=== PATIENT | male | born 1950 | race Caucasian/White ===

== ENCOUNTER 2017-09-20 11:27 | Inpatient (IN) | payer MEDICARE ==
[2017-09-20] MEDS ORDERED: SODIUM CHLORIDE 0.9% 1,000 ML IV STA (12:16)
[2017-09-20 12:34] LABS: Basophils % (A) 0 %; Eosinophils # (A) 0.2 k/uL (0-0.7); Eosinophils % (A) 3 %; HCT 38.4 % (39.0-53.0); HGB 13.5 gm/dL (13.0-17.5); Lymphocytes # (A) 1.7 k/uL (1.0-4.8); Lymphocytes % (A) 23 %; MCH 29.5 pg (25.0-35.0); MCHC 35.2 g/dL (31.0-37.0); MCV 83.9 fL (80.0-100.0); Mean Platelet Volume 7.1; Monocytes # (A) 0.4 k/uL (0-1.0); Monocytes % (A) 5 %; Neutrophils % (A) 67 %; Platelet Count 238 k/uL (150-450); RBC 4.58 m/uL (4.30-5.90); RDW 13.1 % (11.5-15.5); WBC 7.5 k/uL (3.8-10.6)
[2017-09-20 12:42] LABS: INR 0.9 (<1.2); Partial Thromboplastin Time 22.8 sec (22.0-30.0); Prothrombin Time 9.4 sec (9.0-12.0)
--- NOTE | 2017-09-20 12:45 | ED ---
General Adult HPI - General Chief complaint: Recheck/Abnormal Lab/Rx Stated complaint: weakness and numbness all over, head pain rt side Time Seen by Provider: 09/20/17 12:14 Source: patient, RN notes reviewed, old records reviewed Mode of arrival: ambulatory Limitations: no limitations - History of Present Illness Initial comments: This is a 67-year-old male to the ER for evaluation. This male presents ER for evaluation of multiple issues. Patient has history of heart disease. High blood pressure. Diabetes. Patient has recent diagnosis of right artery stenosis right carotid artery stenosis. Patient signed out AMA at Hospital he was supposed to procedure secondary to 8 hours lack of care and inappropriate care. Patient's symptoms are right-sided facial numbness right-sided facial weakness and generalized body weakness. Patient denies any new neurological symptoms - Related Data Home Medications Medication Instructions Recorded Confirmed Aspirin EC [Ecotrin Low Dose] 81 mg PO DAILY 09/20/17 09/20/17 Atenolol [Tenormin] 25 mg PO DAILY 09/20/17 09/20/17 Insulin Glargine,Hum.rec.anlog 68 unit SQ HS 09/20/17 09/20/17 [Lantus Solostar] Losartan Potassium [Cozaar] 100 mg PO DAILY 09/20/17 09/20/17 Multivitamins, Thera [Multivitamin 1 tab PO DAILY 09/20/17 09/20/17 (formulary)] [place]-3 Fatty Acids/Fish Oil [Fish 1 cap PO AC-BID 09/20/17 09/20/17 Oil 1,000 mg Softgel] Venlafaxine HCl [Effexor XR] 300 mg PO DAILY 09/20/17 09/20/17 Allergies Allergy/AdvReac Type Severity Reaction Status Date / Time atorvastatin [From Lipitor] Allergy Rash/Hives Verified 09/20/17 12:59 lisinopril Allergy Cough Verified 09/20/17 12:59 metformin Allergy Nausea & Verified 09/20/17 12:59 Vomiting & Diarrhea pioglitazone Allergy Unknown Verified 09/20/17 12:59 Review of Systems ROS Statement: Those systems with pertinent positive or pertinent negative responses have been documented in the HPI. ROS Other: All systems not noted in ROS Statement are negative. Past Medical History Past Medical History: Diabetes Mellitus, Hyperlipidemia, Hypertension History of Any Multi-Drug Resistant Organisms: None Reported Past Surgical History: Orthopedic Surgery Additional Past Surgical History / Comment(s): lt leg Past Psychological History: PTSD Smoking Status: Never smoker Past Alcohol Use History: Occasional Past Drug Use History: Marijuana General Exam - General Exam Comments Initial Comments: NIH of 0 Limitations: no limitations General appearance: alert, in no apparent distress Head exam: Present: atraumatic, normocephalic, normal inspection Eye exam: Present: normal appearance, PERRL, EOMI. Absent: scleral icterus, conjunctival injection, periorbital swelling ENT exam: Present: normal exam, mucous membranes moist Neck exam: Present: normal inspection. Absent: tenderness, meningismus, lymphadenopathy Respiratory exam: Present: normal lung sounds bilaterally. Absent: respiratory distress, wheezes, rales, rhonchi, stridor Cardiovascular Exam: Present: regular rate, normal rhythm, normal heart sounds. Absent: systolic murmur, diastolic murmur, rubs, gallop, clicks GI/Abdominal exam: Present: soft, normal bowel sounds. Absent: distended, tenderness, guarding, rebound, rigid Extremities exam: Present: normal inspection, full ROM, normal capillary refill. Absent: tenderness, pedal edema, joint swelling, calf tenderness Back exam: Present: normal inspection Neurological exam: Present: alert, oriented X3, CN II-XII intact Psychiatric exam: Present: normal affect, normal mood Skin exam: Present: warm, dry, intact, normal color. Absent: rash Course Vital Signs 09/20/17 11:35 Temperature 98.8 F Pulse Rate 78 Respiratory 20 Rate Blood Pressure 163/70 O2 Sat by Pulse 99 Oximetry - Reevaluation(s) Reevaluation #1: 09/20/17 14:10 Medical record request is made for all patient's outpatient studies from the Hospital see has been past week EKG Findings - EKG Comments: EKG Findings:: EKG shows normal sinus rhythm rate of 67, VA 198, QRS 86, QTc 405 Medical Decision Making - Medical Decision Making 67 male the ER for evaluation of right-sided facial numbness and paresthesia, denies weakness. Known history of right-sided carotid artery stenosis, will admit for neurological evaluation and treatment - Lab Data Result diagrams: 09/20/17 12:11 09/20/17 12:11 Lab Results 03/03/18 03/03/18 03/03/18 Range/Units 12:11 12:11 12:11 WBC 7.5 (3.8-10.6) k/uL RBC 4.58 (4.30-5.90) m/uL Hgb 13.5 (13.0-17.5) gm/dL Hct 38.4 L (39.0-53.0) % MCV 83.9 (80.0-100.0) fL MCH 29.5 (25.0-35.0) pg MCHC 35.2 (31.0-37.0) g/dL RDW 13.1 (11.5-15.5) % Plt Count 238 (150-450) k/uL Neutrophils % 67 % Lymphocytes % 23 % Monocytes % 5 % Eosinophils % 3 % Basophils % 0 % Neutrophils # 5.0 (1.3-7.7) k/uL Lymphocytes # 1.7 (1.0-4.8) k/uL Monocytes # 0.4 (0-1.0) k/uL Eosinophils # 0.2 (0-0.7) k/uL Basophils # 0.0 (0-0.2) k/uL PT (9.0-12.0) sec INR (<1.2) APTT (22.0-30.0) sec Sodium 138 (137-145) mmol/L Potassium 4.8 (3.5-5.1) mmol/L Chloride 105 (98-107) mmol/L Carbon Dioxide 24 (22-30) mmol/L Anion Gap 9 mmol/L BUN 18 (9-20) mg/dL Creatinine 0.70 (0.66-1.25) mg/dL Est GFR (MDRD) Af Amer >60 (>60 ml/min/1.73 sqM) Est GFR (MDRD) Non-Af >60 (>60 ml/min/1.73 sqM) Glucose 290 H (74-99) mg/dL Calcium 9.5 (8.4-10.2) mg/dL Phosphorus 3.9 (2.5-4.5) mg/dL Magnesium 1.9 (1.6-2.3) mg/dL Total Bilirubin 0.5 (0.2-1.3) mg/dL AST 27 (17-59) U/L ALT 35 (21-72) U/L Alkaline Phosphatase 85 (38-126) U/L Total Creatine Kinase 275 H (55-170) U/L CK-MB (CK-2) 3.9 H* (0.0-2.4) ng/mL CK-MB (CK-2) Rel Index 1.4 Troponin I <0.012 (0.000-0.034) ng/mL Total Protein 6.3 (6.3-8.2) g/dL Albumin 3.9 (3.5-5.0) g/dL 09/20/17 Range/Units 12:11 WBC (3.8-10.6) k/uL RBC (4.30-5.90) m/uL Hgb (13.0-17.5) gm/dL Hct (39.0-53.0) % MCV (80.0-100.0) fL MCH (25.0-35.0) pg MCHC (31.0-37.0) g/dL RDW (11.5-15.5) % Plt Count (150-450) k/uL Neutrophils % % Lymphocytes % % Monocytes % % Eosinophils % % Basophils % % Neutrophils # (1.3-7.7) k/uL Lymphocytes # (1.0-4.8) k/uL Monocytes # (0-1.0) k/uL Eosinophils # (0-0.7) k/uL Basophils # (0-0.2) k/uL PT 9.4 (9.0-12.0) sec INR 0.9 (<1.2) APTT 22.8 (22.0-30.0) sec Sodium (137-145) mmol/L Potassium (3.5-5.1) mmol/L Chloride (98-107) mmol/L Carbon Dioxide (22-30) mmol/L Anion Gap mmol/L BUN (9-20) mg/dL Creatinine (0.66-1.25) mg/dL Est GFR (MDRD) Af Amer (>60 ml/min/1.73 sqM) Est GFR (MDRD) Non-Af (>60 ml/min/1.73 sqM) Glucose (74-99) mg/dL Calcium (8.4-10.2) mg/dL Phosphorus (2.5-4.5) mg/dL Magnesium (1.6-2.3) mg/dL Total Bilirubin (0.2-1.3) mg/dL AST (17-59) U/L ALT (21-72) U/L Alkaline Phosphatase (38-126) U/L Total Creatine Kinase (55-170) U/L CK-MB (CK-2) (0.0-2.4) ng/mL CK-MB (CK-2) Rel Index Troponin I (0.000-0.034) ng/mL Total Protein (6.3-8.2) g/dL Albumin (3.5-5.0) g/dL Disposition Clinical Impression: Stenosis of right carotid artery Disposition: ADMITTED IP TO THIS HOSP Referrals: Harrison Veloz MD [Primary Care Provider] - 1-2 days
[2017-09-20 12:48] LABS: ALT 35 U/L (21-72); AST 27 U/L (17-59); Albumin 3.9 g/dL (3.5-5.0); Alkaline Phosphatase 85 U/L (38-126); Anion Gap 9 mmol/L; Blood Urea Nitrogen 18 mg/dL (9-20); Calcium 9.5 mg/dL (8.4-10.2); Carbon Dioxide 24 mmol/L (22-30); Chloride 105 mmol/L (98-107); Glucose 290 mg/dL (74-99); Phosphorus 3.9 mg/dL (2.5-4.5); Potassium 4.8 mmol/L (3.5-5.1); Sodium 138 mmol/L (137-145); Total Bilirubin 0.5 mg/dL (0.2-1.3); Total Protein 6.3 g/dL (6.3-8.2)
[2017-09-20 13:08] LABS: Creatine Kinase 275 U/L (55-170)
[2017-09-20 13:19] LABS: Troponin I <0.012 ng/mL (0.000-0.034)
[2017-09-20 13:26] LABS: Creatine Kinase MB 3.9 ng/mL (0.0-2.4)
[2017-09-20] MEDS ORDERED: ASPIRIN 325 MG TAB PO STA (14:06)
[2017-09-20] MEDS: SODIUM CHLORIDE 0.9% 1,000 ML IV SCH (14:43)
[2017-09-20 15:36] VITALS: BMI 28.7
[2017-09-20] MEDS ORDERED: TEMAZEPAM 15 MG CAP PO PRN (16:56)
[2017-09-20] MEDS ORDERED: ALPRAZolam 0.25 MG TAB PO PRN (16:56)
[2017-09-20] MEDS ORDERED: NON-FORMULARY DRUG (Omega-3 Fatty Acids/Fish Oil [Fish Oil 1,000 Mg Softgel] 1 CAP) PO SCH (17:30)
--- NOTE | 2017-09-20 18:21 | P.CNNES ---
History of Present Illness Consult date: 09/20/17 Reason for Consult: Patient admitted with right sided numbness and weakness. History of Present Illness: This patient is a 67-year-old right-handed white male who states that about a week ago he developed some right-sided facial numbness and swelling under his right jaw. He initially went to the Hospital in [facility] and apparently underwent some initial evaluation last week. He had a carotid artery study done which revealed him to have some evidence of right internal carotid artery stenosis. He was to follow-up palpation. Patient then went to the [place] clinic in [place] further evaluation. He states that the [place] referred him to [facility] in [place]. He was admitted there for further evaluation. He states he underwent a MRI of the brain at [place] which was completed on 09/18/2017. This MRI revealed evidence of mild atrophy and white matter disease without acute abnormality. There was no hemorrhage. Unremarkable MR brain perfusion without evidence of ischemic stroke or infarction. Patient also underwent a CTA angiogram of the head and neck. Final results of this are not available today. Patient did have evidence of right internal carotid artery occlusion however details were not available. The patient states he was at [place] for a few days and did not see a physician to review all of these test results. Patient was upset and signed out AGAINST MEDICAL ADVICE from there. Patient comes to the [facility] today for further evaluation. He complains of ongoing right-sided facial numbness and generalized weakness. He was evaluated in the ER by Dr. Franklin. He underwent NIH stroke scale assessment and his score was 0. The patient was admitted to Hospital for vascular surgery and cardiology consultation. Review of his hand records indicates his CTA angiogram of the head and neck showed occlusion of the distal right common carotid artery with no flow into the right internal carotid artery with cross filling from the left side. We will need to await further evaluation from vascular surgery. At this point the patient continues to have some evidence of right facial numbness. He has a long-standing history of diabetes mellitus. He complains of numbness in his hands and feet which is felt to be secondary to diabetic peripheral neuropathy. During his admission to the [facility] and [facility] he was found to have evidence of sialoadenitis which may have explained the swelling and his right submandibular region. The patient states he has no previous history of stroke. He does complain of right eye pain and states that since last week he has had some visual changes in his right eye which she describes is incomplete vision loss. We have recommended a ophthalmology consultation for further assessment. The ER physician has requested all of his outpatient studies from the 3 hospitals that he was admitted to last week. We' ll await those reports as well. Patient is now admitted and neurology has been consulted for further evaluation and recommendations. Review of Systems Constitutional: Denies chills, Denies fever Eyes: right blurred vision, right decreased vision, right loss of vision, denies pain Ears, nose, mouth and throat: Denies headache, Denies sore throat Cardiovascular: Denies chest pain, Denies shortness of breath Respiratory: Denies cough Gastrointestinal: Denies abdominal pain, Denies diarrhea, Denies nausea, Denies vomiting Musculoskeletal: Denies myalgias Integumentary: Denies pruritus, Denies rash Neurological: Reports loss of vision, Reports paresthesias, Denies numbness, Denies weakness Psychiatric: Denies anxiety, Denies depression Endocrine: Denies fatigue, Denies weight change Past Medical History Past Medical History: Diabetes Mellitus, Hyperlipidemia, Hypertension History of Any Multi-Drug Resistant Organisms: None Reported Past Surgical History: Orthopedic Surgery Additional Past Surgical History / Comment(s): lt leg Past Psychological History: PTSD Smoking Status: Former smoker Past Alcohol Use History: Occasional Past Drug Use History: Marijuana Medications and Allergies Home Medications Medication Instructions Recorded Confirmed Type Aspirin EC [Ecotrin Low Dose] 81 mg PO DAILY 09/20/17 09/20/17 History Atenolol [Tenormin] 25 mg PO DAILY 09/20/17 09/20/17 History Insulin Glargine,Hum.rec.anlog 68 unit SQ HS 09/20/17 09/20/17 History [Lantus Solostar] Losartan Potassium [Cozaar] 100 mg PO DAILY 09/20/17 09/20/17 History Multivitamins, Thera [Multivitamin 1 tab PO DAILY 09/20/17 09/20/17 History (formulary)] [place]-3 Fatty Acids/Fish Oil [Fish 1 cap PO AC-BID 09/20/17 09/20/17 History Oil 1,000 mg Softgel] Venlafaxine HCl [Effexor XR] 300 mg PO DAILY 09/20/17 09/20/17 History Allergies Allergy/AdvReac Type Severity Reaction Status Date / Time atorvastatin [From Lipitor] Allergy Rash/Hives Verified 09/20/17 12:59 lisinopril Allergy Cough Verified 09/20/17 12:59 metformin Allergy Nausea & Verified 09/20/17 12:59 Vomiting & Diarrhea pioglitazone Allergy Unknown Verified 09/20/17 12:59 Physical Examination - Vital Signs Vital Signs: Vital Signs Temp Pulse Pulse Resp BP BP Pulse Ox 09/20/17 15:18 96.8 F L 70 18 135/65 97 09/20/17 14:27 62 16 114/63 96 09/20/17 13:07 62 16 139/67 97 09/20/17 11:35 98.8 F 78 20 163/70 99 Intake and Output 09/20/17 09/20/17 09/20/17 06:59 14:59 22:59 Other: Weight 90.7 kg Patient Weight 09/21/17 06:59 Weight 90.7 kg - Constitutional General appearance: average body habitus, cooperative - EENT EENT: PERRL, mucous membranes moist - Respiratory Respiratory: lungs clear, normal breath sounds - Cardiovascular Cardiovascular: regular rate, normal S1, normal S2 Extremities: no peripheral edema bilaterally - Gastrointestinal Gastrointestinal: normoactive bowel sounds - Integumentary Integumentary: normal - Neurologic Cranial nerve examination: PERRL, EOMI, VFF, V1/V2/V3 grossly intact, face symmetric, tongue midline, intact gag reflex, intact corneal reflex, normal palatal elevation Speech examination: intact Sensorimotor examination: intact Detailed motor examination: grossly full strength in all extremities Motor examination - right side: 4/5: biceps, triceps, wrist flexion, wrist extension, meat butcher, hip flexors, knee extensors, dorsiflexion, toe extension (EHL) , plantarflexion Motor examination - left side: 4/5: biceps, triceps, wrist flexion, wrist extension, meat butcher, hip flexors, knee extensors, dorsiflexion, toe extension (EHL) , plantarflexion Detailed sensory examination: intact Reflex and gait examination: intact Reflexes: 1+: ankle, bicep, knee, tricep - Musculoskeletal Musculoskeletal: no pain - Psychiatric Psychiatric: mood/affect appropriate, cooperative Results - Laboratory Findings CBC and BMP: 09/20/17 12:11 09/20/17 12:11 Abnormal Lab Findings: Abnormal Labs 09/20/17 09/20/17 09/20/17 12:11 12:11 12:11 Hct 38.4 L Glucose 290 H Total Creatine Kinase 275 H CK-MB (CK-2) 3.9 H* Assessment and Plan (1) TIA (transient ischemic attack) Current Visit: Yes Status: Acute Code(s): G45.9 - TRANSIENT CEREBRAL ISCHEMIC ATTACK, UNSPECIFIED SNOMED Code(s): 552393982 (2) Carotid artery occlusion Current Visit: Yes Status: Acute Code(s): I65.29 - OCCLUSION AND STENOSIS OF UNSPECIFIED CAROTID ARTERY SNOMED Code(s): 217917431 (3) Diabetic peripheral neuropathy Current Visit: Yes Status: Acute Code(s): E11.42 - TYPE 2 DIABETES MELLITUS WITH DIABETIC POLYNEUROPATHY SNOMED Code(s): 090363832 (4) Sialoadenitis of submandibular gland Current Visit: Yes Status: Acute Code(s): K11.20 - SIALOADENITIS, UNSPECIFIED SNOMED Code(s): 966464545 Plan: This patient is a 67-year-old male who is being evaluated for 1 week history of right-sided facial numbness and swelling of the right submandibular gland. He was initially evaluated at [facility] in [place] and was advised to follow-up outpatient for carotid artery disease. Patient went to the [facility] in [place] where he was referred to [facility] for further evaluation. He underwent a MRI of the brain on 09/18/2017 and surgical he had a CTA angiogram of the head and neck. The results indicated he had occlusion of the right internal carotid artery. Patient signed out AMA from [place] and came today to [facility] for further follow-up. The patient states his symptoms are right-sided facial numbness. Exact etiology still remains unclear. We have recommended that he should be evaluated by vascular surgery and cardiology. His recent MRI of the brain report was reviewed and fails to reveal any evidence of acute stroke. This MRI was done on 09/18/2017. Patient is to be maintained on aspirin at this time pending vascular surgery consultation and recommendations. He apparently had a CTA angiogram of the head and neck done at [facility]'s and we will await those results and report. The patient is advised to continue on current treatment with aspirin for secondary stroke prevention. His NIH stroke scale in the ER was 0. We will await further recommendations and management of this isolated right carotid artery stenosis from vascular surgery. His overall prognosis at this time remains guarded. Time with Patient: Greater than 30
--- NOTE | 2017-09-20 18:24 | HP ---
HISTORY AND PHYSICAL CHIEF COMPLAINTS: Dizziness and numbness otherwise of the face. HISTORY OF PRESENT ILLNESS: This is a 67-year-old gentleman with a past medical history of diabetes, hypertension, hyperlipidemia, being followed for Dr. Funk in the [place] [facility], also had PTSD. The patient apparently had numbness of the face and some dizziness and patient went to [facility] and subsequently patient went home and subsequently patient went to the [place] and subsequently transferred to [facility] in [place] where the patient has multiple evaluations, which showed including MRA and CTA. CTA showed evidence of a total occlusion of the right side and multiple other vascular pathology and currently the patient left the hospital against medical advice and the patient has presented to [facility] with similar complaints. There is no history of any fever, rigors, no history of headache, loss of consciousness, seizures. PAST MEDICAL HISTORY: History of diabetes, hypertension, hyperlipidemia, history of PTSD. MEDICATIONS PRIOR TO ADMISSION INCLUDE: 1. Effexor XR 300 mg p.o. daily. 2. [place]-3 fatty acids p.o. b.i.d. 3. Lantus 68 units subcu q.h.s. 4. Ecotrin 81 mg. 5. Multivitamin 1 p.o. daily. 6. Cozaar 100 mg b.i.d. 7. Tenormin 25 mg p.o. daily. ALLERGIES: LIPITOR, LISINOPRIL, METFORMIN, ACTOS. FAMILY HISTORY: No history of heart disease or strokes. SOCIAL HISTORY: Previous history of smoking, history of THC. REVIEW OF SYSTEMS: ENT: No diminished vision. CARDIOVASCULAR: No angina. RESPIRATORY SYSTEM: No cough or hemoptysis. GI: No nausea. : No dysuria. NERVOUS SYSTEM: As mentioned earlier. MUSCULOSKELETAL: As mentioned earlier. HEMATOLOGY: No history of anemia. ENDOCRINE: Diabetes. CONSTITUTIONAL: As mentioned earlier. DERMATOLOGY: Negative. PSYCHIATRY: As mentioned earlier. PHYSICAL EXAMINATION: Patient is alert and oriented x3. Pulse 70, blood pressure 130/61, respiration 18, temperature 96.8, pulse ox 97% on room air. HEENT: Conjunctivae normal. Oral mucosa moist. Neck is no jugular venous distention. No lymph node enlargement. CARDIOVASCULAR SYSTEM: S1, S2, muffled. RESPIRATORY: Breath sounds diminished at the bases. A few scattered rhonchi. No crackles. ABDOMEN: Soft, nontender. No mass. LEGS: No edema, no swelling. NERVOUS SYSTEM: Higher functions as mentioned earlier. Cranial nerves 2 through 12 grossly intact. Eyes moves fully, no nystagmus, no diplopia. No facial deviation. Otherwise, moves all 4 limbs. No sensory dysfunction. Power is normal. Gait is normal. SKIN: No ulcer, rash, or bleeding. LYMPHATICS: No lymph node enlargement in the neck or axillae. JOINTS: No active deformity or arthropathy. LAB: CBC within normal limits and INR is 0.9. Otherwise, the CMP shows sodium 130, potassium 4.2, glucose 219, CK-MB is 3.9. ASSESSMENT: 1. Dizziness for evaluation of possible acute transient ischemic attack with vertebrobasilar system. 2. Right carotid occlusion. 3. Diabetes mellitus type 2. 4. History of hypertension. 5. Hyperlipidemia. 6. History of degenerative joint disease. 7. History of PTSD. 8. Remote history of nicotine dependence. 9. History of THC. RECOMMENDATIONS: In this 67-year-old gentleman who presented with multiple complex medical issues, will monitor the patient closely, continue with the current management and will continue with the symptomatic treatment. Will initiate antiplatelet agents. Symptomatic treatment. Monitor blood sugars closely. Monitor blood pressure closely. Neurology evaluation. Otherwise, neurovascular workup and I would also recommend Cardiology and Vascular Surgery followup also. Prognosis guarded because of multiple complex medical conditions. Further recommendations will follow. Discussed with the patient. [facility] [place] MMODL / IJN: [id number] /
[2017-09-20] MEDS: MECLIZINE 12.5 MG TAB PO SCH ×2 (19:03→23:01)
[2017-09-20] MEDS: INSULIN ASPART 100 UNIT/ML 1 ML 10 ML VIAL SQ SCH ×2 (19:03→22:05)
[2017-09-20] MEDS ORDERED: INSULIN DETEMIR 100 UNIT/ML 10 ML VIAL SQ SCH (21:00)
[2017-09-20 21:39] LABS: Glucose,Whole Blood 192 mg/dL (75-99)
[2017-09-20 23:15] LABS: Appearance,Urine Clear (Clear); Bilirubin,Urine Negative (Negative); Blood,Urine Negative (Negative); Color,Urine Yellow; Glucose,Urine (UA) 1+ (Negative); Ketones,Urine Negative (Negative); Leukocyte Esterase,Urine Negative (Negative); PH, Urine 6.5 (5.0-8.0); Protein,Urine Negative (Negative); Specific Gravity,Urine 1.017 (1.001-1.035); Urobilinogen,Urine <2.0 mg/dL (<2.0)
[2017-09-20 23:25] LABS: Amphetamine Screen,Urine Not Detected (NotDetected); Barbiturate Screen,Urine Not Detected (NotDetected); Benzodiazepines Screen,Urine Not Detected (NotDetected); Cocaine Screen,Urine Not Detected (NotDetected); Methadone Screen, Urine Not Detected (NotDetected); Opiate Screen,Urine Not Detected (NotDetected); Oxycodone Screen, Urine Not Detected (NotDetected); Phencyclidine Screen,Urine Not Detected (NotDetected); Tricyclic Antidepressant,Urine Not Detected (NotDetected); Urn Cannabinoid Scrn Detected (NotDetected)
[2017-09-21 05:53] LABS: Anion Gap 5 mmol/L; Blood Urea Nitrogen 16 mg/dL (9-20); Carbon Dioxide 25 mmol/L (22-30); Chloride 109 mmol/L (98-107); Cholesterol 236 mg/dL (<200); Glucose 133 mg/dL (74-99); HDL Cholesterol 34 mg/dL (40-60); Potassium 4.3 mmol/L (3.5-5.1); Sodium 139 mmol/L (137-145)
[2017-09-21 05:56] LABS: Basophils % (A) 0 %; Eosinophils # (A) 0.2 k/uL (0-0.7); Eosinophils % (A) 3 %; HCT 38.8 % (39.0-53.0); HGB 13.3 gm/dL (13.0-17.5); Lymphocytes # (A) 2.5 k/uL (1.0-4.8); Lymphocytes % (A) 35 %; MCH 29.8 pg (25.0-35.0); MCHC 34.4 g/dL (31.0-37.0); MCV 86.7 fL (80.0-100.0); Mean Platelet Volume 6.3; Monocytes # (A) 0.4 k/uL (0-1.0); Monocytes % (A) 6 %; Neutrophils # (A) 3.9 k/uL (1.3-7.7); Neutrophils % (A) 55 %; Platelet Count 206 k/uL (150-450); RBC 4.47 m/uL (4.30-5.90); RDW 13.1 % (11.5-15.5); WBC 7.1 k/uL (3.8-10.6)
[2017-09-21 06:03] LABS: Triglycerides 664 mg/dL (<150)
[2017-09-21 06:12] LABS: Glucose,Whole Blood 126 mg/dL (75-99)
[2017-09-21] MEDS: INSULIN ASPART 100 UNIT/ML 1 ML 10 ML VIAL SQ SCH ×2 (06:15→11:47)
[2017-09-21] MEDS ORDERED: PANTOPRAZOLE 40 MG TABLET PO SCH (07:30)
[2017-09-21 07:49] VITALS: RESP 18
[2017-09-21] MEDS: MECLIZINE 12.5 MG TAB PO SCH (07:53)
[2017-09-21] MEDS: SODIUM CHLORIDE 0.9% 1,000 ML IV SCH (07:53)
[2017-09-21] MEDS ORDERED: VENLAFAXINE HCL ER 150 MG CAP PO SCH (09:00)
[2017-09-21] MEDS ORDERED: ENOXAPARIN 40 MG/0.4 ML SYRINGE SQ SCH (09:00)
[2017-09-21] MEDS ORDERED: ATENOLOL 25 MG TAB PO SCH (09:00)
[2017-09-21] MEDS ORDERED: ASPIRIN 81 MG PO SCH (09:00)
[2017-09-21] MEDS ORDERED: LOSARTAN 50 MG TAB PO SCH (09:00)
--- NOTE | 2017-09-21 10:16 | CONS ---
CONSULTATION Mr. Maciel is a 67-year-old gentleman who is seen for cardiac evaluation. The patient's medical records were reviewed. This patient has been having some numbness over the right side of the face and swelling in the right submandibular area. Patient was initially evaluated at [facility] and subsequently patient went to the [place] [facility] in [place]. The patient has been found to have total occlusion of the right internal carotid artery. The patient was not happy over there and so he came over here. The patient's MRI did not show any definite evidence of a stroke. The patient has a history of diabetes, hypertension, hyperlipidemia and history of posttraumatic disorder. The patient has been moderately active physically. There is no history of angina or myocardial infarction. HOME MEDICATIONS: Include Effexor, Goode, Lantus, insulin, Cozaar and Tenormin. ALLERGY: LIPITOR, LISINOPRIL, METFORMIN AND ACTOS. PHYSICAL EXAMINATION: At present reveals a 67-year-old gentleman who does not appear to be in any acute distress. The patient's blood pressure is 159/75 mmHg. Head and ENT examination is negative. NECK: Supple. There is no increase in jugular venous pressure. Heart first and second heart sounds are normal. There is no evidence of any murmur. Lungs are clinically clear to auscultation and percussion. ABDOMEN: Soft. Liver and spleen are not enlarged. Bowel sounds are heard. Extremities: Peripheral pulses are 2+. EKG shows normal sinus rhythm without any acute ischemic changes. Patient's triglycerides are elevated and HDL is low. FINAL IMPRESSION: 1. This patient is admitted with symptoms of numbness and facial swelling on the right side which probably is not likely due to right internal carotid artery occlusion because it is on the same side. 2. Hyperlipidemia. 3. Diabetes. 4. High blood pressure. RECOMMENDATIONS: We will add amlodipine 5 mg daily to control the blood pressure. The patient gives a history that he is ALLERGIC TO LIPITOR. In view of that, we will try the patient on Pravachol 40 mg daily. After the patient's neurological evaluation, we will recommend the patient to be evaluated with a stress test to rule out any underlying significant coronary artery disease. MMODL / IJN: [id number] /
--- NOTE | 2017-09-21 10:44 | US ---
EXAMINATION TYPE: US carotid duplex BILAT DATE OF EXAM: 09/21/2017 COMPARISON: NONE CLINICAL HISTORY: dizziness. Dizziness, numbness right side EXAM MEASUREMENTS: RIGHT: Peak Systolic Velocity (PSV) cm/sec ----- Right CCA: 31.2 ----- Right ICA: occluded ----- Right ECA: 78.8 ICA/CCA ratio: n/a RIGHT: End Diastole cm/sec ----- Right CCA: 0.0 ----- Right ICA: occluded ----- Right ECA: 19.3 LEFT: Peak Systolic Velocity (PSV) cm/sec ----- Left CCA: 101.6 ----- Left ICA: 116.1 ----- Left ECA: 111.3 ICA/CCA ratio: 1.1 LEFT: End Diastole cm/sec ----- Left CCA: 27.3 ----- Left ICA: 37.0 ----- Left ECA: 12.8 VERTEBRALS (direction of flow): Right Vertebral: Antegrade Left Vertebral: Antegrade Severe plaque right bulb/bifurcation. Unable to detect blood flow within right ICA at this time. Diff icult to evaluate right bulb velocities due to significant amount of plaque. Mild to moderate plaque left bifurcation There appears to be some internal signal within the right internal carotid artery suggesting complete obstruction. IMPRESSION: 1. Complete right internal carotid artery obstruction based on ultrasound findings. Very minimal flui d is not excluded additional confirmation with CTA or angiography could be performed. 2. Atheromatous plaquing without significant stenosis left carotid artery system. Criteria for Assigning % of Stenosis / Diameter reduction (Estimation based on the indirect measurements of the internal carotid artery velocities (ICA PSV). 1. Normal (no stenosis)=ICA PSV < 125 cm/s: ratio < 2.0: ICA EDV<40 cm/s. 2. Less than 50% stenosis=ICA PSV < 125 cm/s: ratio < 2.0: ICA EDV<40 cm/s. 3. 50 to 69% stenosis=ICA PSV of 125 to 230 cm/s: ration 2.0 ? 4.0: ICA EDV 40-100 cm/s. 4. Greater than 70% stenosis to near occlusion= ICA PSV > 230 cm/s: ratio > 4.0: ICA EDV > 100 cm/s. 5. Near occlusion= ICA PSV velocities may be low or undetectable: variable ratio and ICA EDV. 6. Total occlusion=unable to detect flow.
[2017-09-21 10:48] VITALS: BP 163/79; PULSE 69; TEMP 97.5
[2017-09-21] MEDS ORDERED: amLODIPine 5 MG TAB PO SCH (11:15)
[2017-09-21 11:45] LABS: Glucose,Whole Blood 203 mg/dL (75-99)
[2017-09-21] MEDS ORDERED: ASPIRIN 325 MG TAB PO SCH (12:00)
[2017-09-21] MEDS ORDERED: MULTIVITAMINS, THERA 1 EACH TAB PO SCH (12:00)
--- NOTE | 2017-09-21 14:28 | CONS ---
CONSULTATION This is a 67-year-old gentleman who has been admitted to [facility] with a history of numbness and tingling sensation on the right side of the face and right some mandibular pain and noticed a mass about a week ago. The patient had a workup at [place] then he went to [facility] in [place]. Patient had MRI of the brain and CTA of the carotid artery. There was no intracranial hemorrhage noted and the patient's CT of the carotid shows right common internal totally occluded which is chronic in nature and left side is patent. The patient has no history of TIA, muscular disorder or any motor deficit. The patient had ultrasound done at [facility] which showed right carotid totally occluded. MEDICAL HISTORY: History of diabetes, hypertension, hyperlipidemia. EXAMINATION: Patient was seen in his room. His vital signs stable. NECK: Supple. Trachea central. CHEST: Clear to auscultation. ABDOMEN: Soft, nontender. Brachial and radial femoral pulses are present. NEURO: Patient has normal motor function upper and lower extremity. 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 Plan is at this point, patient is not a candidate for any surgical intervention. Recommend antiplatelet therapy and he may need opinion from the ENT for his possible submandibular gland enlargement and we will follow this patient in the office in 2 weeks. MMODL / IJN: [id number] /
--- NOTE | 2017-09-21 15:33 | P.PN ---
Subjective Progress Note Date: 09/21/17 This patient is a 67-year-old right-handed white male who was admitted yesterday with symptoms of right-sided facial numbness. Patient was diagnosed just a week ago at [facility] with possible acute right internal carotid artery stenosis. He was discharge and recommended to follow- up as outpatient. He was then having symptoms and decided [place]. [place] was [place] the [place] to [facility]. He was seen there and had several testing including MRI of the brain done. He was hospitalized for at least 1-2 days. Patient was upset he did not have any clear answers for his clinical findings and he signed out AMA. He came to the hospital here [facility] yesterday and was admitted. He underwent a carotid Doppler ultrasound which reveals him to have total occlusion of the right internal carotid artery. He was having symptoms of right facial numbness etiology still unclear. He did undergo an MRI at [facility] which was reported negative for any evidence of acute stroke or hemorrhage. He is waiting to be seen by vascular surgery regarding his total occlusion of the carotid artery. The patient was seen today by Dr. Aguirre reviewed his recent studies in detail. He is not a candidate for any surgical intervention at this time. He is advised to continue with antiplatelet therapy and to follow-up with Dr. Aguirre in 2 weeks. Patient neurologically remained stable. He is being considered for possible discharge home later today. We will continue close neurological follow-up with the patient. At this time no clear cause for his right facial numbness. His neurological examination remains nonfocal. Objective - Vital Signs Vital signs: Vital Signs Temp 97.5 F L 09/21/17 10:48 Pulse 69 09/21/17 10:48 Resp 18 09/21/17 10:48 BP 163/79 09/21/17 10:48 Pulse Ox 98 09/21/17 10:48 Intake & Output 09/20/17 09/21/17 09/21/17 18:59 06:59 18:59 Intake Total 1900 Output Total 300 Balance 1600 Weight 90.7 kg 93.1 kg Intake: Intake, IV Titration 1600 Amount Sodium Chloride 0.9% 1, 1600 000 ml @ 100 mls/hr IV . Q10H STA Rx#:[id number] Oral 300 Output: Urine 300 Other: Voiding Method Toilet Urinal # Voids 1 - Exam Physical examination: PHYSICAL EXAMINATION: Patient is resting comfortably in bed. VITAL SIGNS: Blood pressure is [163/79]. Heart rate is [69]. Respiration is [18] . Temperature is [97.5]. HEENT: Head is atraumatic, neck is supple, there were no carotid bruits. CHEST: Lungs are clear to auscultation and percussion. CARDIAC: S1, S2 normal rate and rhythm. There is no murmur. ABDOMEN: Soft and nontender. Bowel sounds are present. EXTREMITIES: There is no pedal edema. Peripheral pulses are present. Neurological examination: Patient has a nonfocal neurological examination today. Patient has no evidence of right facial droop. His symptoms of slight paresthesia on the right face is less noticeable for him today. - Labs CBC & Chem 7: 09/21/17 05:19 09/21/17 05:19 Labs: Abnormal Lab Results - Last 24 Hours (Table) 09/20/17 09/20/17 09/21/17 Range/Units 21:37 23:05 05:19 Hct 38.8 L (39.0-53.0) % Chloride (98-107) mmol/L Glucose (74-99) mg/dL POC Glucose (mg/dL) 192 H (75-99) mg/dL Triglycerides (<150) mg/dL Cholesterol (<200) mg/dL HDL Cholesterol (40-60) mg/dL Urine Glucose (UA) 1+ H (Negative) U Marijuana (THC) Screen Detected H (NotDetected) 09/21/17 09/21/17 09/21/17 Range/Units 05:19 06:10 11:35 Hct (39.0-53.0) % Chloride 109 H (98-107) mmol/L Glucose 133 H (74-99) mg/dL POC Glucose (mg/dL) 126 H 203 H (75-99) mg/dL Triglycerides 664 H (<150) mg/dL Cholesterol 236 H (<200) mg/dL HDL Cholesterol 34 L (40-60) mg/dL Urine Glucose (UA) (Negative) U Marijuana (THC) Screen (NotDetected) Assessment and Plan (1) TIA (transient ischemic attack) Current Visit: Yes Status: Acute Code(s): G45.9 - TRANSIENT CEREBRAL ISCHEMIC ATTACK, UNSPECIFIED SNOMED Code(s): 521096073 (2) Carotid artery occlusion Current Visit: Yes Status: Acute Code(s): I65.29 - OCCLUSION AND STENOSIS OF UNSPECIFIED CAROTID ARTERY SNOMED Code(s): 714349994 (3) Diabetic peripheral neuropathy Current Visit: Yes Status: Acute Code(s): E11.42 - TYPE 2 DIABETES MELLITUS WITH DIABETIC POLYNEUROPATHY SNOMED Code(s): 480504775 (4) Sialoadenitis of submandibular gland Current Visit: Yes Status: Acute Code(s): K11.20 - SIALOADENITIS, UNSPECIFIED SNOMED Code(s): 522930157 Plan: This patient is a 67-year-old gentleman being evaluated for right internal carotid artery stenosis. Patient underwent recent hospitalization at [facility] in [place]. He completed an MRI of the brain as well as MR angiogram. Before further recommendations could be given to him there he signed out AMA. He was admitted to the [facility] yesterday further evaluation. Complained of right facial numbness. We reviewed his recent MRI of the brain that was done on 09/18/2017 which failed to reveal any evidence of acute stroke. He was seen by cardiology and vascular surgery today. Vascular surgery states he has total occlusion of the right ICA and there is no surgical intervention for this condition. He is to continue with antiplatelet therapy. Patient is being discharged home possibly today. He may follow-up in the outpatient clinic in 3-4 weeks. His overall prognosis at this time remains guarded.
[2017-09-21 20:06] LABS: Hemoglobin A1C 8.2 % (4.0-6.0)
--- NOTE | 2017-09-21 20:25 | DS ---
DISCHARGE SUMMARY FINAL DIAGNOSES: 1. Dizziness, possible acute transient ischemic attack with vertebrobasilar system. 2. Right carotid total occlusion. 3. Diabetes mellitus type 2. 4. Hyperlipidemia. 5. History of degenerative joint disease. 6. History of posttraumatic stress disorder. 7. Remote history of nicotine dependence. 8. History of THC. 9. Hypertriglyceridemia. DISCHARGE DISPOSITION: The patient is being discharged in stable condition with guarded prognosis. The patient is extremely keen on going home. HISTORY OF PRESENT ILLNESS: This 67-year-old with past medical history of multiple medical problems being followed [facility] and Dr. Funk in the outpatient setting also had a workup. Currently the patient complained of dizziness and was treated symptomatically. The neurovascular workup showed completely occluded right carotid artery. The patient was admitted for the same. Recommend outpatient followup with Cardiology. Neurology saw the patient. On exam, vital signs stable. Cardiovascular: S1, S2. Abdomen: Soft and nontender. Central nervous system: No focal deficits. DISCHARGE ADVICE AND MEDICATIONS: 1. Diet is cardiac. 2. Activity limited until followup. 3. Followup with Dr. Veloz in 1-[address] Aguirre, as well as Neurology. 4. Followup with Cardiology in the outpatient setting for possible stress test. 5. Xanax 0.5 t.i.d. p.r.n. 6. Norvasc 5 mg p.o. daily. 7. Ecotrin 81 mg. 8. Tenormin 25 mg. 9. Fenofibrate 145 mg p.o. daily. 10.Lantus 68 units subcu q.h.s. 11.Cozaar 100 mg p.o. daily. 12.Antivert 12.5 mg t.i.d. 13.Multivitamins 1 p.o. daily. 14.[place]-3 fatty acids 1 p.o. b.i.d. 15.Pravastatin 40 mg q.h.s. 16.Effexor XR 300 mg p.o. daily. Once again, the patient is being discharged in stable condition with guarded prognosis. MMODL / IJN: [id number] / MTDD
[2017-09-21] MEDS ORDERED: PRAVASTATIN SODIUM 40 MG TAB PO SCH (21:00)
[2017-09-22] MEDS ORDERED: ATORVASTATIN 40 MG TAB PO SCH (09:00)
== END 2017-09-21 15:36 | disposition home or self-care (01) | DRG 68 ==
LOC: EC 11:27 → 6SEL 14:06
PROVIDERS: ADMIT Hospitalist; ATTEND Hospitalist
DX: I65.21 Occlusion and stenosis of right carotid artery (principal); E11.42 Type 2 diabetes mellitus with diabetic polyneuropathy; E78.1 Pure hyperglyceridemia; E78.5 Hyperlipidemia, unspecified; F43.10 Post-traumatic stress disorder, unspecified; H54.7 Unspecified visual loss; I10 Essential (primary) hypertension; K11.20 Sialoadenitis, unspecified; M19.90 Unspecified osteoarthritis, unspecified site; R20.2 Paresthesia of skin; H57.11 Ocular pain, right eye; Z87.891 Personal history of nicotine dependence; Z79.899 Other long term (current) drug therapy; Z79.4 Long term (current) use of insulin; Z79.82 Long term (current) use of aspirin; Z88.8 Allergy status to other drugs, medicaments and biological substances
CPT/HCPCS: 36415; 80048; 80053; 80061; 80306; 81003; 82550; 82553; 83036; 83735; 84100; 84484; 85025; 85610; 85730; 93005; 93880; 99285

== ENCOUNTER 2023-12-21 21:19 | Inpatient (IN) | payer MEDICARE ==
--- NOTE | 2023-12-21 21:51 | ED ---
General Adult HPI - General Chief complaint: Chest Pain Stated complaint: CHest Pain Time Seen by Provider: 12/21/23 21:20 Source: patient, EMS, RN notes reviewed, old records reviewed Mode of arrival: EMS Limitations: no limitations - History of Present Illness Initial comments: 73-year-old male history of diabetes, hypertension, peripheral vascular disease presents as transfer from outside hospital for evaluation of chest pain. Pain began yesterday evening and then subsided without treatment. It again began this afternoon and it was associated with diaphoresis and vomiting. Patient was seen at outside hospital where EKG, chest x-ray, laboratory testing was performed. Troponin was indeterminate at 0.04. EKG did show ST segment depression and the patient was transferred for cardiology evaluation. He does not have ongoing chest pain at this time. He was given aspirin nitroglycerin and is on Xarelto. - Related Data Home Medications Medication Instructions Recorded Confirmed Aspirin EC [Ecotrin Low Dose] 81 mg PO DAILY 09/20/17 09/20/17 Insulin Glargine,Hum.rec.anlog 68 unit SQ HS 09/20/17 09/20/17 [Lantus Solostar Pen] Losartan Potassium [Cozaar] 100 mg PO DAILY 09/20/17 09/20/17 Multivitamins, Thera [Multivitamin 1 tab PO DAILY 09/20/17 09/20/17 (formulary)] Mchenry-3 Fatty Acids/Fish Oil [Fish 1 cap PO AC-BID 09/20/17 09/20/17 Oil 1,000 mg Softgel] Venlafaxine HCl [Effexor XR] 300 mg PO DAILY 09/20/17 09/20/17 atenoloL [Tenormin] 25 mg PO DAILY 09/20/17 09/20/17 Previous Rx's Medication Instructions Recorded ALPRAZolam [Xanax] 0.25 mg PO TID PRN #20 tab 09/21/17 Fenofibrate Nanocrystallized 145 mg PO DAILY #30 tablet 09/21/17 [Tricor] Meclizine [Antivert] 12.5 mg PO TID #20 tab 09/21/17 Pravastatin Sodium [Pravachol] 40 mg PO HS #30 tab 09/21/17 amLODIPine [Norvasc] 5 mg PO DAILY #30 tab 09/21/17 Allergies Allergy/AdvReac Type Severity Reaction Status Date / Time atorvastatin [From Lipitor] Allergy Rash/Hives Verified 12/21/23 21:25 lisinopril Allergy Cough Verified 12/21/23 21:25 metformin Allergy Nausea & Verified 12/21/23 21:25 Vomiting & Diarrhea pioglitazone Allergy Unknown Verified 12/21/23 21:25 Review of Systems ROS Statement: Those systems with pertinent positive or pertinent negative responses have been documented in the HPI. ROS Other: All systems not noted in ROS Statement are negative. Past Medical History Past Medical History: Diabetes Mellitus, Hyperlipidemia, Hypertension History of Any Multi-Drug Resistant Organisms: None Reported Past Surgical History: Orthopedic Surgery Additional Past Surgical History / Comment(s): lt leg Past Psychological History: PTSD Smoking Status: Former smoker Past Alcohol Use History: Occasional Past Drug Use History: Marijuana General Exam Limitations: no limitations General appearance: alert, in no apparent distress Head exam: Present: atraumatic, normocephalic Eye exam: Present: normal appearance, PERRL ENT exam: Present: normal exam Neck exam: Present: normal inspection. Absent: tenderness, meningismus Respiratory exam: Present: normal lung sounds bilaterally. Absent: respiratory distress, wheezes Cardiovascular Exam: Present: normal rhythm, tachycardia GI/Abdominal exam: Present: soft. Absent: distended, tenderness, guarding Neurological exam: Present: alert, oriented X3 Psychiatric exam: Present: normal affect, normal mood Skin exam: Present: warm, dry, intact Course Vital Signs 12/21/23 21:22 Temperature 98.1 F Pulse Rate 102 H Respiratory 18 Rate Blood Pressure 149/81 O2 Sat by Pulse 95 Oximetry Medical Decision Making - Medical Decision Making Was pt. sent in by a medical professional or institution (, PA, PRODUCTION ASSISTANT, urgent care, hospital, or senior living...) When possible be specific @Sent from [facility] for evaluation of chest pain Did you speak to anyone other than the patient for history (EMS, parent, family, police, friend...)? What history was obtained from this source @ -No Did you review nursing and triage notes (agree or disagree)? Why? @ -I reviewed and agree with nursing and triage notes Were old charts reviewed (outside hosp., previous admission, EMS record, old EKG, old radiological studies, urgent care reports/EKG's, senior living records)? Report findings @ -No old charts were reviewed Differential Chest Pain: Stable Angina, Unstable Angina, STEMI, NSTEMI Aortic Dissection, Pneumothorax, Musculoskeletal, Esophageal Spasm GERD, Cholecystitis, Pancreatitis, Zoster, this is not meant to be an all-inclusive list. EKG interpreted by me (3pts min.). @ -Sinus tachycardia rate of 102,'s ST segment depression in the lateral precordial leads, rate of 102, TN interval 172, QRS duration 93, QTc 401 X-rays interpreted by me (1pt min.). @ -None done CT interpreted by me (1pt min.). @ -None done U/S interpreted by me (1pt. min.). @ -None done What testing was considered but not performed or refused? (CT, X-rays, U/S, labs)? Why? @ -None What meds were considered but not given or refused? Why? @ -None Did you discuss the management of the patient with other professionals (professionals i.e. , PA, PRODUCTION ASSISTANT, lab, RT, psych nurse, oncology social worker, technical communicator, teacher, logistics supply officer, employment evaluator/case manager)? Give summary @Case discussed with Re proctor for [facility] will admit Was smoking cessation discussed for >3mins.? @ -No Was critical care preformed (if so, how long)? @ -Yes 35 minutes Were there social determinants of health that impacted care today? How? (Homelessness, low income, unemployed, alcoholism, drug addiction, transportation, low edu. Level, literacy, decrease access to med. care, retirement, rehab)? @ -No Was there de-escalation of care discussed even if they declined (Discuss DNR or withdrawal of care, Hospice)? DNR status @ -No What co-morbidities impacted this encounter? (DM, HTN, Smoking, COPD, CAD, Cancer, CVA, ARF, Chemo, Hep., AIDS, mental health diagnosis, sleep apnea, morbid obesity)? @ -Diabetes, hypertension, peripheral vascular disease. Was patient admitted / discharged? Hospital course, mention meds given and route, prescriptions, significant lab abnormalities, going to OR and other pertinent info. @73-year-old male with presented from outside hospital with evaluation of chest pain. Patient had an episode of chest pain with typical features earlier in the day. This was relieved by nitroglycerin. Symptoms have improved at the time my evaluation. Initial troponin was 0.044. Repeat troponin was elevated at 0.8. Patient was started on heparin, continued on nitroglycerin. Serial cardiac enzymes have been ordered. He is admitted to a monitored bed with cardiology on consultation.. Undiagnosed new problem with uncertain prognosis? @ -No Drug Therapy requiring intensive monitoring for toxicity (Heparin, Nitro, Insulin, Cardizem)? @ -No Were any procedures done? @ -No Diagnosis/symptom? @Non ST segment elevated CO Acute, or Chronic, or Acute on Chronic? @ -Acute Uncomplicated (without systemic symptoms) or Complicated (systemic symptoms)? @Complicated Side effects of treatment? @ -No Exacerbation, Progression, or Severe Exacerbation? @ -No Poses a threat to life or bodily function? How? (Chest pain, USA, CO, pneumonia, PE, COPD, DKA, ARF, appy, cholecystitis, CVA, Diverticulitis, Homicidal, Suicidal, threat to staff... and all critical care pts) @Yes ACS - Lab Data Result diagrams: 12/21/23 21:37 12/21/23 21:37 Lab Results 12/21/23 12/21/23 12/21/23 Range/Units 21:37 21:37 21:37 WBC 8.4 (3.8-10.6) k/uL RBC 4.31 (4.30-5.90) m/uL Hgb 12.8 L (13.0-17.5) gm/dL Hct 37.6 L (39.0-53.0) % MCV 87.3 (80.0-100.0) fL MCH 29.7 (25.0-35.0) pg MCHC 34.1 (31.0-37.0) g/dL RDW 13.7 (11.5-15.5) % Plt Count 240 (150-450) k/uL MPV 7.4 Neutrophils % 72 % Lymphocytes % 17 % Monocytes % 6 % Eosinophils % 3 % Basophils % 0 % Neutrophils # 6.0 (1.3-7.7) k/uL Lymphocytes # 1.4 (1.0-4.8) k/uL Monocytes # 0.5 (0-1.0) k/uL Eosinophils # 0.3 (0-0.7) k/uL Basophils # 0.0 (0-0.2) k/uL PT 10.2 (10.0-12.5) sec INR 0.9 (<1.2) APTT 21.1 L (22.0-30.0) sec Sodium 137 (137-145) mmol/L Potassium 4.7 (3.5-5.1) mmol/L Chloride 108 H (98-107) mmol/L Carbon Dioxide 24 (22-30) mmol/L Anion Gap 5 mmol/L BUN 30 H (9-20) mg/dL Creatinine 0.97 (0.66-1.25) mg/dL Est GFR (CKD-EPI)AfAm >90 (>60 ml/min/1.73 sqM) Est GFR (CKD-EPI)NonAf 78 (>60 ml/min/1.73 sqM) Glucose 241 H (74-99) mg/dL Calcium 9.1 (8.4-10.2) mg/dL Magnesium 2.0 (1.6-2.3) mg/dL Total Bilirubin 0.5 (0.2-1.3) mg/dL AST 37 (17-59) U/L ALT 26 (4-49) U/L Alkaline Phosphatase 107 (38-126) U/L Troponin I (0.000-0.034) ng/mL Total Protein 6.2 L (6.3-8.2) g/dL Albumin 4.0 (3.5-5.0) g/dL 12/21/23 Range/Units 21:37 WBC (3.8-10.6) k/uL RBC (4.30-5.90) m/uL Hgb (13.0-17.5) gm/dL Hct (39.0-53.0) % MCV (80.0-100.0) fL MCH (25.0-35.0) pg MCHC (31.0-37.0) g/dL RDW (11.5-15.5) % Plt Count (150-450) k/uL MPV Neutrophils % % Lymphocytes % % Monocytes % % Eosinophils % % Basophils % % Neutrophils # (1.3-7.7) k/uL Lymphocytes # (1.0-4.8) k/uL Monocytes # (0-1.0) k/uL Eosinophils # (0-0.7) k/uL Basophils # (0-0.2) k/uL PT (10.0-12.5) sec INR (<1.2) APTT (22.0-30.0) sec Sodium (137-145) mmol/L Potassium (3.5-5.1) mmol/L Chloride (98-107) mmol/L Carbon Dioxide (22-30) mmol/L Anion Gap mmol/L BUN (9-20) mg/dL Creatinine (0.66-1.25) mg/dL Est GFR (CKD-EPI)AfAm (>60 ml/min/1.73 sqM) Est GFR (CKD-EPI)NonAf (>60 ml/min/1.73 sqM) Glucose (74-99) mg/dL Calcium (8.4-10.2) mg/dL Magnesium (1.6-2.3) mg/dL Total Bilirubin (0.2-1.3) mg/dL AST (17-59) U/L ALT (4-49) U/L Alkaline Phosphatase (38-126) U/L Troponin I 0.893 H* (0.000-0.034) ng/mL Total Protein (6.3-8.2) g/dL Albumin (3.5-5.0) g/dL Critical Care Time Critical Care Time: Yes Total Critical Care Time: 35 Disposition Clinical Impression: Acute non-ST elevation myocardial infarction (NSTEMI) Disposition: ADMITTED IP TO THIS [facility] Condition: Stable Is patient prescribed a controlled substance at d/c from ED?: No Referrals: Harrison Veloz MD [Primary Care Provider] - 1-2 days Time of Disposition: 22:52
[2023-12-21 21:59] LABS: Basophils % (A) 0 %; Eosinophils # (A) 0.3 k/uL (0-0.7); Eosinophils % (A) 3 %; HCT 37.6 % (39.0-53.0); HGB 12.8 gm/dL (13.0-17.5); Lymphocytes # (A) 1.4 k/uL (1.0-4.8); Lymphocytes % (A) 17 %; MCH 29.7 pg (25.0-35.0); MCHC 34.1 g/dL (31.0-37.0); MCV 87.3 fL (80.0-100.0); Mean Platelet Volume 7.4; Monocytes # (A) 0.5 k/uL (0-1.0); Monocytes % (A) 6 %; Neutrophils % (A) 72 %; Platelet Count 240 k/uL (150-450); RBC 4.31 m/uL (4.30-5.90); RDW 13.7 % (11.5-15.5); WBC 8.4 k/uL (3.8-10.6)
[2023-12-21 22:21] LABS: INR 0.9 (<1.2); Prothrombin Time 10.2 sec (10.0-12.5)
[2023-12-21 22:22] LABS: ALT 26 U/L (4-49); AST 37 U/L (17-59); African American GFR (CKD) >90 (>60 ml/min/1.73 sqM); Alkaline Phosphatase 107 U/L (38-126); Anion Gap 5 mmol/L; Blood Urea Nitrogen 30 mg/dL (9-20); Calcium 9.1 mg/dL (8.4-10.2); Carbon Dioxide 24 mmol/L (22-30); Chloride 108 mmol/L (98-107); Glucose 241 mg/dL (74-99); Non-African American GFR(CKD) 78 (>60 ml/min/1.73 sqM); Potassium 4.7 mmol/L (3.5-5.1); Sodium 137 mmol/L (137-145); Total Bilirubin 0.5 mg/dL (0.2-1.3); Total Protein 6.2 g/dL (6.3-8.2)
[2023-12-21 22:38] LABS: Partial Thromboplastin Time 21.1 sec (22.0-30.0)
[2023-12-21] MEDS ORDERED: MORPHINE SULFATE 2 MG/ML SYRINGE IVP PRN (22:48)
[2023-12-21] MEDS: HEPARIN SOD,PORK IN 0.45% NACL 25,000 UNIT in 0.45% NACL 1 250ML.BAG IV SCH (23:33)
[2023-12-21] MEDS: HEPARIN SODIUM 1,000 UN/ML (10ML VL) IV ONE (23:34)
[2023-12-22] MEDS: NITROGLYCERIN OINT 1 INCH/GM PACKET TOPICAL SCH (00:54)
[2023-12-22] MEDS: LORazepam 1 MG TAB PO STA (00:54)
[2023-12-22 05:04] LABS: INR 0.9 (<1.2); Partial Thromboplastin Time 29.3 sec (22.0-30.0); Prothrombin Time 10.5 sec (10.0-12.5)
[2023-12-22 05:25] LABS: Basophils % (A) 0 %; Eosinophils # (A) 0.4 k/uL (0-0.7); Eosinophils % (A) 6 %; HCT 35.3 % (39.0-53.0); HGB 12.5 gm/dL (13.0-17.5); Lymphocytes # (A) 1.9 k/uL (1.0-4.8); Lymphocytes % (A) 29 %; MCH 30.3 pg (25.0-35.0); MCHC 35.3 g/dL (31.0-37.0); MCV 85.9 fL (80.0-100.0); Mean Platelet Volume 7.8; Monocytes # (A) 0.4 k/uL (0-1.0); Monocytes % (A) 6 %; Neutrophils # (A) 3.8 k/uL (1.3-7.7); Neutrophils % (A) 56 %; Platelet Count 203 k/uL (150-450); RBC 4.11 m/uL (4.30-5.90); RDW 13.9 % (11.5-15.5); WBC 6.8 k/uL (3.8-10.6)
[2023-12-22] MEDS: PRAVASTATIN SODIUM 40 MG TAB PO SCH (06:15)
[2023-12-22] MEDS: HEPARIN SODIUM 1,000 UN/ML (10ML VL) IV PRN (06:53)
--- NOTE | 2023-12-22 07:44 | P.CRDCN ---
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 The patient presented to the hospital complaining of chest discomfort. He describes discomfort as burning sensation in the middle of the chest with radiation to the neck and to the jaw associated with shortness of breath as well as nausea and vomiting. No presynco pe or syncope. He underwent further investigation including troponin came in to be abnormal and consistent with acute coronary syndrome and also EKG changes laterally concerning for severe underlying coronary artery disease as well. Currently his chest pain-free. He is stable hemodynamically. He is slightly tachycardic. He is on heparin IV and he is on Nitropatch as well. No history of CAD and never had any coronary revascularization in the past. The examination is remarkable for stable vital signs with mild sinus tachycardia and regular rate and rhythm and clear breathing sounds bilaterally and no edema was noted in the lower extremities but he does have good bilateral femoral pulses. Assessment Acute non-ST elevation myocardial infarction Carotid atherosclerosis as described above Lower extremities PAD as described above Multiple comorbid conditions including diabetes and hypertension and dyslipidemia Plan Continue heparin Increase the dose of beta-barrie Proceed with coronary angiogram Echocardiogram with Doppler Follow-up with the patient Past Medical History Past Medical History: Diabetes Mellitus, Hyperlipidemia, Hypertension History of Any Multi-Drug Resistant Organisms: None Reported Past Surgical History: Orthopedic Surgery Additional Past Surgical History / Comment(s): lt leg Past Psychological History: PTSD Smoking Status: Former smoker Past Alcohol Use History: Occasional Past Drug Use History: Marijuana Medications and Allergies Home Medications Medication Instructions Recorded Confirmed Type Aspirin EC [Ecotrin Low Dose] 81 mg PO DAILY 09/20/17 09/20/17 History Insulin Glargine,Hum.rec.anlog 68 unit SQ HS 09/20/17 09/20/17 History [Lantus Solostar Pen] Losartan Potassium [Cozaar] 100 mg PO DAILY 09/20/17 09/20/17 History Multivitamins, Thera [Multivitamin 1 tab PO DAILY 09/20/17 09/20/17 History (formulary)] [place]-3 Fatty Acids/Fish Oil [Fish 1 cap PO AC-BID 09/20/17 09/20/17 History Oil 1,000 mg Softgel] Venlafaxine HCl [Effexor XR] 300 mg PO DAILY 09/20/17 09/20/17 History atenoloL [Tenormin] 25 mg PO DAILY 09/20/17 09/20/17 History ALPRAZolam [Xanax] 0.25 mg PO TID PRN #20 tab 09/21/17 Rx Fenofibrate Nanocrystallized 145 mg PO DAILY #30 tablet 09/21/17 Rx [Tricor] Meclizine [Antivert] 12.5 mg PO TID #20 tab 09/21/17 Rx Pravastatin Sodium [Pravachol] 40 mg PO HS #30 tab 09/21/17 Rx amLODIPine [Norvasc] 5 mg PO DAILY #30 tab 09/21/17 Rx Allergies Allergy/AdvReac Type Severity Reaction Status Date / Time atorvastatin [From Lipitor] Allergy Rash/Hives Verified 12/21/23 21:25 lisinopril Allergy Cough Verified 12/21/23 21:25 metformin Allergy Nausea & Verified 12/21/23 21:25 Vomiting & Diarrhea pioglitazone Allergy Unknown Verified 12/21/23 21:25 Physical Exam Vitals: Vital Signs Temp Pulse Resp BP Pulse Ox 12/22/23 04:00 95 18 148/81 95 12/22/23 03:00 102 H 18 158/82 94 L 12/22/23 00:25 101 H 18 139/75 93 L 12/21/23 23:25 102 H 18 140/73 95 12/21/23 21:22 98.1 F 102 H 18 149/81 95 Intake and Output 12/21/23 12/22/23 12/22/23 22:59 06:59 14:59 Intake Total 72.5 Balance 72.5 Intake: Intake, IV Titration 72.5 Amount Heparin Sod,Pork in 0.45% 72.5 NaCl 25,000 unit In 0.45 % NaCl 1 250ml.bag @ 10. 4982 UNITS/KG/HR 10 mls/ hr IV .Q24H [facility] Rx#: [id number] Other: Weight 95.254 kg Results 12/22/23 03:58 06/02/24 21:37 Cardiac Enzymes 12/21/23 12/21/23 12/22/23 Range/Units 21:37 21:37 00:38 AST 37 (17-59) U/L Troponin I 0.893 H* 2.180 H* (0.000-0.034) ng/mL 12/22/23 Range/Units 03:58 AST (17-59) U/L Troponin I 2.650 H* (0.000-0.034) ng/mL Coagulation 12/21/23 12/22/23 Range/Units 21:37 03:58 PT 10.2 10.5 (10.0-12.5) sec APTT 21.1 L 29.3 (22.0-30.0) sec CBC 24 12/22/23 Range/Units 21:37 03:58 WBC 8.4 6.8 (3.8-10.6) k/uL RBC 4.31 4.11 L (4.30-5.90) m/uL Hgb 12.8 L 12.5 L (13.0-17.5) gm/dL Hct 37.6 L 35.3 L (39.0-53.0) % Plt Count 240 203 (150-450) k/uL Comprehensive Metabolic Panel 12/21/23 Range/Units 21:37 Sodium 137 (137-145) mmol/L Potassium 4.7 (3.5-5.1) mmol/L Chloride 108 H (98-107) mmol/L Carbon Dioxide 24 (22-30) mmol/L BUN 30 H (9-20) mg/dL Creatinine 0.97 (0.66-1.25) mg/dL Glucose 241 H (74-99) mg/dL Calcium 9.1 (8.4-10.2) mg/dL AST 37 (17-59) U/L ALT 26 (4-49) U/L Alkaline Phosphatase 107 (38-126) U/L Total Protein 6.2 L (6.3-8.2) g/dL Albumin 4.0 (3.5-5.0) g/dL Current Medications Generic Name Dose Route Start Last Admin Trade Name Freq PRN Reason Stop Dose Admin Amlodipine Besylate 5 mg 12/22/23 09:00 Amlodipine 5 Mg Tab PO DAILY BHAVNA Aspirin 325 mg 12/22/23 09:00 Aspirin 325 [address] Tab [address] [facility] Heparin Sodium (Porcine) 0 unit 12/21/23 22:47 12/22/23 06:53 Heparin Sodium 1,000 Un/Ml (10ml Vl) IV 4,000 unit PER PROTOCOL PRN Administration Low PTT Protocol Heparin Sodium/Sodium Chloride 250 mls @ 10 mls/hr 12/21/23 23:00 12/22/23 06:48 25,000 unit/ Sodium Chloride IV 13.498 units/kg/hr .Q24H BHAVNA 12.857 mls/hr Titration Protocol 10.4982 UNITS/KG/HR Metoprolol Tartrate 50 mg 12/22/23 09:00 Metoprolol Tartrate 25 [address] Tab PO [address] [facility] Morphine Sulfate 2 mg 12/21/23 22:48 Morphine Sulfate 2 Mg/Ml Syringe IVP Q5M PRN Chest Pain Nitroglycerin 1 inch 12/22/23 00:00 12/22/23 06:16 Nitroglycerin Oint 1 Inch/Gm Packet TOPICAL [address] [facility] Administration Pravastatin Sodium 40 mg 12/22/23 04:30 12/22/23 06:15 Pravastatin Sodium 40 Mg Tab PO 40 mg HS BHAVNA Administration Intake and Output 12/21/23 12/22/23 12/22/23 22:59 06:59 14:59 Intake Total 72.5 Balance 72.5 Intake: Intake, IV Titration 72.5 Amount Heparin Sod,Pork in 0.45% 72.5 NaCl 25,000 unit In 0.45 % NaCl 1 250ml.bag @ 10. 4982 UNITS/KG/HR 10 mls/ hr IV .Q24H [facility] Rx#: [id number] Other: Weight 95.254 kg 12/22/23 03:58 12/21/23 21:37
[2023-12-22] MEDS: ASPIRIN 325 MG TAB PO SCH (08:57)
[2023-12-22] MEDS: METOPROLOL TARTRATE 50 MG TAB PO SCH (08:57)
[2023-12-22] MEDS: amLODIPine 5 MG TAB PO SCH (08:57)
[2023-12-22] MEDS ORDERED: METOPROLOL TARTRATE 25 MG TAB PO SCH (09:00)
[2023-12-22 09:02] LABS: Chol/HDL Ratio 3.17 Ratio; LDL Cholesterol,Calculated 40.4 mg/dL (0.0-131.0)
--- NOTE | 2023-12-22 10:43 | P.HPIM ---
History of Present Illness 71-year-old pleasant male came with complaints of chest pressure-like sensation radiating to the neck along with some shortness of breath. Patient is found to have significant ST-T wave changes in the anterolateral leads. Patient troponin is elevated and needs an upward trend highest being around 2.7. Patient was started on IV heparin patient will undergo cardiac catheterization today patient also had a recent upper respiratory viral illness about a month ago. Patient does have history of cerebrovascular disease and underwent a prior risk of revascularization procedure and bilateral femoral endarterectomy. Patient continues to smoke but trying to quit and cut down significantly. Patient denies any orthopnea paroxysmal nocturnal dyspnea patient does not have any pedal edema not in congestive heart failure exacerbation. REVIEW OF SYSTEMS: CONSTITUTIONAL: No fever, no malaise, no fatigue. HEENT: No recent visual problems or hearing problems. Denied any sore throat. CARDIOVASCULAR: No chest pain, orthopnea, PND, no palpitations, no syncope. PULMONARY: No shortness of breath, no cough, no hemoptysis. GASTROINTESTINAL: No diarrhea, no nausea, no vomiting, no abdominal pain. NEUROLOGICAL: No headaches, no weakness, no numbness. HEMATOLOGICAL: Denies any bleeding or petechiae. GENITOURINARY: Denies any burning micturition, frequency, or urgency. MUSCULOSKELETAL/RHEUMATOLOGICAL: Denies any joint pain, swelling, or any muscle pain. ENDOCRINE: Denies any polyuria or polydipsia. The rest of the 14-point review of systems is negative. PHYSICAL EXAMINATION: GENERAL: The patient is alert and oriented x3, not in any acute distress. Well developed, well nourished. HEENT: Pupils are round and equally reacting to light. EOMI. No scleral icterus. No conjunctival pallor. Normocephalic, atraumatic. No pharyngeal erythema. No thyromegaly. CARDIOVASCULAR: S1 and S2 present. No murmurs, rubs, or gallops. PULMONARY: Chest is clear to auscultation, no wheezing or crackles. ABDOMEN: Soft, nontender, nondistended, normoactive bowel sounds. No palpable organomegaly. MUSCULOSKELETAL: No joint swelling or deformity. EXTREMITIES: No cyanosis, clubbing, or pedal edema. NEUROLOGICAL: Gross neurological examination did not reveal any focal deficits. SKIN: No rashes. Assessment and plan -Acute non-ST elevation myocardial infarction: Continue with IV heparin cardiac catheterization today beta-barrie as per cardiology patient was started on statin -Severe peripheral vascular disease -Type 2 diabetes mellitus patient will be resumed on home regimen along with sliding scale insulin -Hyperlipidemia -Hypertension -PTSD/depression DVT prophylaxis: On IV heparin Past Medical History Past Medical History: Diabetes Mellitus, Hyperlipidemia, Hypertension History of Any Multi-Drug Resistant Organisms: None Reported Past Surgical History: Orthopedic Surgery Additional Past Surgical History / Comment(s): lt leg Past Psychological History: PTSD Smoking Status: Former smoker Past Alcohol Use History: Occasional Past Drug Use History: Marijuana Medications and Allergies Home Medications Medication Instructions Recorded Confirmed Type Insulin Glargine,Hum.rec.anlog 60 unit SQ BID 09/20/17 12/22/23 History [Lantus Solostar Pen] Multivitamins, Thera [Multivitamin 1 tab PO DAILY 09/20/17 12/22/23 History (formulary)] Venlafaxine HCl [Effexor XR] 300 mg PO DAILY 09/20/17 12/22/23 History Fenofibrate Nanocrystallized 145 mg PO DAILY #30 tablet 09/21/17 12/22/23 Rx [Tricor] Atorvastatin Calcium [Lipitor] 40 mg PO DAILY 12/22/23 12/22/23 History Cholecalciferol [Vitamin D3 (25 50 mcg PO DAILY 12/22/23 12/22/23 History Mcg = 1000 Iu)] Insulin Aspart [Insulin Aspart 17 unit SQ AC-BID@1200,1800 12/22/23 12/22/23 History Flexpen] Insulin Aspart [Insulin Aspart 30 unit SQ AC-BRKFST 12/22/23 12/22/23 History Flexpen] Mirtazapine 30 mg PO HS 12/22/23 12/22/23 History Prazosin [Minipress] 10 mg PO HS 12/22/23 12/22/23 History Rivaroxaban [Xarelto] 2.5 mg PO BID 12/22/23 12/22/23 History amLODIPine [Norvasc] 10 mg PO DAILY 12/22/23 12/22/23 History atenoloL 25 mg PO DAILY 12/22/23 12/22/23 History icosapent ethyL [Icosapent Ethyl] 2 gm PO BID-W/MEALS 12/22/23 12/22/23 History traZODone HCL 100 mg PO HS 12/22/23 12/22/23 History Allergies Allergy/AdvReac Type Severity Reaction Status Date / Time pioglitazone Allergy Unknown Verified 12/22/23 08:19 atorvastatin [From Lipitor] AdvReac muscle pain Verified 12/22/23 08:19 lisinopril AdvReac Cough Verified 12/22/23 08:19 metformin AdvReac Nausea & Verified 12/22/23 08:19 Vomiting & Diarrhea Physical Exam Vitals: Vital Signs Temp Pulse Resp BP Pulse Ox 12/22/23 04:00 95 18 148/81 95 12/22/23 03:00 102 H 18 158/82 94 L 12/22/23 00:25 101 H 18 139/75 93 L 12/21/23 23:25 102 H 18 140/73 95 12/21/23 21:22 98.1 F 102 H 18 149/81 95 Intake and Output 12/21/23 12/22/23 12/22/23 22:59 06:59 14:59 Intake Total 72.5 27.643 Output Total 850 Balance 72.5 -822.357 Intake: Intake, IV Titration 72.5 27.643 Amount Heparin Sod,Pork in 0.45% 72.5 27.643 NaCl 25,000 unit In 0.45 % NaCl 1 250ml.bag @ 10. 4982 UNITS/KG/HR 10 mls/ hr IV .Q24H [facility] Rx#: [id number] Output: Urine 850 Other: Weight 95.254 kg Results CBC & Chem 7: 12/22/23 03:58 12/21/23 21:37 Labs: Abnormal Lab Results - Last 24 Hours (Table) 12/21/23 12/21/23 12/21/23 Range/Units 21:37 21:37 21:37 RBC (4.30-5.90) m/uL Hgb 12.8 L (13.0-17.5) gm/dL Hct 37.6 L (39.0-53.0) % APTT 21.1 L (22.0-30.0) sec Chloride 108 H (98-107) mmol/L BUN 30 H (9-20) mg/dL Glucose 241 H (74-99) mg/dL Troponin I (0.000-0.034) ng/mL Total Protein 6.2 L (6.3-8.2) g/dL Triglycerides (0.00-149.00) mg/dL VLDL Cholesterol, Calc (5.00-40.00) mg/dL HDL Cholesterol (40.00-60.00) mg/dL 12/21/23 12/22/23 12/22/23 Range/Units 21:37 00:38 03:58 RBC 4.11 L (4.30-5.90) m/uL Hgb 12.5 L (13.0-17.5) gm/dL Hct 35.3 L (39.0-53.0) % APTT (22.0-30.0) sec Chloride (98-107) mmol/L BUN (9-20) mg/dL Glucose (74-99) mg/dL Troponin I 0.893 H* 2.180 H* (0.000-0.034) ng/mL Total Protein (6.3-8.2) g/dL Triglycerides (0.00-149.00) mg/dL VLDL Cholesterol, Calc (5.00-40.00) mg/dL HDL Cholesterol (40.00-60.00) mg/dL 12/22/23 12/22/23 Range/Units 03:58 03:58 RBC (4.30-5.90) m/uL Hgb (13.0-17.5) gm/dL Hct (39.0-53.0) % APTT (22.0-30.0) sec Chloride (98-107) mmol/L BUN (9-20) mg/dL Glucose (74-99) mg/dL Troponin I 2.650 H* (0.000-0.034) ng/mL Total Protein (6.3-8.2) g/dL Triglycerides 209.00 H (0.00-149.00) mg/dL VLDL Cholesterol, Calc 41.80 H (5.00-40.00) mg/dL HDL Cholesterol 37.80 L (40.00-60.00) mg/dL
[2023-12-22] MEDS: SODIUM CHLORIDE 0.9% 1,000 ML IV ONE (11:00)
[2023-12-22] MEDS ORDERED: ALPRAZolam 0.25 MG TAB PO PRN (11:06)
[2023-12-22] MEDS: MIDAZOLAM 2 MG/2 ML VIAL IVP ONE (12:08)
[2023-12-22] MEDS: LIDOCAINE 1% INJ 10MG/ML (20 ML MDV) SQ ONE (12:13)
[2023-12-22] MEDS: VERAPAMIL SYRINGE (5 MG/10 ML) INTRAARTER ONE (12:15)
[2023-12-22] MEDS: HEPARIN SODIUM 1,000 UN/ML (10ML VL) IVP ONE (12:17)
[2023-12-22] MEDS: IOPAMIDOL-370 100ML BTL INJ ONE (12:35)
[2023-12-22] MEDS ORDERED: RX INFO: IV CONTRAST WAS GIVEN 1 EACH MISC MISCELLANE PRN (12:36)
--- NOTE | 2023-12-22 12:41 | P.PCN ---
Date of Procedure: 12/22/23 Operative Findings: CARDIAC CATHETERIZATION PERFORMING PHYSICIAN: Donta Najera MD, RPVI PROCEDURE PERFORMED: 1. Selective right and left coronary angiogram and IFR of the RCA 2. Left heart catheterization 3. Ultrasound-guided access of the right radial artery INDICATION: Acute coronary syndrome COMPLICATION: None APPROACH: Right radial artery LEVEL OF SEDATION: Moderate with a sedation length of 25 minutes PROCEDURE DESCRIPTION: After obtaining an informed consent, the patient was brought to cardiac cath lab manager. Local anesthesia was performed using lidocaine subcutaneously. The right radial artery was cannulated using Seldinger technique, the guidewire passed easily, following that we advanced a 5-[place] sheath dilator assembly, the wire and dilator were removed and sheath was flushed. Following that, 2 mg of verapamil along with 5000 unit heparin were given. Selective right and left coronary angiogram using a 6-[place] JR4 and JL 3.5 catheters. Following that we did left heart catheterization using 6-[place]awk pigtail catheter. After that we decided to do Doppler wire measurement of the RCA with after zeroing the Doppler wire and equalizing between the Doppler wire and guiding catheter which was JR4 guiding catheter the RCA was engaged and subsequently it was wired. After that I did an IFR and that came in to be at 0.72. The procedure was completed there was no complication. SELECTIVE CORONARY ANGIOGRAM: The right coronary artery: Large-caliber vessel and a dominant vessel with long tubular lesion in the proximal portion appears to be flow-limiting by Doppler wire. Left main: Has an ostial and mid shaft lesion appears to be in the range of 40 to 50% The left circumflex: Large-caliber vessel nondominant vessel. The LCx proximally has a lesion appears to be in the range of 60%. The mid LCx has another tubular lesion appears to be in the range of 80 to 90% The left anterior descending artery: Large-caliber vessel. The proximal LAD has a tight lesion appears to be in the range of 80% and also in the mid to distal portion has another tight lesion mary ears to be in the range of 80% HEMODYNAMICS: The LVEDP was 13 mmHg with no significant gradient across aortic valve CONCLUSION: 1. Calcified right and left coronary system 2. Severe triple-vessel CAD POSTPROCEDURE MANAGEMENT: Consult surgery for the evaluation of CABG
[2023-12-22 12:54] LABS: Glucose,Whole Blood 160 mg/dL (70-110)
--- NOTE | 2023-12-22 14:09 | P.GSCN ---
History of Present Illness Consult date: 12/22/23 Reason for Consult: Multivessel coronary artery disease, acute non-ST elevated myocardial infarction this admission Requesting physician: Donta Najera History of present illness: This is a 73-year-old gentleman who follows on an outpatient basis for his primary care with Dr. Harrison Veloz. He has a past medical history significant for hypertension, hyperlipidemia, complete right internal carotid artery obstruction per carotid Doppler in 2017, peripheral arterial disease with previous revascularization to his bilateral lower extremities with bilateral femoral endarterectomies and is on Xarelto as an outpatient for anticoagulation, history of colon cancer, underwent 5 weeks of radiation treatment which was completed in May 2023, insulin-dependent diabetes mellitus, history of pancreatitis, history of prostate cancer with previous radiation in 2019, osteoarthritis, rheumatic fever as a child, obstructive sleep apnea noncompliant with CPAP use, peripheral neuropathy, and remote history of nicotine dependence quit smoking in 1988. The patient presented to [facility] last evening with complaints of acute onset of chest pain, associated with shortness of breath, nausea, vomiting, episodes of dizziness, and pain radiating down his bilateral upper extremities and to his jaw. The patient states there is no alleviating factors and it came on while he was watching TV and the chest pain felt like a burning sensation. He denies any fever, chills, diarrhea, constipation, hemoptysis, hematemesis, cough, visual disturbances, presyncope or syncope. Initial blood work at [facility] showed an elevated troponin and the patient was subsequently transferred to [facility] for further evaluation and treatment recommendations. Initial laboratory results showed a WBC count 8.4, hemoglobin 12.8, hematocrit 37.6, platelets 240, PT 10.2, INR 0.9, PTT 21.1, sodium 137, potassium 4.7, chloride 108, BUN 30, creatinine 0.97, glucose 241, and serial troponins were positive as high as 2.650. A twelve-lead EKG was completed which showed sinus tachycardia 102 bpm with significant STT wave changes in the anterior lateral leads. Subsequently, due to the patient's presenting symptoms, elevated troponins and EKG changes a consult was placed to cardiology. Dr. Najera from cardiology evaluated the patient and recommended a cardiac catheterization which was completed today. The cardiac catheterization revealed a 40 to 50% stenosis to his left main coronary artery, an 80 to 90% s tenosis to his circumflex coronary artery, an 80% stenosis to his proximal left anterior descending coronary artery and to the mid and distal portion of the left anterior descending coronary artery and a 70% stenosis to his right coronary artery. Due to the findings on the cardiac catheterization a consult was placed to Dr. Harrison Bah from cardiothoracic surgery for further evaluation and treatment recommendations including myocardial vascularization surgery. Review of Systems A review of systems was completed was negative except as mentioned in the HPI. Past Medical History Past Medical History: Cancer (Prostate cancer and colon cancer status post radiation treatment), Diabetes Mellitus, Hearing Disorder / Deafness, Hy perlipidemia, Hypertension, Osteoarthritis (OA), Sleep Apnea/CPAP/BIPAP (Noncompliant with CPAP use), Vascular Disorder (Peripheral arterial disease with a history of an occluded right internal carotid artery and history of bilateral femoral endarterectomies) Additional Past Medical History / Comment(s): History of pancreatitis History of Any Multi-Drug Resistant Organisms: None Reported Past Surgical History: Cholecystectomy Additional Past Surgical History / Comment(s): History of bilateral femoral endarterectomies, history of cataract surgery to his bilateral eyes Past Anesthesia/Blood Transfusion Reactions: No Reported Reaction Past Psychological History: PTSD Smoking Status: Former smoker (Quit smoking in 1988) Past Alcohol Use History: None Reported Past Drug Use History: Marijuana - Past Family History Mother Family Medical History: Dementia, Diabetes Mellitus Father Family Medical History: COPD Sister(s) Family Medical History: Cancer Medications and Allergies Home Medications Medication Instructions Recorded Confirmed Type Insulin Glargine,Hum.rec.anlog 60 unit SQ BID 09/20/17 12/22/23 History [Lantus Solostar Pen] Multivitamins, Thera [Multivitamin 1 tab PO DAILY 09/20/17 12/22/23 History (formulary)] Venlafaxine HCl [Effexor XR] 300 mg PO DAILY 09/20/17 12/22/23 History Fenofibrate Nanocrystallized 145 mg PO DAILY #30 tablet 09/21/17 12/22/23 Rx [Tricor] Atorvastatin Calcium [Lipitor] 40 mg PO DAILY 12/22/23 12/22/23 History Cholecalciferol [Vitamin D3 (25 50 mcg PO DAILY 12/22/23 12/22/23 History Mcg = 1000 Iu)] Insulin Aspart [Insulin Aspart 17 unit SQ AC-BID@1200,1800 12/22/23 12/22/23 History Flexpen] Insulin Aspart [Insulin Aspart 30 unit SQ AC-BRKFST 12/22/23 12/22/23 History Flexpen] Mirtazapine 30 mg PO HS 12/22/23 12/22/23 History Prazosin [Minipress] 10 mg PO HS 12/22/23 12/22/23 History Rivaroxaban [Xarelto] 2.5 mg PO BID 12/22/23 12/22/23 History amLODIPine [Norvasc] 10 mg PO DAILY 12/22/23 12/22/23 History atenoloL 25 mg PO DAILY 12/22/23 12/22/23 History icosapent ethyL [Icosapent Ethyl] 2 gm PO BID-W/MEALS 12/22/23 12/22/23 History traZODone HCL 100 mg PO HS 12/22/23 12/22/23 History Allergies Allergy/AdvReac Type Severity Reaction Status Date / Time pioglitazone Allergy Unknown Verified 12/22/23 08:19 atorvastatin [From Lipitor] AdvReac muscle pain Verified 12/22/23 08:19 lisinopril AdvReac Cough Verified 12/22/23 08:19 metformin AdvReac Nausea & Verified 12/22/23 08:19 Vomiting & Diarrhea Surgical - Exam Vital Signs Temp Pulse Resp BP Pulse Ox 98.1 F 102 H 18 149/81 95 12/21/23 21:22 12/21/23 21:22 12/21/23 21:22 12/21/23 21:22 12/21/23 21:22 - General well developed, well nourished, no distress, no pain, chronically ill, obese - Eyes PERRL, normal ocular movement, no pale, no icteric - ENT normal pinna, normal nares, normal mucosa, no congestion, decreased hearing, po or chcf, dentures (Partials) - Neck Neck is supple, no lymphadenopathy no masses, no bruits, trachea midline, no venous distension carotid bruit: right - Respiratory Lungs essentially clear throughout. No wheezes, rhonchi or crackles. Resp irations are symmetrical and nonlabored. - Cardiovascular Regular rhythm and rate. S1 and S2 present, negative for S3, gallop or murmur. No peripheral edema. - Abdomen Abdomen is soft, nontender and nondistended. Active bowel sounds present all 4 abdominal quadrants. No guarding rigidity. No organomegaly appreciated. - Genitourinary Deferred - Rectum Deferred - Integumentary Skin is warm and dry. No clubbing or cyanosis is present. no rash, no growths, no abnormal pigmentation - Neurologic No focal deficits. - Musculoskeletal Moves all 4 extremities with equal strength bilateral. - Psychiatric oriented to time, oriented to person, oriented to place, speech is normal, mem ory intact Results - Labs 12/22/23 03:58 12/21/23 21:37 Abnormal Lab Results - Last 24 Hours (Table) 12/21/23 12/21/23 12/21/23 Range/Units 21:37 21:37 21:37 RBC (4.30-5.90) m/uL Hgb 12.8 L (13.0-17.5) gm/dL Hct 37.6 L (39.0-53.0) % APTT 21.1 L (22.0-30.0) sec Chloride 108 H (98-107) mmol/L BUN 30 H (9-20) mg/dL Glucose 241 H (74-99) mg/dL POC Glucose (mg/dL) (70-110) mg/dL Troponin I (0.000-0.034) ng/mL Total Protein 6.2 L (6.3-8.2) g/dL Triglycerides (0.00-149.00) mg/dL VLDL Cholesterol, Calc (5.00-40.00) mg/dL HDL Cholesterol (40.00-60.00) mg/dL 12/21/23 12/22/23 12/22/23 Range/Units 21:37 00:38 03:58 RBC 4.11 L (4.30-5.90) m/uL Hgb 12.5 L (13.0-17.5) gm/dL Hct 35.3 L (39.0-53.0) % APTT (22.0-30.0) sec Chloride (98-107) mmol/L BUN (9-20) mg/dL Glucose (74-99) mg/dL POC Glucose (mg/dL) (70-110) mg/dL Troponin I 0.893 H* 2.180 H* (0.000-0.034) ng/mL Total Protein (6.3-8.2) g/dL Triglycerides (0.00-149.00) mg/dL VLDL Cholesterol, Calc (5.00-40.00) mg/dL HDL Cholesterol (40.00-60.00) mg/dL 12/22/23 12/22/23 12/22/23 Range/Units 03:58 03:58 12:49 RBC (4.30-5.90) m/uL Hgb (13.0-17.5) gm/dL Hct (39.0-53.0) % APTT (22.0-30.0) sec Chloride (98-107) mmol/L BUN (9-20) mg/dL Glucose (74-99) mg/dL POC Glucose (mg/dL) 160 H (70-110) mg/dL Troponin I 2.650 H* (0.000-0.034) ng/mL Total Protein (6.3-8.2) g/dL Triglycerides 209.00 H (0.00-149.00) mg/dL VLDL Cholesterol, Calc 41.80 H (5.00-40.00) mg/dL HDL Cholesterol 37.80 L (40.00-60.00) mg/dL Diabetes panel 12/21/23 12/22/23 Range/Units 21:37 03:58 Sodium 137 (137-145) mmol/L Potassium 4.7 (3.5-5.1) mmol/L Chloride 108 H (98-107) mmol/L Carbon Dioxide 24 (22-30) mmol/L BUN 30 H (9-20) mg/dL Creatinine 0.97 (0.66-1.25) mg/dL Glucose 241 H (74-99) mg/dL Calcium 9.1 (8.4-10.2) mg/dL AST 37 (17-59) U/L ALT 26 (4-49) U/L Alkaline Phosphatase 107 (38-126) U/L Total Protein 6.2 L (6.3-8.2) g/dL Albumin 4.0 (3.5-5.0) g/dL Triglycerides 209.00 H (0.00-149.00) mg/dL HDL Cholesterol 37.80 L (40.00-60.00) mg/dL Calcium panel 12/21/23 Range/Units 21:37 Calcium 9.1 (8.4-10.2) mg/dL Albumin 4.0 (3.5-5.0) g/dL Pituitary panel 12/21/23 Range/Units 21:37 Sodium 137 (137-145) mmol/L Potassium 4.7 (3.5-5.1) mmol/L Chloride 108 H (98-107) mmol/L Carbon Dioxide 24 (22-30) mmol/L BUN 30 H (9-20) mg/dL Creatinine 0.97 (0.66-1.25) mg/dL Glucose 241 H (74-99) mg/dL Calcium 9.1 (8.4-10.2) mg/dL Adrenal panel 12/21/23 Range/Units 21:37 Sodium 137 (137-145) mmol/L Potassium 4.7 (3.5-5.1) mmol/L Chloride 108 H (98-107) mmol/L Carbon Dioxide 24 (22-30) mmol/L BUN 30 H (9-20) mg/dL Creatinine 0.97 (0.66-1.25) mg/dL Glucose 241 H (74-99) mg/dL Calcium 9.1 (8.4-10.2) mg/dL Total Bilirubin 0.5 (0.2-1.3) mg/dL AST 37 (17-59) U/L ALT 26 (4-49) U/L Alkaline Phosphatase 107 (38-126) U/L Total Protein 6.2 L (6.3-8.2) g/dL Albumin 4.0 (3.5-5.0) g/dL - Imaging Additional studies: Cardiac catheterization results reviewed. Assessment and Plan Assessment: Multivessel coronary artery disease per heart catheterization findings Acute non-ST elevated myocardial infarction this admission Severe peripheral arterial disease with history of bilateral femoral endarterectomies and a totally occluded right internal carotid artery by carotid duplex study in 2018, on Xarelto for anticoagulation as an outpatient History of hypertension Hyperlipidemia Insulin-dependent diabetes mellitus History of prostate cancer, status post radiation treatment History of colon cancer, status post 5 weeks of radiation treatments completed in May 2023 History of pancreatitis Obstructive sleep apnea, noncompliant with CPAP use Osteoarthritis History of rheumatic fever as a child Remote history of nicotine dependence, quit smoking in 1988 Plan: The patient was seen and examined at his bedside in the extended stay unit, his and daughter are present. His chart and diagnostics were reviewed. His case was discussed in detail with Dr. Harrison Bah from cardiothoracic surgery. Preoperative testing and preoperative teaching has been initiated. Once the patient is able to ambulate a 5 m walk test will be completed with the patient. The usual course of myocardial vascularization surgery was discussed with the patient and his family present at his bedside. A transthoracic 2D echocardiogram has been ordered with results pending. Once the patient's preoperative testing has been obtained and reviewed and STS risk or will be calculated and discussed with the patient. Medical management other comorbi dities per primary care service. Continue to maximize medical management with aspirin, statin and beta-barrie. Heparin drip management per cardiology recommendations. More recommendations to follow based on patient's clinical course and as his preoperative testing has been obtained. Thank you Dr. Najera for this consult and we look forward to working with you in the care of this patient. I have personally seen and examined the patient, performed the documentation and the assessment and plan as written. Number of minutes spent on the visit: 30. KWABENA Child
--- NOTE | 2023-12-22 16:03 | US ---
EXAMINATION TYPE: US arterial LE multi level DATE OF EXAM: 12/22/2023 3:52 PM CLINICAL INDICATION: Male, 73 years old with history of Ankle Brachial Index (AMBROSE) ; History of: Smoker: Previous Hypertension: Yes Diabetic: Yes Hyperlipidemia: Yes TIA/CVA: ??? Previous Vascular Surgery: Patient has had hx of bilateral femoral endarterectomies within the groin . MO: ?? Vascular Ulcers: No Claudication: Yes Gangrene: No Doppler Waveforms: Right: Monophasic Left: Monophasic Right Brachial Pressure: Deferred due to right radial heart catheterization. Left Brachial Pressure: 157 Ankle-Brachial Indices: Right: 0.92 Left: 0.68 (Vessel hardening > 1.4; Normal 0.9 - 1.4, Moderate 0.7 - 0.9, Severe 0.5-0.7) Toe Brachial Indices: Right: 0.70 Left: 0.62 *Exam is very limited due to interference in extended stay unit and patient movement during exam. Pat ient could not tolerate cuff inflation above the ankle for the left leg. Bilateral femoral arteries audible, unable to produce clear Doppler waveform. IMPRESSION: Moderate severe left and mild right peripheral vascular disease.
--- NOTE | 2023-12-22 16:51 | XR ---
EXAMINATION TYPE: XR chest 2V DATE OF EXAM: 12/22/2023 4:47 PM CLINICAL INDICATION:Male, 73 years old with history of PreOp Cardiac Surgery; [facility] COMPARISON: 12/21/2023 TECHNIQUE: XR chest 2V Frontal and lateral views of the chest. FINDINGS: Lungs/Pleura: There is no evidence of pleural effusion, focal consolidation, or pneumothorax. Pulmonary vascularity: Unremarkable. Heart/mediastinum: Cardiomediastinal silhouette is unremarkable. Musculoskeletal: No acute osseous pathology. IMPRESSION: No acute cardiopulmonary disease/process.
[2023-12-22 17:04] LABS: Glucose,Whole Blood 184 mg/dL (70-110)
[2023-12-22] MEDS: INSULIN ASPART (NovoLOG) 100 UNIT/ML VIAL SQ SCH ×2 (17:08→17:09)
[2023-12-22 17:10] LABS: Appearance,Urine Cloudy (Clear); Bilirubin,Urine Negative (Negative); Blood,Urine Negative (Negative); Color,Urine Colorless; Glucose,Urine (UA) 2+ (Negative); Ketones,Urine Negative (Negative); Leukocyte Esterase,Urine Negative (Negative); Mucus,Urine Rare /hpf; Nitrite,Urine Negative (Negative); PH, Urine 7.5 (5.0-8.0); Protein,Urine Negative (Negative); RBC,Urine 1 /hpf (0-5); Specific Gravity,Urine 1.037 (1.001-1.035); Urobilinogen,Urine <2.0 mg/dL (<2.0); WBC,Urine <1 /hpf (0-5)
[2023-12-22] MEDS: SODIUM CHLORIDE 0.9% 1,000 ML IV SCH (17:17)
[2023-12-22 18:26] LABS: ALT 28 U/L (4-49); AST 39 U/L (17-59); African American GFR (CKD) 82 (>60 ml/min/1.73 sqM); Albumin 3.9 g/dL (3.5-5.0); Alkaline Phosphatase 92 U/L (38-126); Anion Gap 5 mmol/L; Blood Urea Nitrogen 24 mg/dL (9-20); Carbon Dioxide 27 mmol/L (22-30); Chloride 107 mmol/L (98-107); Glucose 193 mg/dL (74-99); Non-African American GFR(CKD) 71 (>60 ml/min/1.73 sqM); Potassium 4.4 mmol/L (3.5-5.1); Sodium 139 mmol/L (137-145); Total Bilirubin 0.4 mg/dL (0.2-1.3); Total Protein 6.2 g/dL (6.3-8.2)
--- NOTE | 2023-12-22 19:14 | US ---
EXAMINATION TYPE: US carotid duplex BILAT DATE OF EXAM: 12/22/2023 COMPARISON: 09/21/2017 CLINICAL INDICATION: Male, 73 years old with history of Pre-Op Cardiac Surgery; known right ICA occlu mariah, pre open heart TECHNIQUE: Carotid duplex ultrasound examination. Indirect Doppler criteria was utilized. FINDINGS: EXAM MEASUREMENTS: RIGHT: Peak Systolic Velocity (PSV) cm/sec ----- Right CCA: 49.6 ----- Right ICA: no flow ----- Right ECA: 79.4 ICA/CCA ratio: N/A RIGHT: End Diastole cm/sec ----- Right CCA: 0.0 ----- Right ICA: no flow ----- Right ECA: 6.2 LEFT: Peak Systolic Velocity (PSV) cm/sec ----- Left CCA: 128.0 ----- Left ICA: 201.0 ----- Left ECA: 176.0 ICA/CCA ratio: 1.6 LEFT: End Diastole cm/sec ----- Left CCA: 23.3 ----- Left ICA: 28.4 ----- Left ECA: 0.0 VERTEBRALS (direction of flow): Right Vertebral: Antegrade Left Vertebral: Antegrade Rhythm: Normal STUMPER FELLER NOTES: Occluded right ICA, heterogeneous plaque with no significant stenosis seen on the left IMPRESSION: 1. Known occluded right ICA. 2. Moderate atherosclerotic change at the left carotid bifurcation. While the left ICA peak systolic velocity is elevated, the other parameters are normal. If further imaging evaluation is desired, CTA can be considered. Criteria for Assigning % of Stenosis / Diameter reduction (Estimation based on the indirect measurements of the internal carotid artery velocities (ICA PSV). 1. Normal (no stenosis)=ICA PSV < 125 cm/s: ratio < 2.0: ICA EDV<40 cm/s. 2. Less than 50% stenosis=ICA PSV < 125 cm/s: ratio < 2.0: ICA EDV<40 cm/s. 3. 50 to 69% stenosis=ICA PSV of 125 to 230 cm/s: ration 2.0 ? 4.0: ICA EDV 40-100 cm/s. 4. Greater than 70% stenosis to near occlusion= ICA PSV > 230 cm/s: ratio > 4.0: ICA EDV > 100 cm/s. 5. Near occlusion= ICA PSV velocities may be low or undetectable: variable ratio and ICA EDV. 6. Total occlusion=unable to detect flow.
--- NOTE | 2023-12-22 19:20 | US ---
EXAMINATION TYPE: Pre-Operative Non-Invasive Evaluation of the hand for Potential Radial Artery Caryn , Measurements only DATE OF EXAM: 12/22/2023 2:37 PM CLINICAL INDICATION: Male, 73 years old with history of Pre-Op Cardiac Surgery; open heart SIDE PERFORMED: Left TECHNIQUE: Radial artery is measured utilizing real time linear array sonography. Dominant hand: right Duplex Findings: Radial Artery: Color flow seen Measurements in mm, transverse view: Left Radial: mm Proximal: 2.4 x 3.0 mm Mid: 2.2 x 2.9 mm Distal: 2.5 x 2.8 mm IMPRESSION: 1. Left Radial artery measurements listed above. 2. Performing surgeon to determine viability as conduit.
--- NOTE | 2023-12-22 19:20 | US ---
EXAMINATION TYPE: US vein mapping BILAT DATE OF EXAM: 12/22/2023 2:37 PM COMPARISON: NONE CLINICAL INDICATION: Male, 73 years old with history of PreOp Cardiac Surgery; open heart SIDE PERFORMED: Bilateral TECHNIQUE: Lower extremity saphenous vein is examined and measured utilizing real time linear array sonography. DUPLEX FINDINGS: Greater Saphenous: Color flow seen Measurements in mm: Right Greater Saphenous: Groin: 6.1 x 5.7 mm High Thigh: 3.4 x 3.9 mm Mid Thigh: 3.8 x 3.9 mm Above Knee: 2.3 x 2.3 mm Knee: 2.4 x 2.2 mm Below Knee: 2.5 x 2.5 mm Mid Calf: 2.3 x 2.7 mm At Ankle: 2.9 x 4.4 mm Left Greater Saphenous: Groin: 4.0 x 4.5 mm High Thigh: 2.8 x 3.1 mm Mid Thigh: 2.1 x 2.5 mm Above Knee: 1.1 x 1.4 mm Knee: 1.9 x 2.8 mm Below Knee: 1.9 x 2.3 mm Mid Calf: 2.3 x 3.5 mm At Ankle: 3.2 x 3.9 mm IMPRESSION: 1. Bilateral GSV measurements listed above. 2. Performing surgeon to determine viability as conduit.
[2023-12-22 19:23] LABS: T4, Free (Free Thyroxine) 1.19 ng/dL (0.78-2.19)
[2023-12-22 20:20] LABS: Glucose,Whole Blood 166 mg/dL (70-110)
[2023-12-22] MEDS: INSULIN DETEMIR (LEVEMIR) 100 UNIT/ML SYR SQ SCH (21:02)
[2023-12-22] MEDS: MIRTAZAPINE 15 MG TAB PO SCH (21:02)
[2023-12-22] MEDS: traZODone HCL 100 MG TAB PO SCH (21:02)
[2023-12-22] MEDS: MUPIROCIN 2% OINT 22 GM TUBE NASAL SCH (21:02)
[2023-12-22] MEDS: PRAZOSIN 1 MG CAP PO SCH (21:14)
--- NOTE | 2023-12-22 21:28 | CT ---
EXAMINATION TYPE: CT chest wo con CT DLP: 498 mGycm, Automated exposure control for dose reduction was used. DATE OF EXAM: 12/22/2023 8:44 PM COMPARISON: Chest radiograph 12/21/2023. CLINICAL INDICATION:Male, 73 years old with history of PreOp Cardiac Surgery; [facility], TECHNIQUE: Multiple axial images were obtained through the chest. Sagittal and coronal reformats were created for review. Contrast used: mL of (None if empty) Oral contrast used: (None if empty) FINDINGS: LUNGS/ PLEURA: No evidence for focal consolidation, pneumothorax or pleural effusion. AIRWAY: Patent and unremarkable. HEART: Size within normal limits. Moderate to severe coronary artery atherosclerosis. MEDIASTINUM: No gross evidence of adenopathy. VASCULATURE: No aortic aneurysm. MUSCULOSKELETAL: No acute osseous abnormalities, severe multilevel degeneration changes throughout th e spine with multilevel osteophyte formation. Bridging syndesmophytes are seen throughout the thoraci c spine. SOFT TISSUES/LYMPH NODES: Unremarkable. LOWER NECK: No significant findings. UPPER ABDOMEN: The gallbladder surgically absent. IMPRESSION: 1. No evidence for acute process. 2. Moderate to severe coronary atherosclerosis. 3. Severe degeneration changes of the spine.
[2023-12-22 22:23] LABS: Hepatitis A Antibody IgM Nonreactive (Nonreactive); Hepatitis B Core IgM Nonreactive (Nonreactive); Hepatitis B Surface Antigen Nonreactive (Nonreactive)
[2023-12-23 06:20] LABS: Glucose,Whole Blood 108 mg/dL (70-110)
[2023-12-23] MEDS: INSULIN ASPART (NovoLOG) 100 UNIT/ML VIAL SQ SCH (06:50)
[2023-12-23] MEDS ORDERED: HEPARIN SODIUM,PORCINE 10,000 UNIT in SODIUM CHLORIDE 0.9% 1,000 ML IRRIGATION PRN (07:00)
[2023-12-23] MEDS ORDERED: HEPARIN SODIUM,PORCINE (1 ML) 2,500 UNIT in SODIUM CHLORIDE 0.9% 250 ML IRRIGATION PRN (07:00)
[2023-12-23] MEDS: FENOFIBRATE 160 MG TAB PO SCH (08:15)
[2023-12-23] MEDS: MULTIVITAMINS, THERA 1 EACH TAB PO SCH (08:15)
[2023-12-23] MEDS: ATORVASTATIN 40 MG TAB PO SCH (08:15)
[2023-12-23] MEDS: VENLAFAXINE HCL ER 150 MG CAP PO SCH (08:15)
[2023-12-23] MEDS: HEPARIN SOD,PORK IN 0.45% NACL 25,000 UNIT in 0.45% NACL 1 250ML.BAG IV SCH (08:57)
[2023-12-23] MEDS: HEPARIN SODIUM 1,000 UN/ML (10ML VL) IV ONE (09:05)
[2023-12-23] MEDS: NITROGLYCERIN-D5W PMX 50 MG in DEXTROSE/WATER 1 250ML.BAG IV SCH (09:06)
--- NOTE | 2023-12-23 10:21 | P.PN ---
Subjective Progress Note Date: 12/23/23 Principal diagnosis: Multivessel coronary artery disease, acute non-ST elevated myocardial infarction this admission. Past medical history significant for hypertension, hyperlipid emia, complete right internal carotid artery obstruction per carotid Doppler in 2017, peripheral arterial disease with previous revascularization to his bilateral lower extremities with bilateral femoral endarterectomies and is on Xarelto as an outpatient for anticoagulation, history of colon cancer, underwent 5 weeks of radiation treatment which was completed in May 2023, insulin- dependent diabetes mellitus, history of pancreatitis, history of prostate cancer with previous radiation in 2019, osteoarthritis, rheumatic fever as a child, obstructive sleep apnea noncompliant with CPAP use, peripheral neuropathy, and remote history of nicotine dependence quit smoking in 1988. The patient was seen and examined in follow-up today December 23, 2023 at his bedside on the third floor cardiac stepdown unit. The patient is currently laying in bed, is awake, alert, oriented x 3 and is in no acute apparent distress. The patient reports she is actively having some chest pressure and an episode of nausea and is being currently treated by his bedside nurse. Oxygen saturations are 92% on room air and he is achieving 2000 mL on his incentive spirometry with encouragement. Preoperative teaching and preoperative workup is in progress. Transthoracic 2D echocardiogram report remains pending. CT scan of the chest was completed yesterday which shows no evidence for acute process, moderate to severe coronary artery atherosclerosis, and severe degenerative changes of the spine. Bedside FEV1 result remains pending. Once the patient's preoperative testing has been obtained and STS risk or will be calculated and discussed with the patient and timing of surgery will be discussed. Dr. Harrison Bah met with the patient yesterday evening December 22, 2023, treatment options discussed with the patient including myocardial vascularization surgery. Risks and benefits of surgery were discussed with the patient and knowing and understanding the risks the patient wishes to proceed with the surgical option. A clinical frailty score was completed with the patient, his score equaled 3, which shows the patient is managing well, fit/mild frailty. Carotid duplex study was completed yesterday which shows a normal and occluded right ICA and moderate atherosclerotic change of the left carotid bifurcation with left ICA peak systolic velocity to be elevated at 201 and an ICA/CCA ratio of 1.6. Objective - Vital Signs Vital signs: Vital Signs Temp 98.2 F 12/23/23 08:00 Pulse 115 H 12/23/23 08:00 Resp 18 06/04/24 08:00 BP 156/74 12/23/23 08:00 Pulse Ox 92 L 12/23/23 08:00 FiO2 Intake & Output 12/22/23 12/23/23 12/23/23 18:59 06:59 18:59 Intake Total 897.643 110 Output Total 1150 Balance -252.357 110 Weight 95.254 kg Intake: IV 150 Intake, IV Titration 27.643 Amount Heparin Sod,Pork in 0.45% 27.643 NaCl 25,000 unit In 0.45 % NaCl 1 250ml.bag @ 10. 4982 UNITS/KG/HR 10 mls/ hr IV .Q24H [facility]AVNA Rx#: [id number] Oral 720 110 Output: Urine 1150 Other: Voiding Method Toilet # Voids 1 - Exam CONSTITUTIONAL: Sitting up in bed on the cardiac stepdown unit, cooperative, no apparent acute distress. HEENT: Neck is supple, no JVD, no lymphadenopathy. RESPIRATORY: Lungs sounds essentially clear throughout. Respirations are symmetrical and nonlabored. Currently on room air with oxygen saturations 92%. Able to achieve 2000 mL on his incentive spirometry. Strong cough. CARDIOVASCULAR: Regular rhythm and rate. S1 and S2 present, negative for S3, gallop or murmur. GASTROINTESTINAL: Abdomen soft, nontender, nondistended. Active bowel sounds present 4 quadrants. Tolerating diet. Passing flatus. No guarding or rigidity. GENITOURINARY: Continues to void. INTEGUMENTARY: Skin is warm and dry with no evidence of clubbing or cyanosis. NEUROLOGIC: Cranial nerves II through XII intact. No focal deficits. MUSKULOSKELETAL: Able to move all extremities, strength equal bilaterally. PSYCHIATRIC: Alert and oriented to person place and time, appropriate affect, intact judgment and insight. - Allied health notes Allied health notes reviewed: nursing - Labs CBC & Chem 7: 12/22/23 03:58 12/22/23 17:48 Labs: Abnormal Lab Results - Last 24 Hours (Table) 12/22/23 12/22/23 12/22/23 Range/Units 03:58 12:49 16:15 BUN (9-20) mg/dL Glucose (74-99) mg/dL POC Glucose (mg/dL) 160 H (70-110) mg/dL Hemoglobin A1c 7.5 H (<=6.0) % Total Protein (6.3-8.2) g/dL TSH (0.465-4.680) mIU/L Ur Specific [place] 1.037 H (1.001-1.035) Urine Glucose (UA) 2+ H (Negative) Urine Mucus Rare H (None) /hpf 12/22/23 12/22/23 12/22/23 Range/Units 17:02 17:48 20:00 BUN 24 H (9-20) mg/dL Glucose 193 H (74-99) mg/dL POC Glucose (mg/dL) 184 H 166 H (70-110) mg/dL Hemoglobin A1c (<=6.0) % Total Protein 6.2 L (6.3-8.2) g/dL TSH <0.015 L (0.465-4.680) mIU/L Ur Specific [place] (1.001-1.035) Urine Glucose (UA) (Negative) Urine Mucus (None) /hpf - Imaging and Cardiology Results of carotid Doppler study reviewed. Assessment and Plan Assessment: Multivessel coronary artery disease per heart catheterization findings Acute non-ST elevated myocardial infarction this admission Severe peripheral arterial disease with history of bilateral femoral endarterectomies and a totally occluded right internal carotid artery by carotid duplex study, on Xarelto for anticoagulation as an outpatient, last dose was taken on December 21, 2023 History of hypertension Hyperlipidemia Insulin-dependent diabetes mellitus History of prostate cancer, status post radiation treatment History of colon cancer, status post 5 weeks of radiation treatments completed in May 2023 History of pancreatitis Obstructive sleep apnea, noncompliant with CPAP use Osteoarthritis History of rheumatic fever as a child Remote history of nicotine dependence, quit smoking in 1988 PTSD/depression Plan: Continue to maximize medical management with aspirin, fenofibrate, statin and beta-barrie. Preoperative teaching and preoperative testing remains in progress. Results of transthoracic 2D echocardiogram remain pending. Bedside FEV1 results remain pending. Once the patient is able to ambulate we will complete a 5 m walk test. Once the preoperative testing has been completed an STS risk or will be calculated. Continue to hold Xarelto, last dose was taken on December 21, 2023 Medical management other comorbidities per primary care and cardiology service. A clinical frailty score was completed, the score was calculated at 3, which shows the patient is managing well, fit/mild frailty. Once the patient's preoperative testing has been completed and reviewed timing of myocardial revascularization surgery will be planned and discussed with the patient. More recommendations to follow based on patient's clinical course. Time with Patient: Greater than 30
[2023-12-23 10:54] LABS: Basophils % (A) 0 %; Eosinophils # (A) 0.3 k/uL (0-0.7); Eosinophils % (A) 4 %; HCT 36.2 % (39.0-53.0); HGB 12.3 gm/dL (13.0-17.5); Lymphocytes # (A) 1.3 k/uL (1.0-4.8); Lymphocytes % (A) 18 %; MCH 29.5 pg (25.0-35.0); MCHC 33.8 g/dL (31.0-37.0); MCV 87.1 fL (80.0-100.0); Mean Platelet Volume 7.5; Monocytes # (A) 0.4 k/uL (0-1.0); Monocytes % (A) 5 %; Neutrophils # (A) 4.9 k/uL (1.3-7.7); Neutrophils % (A) 71 %; Platelet Count 200 k/uL (150-450); RBC 4.16 m/uL (4.30-5.90); RDW 13.6 % (11.5-15.5)
[2023-12-23 11:07] LABS: Partial Thromboplastin Time 43.4 sec (22.0-30.0)
--- NOTE | 2023-12-23 11:18 | P.PN ---
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 The patient presented to the hospital complaining of chest discomfort. He describes discomfort as burning sensation in the middle of the chest with radiation to the neck and to the jaw associated with shortness of breath as well as nausea and vomiting. No presyncope or syncope. He underwent further investigation including troponin came in to be abnormal and consistent with acute coronary syndrome and also EKG changes laterally concerning for severe underlying coronary artery disease as well. Currently his chest pain-free. He is stable hemodynamically. He is slightly tachycardic. He is on heparin IV and he is on Nitropatch as well. No history of CAD and never had any coronary revascularization in the past. The examination is remarkable for stable vital signs with mild sinus tachycardia and regular rate and rhythm and clear breathing sounds bilaterally and no edema was noted in the lower extremities but he does have good bilateral femoral pulses. 12/22 Patient is seen today in follow-up. He has been evaluated by cardiothoracic surgery with plan for CABG, date has not been determined. Patient had episode of chest pain. He states he got up to the bathroom developed left breast pain along with dizziness. He returned to bed and ate his breakfast and then he felt heartbeats in his chest like his heart heart was pounding. He had midsternal chest pain at that time with radiation to his arms. He also had an increase in heart rate and blood pressure. He is currently on Nitropaste. Echocardiogram is pending. Examination reveals regular rate and rhythm, clear breath sounds bilaterally, no lower extremity edema. Assessment Acute non-ST elevation myocardial infarction with recurring chest pain Carotid atherosclerosis as described above Lower extremities PAD as described above Multiple comorbid conditions including diabetes and hypertension and dyslipidemia Plan Start patient on heparin drip Discontinue Nitropaste and start patient on nitroglycerin drip Assess patient's chest pain following initiation of nitroglycerin and heparin drips and further plan to be determined at that time Continue patient on aspirin changed to 81 mg, atorvastatin 40 mg daily, Lopressor 50 mg twice daily Echocardiogram with Doppler Follow-up with the patient Nurse practitioner note has been reviewed, I agree with documented findings and plan of care. Patient was seen and examined. Objective - Vital Signs Vital signs: Vital Signs Temp 98.2 F 12/23/23 08:00 Pulse 115 H 12/23/23 08:00 Resp 18 12/23/23 08:00 BP 156/74 12/23/23 08:00 Pulse Ox 92 L 12/23/23 08:00 FiO2 Intake & Output 12/22/23 12/23/23 12/23/23 18:59 06:59 18:59 Intake Total 897.643 Output Total 1150 Balance -252.357 Weight 95.254 kg Intake: IV 150 Intake, IV Titration 27.643 Amount Heparin Sod,Pork in 0.45% 27.643 NaCl 25,000 unit In 0.45 % NaCl 1 250ml.bag @ 10. 4982 UNITS/KG/HR 10 mls/ hr IV .Q24H [facility] Rx#: [id number] Oral 720 Output: Urine 1150 Other: Voiding Method Toilet # Voids 1 - Labs CBC & Chem 7: 12/23/23 10:01 12/22/23 17:48 Labs: Abnormal Lab Results - Last 24 Hours (Table) 12/22/23 12/22/23 12/22/23 Range/Units 03:58 03:58 12:49 BUN (9-20) mg/dL Glucose (74-99) mg/dL POC Glucose (mg/dL) 160 H (70-110) mg/dL Hemoglobin A1c 7.5 H (<=6.0) % Total Protein (6.3-8.2) g/dL Triglycerides 209.00 H (0.00-149.00) mg/dL VLDL Cholesterol, Calc 41.80 H (5.00-40.00) mg/dL HDL Cholesterol 37.80 L (40.00-60.00) mg/dL TSH (0.465-4.680) mIU/L Ur Specific [place] (1.001-1.035) Urine Glucose (UA) (Negative) Urine Mucus (None) /hpf 12/22/23 12/22/23 12/22/23 Range/Units 16:15 17:02 17:48 BUN 24 H (9-20) mg/dL Glucose 193 H (74-99) mg/dL POC Glucose (mg/dL) 184 H (70-110) mg/dL Hemoglobin A1c (<=6.0) % Total Protein 6.2 L (6.3-8.2) g/dL Triglycerides (0.00-149.00) mg/dL VLDL Cholesterol, Calc (5.00-40.00) mg/dL HDL Cholesterol (40.00-60.00) mg/dL TSH <0.015 L (0.465-4.680) mIU/L Ur Specific [place] 1.037 H (1.001-1.035) Urine Glucose (UA) 2+ H (Negative) Urine Mucus Rare H (None) /hpf 12/22/23 Range/Units 20:00 BUN (9-20) mg/dL Glucose (74-99) mg/dL POC Glucose (mg/dL) 166 H (70-110) mg/dL Hemoglobin A1c (<=6.0) % Total Protein (6.3-8.2) g/dL Triglycerides (0.00-149.00) mg/dL VLDL Cholesterol, Calc (5.00-40.00) mg/dL HDL Cholesterol (40.00-60.00) mg/dL TSH (0.465-4.680) mIU/L Ur Specific [place] (1.001-1.035) Urine Glucose (UA) (Negative) Urine Mucus (None) /hpf
[2023-12-23 11:22] LABS: Glucose,Whole Blood 97 mg/dL (70-110)
[2023-12-23 11:25] LABS: African American GFR (CKD) 83 (>60 ml/min/1.73 sqM); Anion Gap 4 mmol/L; Blood Urea Nitrogen 20 mg/dL (9-20); Calcium 9.2 mg/dL (8.4-10.2); Carbon Dioxide 24 mmol/L (22-30); Chloride 111 mmol/L (98-107); Glucose 106 mg/dL (74-99); Non-African American GFR(CKD) 72 (>60 ml/min/1.73 sqM); Sodium 139 mmol/L (137-145)
[2023-12-23 12:18] LABS: Glucose,Whole Blood 78 mg/dL (70-110)
[2023-12-23 13:33] LABS: Hepatitis C IgG Antibody Nonreactive (Nonreactive)
[2023-12-23] MEDS ORDERED: MD COMMUNICATION TO PHARMACY 1 EACH MISC PO ONE (15:49)
[2023-12-23 16:25] LABS: Glucose,Whole Blood 261 mg/dL (70-110)
--- NOTE | 2023-12-23 17:44 | CA ---
Transthoracic Echo Report Name: Major Maciel Age: 73 Gender: M : 1950 Exam Date: 12/23/2023 09:13 Exam Location: [facility] Ht (in): 70 Wt (lb): 210 Ordering Physician: Donta Najera MD ([id number]) Attending/Referring Phys: Workers Compensation Attorney Brooke Marino RDCS Procedure CPT: Indications: Chest Pain Cardiac Hx: Technical Quality: Technically difficult study Contrast 1: Definity Total Dose (mL): 2 Contrast 2: Total Dose (mL): MEASUREMENTS (Male / Female) Normal Values 2D ECHO LV Diastolic Diameter PLAX 3.9 cm 4.2 - 5.9 / 3.9 - 5.3 cm LV Systolic Diameter PLAX 2.1 cm IVS Diastolic Thickness 1.2 cm 0.6 - 1.0 / 0.6 - 0.9 cm LVPW Diastolic Thickness 1.2 cm 0.6 - 1.0 / 0.6 - 0.9 cm LV Relative Wall Thickness 0.6 LA Volume 57.6 cm??? 18 - 58 / 22 - 52 cm??? LA Volume Index 26.3 cm???/m??? 16 - 28 cm???/m??? M-MODE Aortic Root Diameter MM 3.0 cm LA Systolic Diameter MM 4.3 cm LA Ao Ratio MM 1.5 DOPPLER AV Peak Velocity 189.5 cm/s AV Peak Gradient 14.4 mmHg AV Mean Velocity 148.0 cm/s AV Mean Gradient 9.5 mmHg AV Velocity Time Integral 33.2 cm LVOT Peak Velocity 93.8 cm/s LVOT Peak Gradient 3.5 mmHg LVOT Velocity Time Integral 16.4 cm MV Area PHT 5.6 cm??? Mitral E Point Velocity 77.6 cm/s Mitral A Point Velocity 147.2 cm/s Mitral E to A Ratio 0.5 MV Deceleration Time 135.4 ms TR Peak Velocity 197.0 cm/s TR Peak Gradient 15.5 mmHg Right Ventricular Systolic Press 20.5 mmHg FINDINGS Left Ventricle Mildly increased left ventricular wall thickness. Left ventricular cavity size normal. Normal left ventricular systolic function with no obvious regional wall motion abnormalities. Left ventricular ejection fraction is estimated at 50- 55%. Grade 1 diastolic dysfunction. Right Ventricle Normal right ventricular size and function. Right ventricular systolic pressure within normal limits. Right Atrium Left Atrium Normal left atrial size. Mitral Valve Structurally normal mitral valve. Mitral valve thickened. Mild mitral annular calcification. Aortic Valve No aortic valve stenosis or regurgitation. Aortic valve sclerosis. Tricuspid Valve Structurally normal tricuspid valve. Mild tricuspid regurgitation. Pulmonic Valve Structurally normal pulmonic valve. Pericardium No pericardial effusion. Aorta Normal size aortic root and proximal ascending aorta. CONCLUSIONS Normal LV Previewed by: Dr. Aubrey Mai MD (Electronically Signed) Final Date: 23 December 2023 17:44
[2023-12-23] MEDS: hydrALAZINE HCL 20 MG/ML 1 ML VIAL IVP PRN (18:23)
[2023-12-23] MEDS: HEPARIN SODIUM 1,000 UN/ML (10ML VL) IVP ONE (19:10)
[2023-12-23 20:30] LABS: Glucose,Whole Blood 194 mg/dL (70-110)
[2023-12-23] MEDS: amLODIPine 5 MG TAB PO SCH (22:00)
[2023-12-24 03:03] LABS: Basophils % (A) 0 %; Eosinophils # (A) 0.3 k/uL (0-0.7); Eosinophils % (A) 4 %; HCT 34.4 % (39.0-53.0); HGB 11.9 gm/dL (13.0-17.5); Lymphocytes # (A) 1.5 k/uL (1.0-4.8); Lymphocytes % (A) 24 %; MCH 29.8 pg (25.0-35.0); MCHC 34.6 g/dL (31.0-37.0); MCV 86.2 fL (80.0-100.0); Mean Platelet Volume 7.5; Monocytes # (A) 0.4 k/uL (0-1.0); Monocytes % (A) 7 %; Neutrophils # (A) 3.8 k/uL (1.3-7.7); Neutrophils % (A) 62 %; Platelet Count 178 k/uL (150-450); RBC 3.99 m/uL (4.30-5.90); RDW 13.6 % (11.5-15.5); WBC 6.1 k/uL (3.8-10.6)
[2023-12-24 03:10] LABS: Prothrombin Time 10.8 sec (10.0-12.5)
--- NOTE | 2023-12-24 03:19 | P.CNPUL ---
History of Present Illness Consult date: 12/24/23 Requesting physician: Lowell Bakre Reason for consult: other (Perioperative pulmonary management for planned open heart procedure) Chief complaint: Chest pain History of present illness: Patient is a 73-year-old white male with past medical history significant for hypertension, hyperlipidemia, diabetes mellitus, obesity, right internal carotid artery occlusion, peripheral arterial disease, colon cancer with previous radiation treatments, prostate cancer with previous radiation, pancreatitis, obstructive sleep apnea not pliant with CPAP, and former tobacco smoker quitting in 1988. His PCP is Dr. Veloz out of [place], [place]. Back on 12/20/2023 he was having new onset substernal chest pain radiating to the left jaw, that developed while sitting and reading a newspaper. There is associated diaphoresis and nausea/vomiting. Patient was initially worked up at [facility], and transferred for suspected non-ST elevation PR 12/21/23. EKG showed ST segment depressions in anterior lateral leads. Troponins were elevated on arrival. Patient did undergo heart catheterization on 12/22/2023 which revealed severe multi-vessel coronary artery disease. There is 80% stenosis of the proximal and also mid to distal portions of the LAD, 80 to 90% stenosis of the mid left circumflex,40 to 50% left main disease. There is a preoperative workup underway for tentative open heart procedure, which is scheduled for . Chest CT did not show any evidence of acute pulmonary process. No evidence of focal consolidation, pneumothorax, or pleural effusions. Patient did have a bed side FEV1 which was 1.82 L or 58% of predicted. Does have remote history of smoking, quitting in 1988 after being hypnotized. 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 No previous diagnosis of lung disease or COPD or asthma. Patient is currently resting comfortably on room air, in no acute distress. Nonlabored breathing. His incentive spirometer is at the bedside. He continues to have nitroglycerin infusion at 15 mics per minute and IV heparin infusion per protocol. Denies any current chest pain. Echocardiogram done yesterday estimated a preserved left ventricular ejection fraction of 50 to 55%. Grade 1 diastolic dysfunction noted. Most recent CBC from yesterday is unremarkable. Most recent APTT subtherapeutic. BMP from yesterday also unremarkable. Hemodynamics are stable. Review of Systems REVIEW OF SYSTEMS: CONSTITUTIONAL: Denies any recent significant weight loss or weight gain. EYES: Denies change in vision. EARS, NOSE, MOUTH, THROAT: Denies headaches, denies sore throat. CARDIOVASCULAR: See HPI. No current chest pain. RESPIRATORY: Denies shortness of breath, cough, congestion or hemoptysis. GASTROINTESTINAL: Denies change in appetite, abdominal pain, nausea and vomiting, or diarrhea GENITOURINARY: Denies hematuria, denies infections. MUSKULOSKELETAL: Denies pain, denies swelling. INTEGUMENTARY: Denies rash, denies eczema. NEUROLOGICAL: Denies recent memory loss, no recent seizure activity. PSYCHIATRIC: Denies anxiety, denies depression. HEMATOLOGIC/LYMPHATIC: Denies anemia, denies enlarged lymph node Past Medical History Past Medical History: Cancer, Diabetes Mellitus, Hearing Disorder / Deafness, Hyperlipidemia, Hypertension, Osteoarthritis (OA), Sleep Apnea/CPAP/BIPAP, Vascular Disorder Additional Past Medical History / Comment(s): History of pancreatitis History of Any Multi-Drug Resistant Organisms: None Reported Past Surgical History: Cholecystectomy Additional Past Surgical History / Comment(s): History of bilateral femoral endarterectomies, history of cataract surgery to his bilateral eyes Past Anesthesia/Blood Transfusion Reactions: No Reported Reaction Past Psychological History: PTSD Smoking Status: Former smoker Past Alcohol Use History: None Reported Past Drug Use History: Marijuana - Past Family History Mother Family Medical History: Dementia, Diabetes Mellitus Father Family Medical History: COPD Sister(s) Family Medical History: Cancer Medications and Allergies Home Medications Medication Instructions Recorded Confirmed Type Insulin Glargine,Hum.rec.anlog 60 unit SQ BID 09/20/17 12/22/23 History [Lantus Solostar Pen] Multivitamins, Thera [Multivitamin 1 tab PO DAILY 09/20/17 12/22/23 History (formulary)] Venlafaxine HCl [Effexor XR] 300 mg PO DAILY 09/20/17 12/22/23 History Fenofibrate Nanocrystallized 145 mg PO DAILY #30 tablet 09/21/17 12/22/23 Rx [Tricor] Atorvastatin Calcium [Lipitor] 40 mg PO DAILY 12/22/23 12/22/23 History Cholecalciferol [Vitamin D3 (25 50 mcg PO DAILY 12/22/23 12/22/23 History Mcg = 1000 Iu)] Insulin Aspart [Insulin Aspart 17 unit SQ AC-BID@1200,1800 06/03/24 06/03/24 History Flexpen] Insulin Aspart [Insulin Aspart 30 unit SQ AC-BRKFST 12/22/23 12/22/23 History Flexpen] Mirtazapine 30 mg PO HS 12/22/23 12/22/23 History Prazosin [Minipress] 10 mg PO HS 12/22/23 12/22/23 History Rivaroxaban [Xarelto] 2.5 mg PO BID 12/22/23 12/22/23 History amLODIPine [Norvasc] 10 mg PO DAILY 12/22/23 12/22/23 History atenoloL 25 mg PO DAILY 12/22/23 12/22/23 History icosapent ethyL [Icosapent Ethyl] 2 gm PO BID-W/MEALS 12/22/23 12/22/23 History traZODone HCL 100 mg PO HS 12/22/23 12/22/23 History Allergies Allergy/AdvReac Type Severity Reaction Status Date / Time pioglitazone Allergy Unknown Verified 12/22/23 08:19 atorvastatin [From Lipitor] AdvReac muscle pain Verified 12/22/23 08:19 lisinopril AdvReac Cough Verified 12/22/23 08:19 metformin AdvReac Nausea & Verified 12/22/23 08:19 Vomiting & Diarrhea Physical Exam Vitals: Vital Signs Temp Pulse Pulse Resp BP Pulse Ox 12/23/23 23:10 87 16 111/64 94 L 12/23/23 21:00 120/56 12/23/23 20:00 98.0 F 104 H 16 179/76 98 12/23/23 18:22 175/75 12/23/23 16:00 97.6 F 106 H 16 193/82 96 12/23/23 12:00 98.1 F 92 18 147/84 96 12/23/23 10:01 88 145/80 12/23/23 08:00 98.2 F 120 H 18 156/74 92 L 12/23/23 04:00 107 H 16 169/75 92 L Intake and Output 12/23/23 12/23/23 12/24/23 14:59 22:59 06:59 Intake Total 311.4 234.603 Output Total 300 Balance 311.4 -65.397 Intake: Intake, IV Titration 1.4 124.603 Amount Heparin Sod,Pork in 0.45% 97.853 NaCl 25,000 unit In 0.45 % NaCl 1 250ml.bag @ 10.5 UNITS/KG/HR 10.002 mls/ hr IV .Q24H BHAVNA Rx#: [id number] Nitroglycerin-D5w Pmx 50 1.4 26.75 mg In Dextrose/Water 1 250ml.bag @ 5 MCG/MIN 1.5 mls/hr IV .Q24H BHAVNA Rx#: [id number] Oral 310 110 Output: Urine 300 Other: Voiding Method Toilet Toilet Urinal Urinal # Voids 1 1 GENERAL EXAM: Alert, 73-year-old white male, comfortable in no apparent distress. HEAD: Normocephalic and atraumatic EYES: Normal reaction of pupils, equal size. NOSE: Clear with pink turbinates. THROAT: No erythema or exudates. NECK: No masses, no JVD. CHEST: No chest wall deformity. LUNGS: Equal air entry with no crackles, wheeze, rhonchi or dullness. On room air. No conversational dyspnea or accessory muscle use. CVS: S1 and S2 normal with no audible murmur, regular rhythm. No extra heart so unds ABDOMEN: No hepatosplenomegaly, active bowel sounds, no guarding or rigidity. SPINE: No scoliosis or deformity SKIN: No rashes CENTRAL NERVOUS SYSTEM: No focal deficits, tone is normal in all 4 extremities. EXTREMITIES: There is no peripheral edema, clubbing, or cyanosis. Peripheral pulses are intact. Results - Laboratory Findings CBC and BMP: 12/23/23 10:01 12/23/23 10:01 PT/INR, D-dimer PT 11.0 sec (10.0-12.5) 12/23/23 10:01 INR 1.0 (<1.2) 12/23/23 10:01 Abnormal lab findings: Abnormal Labs 12/21/23 12/21/23 12/21/23 21:37 21:37 21:37 RBC Hgb 12.8 L Hct 37.6 L APTT 21.1 L Chloride 108 H BUN 30 H Glucose 241 H POC Glucose (mg/dL) Hemoglobin A1c Troponin I Total Protein 6.2 L Triglycerides VLDL Cholesterol, Calc HDL Cholesterol TSH Ur Specific [place] Urine Glucose (UA) Urine Mucus 12/21/23 12/22/23 12/22/23 21:37 00:38 03:58 RBC 4.11 L Hgb 12.5 L Hct 35.3 L APTT Chloride BUN Glucose POC Glucose (mg/dL) Hemoglobin A1c Troponin I 0.893 H* 2.180 H* Total Protein Triglycerides VLDL Cholesterol, Calc HDL Cholesterol TSH Ur Specific [place] Urine Glucose (UA) Urine Mucus 12/22/23 12/22/23 12/22/23 03:58 03:58 03:58 RBC Hgb Hct APTT Chloride BUN Glucose POC Glucose (mg/dL) Hemoglobin A1c 7.5 H Troponin I 2.650 H* Total Protein Triglycerides 209.00 H VLDL Cholesterol, Calc 41.80 H HDL Cholesterol 37.80 L TSH Ur Specific [place] Urine Glucose (UA) Urine Mucus 12/22/23 12/22/23 12/22/23 12:49 16:15 17:02 RBC Hgb Hct APTT Chloride BUN Glucose POC Glucose (mg/dL) 160 H 184 H Hemoglobin A1c Troponin I Total Protein Triglycerides VLDL Cholesterol, Calc HDL Cholesterol TSH Ur Specific [place] 1.037 H Urine Glucose (UA) 2+ H Urine Mucus Rare H 12/22/23 12/22/23 12/23/23 17:48 20:00 10:01 RBC Hgb Hct APTT Chloride 111 H BUN 24 H Glucose 193 H 106 H POC Glucose (mg/dL) 166 H Hemoglobin A1c Troponin I Total Protein 6.2 L Triglycerides VLDL Cholesterol, Calc HDL Cholesterol TSH <0.015 L Ur Specific [place] Urine Glucose (UA) Urine Mucus 12/23/23 12/23/23 12/23/23 10:01 10:01 16:12 RBC 4.16 L Hgb 12.3 L Hct 36.2 L APTT 43.4 H Chloride BUN Glucose POC Glucose (mg/dL) 261 H Hemoglobin A1c Troponin I Total Protein Triglycerides VLDL Cholesterol, Calc HDL Cholesterol TSH Ur Specific [place] Urine Glucose (UA) Urine Mucus 12/23/23 20:09 RBC Hgb Hct APTT Chloride BUN Glucose POC Glucose (mg/dL) 194 H Hemoglobin A1c Troponin I Total Protein Triglycerides VLDL Cholesterol, Calc HDL Cholesterol TSH Ur Specific [place] Urine Glucose (UA) Urine Mucus - Diagnostic Findings Chest x-ray: image reviewed CT scan - chest: image reviewed Assessment and Plan Assessment: Acute non-ST elevation myocardial infarction Multivessel coronary artery disease, as mentioned per heart cath report, tentatively scheduled for surgical myocardial revascularization tomorrow History of hypertension Hyperlipidemia Insulin-dependent diabetes mellitus Peripheral arterial disease, with history of bilateral femoral endarterectomies History of totally occluded right ICA stenosis, anticoagulated on Xarelto outpatient Obesity, with a BMI of 30.1 kg/m History of obstructive sleep apnea, noncompliant with CPAP Remote history of tobacco dependence, quitting in 1988 Plan: Patient's medications, labs, imaging reviewed Bedside FEV1 was obtained, 1.82 L or 58% of predicted. On room air. Encourage incentive spirometer. No active pulmonary issues. Patient is going to be cleared from a pulmonary standpoint. We will follow the patient perioperatively and assist the patient with liberation from the mechanical ventilator Continues on heparin IV per protocol and IV nitroglycerin at 15 mcg/min. Denies any current chest pain. Recent echocardiogram noted. Continues to undergo preoperative workup. STS score is being calculated. Tentatively scheduled for surgical myocardial revascularization tomorrow. I have personally seen and examined the patient, performed the documentation and the assessment and plan as written. Number of minutes spent on the visit:20 Time with Patient: Greater than 30
[2023-12-24] MEDS: HEPARIN SODIUM 1,000 UN/ML (10ML VL) IV PRN (03:33)
--- NOTE | 2023-12-24 05:51 | P.PN ---
Subjective Progress Note Date: 12/23/23 71-year-old pleasant male came with complaints of chest pressure-like sensation radiating to the neck along with some shortness of breath. Patient is found to have significant ST-T wave changes in the anterolateral leads. Patient troponin is elevated and needs an upward trend highest being around 2.7. Patient was started on IV heparin patient will undergo cardiac catheterization today patient also had a recent upper respiratory viral illness about a month ago. Patient does have history of cerebrovascular disease and underwent a prior risk of revascularization procedure and bilateral femoral endarterectomy. Patient continues to smoke but trying to quit and cut down significantly. Patient d enies any orthopnea paroxysmal nocturnal dyspnea patient does not have any pedal edema not in congestive heart failure exacerbation. 12/23/2023 Patient seen in follow-up today status post cardiac catheterization yesterday and noted to have triple-vessel coronary artery disease and cardiothoracic surg curt was consulted for possible CABG eval. Patient currently undergoing further workup and experience some increased chest pain and was started on nitro drip per cardiology this morning. Patient currently on supplemental oxygen of 2 L and reports some shortness of breath with exertion patient reports he does not wear oxygen outpatient. Patient is currently afebrile with incentive spirometer at bedside and encouraged the patient to continue using at least 10 times every hour while awake.. Tentatively scheduled for surgery 12/25/2023 Review of systems: Constitutional: No reports of fatigue, fever, or chills Cardiovascular: reports of chest pain no palpitations Respiratory: reports of shortness of breath with exertion GI: No reports of nausea, vomiting, or diarrhea : No reports of dysuria or retention Neurovascular: No reports of weakness or numbness All medications have been reviewed PHYSICAL EXAMINATION: GENERAL: The patient is alert and oriented x3, not in any acute distress. Well developed, well nourished. Obese HEENT: Pupils are round and equally reacting to light. EOMI. No scleral icterus. No conjunctival pallor. Normocephalic, atraumatic. No pharyngeal erythema. No t hyromegaly. CARDIOVASCULAR: S1 and S2 present. No murmurs, rubs, or gallops. PULMONARY: Chest is clear to auscultation, no wheezing or crackles. ABDOMEN: Soft, nontender, nondistended, normoactive bowel sounds. No palpable organomegaly. MUSCULOSKELETAL: No joint swelling or deformity. EXTREMITIES: No cyanosis, clubbing, or pedal edema. NEUROLOGICAL: Gross neurological examination did not reveal any focal deficits. SKIN: No rashes. Assessment : -Acute non-ST elevation myocardial infarction: Continue with IV heparin, status post cardiac catheterization revealing triple vessel disease -Severe peripheral vascular disease -Type 2 diabetes mellitus patient will be resumed on home regimen along with sliding scale insulin -Hyperlipidemia -Hypertension -PTSD/depression -obesity with a bmi of 30.1 GI prophylaxis DVT prophylaxis: On IV heparin Full code Plan: Patient is status post cardiac catheterization with cardiology following currently on heparin and nitro drip as patient was found to have triple-vessel disease and cardiothoracic surgery was consulted to discuss possible CABG Continue monitoring Accu-Cheks before meals and at bedtime and will adjust insulins in the a.m. Encourage incentive spirometer use at least 10 times per hour. Educated on proper use and technique of the IS CT following tentatively scheduled for 12/25/2023 Overall prognosis is guarded. The impression and plan of care has been dictated by Kaitlynn Chávez, Nurse Practitioner as directed. Dr. Massiel MD I have performed a history and examination and MDM of this patient, discussed the same with the dictator, and agree with the dictator's assessment and plan as written ,documented as a scribe. Based on total visit time, I have performed more than 50% of the visit. Objective - Vital Signs Vital signs: Vital Signs Temp 98.2 F 12/23/23 08:00 Pulse 115 H 12/23/23 08:00 Resp 18 12/23/23 08:00 BP 156/74 12/23/23 08:00 Pulse Ox 92 L 12/23/23 08:00 FiO2 Intake & Output 12/22/23 12/23/23 12/23/23 18:59 06:59 18:59 Intake Total 897.643 110 Output Total 1150 Balance -252.357 110 Weight 95.254 kg Intake: IV 150 Intake, IV Titration 27.643 Amount Heparin Sod,Pork in 0.45% 27.643 NaCl 25,000 unit In 0.45 % NaCl 1 250ml.bag @ 10. 4982 UNITS/KG/HR 10 mls/ hr IV .Q24H BHAVNA Rx#: [id number] Oral 720 110 Output: Urine 1150 Other: Voiding Method Toilet # Voids 1 - Labs CBC & Chem 7: 12/24/23 02:08 12/23/23 10:01 Labs: Abnormal Lab Results - Last 24 Hours (Table) 12/22/23 12/22/23 12/22/23 Range/Units 03:58 12:49 16:15 BUN (9-20) mg/dL Glucose (74-99) mg/dL POC Glucose (mg/dL) 160 H (70-110) mg/dL Hemoglobin A1c 7.5 H (<=6.0) % Total Protein (6.3-8.2) g/dL TSH (0.465-4.680) mIU/L Ur Specific [place] 1.037 H (1.001-1.035) Urine Glucose (UA) 2+ H (Negative) Urine Mucus Rare H (None) /hpf 12/22/23 12/22/23 12/22/23 Range/Units 17:02 17:48 20:00 BUN 24 H (9-20) mg/dL Glucose 193 H (74-99) mg/dL POC Glucose (mg/dL) 184 H 166 H (70-110) mg/dL Hemoglobin A1c (<=6.0) % Total Protein 6.2 L (6.3-8.2) g/dL TSH <0.015 L (0.465-4.680) mIU/L Ur Specific [place] (1.001-1.035) Urine Glucose (UA) (Negative) Urine Mucus (None) /hpf
[2023-12-24 06:03] LABS: Glucose,Whole Blood 100 mg/dL (70-110)
[2023-12-24] MEDS: ASPIRIN 81 MG PO SCH (07:54)
--- NOTE | 2023-12-24 09:33 | P.PN ---
Subjective Progress Note Date: 12/24/23 Principal diagnosis: Multivessel coronary artery disease, acute non-ST elevated myocardial infarction this admission. Previous medical history of hypertension, hyperlipidemia, com plete right internal carotid artery obstruction per carotid Doppler in 2017, peripheral arterial disease with previous revascularization to bilateral lower extremities with bilateral femoral endarterectomies, on Xarelto outpatient for anticoagulation, colon cancer status post 5 weeks of radiation treatment in 2022, insulin-dependent diabetes mellitus, pancreatitis, prostate cancer with previous radiation in 2019, osteoarthritis, rheumatic fever as a child, obstructive sleep apnea noncompliant with CPAP use, peripheral neuropathy, and previous tobacco dependence The patient was seen and examined sitting up in bed on the cardiac stepdown unit in no acute distress. Denies any chest pain or shortness of breath currently, however he did have several episodes of chest pain yesterday and was reinitiated on IV heparin, IV nitro. Remains in sinus rhythm, hemodynamically stable, remains on room air. He was seen and examined by Dr. Bah with plans to undergo coronary artery bypass surgery tomorrow. Preoperative teaching continues, patient has no new questions at this time. Continued medical management per internal medicine, cardiology. No other new concerns. Objective - Vital Signs Vital signs: Vital Signs Temp 97.5 F L 12/24/23 07:53 Pulse 105 H 12/24/23 07:53 Resp 16 12/24/23 07:53 BP 136/75 12/24/23 07:53 Pulse Ox 96 12/24/23 07:53 FiO2 Intake & Output 12/23/23 12/24/23 12/24/23 18:59 06:59 18:59 Intake Total 546.003 113.588 110 Output Total 300 Balance 546.003 -186.412 110 Intake: Intake, IV Titration 126.003 113.588 Amount Heparin Sod,Pork in 0.45% 97.853 113.588 NaCl 25,000 unit In 0.45 % NaCl 1 250ml.bag @ 10.5 UNITS/KG/HR 10.002 mls/ hr IV .Q24H [facility]VA[facility] Rx#: [id number] Nitroglycerin-D5w Pmx 50 28.15 mg In Dextrose/Water 1 250ml.bag @ 5 MCG/MIN 1.5 mls/hr IV .Q24H [facility]AVNA Rx#: [id number] Oral 420 110 Output: Urine 300 Other: Voiding Method Toilet Toilet Urinal Urinal # Voids 1 1 - Exam CONSTITUTIONAL: Appears comfortable, cooperative, no acute distress RESPIRATORY: Lungs sounds diminished bilaterally. Respirations even, nonlabored. Currently on room air with oxygen saturation 95%. Able to achieve 1000 mL on incentive spirometry. Strong cough. CARDIOVASCULAR: S1, S2 present. Regular rate and rhythm, sinus rhythm on telemetry. Palpable peripheral pulses bilaterally. No edema present. No calf pain or tenderness noted GASTROINTESTINAL: Abdomen soft, nontender, nondistended. Active bowel sounds present 4 quadrants. Tolerating diet GENITOURINARY: Continues to void INTEGUMENTARY: Skin is warm and dry NEUROLOGIC: Cranial nerves II through XII intact MUSKULOSKELETAL: Able to move all extremities, strength equal bilaterally, gait normal PSYCHIATRIC: Alert and oriented to person place and time, appropriate affect, intact judgment and insight - Allied health notes Allied health notes reviewed: nursing - Labs CBC & Chem 7: 12/24/23 02:08 12/23/23 10:01 Labs: Abnormal Lab Results - Last 24 Hours (Table) 12/23/23 12/23/23 12/23/23 Range/Units 10:01 10:01 10:01 RBC 4.16 L (4.30-5.90) m/uL Hgb 12.3 L (13.0-17.5) gm/dL Hct 36.2 L (39.0-53.0) % APTT 43.4 H (22.0-30.0) sec Chloride 111 H (98-107) mmol/L Glucose 106 H (74-99) mg/dL POC Glucose (mg/dL) (70-110) mg/dL Crossmatch 12/23/23 12/23/23 12/24/23 Range/Units 16:12 20:09 02:08 RBC (4.30-5.90) m/uL Hgb (13.0-17.5) gm/dL Hct (39.0-53.0) % APTT (22.0-30.0) sec Chloride (98-107) mmol/L Glucose (74-99) mg/dL POC Glucose (mg/dL) 261 H 194 H (70-110) mg/dL Crossmatch See Detail 12/24/23 12/24/23 Range/Units 02:08 02:08 RBC 3.99 L (4.30-5.90) m/uL Hgb 11.9 L (13.0-17.5) gm/dL Hct 34.4 L (39.0-53.0) % APTT 38.5 H (22.0-30.0) sec Chloride (98-107) mmol/L Glucose (74-99) mg/dL POC Glucose (mg/dL) (70-110) mg/dL Crossmatch Microbiology - Last 24 Hours (Table) 12/22/23 16:15 Nasal Screen MRSA/MSSA - Final Nasal Swab Assessment and Plan Assessment: Multivessel coronary artery disease, acute non-ST elevated myocardial infarction this admission Severe peripheral arterial disease with history of bilateral femoral endarterectomies and totally occluded right internal carotid artery, on Xarelto for anticoagulation as an outpatient, last dose was taken on December 21, 2023 History of hypertension Hyperlipidemia Insulin-dependent diabetes mellitus History of prostate cancer, status post radiation treatment History of colon cancer, status post 5 weeks of radiation treatments completed in May 2023 History of pancreatitis Obstructive sleep apnea, noncompliant with CPAP use Osteoarthritis History of rheumatic fever as a child Previous tobacco dependence, quit smoking in 1988 PTSD/depression Plan: Continue to maximize medical management with aspirin, fenofibrate, statin and beta-barrie Continue to hold Xarelto, last dose 12/21/2023 Preoperative teaching continues STS risk score calculated and discussed with the patient Medical management other comorbidities per primary care and cardiology service Plan is for off-pump coronary bypass surgery left with left internal mammary artery, left radial artery endoscopic harvest, endoscopic greater saphenous vein harvest, and exclusion of the left atrial appendage by Dr. Bah tomorrow N.p.o. after midnight More recommendations to follow
[2023-12-24 11:22] LABS: Glucose,Whole Blood 107 mg/dL (70-110)
[2023-12-24 12:01] LABS: Glucose,Whole Blood 77 mg/dL (70-110)
[2023-12-24 12:43] LABS: Glucose,Whole Blood 98 mg/dL (70-110)
[2023-12-24 13:04] LABS: Glucose,Whole Blood 183 mg/dL (70-110)
--- NOTE | 2023-12-24 14:36 | P.PN ---
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 The patient presented to the hospital complaining of chest discomfort. He describes discomfort as burning sensation in the middle of the chest with radiation to the neck and to the jaw associated with shortness of breath as well as nausea and vomiting. No presyncope or syncope. He underwent further investigation including troponin came in to be abnormal and consistent with acute coronary syndrome and also EKG changes laterally concerning for severe underlying coronary artery disease as well. Currently his chest pain-free. He is stable hemodynamically. He is slightly tachycardic. He is on heparin IV and he is on Nitropatch as well. No history of CAD and never had any coronary revascularization in the past. The examination is remarkable for stable vital signs with mild sinus tachycardia and regular rate and rhythm and clear breathing sounds bilaterally and no edema was noted in the lower extremities but he does have good bilateral femoral pulses. 12/22 Patient is seen today in follow-up. He has been evaluated by cardiothoracic surgery with plan for CABG, date has not been determined. Patient had episode of chest pain. He states he got up to the bathroom developed left breast pain along with dizziness. He returned to bed and ate his breakfast and then he felt heartbeats in his chest like his heart heart was pounding. He had midsternal chest pain at that time with radiation to his arms. He also had an increase in heart rate and blood pressure. He is currently on Nitropaste. Echocardiogram is pending. Examination reveals regular rate and rhythm, clear breath sounds bilaterally, no lower extremity edema. 12/23 Yesterday, patient was started back on heparin drip and will also was started on nitroglycerin drip. Patient had a little chest pain yesterday afternoon involving the right arm as well and it went away after nitroglycerin. CABG has been moved to . Blood pressure 155/79, heart rate 80, pulse ox 96% on room air. Echocardiogram reveals EF of 50 to 55%. Results of the echocardiogram were reviewed with the patient. Assessment Acute non-ST elevation myocardial infarction with recurring chest pain Carotid atherosclerosis as described above Lower extremities PAD as described above Multiple comorbid conditions including diabetes and hypertension and dyslipidemia Plan Continue patient on heparin drip Continue patient on nitroglycerin drip Continue patient on aspirin 81 mg, atorvastatin 40 mg daily, Lopressor 50 mg twice daily Follow-up with the patient Nurse practitioner note has been reviewed, I agree with documented findings and plan of care. Patient was seen and examined. Objective - Vital Signs Vital signs: Vital Signs Temp 97.5 F L 12/24/23 07:53 Pulse 105 H 12/24/23 07:53 Resp 16 12/24/23 07:53 BP 136/75 12/24/23 07:53 Pulse Ox 96 12/24/23 07:53 FiO2 Intake & Output 12/23/23 12/24/23 12/24/23 18:59 06:59 18:59 Intake Total 546.003 113.588 110 Output Total 300 Balance 546.003 -186.412 110 Intake: Intake, IV Titration 126.003 113.588 Amount Heparin Sod,Pork in 0.45% 97.853 113.588 NaCl 25,000 unit In 0.45 % NaCl 1 250ml.bag @ 10.5 UNITS/KG/HR 10.002 mls/ hr IV .Q24H [facility] Rx#: [id number] Nitroglycerin-D5w Pmx 50 28.15 mg In Dextrose/Water 1 250ml.bag @ 5 MCG/MIN 1.5 mls/hr IV .Q24H BHAVNA Rx#: [id number] Oral 420 110 Output: Urine 300 Other: Voiding Method Toilet Toilet Urinal Urinal # Voids 1 1 - Labs CBC & Chem 7: 12/24/23 02:08 12/23/23 10:01 Labs: Abnormal Lab Results - Last 24 Hours (Table) 12/23/23 12/23/23 12/23/23 Range/Units 10:01 10:01 10:01 RBC 4.16 L (4.30-5.90) m/uL Hgb 12.3 L (13.0-17.5) gm/dL Hct 36.2 L (39.0-53.0) % APTT 43.4 H (22.0-30.0) sec Chloride 111 H (98-107) mmol/L Glucose 106 H (74-99) mg/dL POC Glucose (mg/dL) (70-110) mg/dL Crossmatch 12/23/23 12/23/23 12/24/23 Range/Units 16:12 20:09 02:08 RBC (4.30-5.90) m/uL Hgb (13.0-17.5) gm/dL Hct (39.0-53.0) % APTT (22.0-30.0) sec Chloride (98-107) mmol/L Glucose (74-99) mg/dL POC Glucose (mg/dL) 261 H 194 H (70-110) mg/dL Crossmatch See Detail 12/24/23 12/24/23 Range/Units 02:08 02:08 RBC 3.99 L (4.30-5.90) m/uL Hgb 11.9 L (13.0-17.5) gm/dL Hct 34.4 L (39.0-53.0) % APTT 38.5 H (22.0-30.0) sec Chloride (98-107) mmol/L Glucose (74-99) mg/dL POC Glucose (mg/dL) (70-110) mg/dL Crossmatch Microbiology - Last 24 Hours (Table) 12/22/23 16:15 Nasal Screen MRSA/MSSA - Final Nasal Swab
[2023-12-24 16:37] LABS: Glucose,Whole Blood 176 mg/dL (70-110)
[2023-12-24] MEDS: MD COMMUNICATION TO PHARMACY 1 EACH MISC PO ONE ×4 (17:20→17:21)
--- NOTE | 2023-12-24 17:38 | P.PN ---
Progress Note - Text Progress Note Date: 12/24/23 71-year-old pleasant male came with complaints of chest pressure-like sensation radiating to the neck along with some shortness of breath. Patient is found to have significant ST-T wave changes in the anterolateral leads. Patient troponin is elevated and needs an upward trend highest being around 2.7. Patient was started on IV heparin patient will undergo cardiac catheterization today patient also had a recent upper respiratory viral illness about a month ago. Patient does have history of cerebrovascular disease and underwent a prior risk of revascularization procedure and bilateral femoral endarterectomy. Patient continues to smoke but trying to quit and cut down significantly. Patient denies any orthopnea paroxysmal nocturnal dyspnea patient does not have any pedal edema not in congestive heart failure exacerbation. 12/23/2023 Patient seen in follow-up today status post cardiac catheterization yesterday and noted to have triple-vessel coronary artery disease and cardiothoracic surgery was consulted for possible CABG eval. Patient currently undergoing further workup and experience some increased chest pain and was started on nitro drip per cardiology this morning. Patient currently on supplemental oxygen of 2 L and reports some shortness of breath with exertion patient reports he does not wear oxygen outpatient. Patient is currently afebrile with incentive spirometer at bedside and encouraged the patient to continue using at least 10 times every hour while awake.. Tentatively scheduled for surgery 12/25/2023 December 24, 2023: Recliner. No chest pain or shortness of breath. Eating fair.-Final plan for coronary bypass tomorrow Active Medications Alprazolam (Alprazolam 0.25 Mg Tab) 0.25 mg PO Q6HR PRN PRN Reason: Mild Anxiety Alprazolam (Alprazolam 0.5 Mg Tab) 0.5 mg PO Q6HR PRN PRN Reason: Moderate Anxiety Aspirin (Aspirin 81 Mg) 81 mg PO DAILY [facility] Last Admin: 12/24/23 07:54 Dose: 81 mg Aspirin (Aspirin 81 Mg) 81 mg PO ONCE ONE Stop: 12/25/23 05:01 Atorvastatin Calcium (Atorvastatin 40 Mg Tab) 40 mg PO DAILY [facility] Last Admin: 12/24/23 07:54 Dose: 40 mg Atorvastatin Calcium (Atorvastatin 10 Mg Tab) 10 mg PO ONCE ONE Stop: 12/25/23 05:01 Calcium Chloride (Calcium Chloride 100 Mg/Ml 10 Ml Syringe) 1,000 mg IVP ONCE ONE Stop: 12/25/23 05:01 Chlorhexidine Gluconate (Chlorhexidine Gluconate 15 Ml Cup) 15 ml MUCOUS MEM ONCE ONE Stop: 12/25/23 05:01 Fenofibrate (Fenofibrate 160 Mg Tab) 160 mg PO DAILY [facility] Last Admin: 12/24/23 07:54 Dose: 160 mg Heparin Sodium (Porcine) (Heparin Sodium 1,000 Un/Ml (10ml Vl)) 0 unit IV PER PROTOCOL PRN; Protocol PRN Reason: Low PTT Last Admin: 12/24/23 03:33 Dose: 2,370 unit Heparin Sodium (Porcine) (Heparin Sodium 1,000 Un/Ml (10ml Vl)) 10,000 unit IV ONCE ONE Stop: 12/25/23 05:01 Heparin Sodium (Porcine) (Heparin Sodium,Porcine 30 Ml 1,000 Unit/Ml Vial) 30,000 unit IV ONCE ONE Stop: 12/25/23 05:01 Heparin Sodium (Porcine) (Heparin Sodium,Porcine 30 Ml 1,000 Unit/Ml Vial) 30,000 unit IV ONCE ONE Stop: 12/25/23 05:01 Heparin Sodium (Porcine) (Heparin Sodium,Porcine 30 Ml 1,000 Unit/Ml Vial) 30,000 unit IV ONCE ONE Stop: 12/25/23 05:01 Hydralazine HCl (Hydralazine Hcl 20 Mg/Ml 1 Ml Vial) 10 mg IVP Q6HR PRN PRN Reason: Blood Pressure - High Last Admin: 12/23/23 18:23 Dose: 10 mg Heparin Sodium/Sodium Chloride (25,000 unit/ Sodium Chloride) 250 mls @ 10.002 mls/hr IV .Q24H [facility]AVNA; Protocol Last Admin: 12/24/23 17:21 Dose: Not Given Nitroglycerin/Dextrose 50 mg/ (IV Solution) 250 mls @ 1.5 mls/hr IV .Q24H [facility]AVNA; Protocol Last Admin: 12/24/23 17:21 Dose: Not Given Heparin Sodium (Porcine) 5,000 (unit/ Sodium Chloride) 501 mls @ 0 mls/hr IV ONCE ONE Stop: 12/25/23 05:01 Protamine Sulfate 250 mg/ IV (Solution) 25 mls @ 0 mls/hr IV ONCE ONE Stop: 12/25/23 05:01 Nitroglycerin/Dextrose 50 mg/ (IV Solution) 250 mls @ 1.5 mls/hr IV .Q24H [facility]AVNA; Protocol Albumin Human 50 ml/ IV (Solution) 50 mls @ 100 mls/hr IVPB ONCE ONE; Protocol Stop: 12/25/23 05:29 Albumin Human 50 ml/ IV (Solution) 50 mls @ 100 mls/hr IVPB ONCE ONE; Protocol Stop: 12/25/23 05:29 Clevidipine 25 mg/ IV Solution 50 mls @ 2 mls/hr IV .Q24H [facility]AVNA; Protocol Phenylephrine HCl 40 mg/ (Sodium Chloride) 254 mls @ 0 mls/hr IV .Q0M ONE; Protocol Stop: 12/25/23 05:01 Albumin Human 500 ml/ IV (Solution) 500 mls @ 250 mls/hr IVPB ONCE ONE; Protocol Stop: 12/25/23 06:59 Albumin Human 500 ml/ IV (Solution) 500 mls @ 250 mls/hr IVPB ONCE ONE; Protocol Stop: 12/25/23 06:59 Albumin Human 500 ml/ IV (Solution) 500 mls @ 250 mls/hr IVPB ONCE ONE; Protocol Stop: 12/25/23 06:59 Albumin Human 500 ml/ IV (Solution) 500 mls @ 250 mls/hr IVPB ONCE ONE; Protoc ol Stop: 12/25/23 06:59 Albumin Human 500 ml/ IV (Solution) 500 mls @ 250 mls/hr IVPB ONCE ONE; Protocol Stop: 12/25/23 06:59 Albumin Human 500 ml/ IV (Solution) 500 mls @ 250 mls/hr IVPB ONCE ONE; Protocol Stop: 12/25/23 06:59 Norepinephrine Bitartrate 4 mg (/ Sodium Chloride) 254 mls @ 0 mls/hr IV .Q0M [facility]; Protocol Propofol 1,000 mg/ IV Solution 100 mls @ 0 mls/hr IV .Q0M PRN; Protocol PRN Reason: Per Protocol Magnesium Sulfate 16.24 meq/ (IV Solution) 4.06 mls @ 0 mls/hr IV ONCE ONE Stop: 12/25/23 05:01 Cefazolin Sodium 2 gm/ Sodium (Chloride) 50 mls @ 100 mls/hr IVPB ONCE ONE; Protocol Stop: 12/25/23 05:29 Cefazolin Sodium 1,000 mg/ (Sodium Chloride) 1,000 mls @ 999 mls/hr IRRIGATION ONCE ONE; Protocol Stop: 12/25/23 06:00 Cefazolin Sodium 2 gm/ Sodium (Chloride) 50 mls @ 100 mls/hr IVPB ONCE ONE; Protocol Stop: 12/25/23 05:29 Sodium Bicarbonate 20 ml/Lidocaine HCl 270 mg/ Plegisol Cardioplegic Solution 1,033.5 mls @ 0 mls/hr PERFUSION .Q0M NR; Protocol Stop: 12/25/23 23:00 Tranexamic Acid 2,000 mg/ (Sodium Chloride) 100 mls @ 0 mls/hr IV .Q0M ONE; Protocol Stop: 12/25/23 05:01 Diltiazem HCl 125 mg/ Sodium (Chloride) 125 mls @ 5 mls/hr IV .Q24H [facility]NA Papaverine HCl 360 mg/ Sodium (Chloride) 102 mls @ 0 mls/hr IV ONCE ONE Stop: 12/25/23 05:01 Insulin Human Regular 100 unit (/ Sodium Chloride) 100 mls @ 0 mls/hr IV .Q0M [facility]; Protocol Insulin Aspart (Insulin Aspart (Novolog) 100 Unit/Ml Vial) 17 unit SQ AC- BID@1200,1800 [facility] Last Admin: 12/24/23 15:08 Dose: Not Given Insulin Aspart (Insulin Aspart (Novolog) 100 Unit/Ml Vial) 30 unit SQ AC-BRKFST [facility] Last Admin: 12/24/23 07:03 Dose: 30 unit Insulin Aspart (Insulin Aspart (Novolog) 100 Unit/Ml Vial) 0 unit SQ AC-TID [facility]; Protocol Last Admin: 12/24/23 16:58 Dose: 2 unit Insulin Detemir (Insulin Detemir (Levemir) 100 Unit/Ml Syr) 60 unit SQ BID@0700,2100 [facility] Last Admin: 12/24/23 07:03 Dose: 60 unit Mannitol (Mannitol 25% 12.5 Gm/50 Ml Vial) 12.5 gm IV ONCE ONE Stop: 12/25/23 05:01 Mannitol (Mannitol 25% 12.5 Gm/50 Ml Vial) 12.5 gm IV ONCE ONE Stop: 12/25/23 05:01 Metoprolol Tartrate (Metoprolol Tartrate 50 Mg Tab) 50 mg PO BID [facility] Last Admin: 12/24/23 07:54 Dose: 50 mg Metoprolol Tartrate (Metoprolol Tartrate 12.5 Mg Tab) 12.5 mg PO ONCE ONE Stop: 12/25/23 05:01 Mirtazapine (Mirtazapine 15 Mg Tab) 30 mg PO [facility] Last Admin: 12/23/23 20:13 Dose: 30 mg Morphine Sulfate (Morphine Sulfate 2 Mg/Ml Syringe) 2 mg IVP Q5M PRN PRN Reason: Chest Pain Multivitamins (Multivitamins, Thera 1 Each Tab) 1 each PO DAILY [facility] Last Admin: 12/24/23 07:54 Dose: 1 each Mupirocin (Mupirocin 2% Oint 22 Gm Tube) 1 applic NASAL BID [facility] Stop: 12/27/23 21:01 Last Admin: 12/24/23 07:55 Dose: 1 applic Nitroglycerin/Dextrose (Nitroglycerin-D5w Pmx 25 Mg/250 Ml Btl) 1 mg IV ONCE ONE Stop: 12/25/23 05:01 Prazosin HCl (Prazosin 1 Mg Cap) 10 mg PO [facility] Last Admin: 12/23/23 20:14 Dose: 10 mg Protamine Sulfate (Protamine Sulfate 10 Mg/Ml 25 Ml Vial) 250 mg IV ONCE ONE Stop: 12/25/23 05:01 Sodium Bicarbonate (Sodium Bicarb 8.4% 50 Ml Syr (1 Meq/Ml)) 50 ml IV ONCE ONE Stop: 12/25/23 05:01 Trazodone HCl (Trazodone Hcl 100 Mg Tab) 100 mg PO [facility] Last Admin: 12/23/23 20:13 Dose: 100 mg Venlafaxine HCl (Venlafaxine Hcl Er 150 Mg Cap) 300 mg PO DAILY [facility] Last Admin: 12/24/23 07:54 Dose: 300 mg INVESTIGATIONS, reviewed in the clinical context: December 24, 2023: White count 6.1 hemoglobin 11.9 platelets 178 Cardiogram: EF 50 to 55[address]: Moderate to severe coronary atherosclerosis. Severe DJD of the spine Cardiac catheterization: Severe triple-vessel CAD. Calcified right and left coronary system Assessment and plan: -Acute non-ST elevation myocardial infarction: Continue with IV heparin, status post cardiac catheterization revealing triple vessel disease -Severe triple-vessel coronary artery disease with calcified right and left coronary systems: Slow to respond Scheduled for coronary bypass tomorrow by Dr. Bah -Severe peripheral vascular disease -Type 2 diabetes mellitus, chronically on insulin Sliding scale with Accu-Cheks -Hyperlipidemia Lipitor -Hypertension Lipitor -PTSD/depression effexor -Insomnia Trazodone -obesity with a bmi of 30.1 -Full code Patient scheduled for surgery tomorrow. Discussed. Questions answered.
[2023-12-24 17:42] LABS: Glucose,Whole Blood 233 mg/dL (70-110)
[2023-12-24 19:53] LABS: Glucose,Whole Blood 204 mg/dL (70-110)
[2023-12-24] MEDS: ALPRAZolam 0.5 MG TAB PO PRN (22:23)
[2023-12-25] MEDS ORDERED: ASPIRIN 81 MG PO ONE (05:00)
[2023-12-25] MEDS ORDERED: NOREPINEPHRINE 4 MG in SODIUM CHLORIDE 0.9% 250 ML IV SCH (05:00)
[2023-12-25] MEDS ORDERED: CARDIOPLEGIC SOLN (K+ 16 MEQ/L 1,000 ML with SOD BICARB SYR 8.4% (1 MEQ/ML) 20 ML, LIDO... PERFUSION NR (05:00)
[2023-12-25] MEDS: METOPROLOL TARTRATE 12.5 MG TAB PO ONE (05:52)
[2023-12-25] MEDS ORDERED: INSULIN REGULAR 100 UNIT in SODIUM CHLORIDE 0.9% 100 ML IV SCH (06:00)
[2023-12-25 06:41] LABS: Glucose,Whole Blood 164 mg/dL (70-110)
[2023-12-25] MEDS: ATORVASTATIN 10 MG TAB PO ONE (06:47)
[2023-12-25] MEDS: ASPIRIN 325 MG TAB PO STA (06:48)
[2023-12-25] MEDS: IV FLUID CONTINUATION 1,000 ML IV ONE (07:00)
[2023-12-25] MEDS ORDERED: HEPARIN SODIUM,PORCINE 10,000 UNIT/ML 1 ML VIAL ONE (07:45)
[2023-12-25] MEDS ORDERED: MIDAZOLAM HCL 10 MG/10 ML VIAL ONE (07:45)
[2023-12-25] MEDS ORDERED: PROPOFOL 10 MG/ML 20 ML VIAL IV ONE (07:45)
[2023-12-25] MEDS ORDERED: fentaNYL (PF) 50 MCG/ML 50 ML VIAL ONE (07:45)
[2023-12-25] MEDS ORDERED: PROTAMINE SULFATE 10 MG/ML 25 ML VIAL IV ONE (07:45)
[2023-12-25] MEDS ORDERED: METOPROLOL TARTRATE 5 MG/5 ML VIAL IVP ONE (07:45)
[2023-12-25] MEDS ORDERED: SUCCINYLCHOLINE CHLORIDE 200 MG/10 ML VIAL IV ONE (07:45)
[2023-12-25] MEDS ORDERED: ALBUMIN HUMAN 5% (25gm) 500 ML VIAL IVPB ONE (07:45)
[2023-12-25] MEDS: SODIUM CHLORIDE 0.9% 50 ML with ceFAZolin 2,000 MG IV ONE (07:59)
[2023-12-25] MEDS: SODIUM CHLORIDE 0.9% 500 ML 500 ML with HEPARIN SODIUM,PORCINE (1 ML) 5,000 UNIT IV ONE (07:59)
[2023-12-25] MEDS: PAPAVERINE 360 MG in SODIUM CHLORIDE 0.9% 90 ML IV ONE (07:59)
[2023-12-25] MEDS: ceFAZolin 1,000 MG in SODIUM CHLORIDE 0.9% 1,000 ML IRRIGATION ONE (07:59)
[2023-12-25 08:40] LABS: ABG Base Excess -1.7 mmol/L; ABG Glucose Whole Blood 159 mg/dL (75-99); ABG HCO3 25 mmol/L (21-25); ABG Hematocrit 34 % (34.0-46.0); ABG Ionized Calcium 5.1 mg/dL (4.5-5.3); ABG Lactic Acid Whole Blood 1.2 mmol/L (0.5-1.6); ABG PCO2 52 mmHg (35-45); ABG PO2 173 mmHg (83-108); ABG Potassium Whole Blood 4.5 mmol/L (3.4-4.5); ABG Sodium Whole Blood 141 mmol/L (135-146); Allen Test Performed? Yes
[2023-12-25 09:25] LABS: ABG Base Excess -1.7 mmol/L; ABG Glucose Whole Blood 142 mg/dL (75-99); ABG HCO3 24 mmol/L (21-25); ABG Hematocrit 32 % (34.0-46.0); ABG Ionized Calcium 4.9 mg/dL (4.5-5.3); ABG Lactic Acid Whole Blood 1.3 mmol/L (0.5-1.6); ABG Oxygen Saturation 98.9 % (94-97); ABG PCO2 41 mmHg (35-45); ABG PH 7.37 (7.35-7.45); ABG PO2 147 mmHg (83-108); ABG Potassium Whole Blood 4.1 mmol/L (3.4-4.5); ABG Sodium Whole Blood 141 mmol/L (135-146); Allen Test Performed? Yes
[2023-12-25 10:19] LABS: ABG Base Excess -0.8 mmol/L; ABG Glucose Whole Blood 116 mg/dL (75-99); ABG HCO3 24 mmol/L (21-25); ABG Hematocrit 29 % (34.0-46.0); ABG Ionized Calcium 4.8 mg/dL (4.5-5.3); ABG Oxygen Saturation 99.1 % (94-97); ABG PCO2 37 mmHg (35-45); ABG PH 7.42 (7.35-7.45); ABG PO2 186 mmHg (83-108); ABG Sodium Whole Blood 139 mmol/L (135-146)
--- NOTE | 2023-12-25 11:16 | P.ANPRN ---
Procedure Note - Anesthesia - Invasive Line Right Central Line Time Out Performed: Yes Date of Procedure: 12/25/23 Time of Procedure: 07:00 Location of Patient: PreOp Preparation: Sterile Prep, Sterile Dressing Arterial Line Location: Radial Central Line Location: Internal Jugular [place] Line Location: Internal Jugular Ultrasound Used: Yes Purpose - Visualization and Identification of Vasculature: Yes Image Stored and Saved: Yes Narrative: Invasive line placement per sterile protocol utilized.
[2023-12-25 11:19] LABS: ABG Base Excess -1.3 mmol/L; ABG Glucose Whole Blood 94 mg/dL (75-99); ABG HCO3 23 mmol/L (21-25); ABG Hematocrit 25 % (34.0-46.0); ABG Ionized Calcium 4.7 mg/dL (4.5-5.3); ABG Lactic Acid Whole Blood 1.7 mmol/L (0.5-1.6); ABG Oxygen Saturation 99.3 % (94-97); ABG PCO2 34 mmHg (35-45); ABG PH 7.43 (7.35-7.45); ABG PO2 195 mmHg (83-108); ABG Potassium Whole Blood 3.7 mmol/L (3.4-4.5); ABG Sodium Whole Blood 142 mmol/L (135-146); Allen Test Performed? Yes
[2023-12-25 12:19] LABS: ABG Base Excess -1.8 mmol/L; ABG Glucose Whole Blood 87 mg/dL (75-99); ABG HCO3 23 mmol/L (21-25); ABG Hematocrit 25 % (34.0-46.0); ABG Ionized Calcium 4.6 mg/dL (4.5-5.3); ABG Lactic Acid Whole Blood 1.7 mmol/L (0.5-1.6); ABG Oxygen Saturation 99.1 % (94-97); ABG PCO2 37 mmHg (35-45); ABG PO2 192 mmHg (83-108); ABG Potassium Whole Blood 3.5 mmol/L (3.4-4.5); ABG Sodium Whole Blood 141 mmol/L (135-146); Allen Test Performed? Yes
[2023-12-25 12:48] LABS: ABG Base Excess -3.8 mmol/L; ABG Glucose Whole Blood 95 mg/dL (75-99); ABG HCO3 22 mmol/L (21-25); ABG Ionized Calcium 4.5 mg/dL (4.5-5.3); ABG Lactic Acid Whole Blood 1.8 mmol/L (0.5-1.6); ABG Oxygen Saturation 98.5 % (94-97); ABG PCO2 39 mmHg (35-45); ABG PH 7.35 (7.35-7.45); ABG PO2 122 mmHg (83-108); ABG Potassium Whole Blood 3.3 mmol/L (3.4-4.5); ABG Sodium Whole Blood 142 mmol/L (135-146); Allen Test Performed? Yes
[2023-12-25 13:24] LABS: Allen Test Performed? Yes
[2023-12-25 13:26] LABS: ABG Hematocrit 23 % (34.0-46.0)
[2023-12-25] MEDS: DILTIAZEM 125 MG in SODIUM CHLORIDE 0.9% 100 ML IV SCH (13:45)
[2023-12-25 13:48] LABS: Glucose,Whole Blood 84 mg/dL (70-110)
[2023-12-25] MEDS ORDERED: METOCLOPRAMIDE 5 MG/ML 2 ML VIAL IVP PRN (13:50)
[2023-12-25] MEDS ORDERED: Potassium Replacement Protocol 1 EACH MISC MISCELLANE PRN ×2 (13:50→14:55)
[2023-12-25] MEDS ORDERED: BENZOCAINE/MENTHOL LOZENG 1 EACH LOZENGE MUCOUS MEM PRN (13:50)
[2023-12-25] MEDS ORDERED: DEXMEDETOMIDINE/0.9% NACL(PMX) 400 MCG in EMPTY BAG 1 BAG IV SCH (13:50)
[2023-12-25] MEDS ORDERED: ALBUMIN HUMAN 5% 250 ML in EMPTY BAG 1 BAG IVPB PRN (13:50)
[2023-12-25] MEDS ORDERED: IPRATROPIUM-ALBUTEROL 3 ML NEB INHALATION PRN (13:50)
[2023-12-25] MEDS ORDERED: AMIODARONE 360 MG in DEXTROSE 5% IN WATER 200 ML IV ONE (13:50)
[2023-12-25] MEDS ORDERED: DEXTROSE 50% SYRINGE 50 ML IVP PRN ×2 (13:50)
[2023-12-25] MEDS ORDERED: Magnesium Replacement Protocol 1 EACH MISC MISCELLANE PRN ×2 (13:50→14:56)
--- NOTE | 2023-12-25 13:51 | P.OP ---
Date of Procedure: 12/25/23 Preoperative Diagnosis: Coronary artery disease, subendocardial infarction. Postoperative Diagnosis: Same Procedure(s) Performed: Off-pump CABG x 5 with sequential PARKS to mid diagonal and distal LAD, sequential left radial artery to first and second obtuse marginal coronary arteries, saphenous vein to PDA, ligation of left atrial appendage with 35mm AtriCure clamp, endovascular vein harvest of the greater saphenous vein from the right lower extremity from ankle to groin, endovascular radial harvest from the left forearm. Implants: 35 mm AtriCure clip Anesthesia: KARLENE Surgeon: Harrison Bah Sleeve Maker #1: Jemal Brumfield Sleeve Maker #2: Lowell Baker Estimated Blood Loss (ml): 500 IV fluids (ml): 2,500 Urine output (ml): 400 Pathology: none sent Condition: stable Disposition: ICU Indications for Procedure: 73-year-old male who presented with subendocardial infarction. He was found to have severe three-vessel coronary artery disease. He was on Xarelto for PVD. This is the he had known right carotid artery occlusion and history of bilateral femoral endarterectomies. He had ongoing anginal symptoms while in the hospital. Xarelto was held and he was scheduled for urgent coronary revascularization. Operative Findings: BILLY demonstrated near normal left ventricular function with mild to moderate LVH. Valvular function was normal. Conduits were good. Targets were adequate. Aorta was mildly dilated and had some calcification present. Patient was quite volume dependent. Description of Procedure: Patient was brought to the operating room and placed supine on the operating table. Monitoring lines have been placed in the preop holding area. General anesthesia was induced and BILLY probe was placed. Oliver catheter was placed. Anterior torso, bilateral lower extremities and left upper extremity were sterilely prepped and draped. Left radial artery was harvested using endovascul ar technique from the left forearm and was prepared on the back table. The incision was closed and dressed and the arm tucked at the side. Simultaneously the left greater saphenous vein was harvested from ankle to groin and was of good quality. It was also prepared on the back table. Wound was closed with layers of Vicryl suture. Simultaneously the midline sternotomy was performed and the left hemisternum retracted upwards. Left internal mammary artery was harvested on a vascularized pedicle and left intact on its origin from the subclavian. It was a good conduit. Left pleural space was drained with a 32 Slovak chest tube. Standard sternal retractor was placed. The pericardium was opened in the midline and the heart exposed with pericardial sutures. Patient was systemically heparinized and ACT's were maintained greater than 250 during grafting. We began grafting with a sequential PARKS to the mid diagonal and distal LAD. [id number] anastomosis was constructed between the PARKS and the diagonal. A 1.5 mm flow-through was used to control the blood flow during the anastomosis. The vessel was a 1.75 mm vessel of good quality. On completion of the anastomosis the flow through was removed effectively probing the proximal distal portion of the anastomosis. Suture was tied with good result and hemostasis. Excellent flow was noted at the end of the PARKS and the bulldog clamp was moved from proximal to distal. Next the distal anastomosis from the end of the PARKS to the distal LAD was performed with running 8-0 Prolene suture. The LAD was a 1.5 mm vessel with diffuse disease present. Blood flow was controlled with a 1.5 mm flow through. On completion anastomosis the flow through was removed effectively probing the proximal distal portion of the anastomosis. Suture was tied with good result and hemostasis. Inflow was opened. The SHAYY pedicle was tacked surrounding epicardium with 6-0 silk sutures. Next the inferior wall of the heart was exposed. Posterior descending coronary artery was a 1.75 mm vessel of good quality. It was opened and blood flow controlled with a 1.5 mm flow through. End-to-side anastomosis between the saphenous vein and the PDA was performed with running 7-0 Prolene suture. On completion anastomosis flow through was removed effective from the proximal distal portion of the anastomosis. Suture was tied with good result hemostasis. Good backbleeding was noted in the vein graft to the first valve. The vein was then cut to appropriate length to reach the ascending aorta. The lateral wall of the heart was exposed. First and second obtuse marginal branches were both graftable vessels. Questionable left radial artery graft to these 2 vessels was planned. We began with the distal anastomosis of the radial to the second obtuse marginal. It was opened and blood flow controlled with a 1.5 mm flow through. It was 1.75 mm vessel. Anastomosis was constructed with running 7-0 Prolene suture. On completion of the anastomosis the flow through was removed effectively probing the proximal and distal portion of the anastomosis. Good backbleeding was noted into the radial artery controlled with a bulldog clamp. Next a [id number] anastomosis between the first obtuse marginal and the radial artery was performed. Vessel was opened and blood flow controlled with a 1.5 mm flow through. It was a 2 mm vessel. [id number] anastomosis was constructed with running 7-0 Prolene suture. On completion the anastomosis flow through was removed effectively probing the proximal distal portion of the anastomosis. The clamp was removed, the graft was noted to lay well. It was brought beneath the PARKS had more than adequate length to reach the ascending aorta. 2 proximal anastomoses were now constructed with running 5-0 Prolene suture using heartstring devices. Care was taken to place these at soft areas on the ascending aorta. On completion of the proximal anastomosis the inflow was opened after appropriate de-airing maneuvers. All the graft lay well and hemostasis was good. Heparin was reversed with protamine. Good hemostasis was obtained throughout. The mediastinum was irrigated with antibiotic solution and drained with a 36 Slovak chest tube. The sternum was closed with 8 sternal wires. Fascia was closed with 0 Ethibond. Subcutaneous and subcuticular layers were closed with layers of Vicryl suture. Dry sterile dressings were applied and the patient was transferred to ICU in stable condition. No inotropes or blood products were required.
[2023-12-25] MEDS: CLEVIDIPINE BUTYRATE 25 MG in EMPTY BAG 1 BAG IV SCH (13:55)
[2023-12-25] MEDS: hydrALAZINE HCL 20 MG/ML 1 ML VIAL IVP PRN (13:59)
[2023-12-25] MEDS: LACTATED RINGERS 1,000 ML IV SCH (14:01)
[2023-12-25 14:04] LABS: Basophils % (A) 0 %; Eosinophils # (A) 0.1 k/uL (0-0.7); Eosinophils % (A) 2 %; HCT 23.7 % (39.0-53.0); Lymphocytes # (A) 0.5 k/uL (1.0-4.8); Lymphocytes % (A) 8 %; MCH 29.6 pg (25.0-35.0); MCHC 34.3 g/dL (31.0-37.0); MCV 86.4 fL (80.0-100.0); Mean Platelet Volume 9.4; Monocytes # (A) 0.2 k/uL (0-1.0); Monocytes % (A) 4 %; Neutrophils # (A) 5.5 k/uL (1.3-7.7); Neutrophils % (A) 86 %; Platelet Count 100 k/uL (150-450); RBC 2.74 m/uL (4.30-5.90); RDW 13.5 % (11.5-15.5); WBC 6.4 k/uL (3.8-10.6)
[2023-12-25] MEDS: NITROGLYCERIN-D5W PMX 50 MG in DEXTROSE/WATER 1 250ML.BAG IV SCH (14:05)
[2023-12-25 14:09] LABS: Ionized Calcium 4.6 mg/dL (4.5-5.3)
[2023-12-25 14:15] LABS: HGB 8.1 gm/dL (13.0-17.5)
[2023-12-25 14:18] LABS: ALT 15 U/L (4-49); AST 30 U/L (17-59); African American GFR (CKD) >90 (>60 ml/min/1.73 sqM); Albumin 2.7 g/dL (3.5-5.0); Alkaline Phosphatase 32 U/L (38-126); Anion Gap 4 mmol/L; Blood Urea Nitrogen 17 mg/dL (9-20); Calcium 7.6 mg/dL (8.4-10.2); Carbon Dioxide 21 mmol/L (22-30); Chloride 114 mmol/L (98-107); Glucose 81 mg/dL (74-99); INR 1.2 (<1.2); Magnesium 1.8 mg/dL (1.6-2.3); Non-African American GFR(CKD) 79 (>60 ml/min/1.73 sqM); Potassium 3.8 mmol/L (3.5-5.1); Prothrombin Time 13.2 sec (10.0-12.5); Sodium 139 mmol/L (137-145); Total Bilirubin 0.5 mg/dL (0.2-1.3); Total Protein 4.2 g/dL (6.3-8.2)
[2023-12-25 14:19] LABS: Partial Thromboplastin Time 26.7 sec (22.0-30.0)
[2023-12-25] MEDS ORDERED: DEXTROSE 5% IN WATER 100 ML with AMIODARONE 150 MG IV PRN (14:20)
[2023-12-25 14:26] LABS: ABG Base Excess -2.2 mmol/L; ABG HCO3 24 mmol/L (21-25); ABG Oxygen Saturation 100.6 % (94-97); ABG PCO2 45 mmHg (35-45); ABG PH 7.33 (7.35-7.45); ABG PO2 329 mmHg (83-108); ABG TCO2 25 mmol/L (19-24); Allen Test Performed? Yes
[2023-12-25 14:36] LABS: ABG TCO2 24 mmol/L (19-24)
[2023-12-25 14:36] LABS: ABG TCO2 22 mmol/L (19-24)
[2023-12-25 14:36] LABS: ABG TCO2 22 mmol/L (19-24)
[2023-12-25 14:37] LABS: ABG TCO2 21 mmol/L (19-24)
[2023-12-25 14:37] LABS: ABG TCO2 22 mmol/L (19-24)
[2023-12-25 14:37] LABS: ABG TCO2 22 mmol/L (19-24)
--- NOTE | 2023-12-25 14:47 | P.PN ---
Subjective Progress Note Date: 12/25/23 Patient is a 73-year-old white male with past medical history significant for hypertension, hyperlipidemia, diabetes mellitus, obesity, right internal carotid artery occlusion, peripheral arterial disease, colon cancer with previous radiation treatments, prostate cancer with previous radiation, pancreatitis, obstructive sleep apnea not pliant with CPAP, and former tobacco smoker quitting in 1988. His PCP is Dr. Veloz out of [place], [place]. Back on 12/20/2023 he was having new onset substernal chest pain radiating to the left jaw, that developed while sitting and reading a newspaper. There is associated diaphoresis and nausea/vomiting. Patient was initially worked up at [facility], and transferred for suspected non-ST elevation [place] 12/21/23. EKG showed ST segment depressions in anterior lateral leads. Troponins were elevated on arrival. Patient did undergo heart catheterization on 12/22/2023 which revealed severe multi-vessel coronary artery disease. There is 80% stenosis of the proximal and also mid to distal portions of the LAD, 80 to 90% stenosis of the mid left circumflex,40 to 50% left main disease. There is a preoperative workup underway for tentative open heart procedure, which is scheduled for . Chest CT did not show any evidence of acute pulmonary process. No evidence of focal consolidation, pneumothorax, or pleural effusions. Patient did have a be dside FEV1 which was 1.82 L or 58% of predicted. Does have remote history of smoking, quitting in 1988 after being hypnotized. 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 No previous diagnosis of lung disease or COPD or asthma. Patient is currently resting comfortably on room air, in no acute distress. Nonlabored breathing. His incentive spirometer is at the bedside. He continues to have nitroglycerin infusion at 15 mics per minute and IV heparin infusion per protocol. Denies any current chest pain. Echocardiogram done yesterday estimated a preserved left ventricular ejection fraction of 50 to 55%. Grade 1 diastolic dysfunction noted. Most recent CBC from yesterday is unremarkable. Most recent APTT subtherapeutic. BMP from yesterday also unremarkable. Hemodynamics are stable. The patient is seen today December 25, 2023 in the intensive care unit shortly after returning from the OR. He had gone undergone an off-pump CABG x 5 with sequential PARKS to the mid diagonal and distal LAD, sequential left radial artery to the first and second obtuse marginal arteries, saphenous vein to the PDA. Ligation of the left atrial appendage. He is on the mechanical ventilator and assist-control mode with a rate of 16, tidal volume 500, FiO2 100% and a PEEP of 8. Blood gases revealed a PaO2 of 329, pCO2 of 45 and a pH of 7.33. He has chest tubes in place, pacer wires in place, [place]-Makenzie catheter in the right internal jugular, right radial art line in place. Brice wrap to the left radial surgical site. Bilateral lower extremity Brice wraps. DUNCAN drain to the right lower extremity. He is on a Cardizem drip at 5 mg/h. Cleviprex at 1 mg/h. Amiodarone at 1 mg/min. Lactated Ringer's at 50 MLS per hour. Nitroglycerin drip at 5 mcg/min. Propofol at 40 mcg/kg/min. PA pressure 44/31. Central venous pressure 13. Cardiac output 6.8. Cardiac index 3.2. White count 6.4. Hemoglobin 8.1. Platelets 100,000. Sodium 139. Potassium 3.8. Bicarb 21. BUN 17. Creatinine 0.96. He is initiated on bronchodilators. Heparin for DVT prophylaxis. Objective - Vital Signs Vital signs: Vital Signs Temp 96.8 F L 12/25/23 14:00 Pulse 89 12/25/23 14:15 Resp 16 12/25/23 14:15 BP 146/75 12/25/23 14:00 Pulse Ox 100 12/25/23 14:15 FiO2 50 12/25/23 14:32 Intake & Output 12/24/23 12/25/23 12/25/23 18:59 06:59 18:59 Intake Total 330 240 248.5 Output Total 750 1175 Balance -420 240 -926.5 Intake: IV 248.5 Cardiac Output (0.9 30 Sodium Chloride) Diltiazem 125 mg In 5 Sodium Chloride 0.9% 100 ml @ 5 MG/HR 5 mls/hr IV .Q24H [facility] Rx#:[id number] Lactated Ringers 1,000 ml 50 @ 50 mls/hr IV .Q20H [facility] Rx#:[id number] Nitroglycerin-D5w Pmx 50 1.5 mg In Dextrose/Water 1 250ml.bag @ 5 MCG/MIN 1.5 mls/hr IV .Q[facility]H [facility] Rx#: [id number] Pressure Bag (0.9 Sodium 9 Chloride) Oral 330 240 Output: Chest Tube Drainage 55 Chest Tube Left Anterior 35 Chest Chest Tube Mediastinal 20 Urine 750 370 Estimated Blood Loss 750 Other: Voiding Method Toilet Toilet Urinal Urinal # Voids 1 # Bowel Movements 1 ABP, PAP, CO, CI - Last Documented Arterial Blood Pressure 132/45 Pulmonary Artery Pressure 44/21 Cardiac Output 6.8 Cardiac Index 3.2 - Exam GENERAL EXAM: Intubated, sedated 73-year-old male patient, on the mechanical ventilator, in no apparent distress. HEAD: Normocephalic. EYES: Sluggish reaction of pupils, equal size. NOSE: Clear with pink turbinates. THROAT: Oral endotracheal and gastric tube secured in place. No erythema or exudates. NECK: No masses, no JVD. Right IJ [place]-Makenzie catheter in place. CHEST: Sternal dressing dry and intact. Chest tubes in place. Pacer wires in place. LUNGS: Equal air entry with no crackles, wheeze, rhonchi or dullness. CVS: S1 and S2 normal with no audible murmur, regular rhythm. ABDOMEN: No hepatosplenomegaly, hypoactive bowel sounds, no guarding or rigidity. SPINE: No scoliosis or deformity SKIN: No rashes CENTRAL NERVOUS SYSTEM: Sedated, tone is normal in all 4 extremities. EXTREMITIES: Left radial site with Brice wrap. Bilateral lower extremity Brice wraps. DUNCAN drain in place. Right radial arterial line in place. Peripheral pulses are intact. - Labs CBC & Chem 7: 12/25/23 13:45 12/25/23 13:45 Labs: Abnormal Lab Results - Last 24 Hours (Table) 12/24/23 12/24/23 12/24/23 Range/Units 02:08 16:35 17:41 RBC (4.30-5.90) m/uL Hgb (13.0-17.5) gm/dL Hct (39.0-53.0) % Plt Count (150-450) k/uL Lymphocytes # (1.0-4.8) k/uL PT (10.0-12.5) sec INR (<1.2) ABG pH (7.35-7.45) ABG pCO2 (35-45) mmHg ABG pO2 (83-108) mmHg ABG O2 Saturation (94-97) % ABG Hematocrit (34.0-46.0) % ABG Potassium (3.4-4.5) mmol/L ABG Glucose (75-99) mg/dL ABG Lactic Acid (0.5-1.6) mmol/L Hemoglobin (13.0-17.5) gm/dL Chloride (98-107) mmol/L Carbon Dioxide (22-30) mmol/L POC Glucose (mg/dL) 176 H 233 H (70-110) mg/dL Calcium (8.4-10.2) mg/dL Alkaline Phosphatase (38-126) U/L Total Protein (6.3-8.2) g/dL Albumin (3.5-5.0) g/dL Arterial Blood Potassium (3.4-4.5) mmol/L Arterial Blood Glucose (75-99) mg/dL Crossmatch See Detail 12/24/23 12/25/23 12/25/23 Range/Units 19:47 06:39 08:42 RBC (4.30-5.90) m/uL Hgb (13.0-17.5) gm/dL Hct (39.0-53.0) % Plt Count (150-450) k/uL Lymphocytes # (1.0-4.8) k/uL PT (10.0-12.5) sec INR (<1.2) ABG pH 7.30 L (7.35-7.45) ABG pCO2 52 H (35-45) mmHg ABG pO2 173 H (83-108) mmHg ABG O2 Saturation 99.0 H (94-97) % ABG Hematocrit (34.0-46.0) % ABG Potassium (3.4-4.5) mmol/L ABG Glucose 159 H (75-99) mg/dL ABG Lactic Acid (0.5-1.6) mmol/L Hemoglobin 11.0 L (13.0-17.5) gm/dL Chloride (98-107) mmol/L Carbon Dioxide (22-30) mmol/L POC Glucose (mg/dL) 204 H 164 H (70-110) mg/dL Calcium (8.4-10.2) mg/dL Alkaline Phosphatase (38-126) U/L Total Protein (6.3-8.2) g/dL Albumin (3.5-5.0) g/dL Arterial Blood Potassium (3.4-4.5) mmol/L Arterial Blood Glucose 159 H (75-99) mg/dL Crossmatch 12/25/23 12/25/23 12/25/23 Range/Units 09:27 10:20 11:21 RBC (4.30-5.90) m/uL Hgb (13.0-17.5) gm/dL Hct (39.0-53.0) % Plt Count (150-450) k/uL Lymphocytes # (1.0-4.8) k/uL PT (10.0-12.5) sec INR (<1.2) ABG pH (7.35-7.45) ABG pCO2 34 L (35-45) mmHg ABG pO2 147 H 186 H 195 H (83-108) mmHg ABG O2 Saturation 98.9 H 99.1 H 99.3 H (94-97) % ABG Hematocrit 32 L 29 L 25 L (34.0-46.0) % ABG Potassium (3.4-4.5) mmol/L ABG Glucose 142 H 116 H (75-99) mg/dL ABG Lactic Acid 2.0 H 1.7 H (0.5-1.6) mmol/L Hemoglobin 10.4 L 9.4 L 8.3 L (13.0-17.5) gm/dL Chloride (98-107) mmol/L Carbon Dioxide (22-30) mmol/L POC Glucose (mg/dL) (70-110) mg/dL Calcium (8.4-10.2) mg/dL Alkaline Phosphatase (38-126) U/L Total Protein (6.3-8.2) g/dL Albumin (3.5-5.0) g/dL Arterial Blood Potassium (3.4-4.5) mmol/L Arterial Blood Glucose 142 H 116 H (75-99) mg/dL Crossmatch 12/25/23 12/25/23 12/25/23 Range/Units 12:21 12:49 13:45 RBC 2.74 L (4.30-5.90) m/uL Hgb 8.1 L D (13.0-17.5) gm/dL Hct 23.7 L (39.0-53.0) % Plt Count 100 L (150-450) k/uL Lymphocytes # 0.5 L (1.0-4.8) k/uL PT (10.0-12.5) sec INR (<1.2) ABG pH (7.35-7.45) ABG pCO2 (35-45) mmHg ABG pO2 192 H 122 H (83-108) mmHg ABG O2 Saturation 99.1 H 98.5 H (94-97) % ABG Hematocrit 25 L 23 L (34.0-46.0) % ABG Potassium 3.3 L (3.4-4.5) mmol/L ABG Glucose (75-99) mg/dL ABG Lactic Acid 1.7 H 1.8 H (0.5-1.6) mmol/L Hemoglobin 8.1 L 7.5 L (13.0-17.5) gm/dL Chloride (98-107) mmol/L Carbon Dioxide (22-30) mmol/L POC Glucose (mg/dL) (70-110) mg/dL Calcium (8.4-10.2) mg/dL Alkaline Phosphatase (38-126) U/L Total Protein (6.3-8.2) g/dL Albumin (3.5-5.0) g/dL Arterial Blood Potassium 3.3 L (3.4-4.5) mmol/L Arterial Blood Glucose (75-99) mg/dL Crossmatch 12/25/23 12/25/23 Range/Units 13:45 13:45 RBC (4.30-5.90) m/uL Hgb (13.0-17.5) gm/dL Hct (39.0-53.0) % Plt Count (150-450) k/uL Lymphocytes # (1.0-4.8) k/uL PT 13.2 H (10.0-12.5) sec INR 1.2 H (<1.2) ABG pH (7.35-7.45) ABG pCO2 (35-45) mmHg ABG pO2 (83-108) mmHg ABG O2 Saturation (94-97) % ABG Hematocrit (34.0-46.0) % ABG Potassium (3.4-4.5) mmol/L ABG Glucose (75-99) mg/dL ABG Lactic Acid (0.5-1.6) mmol/L Hemoglobin (13.0-17.5) gm/dL Chloride 114 H (98-107) mmol/L Carbon Dioxide 21 L (22-30) mmol/L POC Glucose (mg/dL) (70-110) mg/dL Calcium 7.6 L (8.4-10.2) mg/dL Alkaline Phosphatase 32 L (38-126) U/L Total Protein 4.2 L (6.3-8.2) g/dL Albumin 2.7 L (3.5-5.0) g/dL Arterial Blood Potassium (3.4-4.5) mmol/L Arterial Blood Glucose (75-99) mg/dL Crossmatch Assessment and Plan Assessment: Acute non-ST elevation myocardial infarction Multivessel coronary artery disease, status post off-pump coronary artery bypass grafting x 5 with sequential PARKS to mid diagonal and distal LAD, sequential left radial artery to the first and second obtuse marginal arteries, saphenous vein to the PDA and ligation of the left atrial appendage. Postoperative day #0 History of hypertension Hyperlipidemia Insulin-dependent diabetes mellitus Peripheral arterial disease, with history of bilateral femoral endarterectomies History of totally occluded right ICA stenosis, anticoagulated on Xarelto outpatient Obesity, with a BMI of 30.1 kg/m History of obstructive sleep apnea, noncompliant with CPAP Remote history of tobacco dependence, quitting in 1988 Plan: The patient was seen and evaluated Chest x-ray, ABGs, labs and medications reviewed Titrate down the FiO2 to 50% Plan for early extubation protocol if tolerated Continue bronchodilators Heparin for DVT prophylaxis Follow-up chest x-ray, labs in a.m. We will continue to follow and make further recommendations based on his clinical status I have personally seen and examined the patient, performed the documentation and the assessment and plan as written. Number of minutes spent on the visit: 15.
[2023-12-25] MEDS: AMIODARONE 360 MG in DEXTROSE 5% IN WATER 200 ML IV ONE (15:01)
[2023-12-25 15:14] LABS: Glucose,Whole Blood 188 mg/dL (70-110)
[2023-12-25] MEDS: INSULIN REGULAR 100 UNIT in SODIUM CHLORIDE 0.9% 100 ML IV SCH (15:17)
--- NOTE | 2023-12-25 15:27 | XR ---
EXAMINATION TYPE: XR chest 1V portable DATE OF EXAM: 12/25/2023 Comparison: 12/22/2023 Clinical History: 73-year-old male Post Operative Cardiac Surgery Findings: ET tube tip at the level of the medial clavicular heads. NG tube courses below the diaphragm. Conside r slight further advancement. Right IJ [place]-Makenzie catheter in the expected mean pulmonary outflow trac t. Mediastinal drain. Median sternotomy wires and post-CABG clips. Left-sided chest tube in place. No appreciable pneumothorax. Bands of atelectasis in the mid and lower lungs. Heart upper limits of nor mal in size. Impression: Post surgical change with bands of atelectasis in the mid and lower lungs. Left-sided chest tube. No appreciable pneumothorax. ET tube tip at the medial clavicular heads. Consider slight further advance ment. Attention on follow-up.
[2023-12-25 16:02] LABS: Glucose,Whole Blood 200 mg/dL (70-110)
[2023-12-25] MEDS: IPRATROPIUM-ALBUTEROL 3 ML NEB INHALATION SCH ×2 (16:07→21:44)
[2023-12-25] MEDS: MAGNESIUM SULFATE-D5W PMX 1 GM in DEXTROSE/WATER 1 100ML.BAG IVPB ONE (16:31)
[2023-12-25] MEDS: POTASSIUM BICARBONATE/CIT AC 20 MEQ TABLET.EFF NG-TUBE SCH (16:35)
[2023-12-25] MEDS: HEPARIN SODIUM,PORCINE 5,000 UNIT/ML 1 ML VIAL SQ SCH (16:35)
[2023-12-25 17:06] LABS: Glucose,Whole Blood 223 mg/dL (70-110)
[2023-12-25] MEDS: ACETAMINOPHEN IV (For NPO) 1,000 MG in EMPTY BAG 1 BAG IVPB SCH (17:25)
[2023-12-25 17:44] LABS: Basophils % (A) 0 %; Eosinophils % (A) 0 %; Lymphocytes # (A) 0.4 k/uL (1.0-4.8); Lymphocytes % (A) 4 %; MCH 30.5 pg (25.0-35.0); MCHC 35.3 g/dL (31.0-37.0); MCV 86.3 fL (80.0-100.0); Mean Platelet Volume 7.7; Monocytes # (A) 0.4 k/uL (0-1.0); Monocytes % (A) 4 %; Neutrophils # (A) 8.2 k/uL (1.3-7.7); Neutrophils % (A) 91 %; Platelet Count 121 k/uL (150-450); RBC 3.13 m/uL (4.30-5.90); RDW 13.9 % (11.5-15.5)
[2023-12-25 17:45] LABS: HGB 9.6 gm/dL (13.0-17.5)
[2023-12-25 17:58] LABS: ABG Base Excess -3.3 mmol/L; ABG HCO3 23 mmol/L (21-25); ABG Oxygen Saturation 98.9 % (94-97); ABG PCO2 44 mmHg (35-45); ABG PH 7.32 (7.35-7.45); ABG PO2 108 mmHg (83-108); ABG TCO2 24 mmol/L (19-24); Allen Test Performed? Yes
[2023-12-25 18:01] LABS: Glucose,Whole Blood 225 mg/dL (70-110)
[2023-12-25 19:12] LABS: Glucose,Whole Blood 207 mg/dL (70-110)
[2023-12-25 19:48] LABS: Glucose,Whole Blood 205 mg/dL (70-110)
[2023-12-25 20:04] LABS: Basophils % (A) 0 %; Eosinophils # (A) 0.1 k/uL (0-0.7); Eosinophils % (A) 0 %; HCT 28.7 % (39.0-53.0); Lymphocytes # (A) 0.2 k/uL (1.0-4.8); Lymphocytes % (A) 2 %; MCH 30.1 pg (25.0-35.0); MCHC 34.9 g/dL (31.0-37.0); MCV 86.2 fL (80.0-100.0); Mean Platelet Volume 8.4; Monocytes # (A) 0.4 k/uL (0-1.0); Monocytes % (A) 3 %; Neutrophils # (A) 10.8 k/uL (1.3-7.7); Neutrophils % (A) 94 %; Platelet Count 142 k/uL (150-450); RBC 3.33 m/uL (4.30-5.90); RDW 13.8 % (11.5-15.5); WBC 11.5 k/uL (3.8-10.6)
[2023-12-25] MEDS: AMIODARONE 450 MG in DEXTROSE 5% IN WATER 250 ML IV SCH (20:45)
[2023-12-25 21:54] LABS: Glucose,Whole Blood 184 mg/dL (70-110)
[2023-12-25] MEDS: ONDANSETRON 4 MG/2 ML VIAL IVP PRN (22:16)
[2023-12-25 23:13] LABS: Glucose,Whole Blood 171 mg/dL (70-110)
[2023-12-26 00:02] LABS: Glucose,Whole Blood 159 mg/dL (70-110)
[2023-12-26 00:55] LABS: Glucose,Whole Blood 186 mg/dL (70-110)
[2023-12-26 02:16] LABS: Glucose,Whole Blood 153 mg/dL (70-110)
[2023-12-26 03:08] LABS: Glucose,Whole Blood 157 mg/dL (70-110)
[2023-12-26 04:01] LABS: Glucose,Whole Blood 148 mg/dL (70-110)
[2023-12-26 04:46] LABS: Basophils % (A) 0 %; Eosinophils # (A) 0.2 k/uL (0-0.7); Eosinophils % (A) 2 %; HCT 28.6 % (39.0-53.0); HGB 9.7 gm/dL (13.0-17.5); Lymphocytes # (A) 0.4 k/uL (1.0-4.8); Lymphocytes % (A) 3 %; MCH 29.7 pg (25.0-35.0); MCV 87.5 fL (80.0-100.0); Monocytes # (A) 0.5 k/uL (0-1.0); Monocytes % (A) 4 %; Neutrophils # (A) 10.9 k/uL (1.3-7.7); Neutrophils % (A) 90 %; Platelet Count 146 k/uL (150-450); RBC 3.27 m/uL (4.30-5.90); RDW 13.8 % (11.5-15.5); WBC 12.1 k/uL (3.8-10.6)
[2023-12-26 04:48] LABS: Ionized Calcium 4.8 mg/dL (4.5-5.3)
[2023-12-26 04:56] LABS: ALT 21 U/L (4-49); AST 45 U/L (17-59); African American GFR (CKD) >90 (>60 ml/min/1.73 sqM); Alkaline Phosphatase 40 U/L (38-126); Anion Gap 4 mmol/L; Blood Urea Nitrogen 17 mg/dL (9-20); Calcium 8.1 mg/dL (8.4-10.2); Carbon Dioxide 21 mmol/L (22-30); Chloride 110 mmol/L (98-107); Glucose 126 mg/dL (74-99); Magnesium 1.9 mg/dL (1.6-2.3); Non-African American GFR(CKD) 78 (>60 ml/min/1.73 sqM); Potassium 4.3 mmol/L (3.5-5.1); Sodium 135 mmol/L (137-145); Total Bilirubin 0.3 mg/dL (0.2-1.3); Total Protein 4.6 g/dL (6.3-8.2)
[2023-12-26 06:27] LABS: Glucose,Whole Blood 132 mg/dL (70-110)
[2023-12-26] MEDS ORDERED: ACETAMINOPHEN TAB 325 MG TAB PO PRN (06:33)
--- NOTE | 2023-12-26 07:06 | P.PN ---
Subjective Progress Note Date: 12/26/23 Principal diagnosis: The patient is a pleasant 73-year-old gentleman with coronary artery disease and known severe triple-vessel CAD as well as lower extremities peripheral arterial disease and carotid atherosclerosis and hypertension and dyslipidemia as well as multiple comorbid conditions was admitted to the hospital with chest discomfort and ruled in for acute coronary syndrome. He underwent heart catheterization and was found to have severe triple-vessel CAD. He was referred for CABG and he underwent yesterday CABG x 5 with PARKS sequentially to LAD and diagonal as well as radial artery bypass to first and second obtuse marginal branch as well as SVG to PDA of RCA. December 26, 2023 This is postoperation day #2. The patient overall is stable. He got extubated yesterday. Hemodynamically he is stable as [id number] he is slightly hypertensive and currently he is on nitro drip as well as Cardizem drip as well as clevidipine drip which I am going to stop because he is currently on Cardizem drip and holding today to stop all the drips and start the patient on oral medications. Beside that he is on aspirin. He is on intermediate intensity statin. With that and with liver function test I am going to start the patient on higher dose of statin including 80 mg p.o. nightly of atorvastatin. He is on Plavix as well. The CVP appears to be between 8-12. Urine output is excellent. Chest x-ray was reviewed and seems to be within normal limits. The examination is remarkable for distant heart sounds with diminished breathing sounds bilaterally and no lower extremities edema noted Assessment Acute coronary syndrome Severe triple-vessel CAD Carotid atherosclerosis Lower extremities PAD Multiple comorbid conditions Plan Continue the current medical regimen Try to switch the patient from IV drips using nitro and Cardizem to oral medication Continue dual antiplatelet therapy Increase the dose of statin Continue monitoring urine output Monitor the hemoglobin and renal function Follow-up with the chest x-ray on daily basis Follow-up with the patient Objective - Vital Signs Vital signs: Vital Signs Temp 98.4 F 12/26/23 04:00 Pulse 78 12/26/23 04:00 Resp 21 12/26/23 04:00 BP 131/56 12/26/23 03:00 Pulse Ox 95 12/26/23 04:00 FiO2 40 12/25/23 18:00 Intake & Output 12/25/23 12/26/23 12/26/23 18:59 06:59 18:59 Intake Total 264.593 1975.005 Output Total 2100 1495 Balance -1191.622 -85.995 Weight 107 kg Intake: IV 760.5 1126.0 ACETAMINOPHEN IV (For NPO 100 100 ) 1,000 mg In Empty Bag 1 bag @ 400 mls/hr IVPB Q6HR [facility]NA Rx#:[id number] Cardiac Output (0.9 30 190 Sodium Chloride) Diltiazem 125 mg In 25 60 Sodium Chloride 0.9% 100 ml @ 5 MG/HR 5 mls/hr IV .Q24H [facility]NA Rx#:[id number] Lactated Ringers 1,000 ml 250 600 @ 50 mls/hr IV .Q20H [facility]NA Rx#:[id number] Magnesium Sulfate-D5w Pmx 100 1 gm In Dextrose/Water 1 100ml.bag @ 100 mls/hr IVPB ONCE ONE Rx#: [id number] Nitroglycerin-D5w Pmx 50 7.5 18.0 mg In Dextrose/Water 1 250ml.bag @ 5 MCG/MIN 1.5 mls/hr IV .Q24H [facility]NA Rx#: [id number] Pressure Bag (0.9 Sodium 45 108 Chloride) ceFAZolin 2 gm In Sodium 50 50 Chloride 0.9% 50 ml @ 100 mls/hr IVPB ONCE ONE Rx# :[id number] Intake, IV Titration 87.878 223.005 Amount Clevidipine Butyrate 25 34.566 145.167 mg In Empty Bag 1 bag @ 1 MG/HR 2 mls/hr IV .Q24H [facility]NA Rx#:[id number] Insulin Regular 100 unit 12.591 77.838 In Sodium Chloride 0.9% 100 ml @ Per Protocol IV .Q0M [facility] Rx#:[id number] propofoL 1,000 mg In 40.721 Empty Bag 1 bag @ Titrate IV .Q0M [facility]AVNA Rx#: [id number] Oral 60 60 Output: Chest Tube Drainage 670 790 Chest Tube Left Anterior 270 400 Chest Chest Tube Mediastinal 400 390 Urine 680 705 Estimated Blood Loss 750 Other: Voiding Method Toilet Indwelling Catheter Urinal ABP, PAP, CO, CI - Last Documented Arterial Blood Pressure 147/43 Pulmonary Artery Pressure 39/15 Cardiac Output 7.2 Cardiac Index 3.4 - Labs CBC & Chem 7: 12/26/23 04:30 12/26/23 04:30 Labs: Abnormal Lab Results - Last 24 Hours (Table) 12/24/23 12/25/23 12/25/23 Range/Units 02:08 08:42 09:27 WBC (3.8-10.6) k/uL RBC (4.30-5.90) m/uL Hgb (13.0-17.5) gm/dL Hct (39.0-53.0) % Plt Count (150-450) k/uL Neutrophils # (1.3-7.7) k/uL Lymphocytes # (1.0-4.8) k/uL PT (10.0-12.5) sec INR (<1.2) ABG pH 7.30 L (7.35-7.45) ABG pCO2 52 H (35-45) mmHg ABG pO2 173 H 147 H (83-108) mmHg ABG Total CO2 (19-24) mmol/L ABG O2 Saturation 99.0 H 98.9 H (94-97) % ABG Hematocrit 32 L (34.0-46.0) % ABG Potassium (3.4-4.5) mmol/L ABG Glucose 159 H 142 H (75-99) mg/dL ABG Lactic Acid (0.5-1.6) mmol/L Hemoglobin 11.0 L 10.4 L (13.0-17.5) gm/dL Sodium (137-145) mmol/L Chloride (98-107) mmol/L Carbon Dioxide (22-30) mmol/L Glucose (74-99) mg/dL POC Glucose (mg/dL) (70-110) mg/dL Calcium (8.4-10.2) mg/dL Alkaline Phosphatase (38-126) U/L Total Protein (6.3-8.2) g/dL Albumin (3.5-5.0) g/dL Arterial Blood Potassium (3.4-4.5) mmol/L Arterial Blood Glucose 159 H 142 H (75-99) mg/dL Crossmatch See Detail 12/25/23 12/25/23 12/25/23 Range/Units 10:20 11:21 12:21 WBC (3.8-10.6) k/uL RBC (4.30-5.90) m/uL Hgb (13.0-17.5) gm/dL Hct (39.0-53.0) % Plt Count (150-450) k/uL Neutrophils # (1.3-7.7) k/uL Lymphocytes # (1.0-4.8) k/uL PT (10.0-12.5) sec INR (<1.2) ABG pH (7.35-7.45) ABG pCO2 34 L (35-45) mmHg ABG pO2 186 H 195 H 192 H (83-108) mmHg ABG Total CO2 (19-24) mmol/L ABG O2 Saturation 99.1 H 99.3 H 99.1 H (94-97) % ABG Hematocrit 29 L 25 L 25 L (34.0-46.0) % ABG Potassium (3.4-4.5) mmol/L ABG Glucose 116 H (75-99) mg/dL ABG Lactic Acid 2.0 H 1.7 H 1.7 H (0.5-1.6) mmol/L Hemoglobin 9.4 L 8.3 L 8.1 L (13.0-17.5) gm/dL Sodium (137-145) mmol/L Chloride (98-107) mmol/L Carbon Dioxide (22-30) mmol/L Glucose (74-99) mg/dL POC Glucose (mg/dL) (70-110) mg/dL Calcium (8.4-10.2) mg/dL Alkaline Phosphatase (38-126) U/L Total Protein (6.3-8.2) g/dL Albumin (3.5-5.0) g/dL Arterial Blood Potassium (3.4-4.5) mmol/L Arterial Blood Glucose 116 H (75-99) mg/dL Crossmatch 12/25/23 12/25/23 12/25/23 Range/Units 12:49 13:45 13:45 WBC (3.8-10.6) k/uL RBC 2.74 L (4.30-5.90) m/uL Hgb 8.1 L D (13.0-17.5) gm/dL Hct 23.7 L (39.0-53.0) % Plt Count 100 L (150-450) k/uL Neutrophils # (1.3-7.7) k/uL Lymphocytes # 0.5 L (1.0-4.8) k/uL PT 13.2 H (10.0-12.5) sec INR 1.2 H (<1.2) ABG pH (7.35-7.45) ABG pCO2 (35-45) mmHg ABG pO2 122 H (83-108) mmHg ABG Total CO2 (19-24) mmol/L ABG O2 Saturation 98.5 H (94-97) % ABG Hematocrit 23 L (34.0-46.0) % ABG Potassium 3.3 L (3.4-4.5) mmol/L ABG Glucose (75-99) mg/dL ABG Lactic Acid 1.8 H (0.5-1.6) mmol/L Hemoglobin 7.5 L (13.0-17.5) gm/dL Sodium (137-145) mmol/L Chloride (98-107) mmol/L Carbon Dioxide (22-30) mmol/L Glucose (74-99) mg/dL POC Glucose (mg/dL) (70-110) mg/dL Calcium (8.4-10.2) mg/dL Alkaline Phosphatase (38-126) U/L Total Protein (6.3-8.2) g/dL Albumin (3.5-5.0) g/dL Arterial Blood Potassium 3.3 L (3.4-4.5) mmol/L Arterial Blood Glucose (75-99) mg/dL Crossmatch 12/25/23 12/25/23 12/25/23 Range/Units 13:45 14:18 15:13 WBC (3.8-10.6) k/uL RBC (4.30-5.90) m/uL Hgb (13.0-17.5) gm/dL Hct (39.0-53.0) % Plt Count (150-450) k/uL Neutrophils # (1.3-7.7) k/uL Lymphocytes # (1.0-4.8) k/uL PT (10.0-12.5) sec INR (<1.2) ABG pH 7.33 L (7.35-7.45) ABG pCO2 (35-45) mmHg ABG pO2 329 H (83-108) mmHg ABG Total CO2 25 H (19-24) mmol/L ABG O2 Saturation 100.6 H (94-97) % ABG Hematocrit (34.0-46.0) % ABG Potassium (3.4-4.5) mmol/L ABG Glucose (75-99) mg/dL ABG Lactic Acid (0.5-1.6) mmol/L Hemoglobin (13.0-17.5) gm/dL Sodium (137-145) mmol/L Chloride 114 H (98-107) mmol/L Carbon Dioxide 21 L (22-30) mmol/L Glucose (74-99) mg/dL POC Glucose (mg/dL) 188 H (70-110) mg/dL Calcium 7.6 L (8.4-10.2) mg/dL Alkaline Phosphatase 32 L (38-126) U/L Total Protein 4.2 L (6.3-8.2) g/dL Albumin 2.7 L (3.5-5.0) g/dL Arterial Blood Potassium (3.4-4.5) mmol/L Arterial Blood Glucose (75-99) mg/dL Crossmatch 12/25/23 12/25/23 12/25/23 Range/Units 16:01 17:00 17:04 WBC (3.8-10.6) k/uL RBC 3.13 L (4.30-5.90) m/uL Hgb 9.6 L D (13.0-17.5) gm/dL Hct 27.0 L (39.0-53.0) % Plt Count 121 L (150-450) k/uL Neutrophils # 8.2 H (1.3-7.7) k/uL Lymphocytes # 0.4 L (1.0-4.8) k/uL PT (10.0-12.5) sec INR (<1.2) ABG pH (7.35-7.45) ABG pCO2 (35-45) mmHg ABG pO2 (83-108) mmHg ABG Total CO2 (19-24) mmol/L ABG O2 Saturation (94-97) % ABG Hematocrit (34.0-46.0) % ABG Potassium (3.4-4.5) mmol/L ABG Glucose (75-99) mg/dL ABG Lactic Acid (0.5-1.6) mmol/L Hemoglobin (13.0-17.5) gm/dL Sodium (137-145) mmol/L Chloride (98-107) mmol/L Carbon Dioxide (22-30) mmol/L Glucose (74-99) mg/dL POC Glucose (mg/dL) 200 H 223 H (70-110) mg/dL Calcium (8.4-10.2) mg/dL Alkaline Phosphatase (38-126) U/L Total Protein (6.3-8.2) g/dL Albumin (3.5-5.0) g/dL Arterial Blood Potassium (3.4-4.5) mmol/L Arterial Blood Glucose (75-99) mg/dL Crossmatch 12/25/23 12/25/23 12/25/23 Range/Units 17:56 18:00 19:11 WBC (3.8-10.6) k/uL RBC (4.30-5.90) m/uL Hgb (13.0-17.5) gm/dL Hct (39.0-53.0) % Plt Count (150-450) k/uL Neutrophils # (1.3-7.7) k/uL Lymphocytes # (1.0-4.8) k/uL PT (10.0-12.5) sec INR (<1.2) ABG pH 7.32 L (7.35-7.45) ABG pCO2 (35-45) mmHg ABG pO2 (83-108) mmHg ABG Total CO2 (19-24) mmol/L ABG O2 Saturation 98.9 H (94-97) % ABG Hematocrit (34.0-46.0) % ABG Potassium (3.4-4.5) mmol/L ABG Glucose (75-99) mg/dL ABG Lactic Acid (0.5-1.6) mmol/L Hemoglobin (13.0-17.5) gm/dL Sodium (137-145) mmol/L Chloride (98-107) mmol/L Carbon Dioxide (22-30) mmol/L Glucose (74-99) mg/dL POC Glucose (mg/dL) 225 H 207 H (70-110) mg/dL Calcium (8.4-10.2) mg/dL Alkaline Phosphatase (38-126) U/L Total Protein (6.3-8.2) g/dL Albumin (3.5-5.0) g/dL Arterial Blood Potassium (3.4-4.5) mmol/L Arterial Blood Glucose (75-99) mg/dL Crossmatch 12/25/23 12/25/23 12/25/23 Range/Units 19:45 19:47 21:53 WBC 11.5 H (3.8-10.6) k/uL RBC 3.33 L (4.30-5.90) m/uL Hgb 10.0 L (13.0-17.5) gm/dL Hct 28.7 L (39.0-53.0) % Plt Count 142 L (150-450) k/uL Neutrophils # 10.8 H (1.3-7.7) k/uL Lymphocytes # 0.2 L (1.0-4.8) k/uL PT (10.0-12.5) sec INR (<1.2) ABG pH (7.35-7.45) ABG pCO2 (35-45) mmHg ABG pO2 (83-108) mmHg ABG Total CO2 (19-24) mmol/L ABG O2 Saturation (94-97) % ABG Hematocrit (34.0-46.0) % ABG Potassium (3.4-4.5) mmol/L ABG Glucose (75-99) mg/dL ABG Lactic Acid (0.5-1.6) mmol/L Hemoglobin (13.0-17.5) gm/dL Sodium (137-145) mmol/L Chloride (98-107) mmol/L Carbon Dioxide (22-30) mmol/L Glucose (74-99) mg/dL POC Glucose (mg/dL) 205 H 184 H (70-110) mg/dL Calcium (8.4-10.2) mg/dL Alkaline Phosphatase (38-126) U/L Total Protein (6.3-8.2) g/dL Albumin (3.5-5.0) g/dL Arterial Blood Potassium (3.4-4.5) mmol/L Arterial Blood Glucose (75-99) mg/dL Crossmatch 12/25/23 12/26/23 12/26/23 Range/Units 23:12 00:01 00:54 WBC (3.8-10.6) k/uL RBC (4.30-5.90) m/uL Hgb (13.0-17.5) gm/dL Hct (39.0-53.0) % Plt Count (150-450) k/uL Neutrophils # (1.3-7.7) k/uL Lymphocytes # (1.0-4.8) k/uL PT (10.0-12.5) sec INR (<1.2) ABG pH (7.35-7.45) ABG pCO2 (35-45) mmHg ABG pO2 (83-108) mmHg ABG Total CO2 (19-24) mmol/L ABG O2 Saturation (94-97) % ABG Hematocrit (34.0-46.0) % ABG Potassium (3.4-4.5) mmol/L ABG Glucose (75-99) mg/dL ABG Lactic Acid (0.5-1.6) mmol/L Hemoglobin (13.0-17.5) gm/dL Sodium (137-145) mmol/L Chloride (98-107) mmol/L Carbon Dioxide (22-30) mmol/L Glucose (74-99) mg/dL POC Glucose (mg/dL) 171 H 159 H 186 H (70-110) mg/dL Calcium (8.4-10.2) mg/dL Alkaline Phosphatase (38-126) U/L Total Protein (6.3-8.2) g/dL Albumin (3.5-5.0) g/dL Arterial Blood Potassium (3.4-4.5) mmol/L Arterial Blood Glucose (75-99) mg/dL Crossmatch 12/26/23 12/26/23 12/26/23 Range/Units 02:15 03:07 03:59 WBC (3.8-10.6) k/uL RBC (4.30-5.90) m/uL Hgb (13.0-17.5) gm/dL Hct (39.0-53.0) % Plt Count (150-450) k/uL Neutrophils # (1.3-7.7) k/uL Lymphocytes # (1.0-4.8) k/uL PT (10.0-12.5) sec INR (<1.2) ABG pH (7.35-7.45) ABG pCO2 (35-45) mmHg ABG pO2 (83-108) mmHg ABG Total CO2 (19-24) mmol/L ABG O2 Saturation (94-97) % ABG Hematocrit (34.0-46.0) % ABG Potassium (3.4-4.5) mmol/L ABG Glucose (75-99) mg/dL ABG Lactic Acid (0.5-1.6) mmol/L Hemoglobin (13.0-17.5) gm/dL Sodium (137-145) mmol/L Chloride (98-107) mmol/L Carbon Dioxide (22-30) mmol/L Glucose (74-99) mg/dL POC Glucose (mg/dL) 153 H 157 H 148 H (70-110) mg/dL Calcium (8.4-10.2) mg/dL Alkaline Phosphatase (38-126) U/L Total Protein (6.3-8.2) g/dL Albumin (3.5-5.0) g/dL Arterial Blood Potassium (3.4-4.5) mmol/L Arterial Blood Glucose (75-99) mg/dL Crossmatch 12/26/23 12/26/23 12/26/23 Range/Units 04:30 04:30 06:26 WBC 12.1 H (3.8-10.6) k/uL RBC 3.27 L (4.30-5.90) m/uL Hgb 9.7 L (13.0-17.5) gm/dL Hct 28.6 L (39.0-53.0) % Plt Count 146 L (150-450) k/uL Neutrophils # 10.9 H (1.3-7.7) k/uL Lymphocytes # 0.4 L (1.0-4.8) k/uL PT (10.0-12.5) sec INR (<1.2) ABG pH (7.35-7.45) ABG pCO2 (35-45) mmHg ABG pO2 (83-108) mmHg ABG Total CO2 (19-24) mmol/L ABG O2 Saturation (94-97) % ABG Hematocrit (34.0-46.0) % ABG Potassium (3.4-4.5) mmol/L ABG Glucose (75-99) mg/dL ABG Lactic Acid (0.5-1.6) mmol/L Hemoglobin (13.0-17.5) gm/dL Sodium 135 L (137-145) mmol/L Chloride 110 H (98-107) mmol/L Carbon Dioxide 21 L (22-30) mmol/L Glucose 126 H (74-99) mg/dL POC Glucose (mg/dL) 132 H (70-110) mg/dL Calcium 8.1 L (8.4-10.2) mg/dL Alkaline Phosphatase (38-126) U/L Total Protein 4.6 L (6.3-8.2) g/dL Albumin 3.0 L (3.5-5.0) g/dL Arterial Blood Potassium (3.4-4.5) mmol/L Arterial Blood Glucose (75-99) mg/dL Crossmatch
[2023-12-26] MEDS: KETOROLAC 15 MG/ML 1 ML VIAL IVP SCH (07:16)
--- NOTE | 2023-12-26 07:45 | XR ---
EXAMINATION TYPE: XR chest 1V portable DATE OF EXAM: 12/26/2023 Comparison: 12/25/2023 Clinical History: 73-year-old male Post Operative Cardiac Surgery Findings: Median sternotomy wires and post-CABG clips. Mediastinal drain and left-sided chest tube in place. No appreciable pneumothorax. Interval extubation and removal of NG tube. Right IJ Hartline-Makenzie catheter re patrick in place. Tip probably within the proximal right main pulmonary artery. Mild interstitial promi nence remains. No pleural effusion. Impression: Post-CABG changes with interval extubation. There may be residual mild pulmonary vascular congestion.
[2023-12-26 08:06] LABS: Glucose,Whole Blood 151 mg/dL (70-110)
[2023-12-26] MEDS: PANTOPRAZOLE 40 MG/10 ML VIAL IVP SCH (08:13)
[2023-12-26] MEDS: amLODIPine 5 MG TAB PO SCH (08:13)
[2023-12-26] MEDS: METOPROLOL TARTRATE 25 MG TAB PO SCH (08:13)
[2023-12-26] MEDS: ASPIRIN 325 MG TAB PO SCH (08:13)
[2023-12-26] MEDS: MAGNESIUM SULFATE-D5W PMX 1 GM in DEXTROSE/WATER 1 100ML.BAG IVPB ONE (08:13)
[2023-12-26] MEDS: CLOPIDOGREL 75 MG TAB PO SCH (08:13)
[2023-12-26] MEDS: AMIODARONE 200 MG TAB PO SCH (08:13)
--- NOTE | 2023-12-26 08:24 | P.PN ---
Subjective Progress Note Date: 12/26/23 Principal diagnosis: Multivessel coronary artery disease, acute non-ST elevated myocardial infarction this admission. Previous medical history of hypertension, hyperlipidemia, com plete right internal carotid artery obstruction per carotid Doppler in 2017, peripheral arterial disease with previous revascularization to bilateral lower extremities with bilateral femoral endarterectomies, on Xarelto outpatient for anticoagulation, colon cancer status post 5 weeks of radiation treatment in 2022, insulin-dependent diabetes mellitus, pancreatitis, prostate cancer with previous radiation in 2019, osteoarthritis, rheumatic fever as a child, obstructive sleep apnea noncompliant with CPAP use, peripheral neuropathy, and previous tobacco dependence POD #1 off-pump CABG x 5 with sequential PARKS to mid diagonal and distal LAD, sequential left radial artery to first and second obtuse marginal coronary arteries, saphenous vein to PDA, ligation of left atrial appendage with 35mm A triCure clamp, endovascular vein harvest of the greater saphenous vein from the right lower extremity from ankle to groin, endovascular radial harvest from the left forearm Postoperative acute blood loss anemia, expected given hemodilution and preoperative anemia The patient was seen and examined sitting up in recliner in the intensive care unit in no acute distress. He was successfully extubated last night at 18:10. Does complain of expected postsurgical pain which is mostly controlled on c urrent medication regimen, denies shortness of breath. Remains in sinus rhythm, hemodynamically stable although a bit hypertensive. Currently on 2 L nasal cannula with oxygen saturation in the high 90s, only achieving 750 mL on his incentive spirometry. Labs, chest x-ray reviewed. Right internal jugular Vona/Cordis, right radial arterial line, mediastinal/left pleural chest tubes all remain. Patient does state he is not happy that we keep giving him atorvastatin as he has an allergy, discussed with patient that his reaction is not a true allergy but rather a side effect of the medication and statin therapy is an important component of management of coronary artery disease, patient reluctantly agreed to take his atorvastatin. Objective - Vital Signs Vital signs: Vital Signs Temp 98.4 F 12/26/23 04:00 Pulse 80 12/26/23 07:00 Resp 10 L 12/26/23 07:00 BP 140/62 12/26/23 07:00 Pulse Ox 98 12/26/23 07:00 FiO2 40 12/25/23 18:00 Intake & Output 12/25/23 12/26/2324 18:59 06:59 18:59 Intake Total 662.839 9517.005 67.167 Output Total 2100 1495 35 Balance -1191.622 -85.995 32.167 Weight 107 kg Intake: IV 760.5 1126.0 65.5 ACETAMINOPHEN IV (For NPO 100 100 ) 1,000 mg In Empty Bag 1 bag @ 400 mls/hr IVPB Q6HR [facility]AVNA Rx#:[id number] Cardiac Output (0.9 30 190 Sodium Chloride) Diltiazem 125 mg In 25 60 5 Sodium Chloride 0.9% 100 ml @ 5 MG/HR 5 mls/hr IV .Q24H [facility]AVNA Rx#:[id number] Lactated Ringers 1,000 ml 250 600 50 @ 20 mls/hr IV .Q24H [facility]NA Rx#:[id number] Magnesium Sulfate-D5w Pmx 100 1 gm In Dextrose/Water 1 100ml.bag @ 100 mls/hr IVPB ONCE ONE Rx#: [id number] Nitroglycerin-D5w Pmx 50 7.5 18.0 1.5 mg In Dextrose/Water 1 250ml.bag @ 5 MCG/MIN 1.5 mls/hr IV .Q24H [facility]AVNA Rx#: [id number] Pressure Bag (0.9 Sodium 45 108 9 Chloride) ceFAZolin 2 gm In Sodium 50 50 Chloride 0.9% 50 ml @ 100 mls/hr IVPB ONCE ONE Rx# :[id number] Intake, IV Titration 87.878 223.005 1.667 Amount Clevidipine Butyrate 25 34.566 145.167 mg In Empty Bag 1 bag @ 1 MG/HR 2 mls/hr IV .Q24H [facility]AVNA Rx#:[id number] Insulin Regular 100 unit 12.591 77.838 1.667 In Sodium Chloride 0.9% 100 ml @ Per Protocol IV .Q0M [facility] Rx#:[id number] propofoL 1,000 mg In 40.721 Empty Bag 1 bag @ Titrate IV .Q0M [facility]NA Rx#: [id number] Oral 60 60 Output: Chest Tube Drainage 670 790 0 Chest Tube Left Anterior 270 400 0 Chest Chest Tube Mediastinal 400 390 0 Urine 680 705 35 Estimated Blood Loss 750 Other: Voiding Method Toilet Indwelling Catheter Urinal ABP, PAP, CO, CI - Last Documented Arterial Blood Pressure 178/40 Pulmonary Artery Pressure 30/3 Cardiac Output 6 Cardiac Index 2.8 - Exam CONSTITUTIONAL: Appears comfortable, cooperative, no acute distress RESPIRATORY: Lungs sounds diminished bilaterally. Respirations even, nonlabored. Currently on 2 L nasal cannula with oxygen saturation 97%. Able to achieve 750 mL on incentive spirometry. Strong cough. CARDIOVASCULAR: S1, S2 present. Regular rate and rhythm, sinus rhythm on telemetry. Sternum stable. Palpable peripheral pulses bilaterally. No edema present. No calf pain or tenderness noted. Heart hugger in place with patient demonstrating appropriate use. Antiembolism stockings, SCDs present. GASTROINTESTINAL: Abdomen soft, nontender, nondistended. Active bowel sounds present 4 quadrants. Tolerating minimal clear liquids. Positive flatus GENITOURINARY: Oliver present draining clear, yellow urine. Output overnight 35-65 mL per hour INTEGUMENTARY: Skin is warm and dry with evidence of good perfusion. Anterior chest incision well approximated and covered with dry intact dressing. Left radial artery harvest site as well as right lower extremity EVH site well approximated without redness, DUNCAN drain present to right lower extremity EVH site with minimal serous drainage NEUROLOGIC: Cranial nerves II through XII intact MUSKULOSKELETAL: Able to move all extremities, strength equal bilaterally, gait normal PSYCHIATRIC: Alert and oriented to person place and time, appropriate affect, intact judgment and insight INVASIVE LINES AND TUBES: Mediastinal/left pleural chest tubes present and connected to wall suction, no air leaks present. Mediastinal tube with 230 mL serosanguineous drainage overnight, 800 mL since surgery. Left pleural chest tube with 290 mL serosanguineous drainage overnight, 700 mL since surgery. Right internal jugular Vona/Cordis, right radial arterial line present. Last CO/CI 6/2.8, PA 30/4, CVP 3. - Allied health notes Allied health notes reviewed: nursing - Labs CBC & Chem 7: 12/26/23 04:30 12/26/23 04:30 Labs: Abnormal Lab Results - Last 24 Hours (Table) 12/24/23 12/25/23 12/25/23 Range/Units 02:08 08:42 09:27 WBC (3.8-10.6) k/uL RBC (4.30-5.90) m/uL Hgb (13.0-17.5) gm/dL Hct (39.0-53.0) % Plt Count (150-450) k/uL Neutrophils # (1.3-7.7) k/uL Lymphocytes # (1.0-4.8) k/uL PT (10.0-12.5) sec INR (<1.2) ABG pH 7.30 L (7.35-7.45) ABG pCO2 52 H (35-45) mmHg ABG pO2 173 H 147 H (83-108) mmHg ABG Total CO2 (19-24) mmol/L ABG O2 Saturation 99.0 H 98.9 H (94-97) % ABG Hematocrit 32 L (34.0-46.0) % ABG Potassium (3.4-4.5) mmol/L ABG Glucose 159 H 142 H (75-99) mg/dL ABG Lactic Acid (0.5-1.6) mmol/L Hemoglobin 11.0 L 10.4 L (13.0-17.5) gm/dL Sodium (137-145) mmol/L Chloride (98-107) mmol/L Carbon Dioxide (22-30) mmol/L Glucose (74-99) mg/dL POC Glucose (mg/dL) (70-110) mg/dL Calcium (8.4-10.2) mg/dL Alkaline Phosphatase (38-126) U/L Total Protein (6.3-8.2) g/dL Albumin (3.5-5.0) g/dL Arterial Blood Potassium (3.4-4.5) mmol/L Arterial Blood Glucose 159 H 142 H (75-99) mg/dL Crossmatch See Detail 12/25/23 12/25/23 12/25/23 Range/Units 10:20 11:21 12:21 WBC (3.8-10.6) k/uL RBC (4.30-5.90) m/uL Hgb (13.0-17.5) gm/dL Hct (39.0-53.0) % Plt Count (150-450) k/uL Neutrophils # (1.3-7.7) k/uL Lymphocytes # (1.0-4.8) k/uL PT (10.0-12.5) sec INR (<1.2) ABG pH (7.35-7.45) ABG pCO2 34 L (35-45) mmHg ABG pO2 186 H 195 H 192 H (83-108) mmHg ABG Total CO2 (19-24) mmol/L ABG O2 Saturation 99.1 H 99.3 H 99.1 H (94-97) % ABG Hematocrit 29 L 25 L 25 L (34.0-46.0) % ABG Potassium (3.4-4.5) mmol/L ABG Glucose 116 H (75-99) mg/dL ABG Lactic Acid 2.0 H 1.7 H 1.7 H (0.5-1.6) mmol/L Hemoglobin 9.4 L 8.3 L 8.1 L (13.0-17.5) gm/dL Sodium (137-145) mmol/L Chloride (98-107) mmol/L Carbon Dioxide (22-30) mmol/L Glucose (74-99) mg/dL POC Glucose (mg/dL) (70-110) mg/dL Calcium (8.4-10.2) mg/dL Alkaline Phosphatase (38-126) U/L Total Protein (6.3-8.2) g/dL Albumin (3.5-5.0) g/dL Arterial Blood Potassium (3.4-4.5) mmol/L Arterial Blood Glucose 116 H (75-99) mg/dL Crossmatch 12/25/23 12/25/23 12/25/23 Range/Units 12:49 13:45 13:45 WBC (3.8-10.6) k/uL RBC 2.74 L (4.30-5.90) m/uL Hgb 8.1 L D (13.0-17.5) gm/dL Hct 23.7 L (39.0-53.0) % Plt Count 100 L (150-450) k/uL Neutrophils # (1.3-7.7) k/uL Lymphocytes # 0.5 L (1.0-4.8) k/uL PT 13.2 H (10.0-12.5) sec INR 1.2 H (<1.2) ABG pH (7.35-7.45) ABG pCO2 (35-45) mmHg ABG pO2 122 H (83-108) mmHg ABG Total CO2 (19-24) mmol/L ABG O2 Saturation 98.5 H (94-97) % ABG Hematocrit 23 L (34.0-46.0) % ABG Potassium 3.3 L (3.4-4.5) mmol/L ABG Glucose (75-99) mg/dL ABG Lactic Acid 1.8 H (0.5-1.6) mmol/L Hemoglobin 7.5 L (13.0-17.5) gm/dL Sodium (137-145) mmol/L Chloride (98-107) mmol/L Carbon Dioxide (22-30) mmol/L Glucose (74-99) mg/dL POC Glucose (mg/dL) (70-110) mg/dL Calcium (8.4-10.2) mg/dL Alkaline Phosphatase (38-126) U/L Total Protein (6.3-8.2) g/dL Albumin (3.5-5.0) g/dL Arterial Blood Potassium 3.3 L (3.4-4.5) mmol/L Arterial Blood Glucose (75-99) mg/dL Crossmatch 12/25/23 12/25/23 12/25/23 Range/Units 13:45 14:18 15:13 WBC (3.8-10.6) k/uL RBC (4.30-5.90) m/uL Hgb (13.0-17.5) gm/dL Hct (39.0-53.0) % Plt Count (150-450) k/uL Neutrophils # (1.3-7.7) k/uL Lymphocytes # (1.0-4.8) k/uL PT (10.0-12.5) sec INR (<1.2) ABG pH 7.33 L (7.35-7.45) ABG pCO2 (35-45) mmHg ABG pO2 329 H (83-108) mmHg ABG Total CO2 25 H (19-24) mmol/L ABG O2 Saturation 100.6 H (94-97) % ABG Hematocrit (34.0-46.0) % ABG Potassium (3.4-4.5) mmol/L ABG Glucose (75-99) mg/dL ABG Lactic Acid (0.5-1.6) mmol/L Hemoglobin (13.0-17.5) gm/dL Sodium (137-145) mmol/L Chloride 114 H (98-107) mmol/L Carbon Dioxide 21 L (22-30) mmol/L Glucose (74-99) mg/dL POC Glucose (mg/dL) 188 H (70-110) mg/dL Calcium 7.6 L (8.4-10.2) mg/dL Alkaline Phosphatase 32 L (38-126) U/L Total Protein 4.2 L (6.3-8.2) g/dL Albumin 2.7 L (3.5-5.0) g/dL Arterial Blood Potassium (3.4-4.5) mmol/L Arterial Blood Glucose (75-99) mg/dL Crossmatch 12/25/23 12/25/23 12/25/23 Range/Units 16:01 17:00 17:04 WBC (3.8-10.6) k/uL RBC 3.13 L (4.30-5.90) m/uL Hgb 9.6 L D (13.0-17.5) gm/dL Hct 27.0 L (39.0-53.0) % Plt Count 121 L (150-450) k/uL Neutrophils # 8.2 H (1.3-7.7) k/uL Lymphocytes # 0.4 L (1.0-4.8) k/uL PT (10.0-12.5) sec INR (<1.2) ABG pH (7.35-7.45) ABG pCO2 (35-45) mmHg ABG pO2 (83-108) mmHg ABG Total CO2 (19-24) mmol/L ABG O2 Saturation (94-97) % ABG Hematocrit (34.0-46.0) % ABG Potassium (3.4-4.5) mmol/L ABG Glucose (75-99) mg/dL ABG Lactic Acid (0.5-1.6) mmol/L Hemoglobin (13.0-17.5) gm/dL Sodium (137-145) mmol/L Chloride (98-107) mmol/L Carbon Dioxide (22-30) mmol/L Glucose (74-99) mg/dL POC Glucose (mg/dL) 200 H 223 H (70-110) mg/dL Calcium (8.4-10.2) mg/dL Alkaline Phosphatase (38-126) U/L Total Protein (6.3-8.2) g/dL Albumin (3.5-5.0) g/dL Arterial Blood Potassium (3.4-4.5) mmol/L Arterial Blood Glucose (75-99) mg/dL Crossmatch 12/25/23 12/25/23 12/25/23 Range/Units 17:56 18:00 19:11 WBC (3.8-10.6) k/uL RBC (4.30-5.90) m/uL Hgb (13.0-17.5) gm/dL Hct (39.0-53.0) % Plt Count (150-450) k/uL Neutrophils # (1.3-7.7) k/uL Lymphocytes # (1.0-4.8) k/uL PT (10.0-12.5) sec INR (<1.2) ABG pH 7.32 L (7.35-7.45) ABG pCO2 (35-45) mmHg ABG pO2 (83-108) mmHg ABG Total CO2 (19-24) mmol/L ABG O2 Saturation 98.9 H (94-97) % ABG Hematocrit (34.0-46.0) % ABG Potassium (3.4-4.5) mmol/L ABG Glucose (75-99) mg/dL ABG Lactic Acid (0.5-1.6) mmol/L Hemoglobin (13.0-17.5) gm/dL Sodium (137-145) mmol/L Chloride (98-107) mmol/L Carbon Dioxide (22-30) mmol/L Glucose (74-99) mg/dL POC Glucose (mg/dL) 225 H 207 H (70-110) mg/dL Calcium (8.4-10.2) mg/dL Alkaline Phosphatase (38-126) U/L Total Protein (6.3-8.2) g/dL Albumin (3.5-5.0) g/dL Arterial Blood Potassium (3.4-4.5) mmol/L Arterial Blood Glucose (75-99) mg/dL Crossmatch 12/25/23 12/25/23 12/25/23 Range/Units 19:45 19:47 21:53 WBC 11.5 H (3.8-10.6) k/uL RBC 3.33 L (4.30-5.90) m/uL Hgb 10.0 L (13.0-17.5) gm/dL Hct 28.7 L (39.0-53.0) % Plt Count 142 L (150-450) k/uL Neutrophils # 10.8 H (1.3-7.7) k/uL Lymphocytes # 0.2 L (1.0-4.8) k/uL PT (10.0-12.5) sec INR (<1.2) ABG pH (7.35-7.45) ABG pCO2 (35-45) mmHg ABG pO2 (83-108) mmHg ABG Total CO2 (19-24) mmol/L ABG O2 Saturation (94-97) % ABG Hematocrit (34.0-46.0) % ABG Potassium (3.4-4.5) mmol/L ABG Glucose (75-99) mg/dL ABG Lactic Acid (0.5-1.6) mmol/L Hemoglobin (13.0-17.5) gm/dL Sodium (137-145) mmol/L Chloride (98-107) mmol/L Carbon Dioxide (22-30) mmol/L Glucose (74-99) mg/dL POC Glucose (mg/dL) 205 H 184 H (70-110) mg/dL Calcium (8.4-10.2) mg/dL Alkaline Phosphatase (38-126) U/L Total Protein (6.3-8.2) g/dL Albumin (3.5-5.0) g/dL Arterial Blood Potassium (3.4-4.5) mmol/L Arterial Blood Glucose (75-99) mg/dL Crossmatch 12/25/23 12/26/23 12/26/23 Range/Units 23:12 00:01 00:54 WBC (3.8-10.6) k/uL RBC (4.30-5.90) m/uL Hgb (13.0-17.5) gm/dL Hct (39.0-53.0) % Plt Count (150-450) k/uL Neutrophils # (1.3-7.7) k/uL Lymphocytes # (1.0-4.8) k/uL PT (10.0-12.5) sec INR (<1.2) ABG pH (7.35-7.45) ABG pCO2 (35-45) mmHg ABG pO2 (83-108) mmHg ABG Total CO2 (19-24) mmol/L ABG O2 Saturation (94-97) % ABG Hematocrit (34.0-46.0) % ABG Potassium (3.4-4.5) mmol/L ABG Glucose (75-99) mg/dL ABG Lactic Acid (0.5-1.6) mmol/L Hemoglobin (13.0-17.5) gm/dL Sodium (137-145) mmol/L Chloride (98-107) mmol/L Carbon Dioxide (22-30) mmol/L Glucose (74-99) mg/dL POC Glucose (mg/dL) 171 H 159 H 186 H (70-110) mg/dL Calcium (8.4-10.2) mg/dL Alkaline Phosphatase (38-126) U/L Total Protein (6.3-8.2) g/dL Albumin (3.5-5.0) g/dL Arterial Blood Potassium (3.4-4.5) mmol/L Arterial Blood Glucose (75-99) mg/dL Crossmatch 12/26/23 12/26/23 12/26/23 Range/Units 02:15 03:07 03:59 WBC (3.8-10.6) k/uL RBC (4.30-5.90) m/uL Hgb (13.0-17.5) gm/dL Hct (39.0-53.0) % Plt Count (150-450) k/uL Neutrophils # (1.3-7.7) k/uL Lymphocytes # (1.0-4.8) k/uL PT (10.0-12.5) sec INR (<1.2) ABG pH (7.35-7.45) ABG pCO2 (35-45) mmHg ABG pO2 (83-108) mmHg ABG Total CO2 (19-24) mmol/L ABG O2 Saturation (94-97) % ABG Hematocrit (34.0-46.0) % ABG Potassium (3.4-4.5) mmol/L ABG Glucose (75-99) mg/dL ABG Lactic Acid (0.5-1.6) mmol/L Hemoglobin (13.0-17.5) gm/dL Sodium (137-145) mmol/L Chloride (98-107) mmol/L Carbon Dioxide (22-30) mmol/L Glucose (74-99) mg/dL POC Glucose (mg/dL) 153 H 157 H 148 H (70-110) mg/dL Calcium (8.4-10.2) mg/dL Alkaline Phosphatase (38-126) U/L Total Protein (6.3-8.2) g/dL Albumin (3.5-5.0) g/dL Arterial Blood Potassium (3.4-4.5) mmol/L Arterial Blood Glucose (75-99) mg/dL Crossmatch 12/26/23 12/26/23 12/26/23 Range/Units 04:30 04:30 06:26 WBC 12.1 H (3.8-10.6) k/uL RBC 3.27 L (4.30-5.90) m/uL Hgb 9.7 L (13.0-17.5) gm/dL Hct 28.6 L (39.0-53.0) % Plt Count 146 L (150-450) k/uL Neutrophils # 10.9 H (1.3-7.7) k/uL Lymphocytes # 0.4 L (1.0-4.8) k/uL PT (10.0-12.5) sec INR (<1.2) ABG pH (7.35-7.45) ABG pCO2 (35-45) mmHg ABG pO2 (83-108) mmHg ABG Total CO2 (19-24) mmol/L ABG O2 Saturation (94-97) % ABG Hematocrit (34.0-46.0) % ABG Potassium (3.4-4.5) mmol/L ABG Glucose (75-99) mg/dL ABG Lactic Acid (0.5-1.6) mmol/L Hemoglobin (13.0-17.5) gm/dL Sodium 135 L (137-145) mmol/L Chloride 110 H (98-107) mmol/L Carbon Dioxide 21 L (22-30) mmol/L Glucose 126 H (74-99) mg/dL POC Glucose (mg/dL) 132 H (70-110) mg/dL Calcium 8.1 L (8.4-10.2) mg/dL Alkaline Phosphatase (38-126) U/L Total Protein 4.6 L (6.3-8.2) g/dL Albumin 3.0 L (3.5-5.0) g/dL Arterial Blood Potassium (3.4-4.5) mmol/L Arterial Blood Glucose (75-99) mg/dL Crossmatch 12/26/23 Range/Units 08:05 WBC (3.8-10.6) k/uL RBC (4.30-5.90) m/uL Hgb (13.0-17.5) gm/dL Hct (39.0-53.0) % Plt Count (150-450) k/uL Neutrophils # (1.3-7.7) k/uL Lymphocytes # (1.0-4.8) k/uL PT (10.0-12.5) sec INR (<1.2) ABG pH (7.35-7.45) ABG pCO2 (35-45) mmHg ABG pO2 (83-108) mmHg ABG Total CO2 (19-24) mmol/L ABG O2 Saturation (94-97) % ABG Hematocrit (34.0-46.0) % ABG Potassium (3.4-4.5) mmol/L ABG Glucose (75-99) mg/dL ABG Lactic Acid (0.5-1.6) mmol/L Hemoglobin (13.0-17.5) gm/dL Sodium (137-145) mmol/L Chloride (98-107) mmol/L Carbon Dioxide (22-30) mmol/L Glucose (74-99) mg/dL POC Glucose (mg/dL) 151 H (70-110) mg/dL Calcium (8.4-10.2) mg/dL Alkaline Phosphatase (38-126) U/L Total Protein (6.3-8.2) g/dL Albumin (3.5-5.0) g/dL Arterial Blood Potassium (3.4-4.5) mmol/L Arterial Blood Glucose (75-99) mg/dL Crossmatch - Imaging and Cardiology Chest x-ray: report reviewed, image reviewed Assessment and Plan Assessment: Multivessel coronary artery disease, acute non-ST elevated myocardial infarction this admission, status post 5 vessel off-pump CABG Severe peripheral arterial disease with history of bilateral femoral endarterectomies and totally occluded right internal carotid artery, on Xarelto for anticoagulation as an outpatient, last dose was taken on December 21, 2023 History of hypertension Hyperlipidemia Insulin-dependent diabetes mellitus History of prostate cancer, status post radiation treatment History of colon cancer, status post 5 weeks of radiation treatments completed in May 2023 History of pancreatitis Obstructive sleep apnea, noncompliant with CPAP use Osteoarthritis History of rheumatic fever as a child Previous tobacco dependence, quit smoking in 1988 PTSD/depression Postoperative acute blood loss anemia, expected given hemodilution and preoperative anemia Plan: Continue to maximize medical management with aspirin, Plavix, fenofibrate, statin and beta-barrie. Will increase beta-barrie therapy as tolerated Continue amiodarone for A-fib prophylaxis, patient has had no atrial fibril lation up to this point. Will transition to oral amiodarone Will start oral calcium channel barrie, discontinue IV calcium channel barrie, DC IV nitro Wean O2 as tolerated. Encourage incentive spirometry use 10 times every hour while awake. Bronchodilators per pulmonology Increase activity, ambulate as tolerated. PT/OT/cardiac rehab consulted Will monitor daily labs and x-rays. Electrolyte replacement per protocol GI/DVT prophylaxis Pain control with current medication regimen. Toradol added Insulin management per internal medicine. Patient should remain on continuous IV insulin for 48 hours, then may transition to subcutaneous insulin per protocol Discontinue Vona. Connect Cordis to continuous CVP monitoring Continue chest tubes for another 24 hours, monitor output Continue Oliver catheter for another 24 hours, continue to monitor and record strict accurate intake and output Daily weights Will discontinue right leg DUNCAN drain More recommendations to follow
[2023-12-26] MEDS ORDERED: METOPROLOL TARTRATE 12.5 MG TAB PO SCH (09:00)
[2023-12-26] MEDS ORDERED: MAGNESIUM HYDROXIDE 2,400 MG/30 ML CUP PO PRN (09:00)
[2023-12-26 09:19] LABS: Glucose,Whole Blood 216 mg/dL (70-110)
[2023-12-26 10:11] LABS: Glucose,Whole Blood 187 mg/dL (70-110)
[2023-12-26 10:58] VITALS: BMI 33.8
[2023-12-26 11:15] LABS: Glucose,Whole Blood 162 mg/dL (70-110)
--- NOTE | 2023-12-26 11:24 | P.PN ---
Subjective Progress Note Date: 12/26/23 Patient is a 73-year-old white male with past medical history significant for hypertension, hyperlipidemia, diabetes mellitus, obesity, right internal carotid artery occlusion, peripheral arterial disease, colon cancer with previous radiation treatments, prostate cancer with previous radiation, pancreatitis, obstructive sleep apnea not pliant with CPAP, and former tobacco smoker quitting in 1988. His PCP is Dr. Veloz out of [place], [place]. Back on 12/20/2023 he was having new onset substernal chest pain radiating to the left jaw, that developed while sitting and reading a newspaper. There is associated diaphoresis and nausea/vomiting. Patient was initially worked up at [facility], and transferred for suspected non-ST elevation ND 12/21/23. EKG showed ST segment depressions in anterior lateral leads. Troponins were elevated on arrival. Patient did undergo heart catheterization on 12/22/2023 which revealed severe multi-vessel coronary artery disease. There is 80% stenosis of the proximal and also mid to distal portions of the LAD, 80 to 90% stenosis of the mid left circumflex,40 to 50% left main disease. There is a preoperative workup underway for tentative open heart procedure, which is scheduled for . Chest CT did not show any evidence of acute pulmonary process. No evidence of focal consolidation, pneumothorax, or pleural effusions. Patient did have a be dside FEV1 which was 1.82 L or 58% of predicted. Does have remote history of smoking, quitting in 1988 after being hypnotized. 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 No previous diagnosis of lung disease or COPD or asthma. Patient is currently resting comfortably on room air, in no acute distress. Nonlabored breathing. His incentive spirometer is at the bedside. He continues to have nitroglycerin infusion at 15 mics per minute and IV heparin infusion per protocol. Denies any current chest pain. Echocardiogram done yesterday estimated a preserved left ventricular ejection fraction of 50 to 55%. Grade 1 diastolic dysfunction noted. Most recent CBC from yesterday is unremarkable. Most recent APTT subtherapeutic. BMP from yesterday also unremarkable. Hemodynamics are stable. The patient is seen today December 25, 2023 in the intensive care unit shortly after returning from the OR. He had gone undergone an off-pump CABG x 5 with sequential PARKS to the mid diagonal and distal LAD, sequential left radial artery to the first and second obtuse marginal arteries, saphenous vein to the PDA. Ligation of the left atrial appendage. He is on the mechanical ventilator and assist-control mode with a rate of 16, tidal volume 500, FiO2 100% and a PEEP of 8. Blood gases revealed a PaO2 of 329, pCO2 of 45 and a pH of 7.33. He has chest tubes in place, pacer wires in place, Datto-Makenzie catheter in the right internal jugular, right radial art line in place. Brice wrap to the left radial surgical site. Bilateral lower extremity Brice wraps. DUNCAN drain to the right lower extremity. He is on a Cardizem drip at 5 mg/h. Cleviprex at 1 mg/h. Amiodarone at 1 mg/min. Lactated Ringer's at 50 MLS per hour. Nitroglycerin drip at 5 mcg/min. Propofol at 40 mcg/kg/min. PA pressure 44/31. Central venous pressure 13. Cardiac output 6.8. Cardiac index 3.2. White count 6.4. Hemoglobin 8.1. Platelets 100,000. Sodium 139. Potassium 3.8. Bicarb 21. BUN 17. Creatinine 0.96. He is initiated on bronchodilators. Heparin for DVT prophylaxis. The patient is seen today December 26, 2023 in follow-up in the intensive care unit. He is currently awake and alert in no acute distress. Sitting up in a chair at the bedside. Maintaining O2 saturations in the 90s on 3 L/min per nasal cannula. This is postoperative day #1 following his coronary bypass grafting x 5. He is currently on lactated Ringer's at 50 MLS per hour. Requiring insulin drip at 2 units/h. On amiodarone drip at 0.5 milligrams per minute. He denies any significant discomfort at this time. He has a mild headache. He remains on bronchodilators. Heparin for DVT prophylaxis. Chest x-ray reviewed post CABG changes with interval extubation. There is residual mild pulmonary vascular congestion. He continues to work well with the incentive spirometer. Chest tubes remain in place. Pacer wires remain in place. Right IJ Datto-Makenzie catheter in place. Cardiac output 3.5. Cardiac index 2.6. PA pressures 35/4. CVP of 4. White count 12.1. Hemoglobin 9.7. Platelets 146. Sodium 135. Potassium 4.3. Bicarb 21. BUN 17. Creatinine 0.97. Objective - Vital Signs Vital signs: Vital Signs Temp 98.4 F 12/26/23 04:00 Pulse 80 12/26/23 09:00 Resp 25 H 12/26/23 09:00 BP 129/83 12/26/23 09:00 Pulse Ox 97 12/26/23 09:00 FiO2 40 12/25/23 18:00 Intake & Output 12/25/23 12/26/23 12/26/23 18:59 06:59 18:59 Intake Total 852.649 0539.005 255.223 Output Total 2100 1495 80 Balance -1191.622 -85.995 175.223 Weight 107 kg 107 kg Intake: IV 760.5 1126.0 244.5 ACETAMINOPHEN IV (For NPO 100 100 ) 1,000 mg In Empty Bag 1 bag @ 400 mls/hr IVPB Q6HR BHAVNA Rx#:[id number] Cardiac Output (0.9 30 190 20 Sodium Chloride) Diltiazem 125 mg In 25 60 5 Sodium Chloride 0.9% 100 ml @ 5 MG/HR 5 mls/hr IV .Q24H BHAVNA Rx#:[id number] Lactated Ringers 1,000 ml 250 600 100 @ 20 mls/hr IV .Q24H BHAVNA Rx#:[id number] Magnesium Sulfate-D5w Pmx 100 100 1 gm In Dextrose/Water 1 100ml.bag @ 100 mls/hr IVPB ONCE ONE Rx#: [id number] Nitroglycerin-D5w Pmx 50 7.5 18.0 1.5 mg In Dextrose/Water 1 250ml.bag @ 5 MCG/MIN 1.5 mls/hr IV .Q24H BHAVNA Rx#: [id number] Pressure Bag (0.9 Sodium 45 108 18 Chloride) ceFAZolin 2 gm In Sodium 50 50 Chloride 0.9% 50 ml @ 100 mls/hr IVPB ONCE ONE Rx# :[id number] Intake, IV Titration 87.878 223.005 10.723 Amount Clevidipine Butyrate 25 34.566 145.167 mg In Empty Bag 1 bag @ 1 MG/HR 2 mls/hr IV .Q24H BHAVNA Rx#:[id number] Insulin Regular 100 unit 12.591 77.838 10.723 In Sodium Chloride 0.9% 100 ml @ Per Protocol IV .Q0M BHAVNA Rx#:[id number] propofoL 1,000 mg In 40.721 Empty Bag 1 bag @ Titrate IV .Q0M BHAVNA Rx#: [id number] Oral 60 60 Output: Chest Tube Drainage 670 790 30 Chest Tube Left Anterior 270 400 10 Chest Chest Tube Mediastinal 400 390 20 Urine 680 705 50 Estimated Blood Loss 750 Other: Voiding Method Toilet Indwelling Catheter Urinal ABP, PAP, CO, CI - Last Documented Arterial Blood Pressure 178/40 Pulmonary Artery Pressure 40/10 Cardiac Output 5.5 Cardiac Index 2.6 - Exam GENERAL EXAM: Awake, alert 73-year-old male patient, on 3 L nasal cannula, up in a chair, in no apparent distress. HEAD: Normocephalic. EYES: Normal reaction of pupils, equal size. NOSE: Clear with pink turbinates. THROAT: No erythema or exudates. NECK: No masses, no JVD. Right IJ Datto-Makenzie catheter in place. CHEST: Sternal dressing dry and intact. Chest tubes in place. Pacer wires in place. LUNGS: Equal air entry with no crackles, wheeze, rhonchi or dullness. CVS: S1 and S2 normal with no audible murmur, regular rhythm. ABDOMEN: No hepatosplenomegaly, hypoactive bowel sounds, no guarding or rigidity. SPINE: No scoliosis or deformity SKIN: No rashes CENTRAL NERVOUS SYSTEM: No focal deficits, tone is normal in all 4 extremities. EXTREMITIES: Left radial site with Brice wrap. Bilateral lower extremity Brice wraps. DUNCAN drain in place. Right radial arterial line in place. Peripheral pulses are intact. - Labs CBC & Chem 7: 12/26/23 04:30 12/26/23 04:30 Labs: Abnormal Lab Results - Last 24 Hours (Table) 12/24/23 12/25/23 12/25/23 Range/Units 02:08 08:42 09:27 WBC (3.8-10.6) k/uL RBC (4.30-5.90) m/uL Hgb (13.0-17.5) gm/dL Hct (39.0-53.0) % Plt Count (150-450) k/uL Neutrophils # (1.3-7.7) k/uL Lymphocytes # (1.0-4.8) k/uL PT (10.0-12.5) sec INR (<1.2) ABG pH 7.30 L (7.35-7.45) ABG pCO2 52 H (35-45) mmHg ABG pO2 173 H 147 H (83-108) mmHg ABG Total CO2 (19-24) mmol/L ABG O2 Saturation 99.0 H 98.9 H (94-97) % ABG Hematocrit 32 L (34.0-46.0) % ABG Potassium (3.4-4.5) mmol/L ABG Glucose 159 H 142 H (75-99) mg/dL ABG Lactic Acid (0.5-1.6) mmol/L Hemoglobin 11.0 L 10.4 L (13.0-17.5) gm/dL Sodium (137-145) mmol/L Chloride (98-107) mmol/L Carbon Dioxide (22-30) mmol/L Glucose (74-99) mg/dL POC Glucose (mg/dL) (70-110) mg/dL Calcium (8.4-10.2) mg/dL Alkaline Phosphatase (38-126) U/L Total Protein (6.3-8.2) g/dL Albumin (3.5-5.0) g/dL Arterial Blood Potassium (3.4-4.5) mmol/L Arterial Blood Glucose 159 H 142 H (75-99) mg/dL Crossmatch See Detail 12/25/23 12/25/23 12/25/23 Range/Units 10:20 11:21 12:21 WBC (3.8-10.6) k/uL RBC (4.30-5.90) m/uL Hgb (13.0-17.5) gm/dL Hct (39.0-53.0) % Plt Count (150-450) k/uL Neutrophils # (1.3-7.7) k/uL Lymphocytes # (1.0-4.8) k/uL PT (10.0-12.5) sec INR (<1.2) ABG pH (7.35-7.45) ABG pCO2 34 L (35-45) mmHg ABG pO2 186 H 195 H 192 H (83-108) mmHg ABG Total CO2 (19-24) mmol/L ABG O2 Saturation 99.1 H 99.3 H 99.1 H (94-97) % ABG Hematocrit 29 L 25 L 25 L (34.0-46.0) % ABG Potassium (3.4-4.5) mmol/L ABG Glucose 116 H (75-99) mg/dL ABG Lactic Acid 2.0 H 1.7 H 1.7 H (0.5-1.6) mmol/L Hemoglobin 9.4 L 8.3 L 8.1 L (13.0-17.5) gm/dL Sodium (137-145) mmol/L Chloride (98-107) mmol/L Carbon Dioxide (22-30) mmol/L Glucose (74-99) mg/dL POC Glucose (mg/dL) (70-110) mg/dL Calcium (8.4-10.2) mg/dL Alkaline Phosphatase (38-126) U/L Total Protein (6.3-8.2) g/dL Albumin (3.5-5.0) g/dL Arterial Blood Potassium (3.4-4.5) mmol/L Arterial Blood Glucose 116 H (75-99) mg/dL Crossmatch 12/25/23 12/25/23 12/25/23 Range/Units 12:49 13:45 13:45 WBC (3.8-10.6) k/uL RBC 2.74 L (4.30-5.90) m/uL Hgb 8.1 L D (13.0-17.5) gm/dL Hct 23.7 L (39.0-53.0) % Plt Count 100 L (150-450) k/uL Neutrophils # (1.3-7.7) k/uL Lymphocytes # 0.5 L (1.0-4.8) k/uL PT 13.2 H (10.0-12.5) sec INR 1.2 H (<1.2) ABG pH (7.35-7.45) ABG pCO2 (35-45) mmHg ABG pO2 122 H (83-108) mmHg ABG Total CO2 (19-24) mmol/L ABG O2 Saturation 98.5 H (94-97) % ABG Hematocrit 23 L (34.0-46.0) % ABG Potassium 3.3 L (3.4-4.5) mmol/L ABG Glucose (75-99) mg/dL ABG Lactic Acid 1.8 H (0.5-1.6) mmol/L Hemoglobin 7.5 L (13.0-17.5) gm/dL Sodium (137-145) mmol/L Chloride (98-107) mmol/L Carbon Dioxide (22-30) mmol/L Glucose (74-99) mg/dL POC Glucose (mg/dL) (70-110) mg/dL Calcium (8.4-10.2) mg/dL Alkaline Phosphatase (38-126) U/L Total Protein (6.3-8.2) g/dL Albumin (3.5-5.0) g/dL Arterial Blood Potassium 3.3 L (3.4-4.5) mmol/L Arterial Blood Glucose (75-99) mg/dL Crossmatch 12/25/23 12/25/23 12/25/23 Range/Units 13:45 14:18 15:13 WBC (3.8-10.6) k/uL RBC (4.30-5.90) m/uL Hgb (13.0-17.5) gm/dL Hct (39.0-53.0) % Plt Count (150-450) k/uL Neutrophils # (1.3-7.7) k/uL Lymphocytes # (1.0-4.8) k/uL PT (10.0-12.5) sec INR (<1.2) ABG pH 7.33 L (7.35-7.45) ABG pCO2 (35-45) mmHg ABG pO2 329 H (83-108) mmHg ABG Total CO2 25 H (19-24) mmol/L ABG O2 Saturation 100.6 H (94-97) % ABG Hematocrit (34.0-46.0) % ABG Potassium (3.4-4.5) mmol/L ABG Glucose (75-99) mg/dL ABG Lactic Acid (0.5-1.6) mmol/L Hemoglobin (13.0-17.5) gm/dL Sodium (137-145) mmol/L Chloride 114 H (98-107) mmol/L Carbon Dioxide 21 L (22-30) mmol/L Glucose (74-99) mg/dL POC Glucose (mg/dL) 188 H (70-110) mg/dL Calcium 7.6 L (8.4-10.2) mg/dL Alkaline Phosphatase 32 L (38-126) U/L Total Protein 4.2 L (6.3-8.2) g/dL Albumin 2.7 L (3.5-5.0) g/dL Arterial Blood Potassium (3.4-4.5) mmol/L Arterial Blood Glucose (75-99) mg/dL Crossmatch 12/25/23 12/25/23 12/25/23 Range/Units 16:01 17:00 17:04 WBC (3.8-10.6) k/uL RBC 3.13 L (4.30-5.90) m/uL Hgb 9.6 L D (13.0-17.5) gm/dL Hct 27.0 L (39.0-53.0) % Plt Count 121 L (150-450) k/uL Neutrophils # 8.2 H (1.3-7.7) k/uL Lymphocytes # 0.4 L (1.0-4.8) k/uL PT (10.0-12.5) sec INR (<1.2) ABG pH (7.35-7.45) ABG pCO2 (35-45) mmHg ABG pO2 (83-108) mmHg ABG Total CO2 (19-24) mmol/L ABG O2 Saturation (94-97) % ABG Hematocrit (34.0-46.0) % ABG Potassium (3.4-4.5) mmol/L ABG Glucose (75-99) mg/dL ABG Lactic Acid (0.5-1.6) mmol/L Hemoglobin (13.0-17.5) gm/dL Sodium (137-145) mmol/L Chloride (98-107) mmol/L Carbon Dioxide (22-30) mmol/L Glucose (74-99) mg/dL POC Glucose (mg/dL) 200 H 223 H (70-110) mg/dL Calcium (8.4-10.2) mg/dL Alkaline Phosphatase (38-126) U/L Total Protein (6.3-8.2) g/dL Albumin (3.5-5.0) g/dL Arterial Blood Potassium (3.4-4.5) mmol/L Arterial Blood Glucose (75-99) mg/dL Crossmatch 12/25/23 12/25/23 12/25/23 Range/Units 17:56 18:00 19:11 WBC (3.8-10.6) k/uL RBC (4.30-5.90) m/uL Hgb (13.0-17.5) gm/dL Hct (39.0-53.0) % Plt Count (150-450) k/uL Neutrophils # (1.3-7.7) k/uL Lymphocytes # (1.0-4.8) k/uL PT (10.0-12.5) sec INR (<1.2) ABG pH 7.32 L (7.35-7.45) ABG pCO2 (35-45) mmHg ABG pO2 (83-108) mmHg ABG Total CO2 (19-24) mmol/L ABG O2 Saturation 98.9 H (94-97) % ABG Hematocrit (34.0-46.0) % ABG Potassium (3.4-4.5) mmol/L ABG Glucose (75-99) mg/dL ABG Lactic Acid (0.5-1.6) mmol/L Hemoglobin (13.0-17.5) gm/dL Sodium (137-145) mmol/L Chloride (98-107) mmol/L Carbon Dioxide (22-30) mmol/L Glucose (74-99) mg/dL POC Glucose (mg/dL) 225 H 207 H (70-110) mg/dL Calcium (8.4-10.2) mg/dL Alkaline Phosphatase (38-126) U/L Total Protein (6.3-8.2) g/dL Albumin (3.5-5.0) g/dL Arterial Blood Potassium (3.4-4.5) mmol/L Arterial Blood Glucose (75-99) mg/dL Crossmatch 12/25/23 12/25/23 12/25/23 Range/Units 19:45 19:47 21:53 WBC 11.5 H (3.8-10.6) k/uL RBC 3.33 L (4.30-5.90) m/uL Hgb 10.0 L (13.0-17.5) gm/dL Hct 28.7 L (39.0-53.0) % Plt Count 142 L (150-450) k/uL Neutrophils # 10.8 H (1.3-7.7) k/uL Lymphocytes # 0.2 L (1.0-4.8) k/uL PT (10.0-12.5) sec INR (<1.2) ABG pH (7.35-7.45) ABG pCO2 (35-45) mmHg ABG pO2 (83-108) mmHg ABG Total CO2 (19-24) mmol/L ABG O2 Saturation (94-97) % ABG Hematocrit (34.0-46.0) % ABG Potassium (3.4-4.5) mmol/L ABG Glucose (75-99) mg/dL ABG Lactic Acid (0.5-1.6) mmol/L Hemoglobin (13.0-17.5) gm/dL Sodium (137-145) mmol/L Chloride (98-107) mmol/L Carbon Dioxide (22-30) mmol/L Glucose (74-99) mg/dL POC Glucose (mg/dL) 205 H 184 H (70-110) mg/dL Calcium (8.4-10.2) mg/dL Alkaline Phosphatase (38-126) U/L Total Protein (6.3-8.2) g/dL Albumin (3.5-5.0) g/dL Arterial Blood Potassium (3.4-4.5) mmol/L Arterial Blood Glucose (75-99) mg/dL Crossmatch 12/25/23 12/26/23 12/26/23 Range/Units 23:12 00:01 00:54 WBC (3.8-10.6) k/uL RBC (4.30-5.90) m/uL Hgb (13.0-17.5) gm/dL Hct (39.0-53.0) % Plt Count (150-450) k/uL Neutrophils # (1.3-7.7) k/uL Lymphocytes # (1.0-4.8) k/uL PT (10.0-12.5) sec INR (<1.2) ABG pH (7.35-7.45) ABG pCO2 (35-45) mmHg ABG pO2 (83-108) mmHg ABG Total CO2 (19-24) mmol/L ABG O2 Saturation (94-97) % ABG Hematocrit (34.0-46.0) % ABG Potassium (3.4-4.5) mmol/L ABG Glucose (75-99) mg/dL ABG Lactic Acid (0.5-1.6) mmol/L Hemoglobin (13.0-17.5) gm/dL Sodium (137-145) mmol/L Chloride (98-107) mmol/L Carbon Dioxide (22-30) mmol/L Glucose (74-99) mg/dL POC Glucose (mg/dL) 171 H 159 H 186 H (70-110) mg/dL Calcium (8.4-10.2) mg/dL Alkaline Phosphatase (38-126) U/L Total Protein (6.3-8.2) g/dL Albumin (3.5-5.0) g/dL Arterial Blood Potassium (3.4-4.5) mmol/L Arterial Blood Glucose (75-99) mg/dL Crossmatch 12/26/23 12/26/23 12/26/23 Range/Units 02:15 03:07 03:59 WBC (3.8-10.6) k/uL RBC (4.30-5.90) m/uL Hgb (13.0-17.5) gm/dL Hct (39.0-53.0) % Plt Count (150-450) k/uL Neutrophils # (1.3-7.7) k/uL Lymphocytes # (1.0-4.8) k/uL PT (10.0-12.5) sec INR (<1.2) ABG pH (7.35-7.45) ABG pCO2 (35-45) mmHg ABG pO2 (83-108) mmHg ABG Total CO2 (19-24) mmol/L ABG O2 Saturation (94-97) % ABG Hematocrit (34.0-46.0) % ABG Potassium (3.4-4.5) mmol/L ABG Glucose (75-99) mg/dL ABG Lactic Acid (0.5-1.6) mmol/L Hemoglobin (13.0-17.5) gm/dL Sodium (137-145) mmol/L Chloride (98-107) mmol/L Carbon Dioxide (22-30) mmol/L Glucose (74-99) mg/dL POC Glucose (mg/dL) 153 H 157 H 148 H (70-110) mg/dL Calcium (8.4-10.2) mg/dL Alkaline Phosphatase (38-126) U/L Total Protein (6.3-8.2) g/dL Albumin (3.5-5.0) g/dL Arterial Blood Potassium (3.4-4.5) mmol/L Arterial Blood Glucose (75-99) mg/dL Crossmatch 12/26/23 12/26/23 12/26/23 Range/Units 04:30 04:30 06:26 WBC 12.1 H (3.8-10.6) k/uL RBC 3.27 L (4.30-5.90) m/uL Hgb 9.7 L (13.0-17.5) gm/dL Hct 28.6 L (39.0-53.0) % Plt Count 146 L (150-450) k/uL Neutrophils # 10.9 H (1.3-7.7) k/uL Lymphocytes # 0.4 L (1.0-4.8) k/uL PT (10.0-12.5) sec INR (<1.2) ABG pH (7.35-7.45) ABG pCO2 (35-45) mmHg ABG pO2 (83-108) mmHg ABG Total CO2 (19-24) mmol/L ABG O2 Saturation (94-97) % ABG Hematocrit (34.0-46.0) % ABG Potassium (3.4-4.5) mmol/L ABG Glucose (75-99) mg/dL ABG Lactic Acid (0.5-1.6) mmol/L Hemoglobin (13.0-17.5) gm/dL Sodium 135 L (137-145) mmol/L Chloride 110 H (98-107) mmol/L Carbon Dioxide 21 L (22-30) mmol/L Glucose 126 H (74-99) mg/dL POC Glucose (mg/dL) 132 H (70-110) mg/dL Calcium 8.1 L (8.4-10.2) mg/dL Alkaline Phosphatase (38-126) U/L Total Protein 4.6 L (6.3-8.2) g/dL Albumin 3.0 L (3.5-5.0) g/dL Arterial Blood Potassium (3.4-4.5) mmol/L Arterial Blood Glucose (75-99) mg/dL Crossmatch 12/26/23 12/26/23 12/26/23 Range/Units 08:05 09:18 10:10 WBC (3.8-10.6) k/uL RBC (4.30-5.90) m/uL Hgb (13.0-17.5) gm/dL Hct (39.0-53.0) % Plt Count (150-450) k/uL Neutrophils # (1.3-7.7) k/uL Lymphocytes # (1.0-4.8) k/uL PT (10.0-12.5) sec INR (<1.2) ABG pH (7.35-7.45) ABG pCO2 (35-45) mmHg ABG pO2 (83-108) mmHg ABG Total CO2 (19-24) mmol/L ABG O2 Saturation (94-97) % ABG Hematocrit (34.0-46.0) % ABG Potassium (3.4-4.5) mmol/L ABG Glucose (75-99) mg/dL ABG Lactic Acid (0.5-1.6) mmol/L Hemoglobin (13.0-17.5) gm/dL Sodium (137-145) mmol/L Chloride (98-107) mmol/L Carbon Dioxide (22-30) mmol/L Glucose (74-99) mg/dL POC Glucose (mg/dL) 151 H 216 H 187 H (70-110) mg/dL Calcium (8.4-10.2) mg/dL Alkaline Phosphatase (38-126) U/L Total Protein (6.3-8.2) g/dL Albumin (3.5-5.0) g/dL Arterial Blood Potassium (3.4-4.5) mmol/L Arterial Blood Glucose (75-99) mg/dL Crossmatch 12/26/23 Range/Units 11:14 WBC (3.8-10.6) k/uL RBC (4.30-5.90) m/uL Hgb (13.0-17.5) gm/dL Hct (39.0-53.0) % Plt Count (150-450) k/uL Neutrophils # (1.3-7.7) k/uL Lymphocytes # (1.0-4.8) k/uL PT (10.0-12.5) sec INR (<1.2) ABG pH (7.35-7.45) ABG pCO2 (35-45) mmHg ABG pO2 (83-108) mmHg ABG Total CO2 (19-24) mmol/L ABG O2 Saturation (94-97) % ABG Hematocrit (34.0-46.0) % ABG Potassium (3.4-4.5) mmol/L ABG Glucose (75-99) mg/dL ABG Lactic Acid (0.5-1.6) mmol/L Hemoglobin (13.0-17.5) gm/dL Sodium (137-145) mmol/L Chloride (98-107) mmol/L Carbon Dioxide (22-30) mmol/L Glucose (74-99) mg/dL POC Glucose (mg/dL) 162 H (70-110) mg/dL Calcium (8.4-10.2) mg/dL Alkaline Phosphatase (38-126) U/L Total Protein (6.3-8.2) g/dL Albumin (3.5-5.0) g/dL Arterial Blood Potassium (3.4-4.5) mmol/L Arterial Blood Glucose (75-99) mg/dL Crossmatch Assessment and Plan Assessment: Acute non-ST elevation myocardial infarction Multivessel coronary artery disease, status post off-pump coronary artery bypass grafting x 5 with sequential PARKS to mid diagonal and distal LAD, sequential left radial artery to the first and second obtuse marginal arteries, saphenous vein to the PDA and ligation of the left atrial appendage. Postoperative day #1 History of hypertension Hyperlipidemia Insulin-dependent diabetes mellitus Peripheral arterial disease, with history of bilateral femoral endarterectomies History of totally occluded right ICA stenosis, anticoagulated on Xarelto outpatient Obesity, with a BMI of 30.1 kg/m History of obstructive sleep apnea, noncompliant with CPAP Remote history of tobacco dependence, quitting in 1988 Plan: The patient was seen and evaluated Chest x-ray, labs and medications reviewed Currently stable on 3 L Titrate the FiO2 as tolerated Continue to work well with the incentive spirometer Continue bronchodilators Heparin for DVT prophylaxis Increase his activity as tolerated We will continue to follow I have personally seen and examined the patient, performed the documentation and the assessment and plan as written. Number of minutes spent on the visit: 10.
[2023-12-26 12:20] LABS: Glucose,Whole Blood 151 mg/dL (70-110)
[2023-12-26 14:15] LABS: Glucose,Whole Blood 109 mg/dL (70-110)
[2023-12-26] MEDS: amLODIPine 5 MG TAB PO STA (16:07)
[2023-12-26 16:17] LABS: Glucose,Whole Blood 146 mg/dL (70-110)
[2023-12-26 17:56] LABS: Glucose,Whole Blood 227 mg/dL (70-110)
--- NOTE | 2023-12-26 18:36 | P.PN ---
Progress Note - Text Progress Note Date: 12/26/23 71-year-old pleasant male came with complaints of chest pressure-like sensation radiating to the neck along with some shortness of breath. Patient is found to have significant ST-T wave changes in the anterolateral leads. Patient troponin is elevated and needs an upward trend highest being around 2.7. Patient was started on IV heparin patient will undergo cardiac catheterization today patient also had a recent upper respiratory viral illness about a month ago. Patient does have history of cerebrovascular disease and underwent a prior risk of revascularization procedure and bilateral femoral endarterectomy. Patient continues to smoke but trying to quit and cut down significantly. Patient denies any orthopnea paroxysmal nocturnal dyspnea patient does not have any pedal edema not in congestive heart failure exacerbation. 12/23/2023 Patient seen in follow-up today status post cardiac catheterization yesterday and noted to have triple-vessel coronary artery disease and cardiothoracic surgery was consulted for possible CABG eval. Patient currently undergoing further workup and experience some increased chest pain and was started on nitro drip per cardiology this morning. Patient currently on supplemental oxygen of 2 L and reports some shortness of breath with exertion patient reports he does not wear oxygen outpatient. Patient is currently afebrile with incentive spirometer at bedside and encouraged the patient to continue using at least 10 times every hour while awake.. Tentatively scheduled for surgery 12/25/2023 December 24, 2023: Recliner. No chest pain or shortness of breath. Eating fair.-Final plan for coronary bypass tomorrow December 26, 2023: Patient was not seen yesterday at patient going to the OR. Patient was extubated. Sitting up in a chair. Chest tubes in place. On insulin drip. On 2 L nasal cannula. Did take a few steps. Did also stand. Oliver catheter in place. This morning was on clear liquid diet. Active Medications Acetaminophen (Acetaminophen Tab 325 Mg Tab) 650 mg PO Q4HR PRN PRN Reason: Fever and/ or Mild Pain Albuterol/Ipratropium (Ipratropium-Albuterol 3 Ml Neb) 3 ml INHALATION RT-Q2H PRN PRN Reason: Shortness Of Breath Or Wheezing Albuterol/Ipratropium (Ipratropium-Albuterol 3 Ml Neb) 3 ml INHALATION RT-QID BHAVNA Last Admin: 12/26/23 15:51 Dose: 3 ml Amiodarone HCl (Amiodarone 200 Mg Tab) 400 mg PO BID [facility] Last Admin: 12/26/23 08:13 Dose: 400 mg Amlodipine Besylate (Amlodipine 10 Mg Tab) 10 mg PO DAILY [facility] Aspirin (Aspirin 325 Mg Tab) 325 mg PO DAILY [facility] Last Admin: 12/26/23 08:13 Dose: 325 mg Atorvastatin Calcium (Atorvastatin 40 Mg Tab) 40 mg PO DAILY [facility] Last Admin: 12/26/23 08:13 Dose: 40 mg Benzocaine/Menthol (Benzocaine/Menthol Lozeng 1 Each Lozenge) 1 each MUCOUS MEM Q2H PRN PRN Reason: Sore Throat Bisacodyl (Bisacodyl 10 Mg Supp) 10 mg RECTAL DAILY PRN PRN Reason: Constipation Clopidogrel Bisulfate (Clopidogrel 75 Mg Tab) 75 mg PO DAILY [facility] Last Admin: 12/26/23 08:13 Dose: 75 mg Dextrose/Water (Dextrose 50% Syringe 50 Ml) 25 ml IVP PER PROTOCOL PRN; Protocol PRN Reason: Hypoglycemia Dextrose/Water (Dextrose 50% Syringe 50 Ml) 50 ml IVP PER PROTOCOL PRN; Protocol PRN Reason: Hypoglycemia Fenofibrate (Fenofibrate 160 Mg Tab) 160 mg PO DAILY [facility] Last Admin: 12/26/23 08:14 Dose: 160 mg Heparin Sodium (Porcine) (Heparin Sodium,Porcine 5,000 Unit/Ml 1 Ml Vial) 5,000 unit SQ Q8HR [facility] Last Admin: 12/26/23 16:07 Dose: 5,000 unit Hydralazine HCl (Hydralazine Hcl 20 Mg/Ml 1 Ml Vial) 10 mg IVP Q1H PRN PRN Reason: Blood Pressure - High Last Admin: 12/25/23 13:59 Dose: 10 mg Amiodarone HCl 150 mg/ (Dextrose/Water) 103 mls @ 618 mls/hr IV .Q10M PRN PRN Reason: A.FIB/FLUTTER Albumin Human 250 ml/ IV (Solution) 250 mls @ 250 mls/hr IVPB Q1HR PRN; Protocol PRN Reason: For Volume Stop: 12/27/23 13:51 Lactated Ringer's (Lactated Ringers) 1,000 mls @ 20 mls/hr IV .Q24H [facility] Last Admin: 12/26/23 16:08 Dose: 20 mls/hr Insulin Human Regular 100 unit (/ Sodium Chloride) 101 mls @ 0 mls/hr IV .Q0M [facility]; Protocol Last Titration: 12/26/23 16:18 Dose: 2 unit/hr, 2.02 mls/hr Ketorolac Tromethamine (Ketorolac 15 Mg/Ml 1 Ml Vial) 15 mg IVP Q6HR [facility] Stop: 12/31/23 06:34 Last Admin: 12/26/23 18:07 Dose: 15 mg Magnesium Hydroxide (Magnesium Hydroxide 2,400 Mg/30 Ml Cup) 2,400 mg PO BID PRN PRN Reason: Constipation Metoclopramide HCl (Metoclopramide 5 Mg/Ml 2 Ml Vial) 10 mg IVP Q4H PRN PRN Reason: Nausea And Vomiting Metoprolol Tartrate (Metoprolol Tartrate 25 Mg Tab) 25 mg PO BID [facility] Last Admin: 12/26/23 08:13 Dose: 25 mg Miscellaneous Information (Potassium Replacement Protocol 1 Each Misc) 1 each MISCELLANE DAILY PRN; Protocol PRN Reason: Per Protocol Miscellaneous Information (Magnesium Replacement Protocol 1 Each Misc) 1 each MISCELLANE DAILY PRN; Protocol PRN Reason: Per Protocol Multivitamins (Multivitamins, Thera 1 Each Tab) 1 each PO DAILY [facility] Last Admin: 12/26/23 08:13 Dose: 1 each Ondansetron HCl (Ondansetron 4 Mg/2 Ml Vial) 4 mg IVP Q6HR PRN PRN Reason: Nausea And Vomiting Last Admin: 12/26/23 06:26 Dose: 4 mg Oxycodone HCl (Oxycodone Hcl 5 Mg Tab) 5 mg PO Q4HR PRN PRN Reason: Moderate Pain (Scale 4 to 6) Last Admin: 12/26/23 03:53 Dose: 5 mg Oxycodone HCl (Oxycodone Hcl 5 Mg Tab) 10 mg PO Q4HR PRN PRN Reason: Severe Pain (Scale 7 to 10) Last Admin: 12/26/23 08:18 Dose: 10 mg Pantoprazole Sodium (Pantoprazole 40 Mg Tablet) 40 mg PO AC-BRKFST [facility] Senna/Docusate Sodium (Sennosides-Docusate Sodium 1 Each Tab) 2 each PO HS [facility] Sodium Chloride (Sodium Chloride 0.9% Flush 10 Ml Syringe) 10 ml IV BID [facility] Last Admin: 12/26/23 08:45 Dose: 10 ml Venlafaxine HCl (Venlafaxine Hcl Er 150 Mg Cap) 300 mg PO DAILY [facility] Last Admin: 12/26/23 08:14 Dose: 300 mg INVESTIGATIONS, reviewed in the clinical context: December 25: White count 12.1 hemoglobin 9.7 platelets 146 sodium 135 potassium 4.3 creatinine 0.97 albumin 3.0 December 24, 2023: White count 6.1 hemoglobin 11.9 platelets 178 Cardiogram: EF 50 to 55[address]: Moderate to severe coronary atherosclerosis. Severe DJD of the spine Cardiac catheterization: Severe triple-vessel CAD. Calcified right and left coronary system Assessment and plan: -Acute non-ST elevation myocardial infarction: Continue with IV heparin, status post cardiac catheterization revealing triple vessel disease -Severe triple-vessel coronary artery disease with calcified right and left coronary systems: Coronary bypass done -Off-pump CABG x 5 with sequential PARKS to mid diagonal and distal LAD, sequential left radial artery to first and second obtuse marginal coronary arteries, saphenous vein to PDA, ligation of left atrial appendage with 35mm AtriCure clamp, endovascular vein harvest of the greater saphenous vein from the right lower extremity from ankle to groin, endovascular radial harvest from the left forearm. December 24: Dr. Bah -Severe peripheral vascular disease Aspirin. Lipitor -Acute postprocedure blood loss anemia expected from surgery Add ferrous sulfate -Hypoalbuminemia, reactive -Dilutional thrombocytopenia Follow -Type 2 diabetes mellitus, chronically on insulin Currently insulin drip -Hyperlipidemia Lipitor -Hypertension Amlodipine Lopressor -PTSD/depression effexor -Insomnia Trazodone -obesity with a bmi of 30.1 -Full code Discussed with patient.
[2023-12-26 18:57] LABS: Glucose,Whole Blood 217 mg/dL (70-110)
[2023-12-26 20:16] LABS: Glucose,Whole Blood 199 mg/dL (70-110)
[2023-12-26] MEDS: SENNOSIDES-DOCUSATE SODIUM 1 EACH TAB PO SCH (20:41)
[2023-12-26 21:11] LABS: Glucose,Whole Blood 187 mg/dL (70-110)
[2023-12-26 21:59] LABS: Glucose,Whole Blood 162 mg/dL (70-110)
[2023-12-26 22:56] LABS: Glucose,Whole Blood 140 mg/dL (70-110)
[2023-12-27 00:03] LABS: Glucose,Whole Blood 134 mg/dL (70-110)
[2023-12-27 01:03] LABS: Glucose,Whole Blood 138 mg/dL (70-110)
[2023-12-27 02:01] LABS: Glucose,Whole Blood 154 mg/dL (70-110)
[2023-12-27 03:03] LABS: Glucose,Whole Blood 162 mg/dL (70-110)
[2023-12-27 04:01] LABS: Glucose,Whole Blood 170 mg/dL (70-110)
[2023-12-27 04:59] LABS: Basophils % (A) 0 %; Eosinophils # (A) 0.4 k/uL (0-0.7); Eosinophils % (A) 5 %; HCT 23.2 % (39.0-53.0); Lymphocytes # (A) 0.9 k/uL (1.0-4.8); Lymphocytes % (A) 10 %; MCH 29.9 pg (25.0-35.0); MCHC 33.9 g/dL (31.0-37.0); Mean Platelet Volume 8.1; Monocytes # (A) 0.4 k/uL (0-1.0); Monocytes % (A) 5 %; Neutrophils # (A) 6.6 k/uL (1.3-7.7); Neutrophils % (A) 79 %; Platelet Count 124 k/uL (150-450); RBC 2.64 m/uL (4.30-5.90); WBC 8.4 k/uL (3.8-10.6)
[2023-12-27 05:01] LABS: HGB 7.9 gm/dL (13.0-17.5)
[2023-12-27 05:16] LABS: Ionized Calcium 4.9 mg/dL (4.5-5.3)
[2023-12-27 05:24] LABS: ALT 22 U/L (4-49); AST 48 U/L (17-59); African American GFR (CKD) 56 (>60 ml/min/1.73 sqM); Albumin 2.8 g/dL (3.5-5.0); Alkaline Phosphatase 49 U/L (38-126); Anion Gap 3 mmol/L; Blood Urea Nitrogen 28 mg/dL (9-20); Calcium 8.2 mg/dL (8.4-10.2); Carbon Dioxide 22 mmol/L (22-30); Chloride 108 mmol/L (98-107); Glucose 141 mg/dL (74-99); Magnesium 2.2 mg/dL (1.6-2.3); Non-African American GFR(CKD) 48 (>60 ml/min/1.73 sqM); Potassium 4.5 mmol/L (3.5-5.1); Sodium 133 mmol/L (137-145); Total Bilirubin 0.6 mg/dL (0.2-1.3); Total Protein 4.4 g/dL (6.3-8.2)
[2023-12-27 05:57] LABS: Glucose,Whole Blood 172 mg/dL (70-110)
[2023-12-27] MEDS: PANTOPRAZOLE 40 MG TABLET PO SCH (06:50)
[2023-12-27 06:56] LABS: Glucose,Whole Blood 178 mg/dL (70-110)
--- NOTE | 2023-12-27 07:14 | XR ---
EXAMINATION TYPE: XR chest 1V portable DATE OF EXAM: 12/27/2023 5:11 AM CLINICAL INDICATION:Male, 73 years old with history of Post Operative Cardiac Surgery; [facility] COMPARISON: Chest radiograph from one day prior. TECHNIQUE: XR chest 1V portable Frontal view of the chest. FINDINGS: Lungs/Pleura: There is no evidence of pleural effusion, focal consolidation, or pneumothorax. Pulmonary vascularity: Unremarkable. Heart/mediastinum: Cardiomediastinal silhouette is unremarkable. Atherosclerotic calcifications are seen in the aorta. Left atrial appendage occlusion device is present. Musculoskeletal: No acute osseous pathology. Midline sternotomy wires are noted. Other findings: None Lines/Tubes: Left thoracotomy tube is present without evidence of pneumothorax. Drainage tubes with tips projecting over the mediastinum. There is a [place] catheter sheath projects over the right neck. IMPRESSION: Low lung volumes with a generalized hazy appearance which could represent atelectasis versus pulmonar y edema correlate with serum BNP.
[2023-12-27 08:12] LABS: Glucose,Whole Blood 155 mg/dL (70-110)
--- NOTE | 2023-12-27 08:25 | P.PN ---
Subjective Progress Note Date: 12/27/23 Principal diagnosis: CAD The patient is a pleasant 73-year-old gentleman with coronary artery disease and known severe triple-vessel CAD as well as lower extremities peripheral arterial disease and carotid atherosclerosis and hypertension and dyslipidemia as well as multiple comorbid conditions was admitted to the hospital with chest discomfort and ruled in for acute coronary syndrome. He underwent heart catheterization and was found to have severe triple-vessel CAD. He was referred for CABG and he underwent yesterday CABG x 5 with PARKS sequentially to LAD and diagonal as well as radial artery bypass to first and second obtuse marginal branch as well as SVG to PDA of RCA. December 26, 2023 This is postoperation day #2. The patient overall is stable. He got extubated yesterday. Hemodynamically he is stable as [id number] he is slightly hypertensive and currently he is on nitro drip as well as Cardizem drip as well as clevidipine drip which I am going to stop because he is currently on Cardizem drip and holding today to stop all the drips and start the patient on oral medications. Beside that he is on aspirin. He is on intermediate intensity statin. With that and with liver function test I am going to start the patient on higher dose of statin including 80 mg p.o. nightly of atorvastatin. He is on Plavix as well. The CVP appears to be between 8-12. Urine output is excellent. Chest x-ray was reviewed and seems to be within normal limits. The examination is remarkable for distant heart sounds with diminished breathing sounds bilaterally and no lower extremities edema noted December 27, 2023 The patient was seen and evaluated this morning. He is maintaining normal sinus mechanism. Hemodynamically he is stable. Currently he is not on any IV med ications. He is on dual antiplatelet therapy along with high intensity statin along with fenofibrate. Chest x-ray was reviewed and blood work reviewed as well. Urine output has been adequate. From the cardiovascular standpoint of view, I would continue the current medical regimen and follow-up with the patient. Assessment Acute coronary syndrome Severe triple-vessel CAD Carotid atherosclerosis Lower extremities PAD Multiple comorbid conditions Plan Continue the current medical regimen Continue dual antiplatelet therapy Continue monitoring urine output Monitor the hemoglobin and renal function Follow-up with the chest x-ray on daily basis Follow-up with the patient Objective - Vital Signs Vital signs: Vital Signs Temp 99.1 F 12/27/23 04:00 Pulse 77 12/27/23 06:18 Resp 25 H 12/27/23 06:18 BP 128/59 12/27/23 06:18 Pulse Ox 96 12/27/23 06:18 FiO2 40 12/25/23 18:00 Intake & Output 12/26/23 12/27/23 12/27/23 18:59 06:59 18:59 Intake Total 1242.050 354.590 Output Total 440 558 Balance 802.050 -203.410 Weight 107 kg 103.1 kg Intake: IV 607.5 312 Cardiac Output (0.9 20 Sodium Chloride) Diltiazem 125 mg In 5 Sodium Chloride 0.9% 100 ml @ 5 MG/HR 5 mls/hr IV .Q24H [facility] Rx#:[id number] Lactated Ringers 1,000 ml 400 240 @ 20 mls/hr IV .Q24H [facility] Rx#:[id number] Magnesium Sulfate-D5w Pmx 100 1 gm In Dextrose/Water 1 100ml.bag @ 100 mls/hr IVPB ONCE ONE Rx#: [id number] Nitroglycerin-D5w Pmx 50 1.5 mg In Dextrose/Water 1 250ml.bag @ 5 MCG/MIN 1.5 mls/hr IV .Q24H [facility] Rx#: [id number] Pressure Bag (0.9 Sodium 81 72 Chloride) Intake, IV Titration 34.550 42.590 Amount Insulin Regular 100 unit 34.550 42.590 In Sodium Chloride 0.9% 100 ml @ Per Protocol IV .Q0M [facility] Rx#:[id number] Oral 600 Output: Chest Tube Drainage 240 260 Chest Tube Left Anterior 110 120 Chest Chest Tube Mediastinal 130 140 Urine 200 298 Other: Voiding Method Indwelling Catheter Indwelling Catheter ABP, PAP, CO, CI - Last Documented Arterial Blood Pressure 155/34 Pulmonary Artery Pressure 31/8 Cardiac Output 5.5 Cardiac Index 2.6 - Labs CBC & Chem 7: 12/27/23 04:18 12/27/23 04:18 Labs: Abnormal Lab Results - Last 24 Hours (Table) 12/26/23 12/26/23 12/26/23 Range/Units 09:18 10:10 11:14 RBC (4.30-5.90) m/uL Hgb (13.0-17.5) gm/dL Hct (39.0-53.0) % Plt Count (150-450) k/uL Lymphocytes # (1.0-4.8) k/uL Sodium (137-145) mmol/L Chloride (98-107) mmol/L BUN (9-20) mg/dL Creatinine (0.66-1.25) mg/dL Glucose (74-99) mg/dL POC Glucose (mg/dL) 216 H 187 H 162 H (70-110) mg/dL Calcium (8.4-10.2) mg/dL Total Protein (6.3-8.2) g/dL Albumin (3.5-5.0) g/dL 12/26/23 12/26/23 12/26/23 Range/Units 12:18 16:16 17:55 RBC (4.30-5.90) m/uL Hgb (13.0-17.5) gm/dL Hct (39.0-53.0) % Plt Count (150-450) k/uL Lymphocytes # (1.0-4.8) k/uL Sodium (137-145) mmol/L Chloride (98-107) mmol/L BUN (9-20) mg/dL Creatinine (0.66-1.25) mg/dL Glucose (74-99) mg/dL POC Glucose (mg/dL) 151 H 146 H 227 H (70-110) mg/dL Calcium (8.4-10.2) mg/dL Total Protein (6.3-8.2) g/dL Albumin (3.5-5.0) g/dL 12/26/23 12/26/23 12/26/23 Range/Units 18:55 20:15 21:10 RBC (4.30-5.90) m/uL Hgb (13.0-17.5) gm/dL Hct (39.0-53.0) % Plt Count (150-450) k/uL Lymphocytes # (1.0-4.8) k/uL Sodium (137-145) mmol/L Chloride (98-107) mmol/L BUN (9-20) mg/dL Creatinine (0.66-1.25) mg/dL Glucose (74-99) mg/dL POC Glucose (mg/dL) 217 H 199 H 187 H (70-110) mg/dL Calcium (8.4-10.2) mg/dL Total Protein (6.3-8.2) g/dL Albumin (3.5-5.0) g/dL 12/26/23 12/26/23 12/27/23 Range/Units 21:58 22:54 00:02 RBC (4.30-5.90) m/uL Hgb (13.0-17.5) gm/dL Hct (39.0-53.0) % Plt Count (150-450) k/uL Lymphocytes # (1.0-4.8) k/uL Sodium (137-145) mmol/L Chloride (98-107) mmol/L BUN (9-20) mg/dL Creatinine (0.66-1.25) mg/dL Glucose (74-99) mg/dL POC Glucose (mg/dL) 162 H 140 H 134 H (70-110) mg/dL Calcium (8.4-10.2) mg/dL Total Protein (6.3-8.2) g/dL Albumin (3.5-5.0) g/dL 12/27/23 12/27/23 12/27/23 Range/Units 01:01 01:59 03:01 RBC (4.30-5.90) m/uL Hgb (13.0-17.5) gm/dL Hct (39.0-53.0) % Plt Count (150-450) k/uL Lymphocytes # (1.0-4.8) k/uL Sodium (137-145) mmol/L Chloride (98-107) mmol/L BUN (9-20) mg/dL Creatinine (0.66-1.25) mg/dL Glucose (74-99) mg/dL POC Glucose (mg/dL) 138 H 154 H 162 H (70-110) mg/dL Calcium (8.4-10.2) mg/dL Total Protein (6.3-8.2) g/dL Albumin (3.5-5.0) g/dL 12/27/23 12/27/23 12/27/23 Range/Units 04:00 04:18 04:18 RBC 2.64 L (4.30-5.90) m/uL Hgb 7.9 L D (13.0-17.5) gm/dL Hct 23.2 L (39.0-53.0) % Plt Count 124 L (150-450) k/uL Lymphocytes # 0.9 L (1.0-4.8) k/uL Sodium 133 L (137-145) mmol/L Chloride 108 H (98-107) mmol/L BUN 28 H (9-20) mg/dL Creatinine 1.44 H (0.66-1.25) mg/dL Glucose 141 H (74-99) mg/dL POC Glucose (mg/dL) 170 H (70-110) mg/dL Calcium 8.2 L (8.4-10.2) mg/dL Total Protein 4.4 L (6.3-8.2) g/dL Albumin 2.8 L (3.5-5.0) g/dL 12/27/23 12/27/23 12/27/23 Range/Units 05:56 06:55 08:09 RBC (4.30-5.90) m/uL Hgb (13.0-17.5) gm/dL Hct (39.0-53.0) % Plt Count (150-450) k/uL Lymphocytes # (1.0-4.8) k/uL Sodium (137-145) mmol/L Chloride (98-107) mmol/L BUN (9-20) mg/dL Creatinine (0.66-1.25) mg/dL Glucose (74-99) mg/dL POC Glucose (mg/dL) 172 H 178 H 155 H (70-110) mg/dL Calcium (8.4-10.2) mg/dL Total Protein (6.3-8.2) g/dL Albumin (3.5-5.0) g/dL
--- NOTE | 2023-12-27 08:32 | P.PN ---
Subjective Progress Note Date: 12/27/23 Principal diagnosis: Multivessel coronary artery disease, acute non-ST elevated myocardial infarction this admission. Previous medical history of hypertension, hyperlipidemia, com plete right internal carotid artery obstruction per carotid Doppler in 2018, peripheral arterial disease with previous revascularization to bilateral lower extremities with bilateral femoral endarterectomies, on Xarelto outpatient for anticoagulation, colon cancer status post 5 weeks of radiation treatment in 2022, insulin-dependent diabetes mellitus, pancreatitis, prostate cancer with previous radiation in 2019, osteoarthritis, rheumatic fever as a child, obstructive sleep apnea noncompliant with CPAP use, peripheral neuropathy, and previous tobacco dependence POD #2 off-pump CABG x 5 with sequential PARKS to mid diagonal and distal LAD, sequential left radial artery to first and second obtuse marginal coronary arteries, saphenous vein to PDA, ligation of left atrial appendage with 35mm A triCure clamp, endovascular vein harvest of the greater saphenous vein from the right lower extremity from ankle to groin, endovascular radial harvest from the left forearm Postoperative acute blood loss anemia, expected given hemodilution and preoperative anemia The patient was seen and examined sitting up in recliner in the intensive care unit in no acute distress. Does complain of expected postsurgical pain which is controlled on current medication regimen, denies shortness of breath. Remains in sinus rhythm, hemodynamically stable. Currently on room air with oxygen saturation in the mid 90s, achieving 1000 mL on his incentive spirometry. Labs, chest x-ray reviewed. The patient did bump his BUN/creatinine however he had been started on Toradol yesterday, this has been discontinued. Right internal jugular cordis, right radial arterial line, mediastinal/left pleural chest tubes all remain. Patient was able to ambulate a small distance yesterday. No new concerns. Objective - Vital Signs Vital signs: Vital Signs Temp 99.1 F 12/27/23 04:00 Pulse 77 12/27/23 06:18 Resp 25 H 12/27/23 06:18 BP 128/59 12/27/23 06:18 Pulse Ox 96 12/27/23 06:18 FiO2 40 12/25/23 18:00 Intake & Output 12/26/23 12/27/23 12/27/23 18:59 06:59 18:59 Intake Total 1242.050 354.590 Output Total 440 558 Balance 802.050 -203.410 Weight 107 kg 103.1 kg Intake: IV 607.5 312 Cardiac Output (0.9 20 Sodium Chloride) Diltiazem 125 mg In 5 Sodium Chloride 0.9% 100 ml @ 5 MG/HR 5 mls/hr IV .Q24H [facility] Rx#:[id number] Lactated Ringers 1,000 ml 400 240 @ 20 mls/hr IV .Q24H [facility] Rx#:[id number] Magnesium Sulfate-D5w Pmx 100 1 gm In Dextrose/Water 1 100ml.bag @ 100 mls/hr IVPB ONCE ONE Rx#: [id number] Nitroglycerin-D5w Pmx 50 1.5 mg In Dextrose/Water 1 250ml.bag @ 5 MCG/MIN 1.5 mls/hr IV .Q24H [facility] Rx#: [id number] Pressure Bag (0.9 Sodium 81 72 Chloride) Intake, IV Titration 34.550 42.590 Amount Insulin Regular 100 unit 34.550 42.590 In Sodium Chloride 0.9% 100 ml @ Per Protocol IV .Q0M [facility] Rx#:[id number] Oral 600 Output: Chest Tube Drainage 240 260 Chest Tube Left Anterior 110 120 Chest Chest Tube Mediastinal 130 140 Urine 200 298 Other: Voiding Method Indwelling Catheter Indwelling Catheter ABP, PAP, CO, CI - Last Documented Arterial Blood Pressure 155/34 Pulmonary Artery Pressure 31/8 Cardiac Output 5.5 Cardiac Index 2.6 - Exam CONSTITUTIONAL: Appears comfortable, cooperative, no acute distress RESPIRATORY: Lungs sounds diminished bilaterally. Respirations even, nonlabored. Currently on room air with oxygen saturation 93-94%. Able to achieve 1000 mL on incentive spirometry. Strong cough. CARDIOVASCULAR: S1, S2 present. Regular rate and rhythm, sinus rhythm on telemetry. Sternum stable. Palpable peripheral pulses bilaterally. No edema present. No calf pain or tenderness noted. Heart hugger in place with patient demonstrating appropriate use. Antiembolism stockings, SCDs present. GASTROINTESTINAL: Abdomen soft, nontender, nondistended. Active bowel sounds present 4 quadrants. Tolerating diet. Positive flatus GENITOURINARY: Oliver present draining clear, yellow urine. Output overnight 15-40 mL per hour, 500 mL in the last 24 hours INTEGUMENTARY: Skin is warm and dry with evidence of good perfusion. Anterior chest incision well approximated and covered with dry intact dressing. Left radial artery harvest site as well as right lower extremity EVH site well approximated without redness NEUROLOGIC: Cranial nerves II through XII intact MUSKULOSKELETAL: Able to move all extremities, strength equal bilaterally, gait normal PSYCHIATRIC: Alert and oriented to person place and time, appropriate affect, intact judgment and insight INVASIVE LINES AND TUBES: Mediastinal/left pleural chest tubes present and connected to wall suction, no air leaks present. Mediastinal tube with 140 mL serosanguineous drainage overnight, 200 mL in the last 24 hours. Left pleural chest tube with 120 mL serosanguineous drainage overnight, 270 mL in the last 24 hours. Right internal jugular cordis, right radial arterial line present. Last CVP 6. - Allied health notes Allied health notes reviewed: nursing - Labs CBC & Chem 7: 12/27/23 04:18 12/27/23 04:18 Labs: Abnormal Lab Results - Last 24 Hours (Table) 12/26/23 12/26/23 12/26/23 Range/Units 09:18 10:10 11:14 RBC (4.30-5.90) m/uL Hgb (13.0-17.5) gm/dL Hct (39.0-53.0) % Plt Count (150-450) k/uL Lymphocytes # (1.0-4.8) k/uL Sodium (137-145) mmol/L Chloride (98-107) mmol/L BUN (9-20) mg/dL Creatinine (0.66-1.25) mg/dL Glucose (74-99) mg/dL POC Glucose (mg/dL) 216 H 187 H 162 H (70-110) mg/dL Calcium (8.4-10.2) mg/dL Total Protein (6.3-8.2) g/dL Albumin (3.5-5.0) g/dL 12/26/23 12/26/23 12/26/23 Range/Units 12:18 16:16 17:55 RBC (4.30-5.90) m/uL Hgb (13.0-17.5) gm/dL Hct (39.0-53.0) % Plt Count (150-450) k/uL Lymphocytes # (1.0-4.8) k/uL Sodium (137-145) mmol/L Chloride (98-107) mmol/L BUN (9-20) mg/dL Creatinine (0.66-1.25) mg/dL Glucose (74-99) mg/dL POC Glucose (mg/dL) 151 H 146 H 227 H (70-110) mg/dL Calcium (8.4-10.2) mg/dL Total Protein (6.3-8.2) g/dL Albumin (3.5-5.0) g/dL 12/26/23 12/26/23 12/26/23 Range/Units 18:55 20:15 21:10 RBC (4.30-5.90) m/uL Hgb (13.0-17.5) gm/dL Hct (39.0-53.0) % Plt Count (150-450) k/uL Lymphocytes # (1.0-4.8) k/uL Sodium (137-145) mmol/L Chloride (98-107) mmol/L BUN (9-20) mg/dL Creatinine (0.66-1.25) mg/dL Glucose (74-99) mg/dL POC Glucose (mg/dL) 217 H 199 H 187 H (70-110) mg/dL Calcium (8.4-10.2) mg/dL Total Protein (6.3-8.2) g/dL Albumin (3.5-5.0) g/dL 12/26/23 12/26/23 12/27/23 Range/Units 21:58 22:54 00:02 RBC (4.30-5.90) m/uL Hgb (13.0-17.5) gm/dL Hct (39.0-53.0) % Plt Count (150-450) k/uL Lymphocytes # (1.0-4.8) k/uL Sodium (137-145) mmol/L Chloride (98-107) mmol/L BUN (9-20) mg/dL Creatinine (0.66-1.25) mg/dL Glucose (74-99) mg/dL POC Glucose (mg/dL) 162 H 140 H 134 H (70-110) mg/dL Calcium (8.4-10.2) mg/dL Total Protein (6.3-8.2) g/dL Albumin (3.5-5.0) g/dL 12/27/23 12/27/23 12/27/23 Range/Units 01:01 01:59 03:01 RBC (4.30-5.90) m/uL Hgb (13.0-17.5) gm/dL Hct (39.0-53.0) % Plt Count (150-450) k/uL Lymphocytes # (1.0-4.8) k/uL Sodium (137-145) mmol/L Chloride (98-107) mmol/L BUN (9-20) mg/dL Creatinine (0.66-1.25) mg/dL Glucose (74-99) mg/dL POC Glucose (mg/dL) 138 H 154 H 162 H (70-110) mg/dL Calcium (8.4-10.2) mg/dL Total Protein (6.3-8.2) g/dL Albumin (3.5-5.0) g/dL 12/27/23 12/27/23 12/27/23 Range/Units 04:00 04:18 04:18 RBC 2.64 L (4.30-5.90) m/uL Hgb 7.9 L D (13.0-17.5) gm/dL Hct 23.2 L (39.0-53.0) % Plt Count 124 L (150-450) k/uL Lymphocytes # 0.9 L (1.0-4.8) k/uL Sodium 133 L (137-145) mmol/L Chloride 108 H (98-107) mmol/L BUN 28 H (9-20) mg/dL Creatinine 1.44 H (0.66-1.25) mg/dL Glucose 141 H (74-99) mg/dL POC Glucose (mg/dL) 170 H (70-110) mg/dL Calcium 8.2 L (8.4-10.2) mg/dL Total Protein 4.4 L (6.3-8.2) g/dL Albumin 2.8 L (3.5-5.0) g/dL 12/27/23 12/27/23 12/27/23 Range/Units 05:56 06:55 08:09 RBC (4.30-5.90) m/uL Hgb (13.0-17.5) gm/dL Hct (39.0-53.0) % Plt Count (150-450) k/uL Lymphocytes # (1.0-4.8) k/uL Sodium (137-145) mmol/L Chloride (98-107) mmol/L BUN (9-20) mg/dL Creatinine (0.66-1.25) mg/dL Glucose (74-99) mg/dL POC Glucose (mg/dL) 172 H 178 H 155 H (70-110) mg/dL Calcium (8.4-10.2) mg/dL Total Protein (6.3-8.2) g/dL Albumin (3.5-5.0) g/dL - Imaging and Cardiology Chest x-ray: report reviewed, image reviewed Assessment and Plan Assessment: Multivessel coronary artery disease, acute non-ST elevated myocardial infarction this admission, status post 5 vessel off-pump CABG Severe peripheral arterial disease with history of bilateral femoral endarterectomies and totally occluded right internal carotid artery, on Xarelto for anticoagulation as an outpatient, last dose was taken on December 21, 2023 History of hypertension Hyperlipidemia Insulin-dependent diabetes mellitus History of prostate cancer, status post radiation treatment History of colon cancer, status post 5 weeks of radiation treatments completed in May 2023 History of pancreatitis Obstructive sleep apnea, noncompliant with CPAP use Osteoarthritis History of rheumatic fever as a child Previous tobacco dependence, quit smoking in 1988 PTSD/depression Postoperative acute blood loss anemia, expected given hemodilution and preoperative anemia Plan: Continue to maximize medical management with aspirin, Plavix, fenofibrate, statin and beta-barrie. Will increase beta-barrie therapy as tolerated Continue amiodarone for A-fib prophylaxis, will taper weekly, patient has had no atrial fibrillation up to this point Continue oral calcium channel barrie Encourage incentive spirometry use 10 times every hour while awake. Bronchodilators per pulmonology Increase activity, ambulate as tolerated. PT/OT/cardiac rehab consulted Will monitor daily labs and x-rays. Electrolyte replacement per protocol GI/DVT prophylaxis Pain control with current medication regimen. Toradol discontinued Insulin management per internal medicine Discontinue Cordis, arterial line Likely will discontinue mediastinal chest tube, continue pleural chest tube for another 24 hours, monitor output Continue Oliver catheter for another 24 hours, continue to monitor and record strict accurate intake and output Daily weights More recommendations to follow
[2023-12-27] MEDS: amLODIPine 10 MG TAB PO SCH (08:51)
[2023-12-27 10:01] LABS: Glucose,Whole Blood 194 mg/dL (70-110)
[2023-12-27 11:42] LABS: Glucose,Whole Blood 164 mg/dL (70-110)
--- NOTE | 2023-12-27 11:58 | P.PN ---
Subjective Progress Note Date: 12/27/23 Patient is a 73-year-old white male with past medical history significant for hypertension, hyperlipidemia, diabetes mellitus, obesity, right internal carotid artery occlusion, peripheral arterial disease, colon cancer with previous radiation treatments, prostate cancer with previous radiation, pancreatitis, obstructive sleep apnea not pliant with CPAP, and former tobacco smoker quitting in 1988. His PCP is Dr. Veloz out of [place], [place]. Back on 12/20/2023 he was having new onset substernal chest pain radiating to the left jaw, that developed while sitting and reading a newspaper. There is associated diaphoresis and nausea/vomiting. Patient was initially worked up at [facility], and transferred for suspected non-ST elevation [place] 12/21/23. EKG showed ST segment depressions in anterior lateral leads. Troponins were elevated on arrival. Patient did undergo heart catheterization on 12/22/2023 which revealed severe multi-vessel coronary artery disease. There is 80% stenosis of the proximal and also mid to distal portions of the LAD, 80 to 90% stenosis of the mid left circumflex,40 to 50% left main disease. There is a preoperative workup underway for tentative open heart procedure, which is scheduled for . Chest CT did not show any evidence of acute pulmonary process. No evidence of focal consolidation, pneumothorax, or pleural effusions. Patient did have a be dside FEV1 which was 1.82 L or 58% of predicted. Does have remote history of smoking, quitting in 1988 after being hypnotized. 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 No previous diagnosis of lung disease or COPD or asthma. Patient is currently resting comfortably on room air, in no acute distress. Nonlabored breathing. His incentive spirometer is at the bedside. He continues to have nitroglycerin infusion at 15 mics per minute and IV heparin infusion per protocol. Denies any current chest pain. Echocardiogram done yesterday estimated a preserved left ventricular ejection fraction of 50 to 55%. Grade 1 diastolic dysfunction noted. Most recent CBC from yesterday is unremarkable. Most recent APTT subtherapeutic. BMP from yesterday also unremarkable. Hemodynamics are stable. The patient is seen today December 25, 2023 in the intensive care unit shortly after returning from the OR. He had gone undergone an off-pump CABG x 5 with sequential PARKS to the mid diagonal and distal LAD, sequential left radial artery to the first and second obtuse marginal arteries, saphenous vein to the PDA. Ligation of the left atrial appendage. He is on the mechanical ventilator and assist-control mode with a rate of 16, tidal volume 500, FiO2 100% and a PEEP of 8. Blood gases revealed a PaO2 of 329, pCO2 of 45 and a pH of 7.33. He has chest tubes in place, pacer wires in place, Balaton-Makenzie catheter in the right internal jugular, right radial art line in place. Brice wrap to the left radial surgical site. Bilateral lower extremity Brice wraps. DUNCAN drain to the right lower extremity. He is on a Cardizem drip at 5 mg/h. Cleviprex at 1 mg/h. Amiodarone at 1 mg/min. Lactated Ringer's at 50 MLS per hour. Nitroglycerin drip at 5 mcg/min. Propofol at 40 mcg/kg/min. PA pressure 44/31. Central venous pressure 13. Cardiac output 6.8. Cardiac index 3.2. White count 6.4. Hemoglobin 8.1. Platelets 100,000. Sodium 139. Potassium 3.8. Bicarb 21. BUN 17. Creatinine 0.96. He is initiated on bronchodilators. Heparin for DVT prophylaxis. The patient is seen today December 26, 2023 in follow-up in the intensive care unit. He is currently awake and alert in no acute distress. Sitting up in a chair at the bedside. Maintaining O2 saturations in the 90s on 3 L/min per nasal cannula. This is postoperative day #1 following his coronary bypass grafting x 5. He is currently on lactated Ringer's at 50 MLS per hour. Requiring insulin drip at 2 units/h. On amiodarone drip at 0.5 milligrams per minute. He denies any significant discomfort at this time. He has a mild headache. He remains on bronchodilators. Heparin for DVT prophylaxis. Chest x-ray reviewed post CABG changes with interval extubation. There is residual mild pulmonary vascular congestion. He continues to work well with the incentive spirometer. Chest tubes remain in place. Pacer wires remain in place. Right IJ Balaton-Makenzie catheter in place. Cardiac output 3.5. Cardiac index 2.6. PA pressures 35/4. CVP of 4. White count 12.1. Hemoglobin 9.7. Platelets 146. Sodium 135. Potassium 4.3. Bicarb 21. BUN 17. Creatinine 0.97. The patient is seen today December 27, 2023 in follow-up in the intensive care unit. He is currently awake and alert in no acute distress. Sitting up in a chair. On room air. He has lactated Ringer's at 20 MLS per hour. Insulin drip at 4 units/h. He is working well with the incentive spirometer. Chest x-ray reveals low lung volumes with generalized hazy appearance most likely atelectasis. White count 8.4. Hemoglobin 7.9. Platelets 124. Sodium 133. Potassium 4.5. Bicarb 22. BUN 28. Creatinine 1.44. Glucose 141. He is continued on bronchodilators. Heparin for DVT prophylaxis. Right internal jugular cordis remains in place. Right radial art line in place. Mediastinal and left chest tubes in place. Objective - Vital Signs Vital signs: Vital Signs Temp 97.7 F 12/27/23 08:00 Pulse 62 12/27/23 10:00 Resp 14 12/27/23 10:00 BP 138/55 12/27/23 10:00 Pulse Ox 94 L 12/27/23 10:00 FiO2 40 12/25/23 18:00 Intake & Output 12/26/23 12/27/23 12/27/23 18:59 06:59 18:59 Intake Total 1242.050 354.590 238.265 Output Total 440 558 80 Balance 802.050 -203.410 158.265 Weight 107 kg 103.1 kg Intake: IV 607.5 312 78 Cardiac Output (0.9 20 Sodium Chloride) Diltiazem 125 mg In 5 Sodium Chloride 0.9% 100 ml @ 5 MG/HR 5 mls/hr IV .Q24H [facility] Rx#:[id number] Lactated Ringers 1,000 ml 400 240 60 @ 20 mls/hr IV .Q24H [facility] Rx#:[id number] Magnesium Sulfate-D5w Pmx 100 1 gm In Dextrose/Water 1 100ml.bag @ 100 mls/hr IVPB ONCE ONE Rx#: [id number] Nitroglycerin-D5w Pmx 50 1.5 mg In Dextrose/Water 1 250ml.bag @ 5 MCG/MIN 1.5 mls/hr IV .Q24H [facility] Rx#: [id number] Pressure Bag (0.9 Sodium 81 72 18 Chloride) Intake, IV Titration 34.550 42.590 40.265 Amount Insulin Regular 100 unit 34.550 42.590 40.265 In Sodium Chloride 0.9% 100 ml @ Per Protocol IV .Q0M [facility] Rx#:[id number] Oral 600 120 Output: Chest Tube Drainage 240 260 30 Chest Tube Left Anterior 110 120 20 Chest Chest Tube Mediastinal 130 140 10 Urine 200 298 50 Other: Voiding Method Indwelling Catheter Indwelling Catheter Indwelling Catheter ABP, PAP, CO, CI - Last Documented Arterial Blood Pressure 173/55 Pulmonary Artery Pressure 31/8 Cardiac Output 5.5 Cardiac Index 2.6 - Exam GENERAL EXAM: Awake, very pleasant 73-year-old male patient, on room air, up in a chair, in no apparent distress. HEAD: Normocephalic. EYES: Normal reaction of pupils, equal size. NOSE: Clear with pink turbinates. THROAT: No erythema or exudates. NECK: No masses, no JVD. Right IJ cordis in place. CHEST: Sternal dressing dry and intact. Mediastinal/left chest tubes in place. Pacer wires in place. LUNGS: Equal air entry with no crackles, wheeze, rhonchi or dullness. CVS: S1 and S2 normal with no audible murmur, regular rhythm. ABDOMEN: No hepatosplenomegaly, hypoactive bowel sounds, no guarding or r igidity. SPINE: No scoliosis or deformity SKIN: No rashes CENTRAL NERVOUS SYSTEM: No focal deficits, tone is normal in all 4 extremities. EXTREMITIES: Left radial site with Brice wrap. Bilateral lower extremity Brice wraps. DUNCAN drain in place. Right radial arterial line in place. Peripheral pulses are intact. - Labs CBC & Chem 7: 12/27/23 04:18 12/27/23 04:18 Labs: Abnormal Lab Results - Last 24 Hours (Table) 12/26/23 12/26/23 12/26/23 Range/Units 12:18 16:16 17:55 RBC (4.30-5.90) m/uL Hgb (13.0-17.5) gm/dL Hct (39.0-53.0) % Plt Count (150-450) k/uL Lymphocytes # (1.0-4.8) k/uL Sodium (137-145) mmol/L Chloride (98-107) mmol/L BUN (9-20) mg/dL Creatinine (0.66-1.25) mg/dL Glucose (74-99) mg/dL POC Glucose (mg/dL) 151 H 146 H 227 H (70-110) mg/dL Calcium (8.4-10.2) mg/dL Total Protein (6.3-8.2) g/dL Albumin (3.5-5.0) g/dL 12/26/23 12/26/23 12/26/23 Range/Units 18:55 20:15 21:10 RBC (4.30-5.90) m/uL Hgb (13.0-17.5) gm/dL Hct (39.0-53.0) % Plt Count (150-450) k/uL Lymphocytes # (1.0-4.8) k/uL Sodium (137-145) mmol/L Chloride (98-107) mmol/L BUN (9-20) mg/dL Creatinine (0.66-1.25) mg/dL Glucose (74-99) mg/dL POC Glucose (mg/dL) 217 H 199 H 187 H (70-110) mg/dL Calcium (8.4-10.2) mg/dL Total Protein (6.3-8.2) g/dL Albumin (3.5-5.0) g/dL 12/26/23 12/26/23 12/27/23 Range/Units 21:58 22:54 00:02 RBC (4.30-5.90) m/uL Hgb (13.0-17.5) gm/dL Hct (39.0-53.0) % Plt Count (150-450) k/uL Lymphocytes # (1.0-4.8) k/uL Sodium (137-145) mmol/L Chloride (98-107) mmol/L BUN (9-20) mg/dL Creatinine (0.66-1.25) mg/dL Glucose (74-99) mg/dL POC Glucose (mg/dL) 162 H 140 H 134 H (70-110) mg/dL Calcium (8.4-10.2) mg/dL Total Protein (6.3-8.2) g/dL Albumin (3.5-5.0) g/dL 12/27/23 12/27/23 12/27/23 Range/Units 01:01 01:59 03:01 RBC (4.30-5.90) m/uL Hgb (13.0-17.5) gm/dL Hct (39.0-53.0) % Plt Count (150-450) k/uL Lymphocytes # (1.0-4.8) k/uL Sodium (137-145) mmol/L Chloride (98-107) mmol/L BUN (9-20) mg/dL Creatinine (0.66-1.25) mg/dL Glucose (74-99) mg/dL POC Glucose (mg/dL) 138 H 154 H 162 H (70-110) mg/dL Calcium (8.4-10.2) mg/dL Total Protein (6.3-8.2) g/dL Albumin (3.5-5.0) g/dL 12/27/23 12/27/23 12/27/23 Range/Units 04:00 04:18 04:18 RBC 2.64 L (4.30-5.90) m/uL Hgb 7.9 L D (13.0-17.5) gm/dL Hct 23.2 L (39.0-53.0) % Plt Count 124 L (150-450) k/uL Lymphocytes # 0.9 L (1.0-4.8) k/uL Sodium 133 L (137-145) mmol/L Chloride 108 H (98-107) mmol/L BUN 28 H (9-20) mg/dL Creatinine 1.44 H (0.66-1.25) mg/dL Glucose 141 H (74-99) mg/dL POC Glucose (mg/dL) 170 H (70-110) mg/dL Calcium 8.2 L (8.4-10.2) mg/dL Total Protein 4.4 L (6.3-8.2) g/dL Albumin 2.8 L (3.5-5.0) g/dL 12/27/23 12/27/23 12/27/23 Range/Units 05:56 06:55 08:09 RBC (4.30-5.90) m/uL Hgb (13.0-17.5) gm/dL Hct (39.0-53.0) % Plt Count (150-450) k/uL Lymphocytes # (1.0-4.8) k/uL Sodium (137-145) mmol/L Chloride (98-107) mmol/L BUN (9-20) mg/dL Creatinine (0.66-1.25) mg/dL Glucose (74-99) mg/dL POC Glucose (mg/dL) 172 H 178 H 155 H (70-110) mg/dL Calcium (8.4-10.2) mg/dL Total Protein (6.3-8.2) g/dL Albumin (3.5-5.0) g/dL 12/27/23/03/13 Range/Units 09:59 11:41 RBC (4.30-5.90) m/uL Hgb (13.0-17.5) gm/dL Hct (39.0-53.0) % Plt Count (150-450) k/uL Lymphocytes # (1.0-4.8) k/uL Sodium (137-145) mmol/L Chloride (98-107) mmol/L BUN (9-20) mg/dL Creatinine (0.66-1.25) mg/dL Glucose (74-99) mg/dL POC Glucose (mg/dL) 194 H 164 H (70-110) mg/dL Calcium (8.4-10.2) mg/dL Total Protein (6.3-8.2) g/dL Albumin (3.5-5.0) g/dL Assessment and Plan Assessment: Acute non-ST elevation myocardial infarction Multivessel coronary artery disease, status post off-pump coronary artery bypass grafting x 5 with sequential PARKS to mid diagonal and distal LAD, sequential left radial artery to the first and second obtuse marginal arteries, saphenous vein to the PDA and ligation of the left atrial appendage. Postoperative day #2 History of hypertension Hyperlipidemia Insulin-dependent diabetes mellitus Peripheral arterial disease, with history of bilateral femoral endarterectomies History of totally occluded right ICA stenosis, anticoagulated on Xarelto outpatient Obesity, with a BMI of 32.6 kg/m History of obstructive sleep apnea, noncompliant with CPAP Remote history of tobacco dependence, quitting in 1988 Plan: The patient was seen and evaluated Chest x-ray, labs and medications reviewed Currently stable and on room air Continue to work with the incentive spirometer Continue bronchodilators Heparin for DVT prophylaxis Increase his activity as tolerated We will continue to follow I have personally seen and examined the patient, performed the documentation and the assessment and plan as written. Number of minutes spent on the visit: 10.
[2023-12-27 13:18] LABS: Glucose,Whole Blood 172 mg/dL (70-110)
[2023-12-27 14:47] LABS: Glucose,Whole Blood 149 mg/dL (70-110)
[2023-12-27 16:13] LABS: Glucose,Whole Blood 156 mg/dL (70-110)
[2023-12-27 17:47] LABS: Glucose,Whole Blood 185 mg/dL (70-110)
[2023-12-27 19:00] LABS: Glucose,Whole Blood 208 mg/dL (70-110)
--- NOTE | 2023-12-27 19:03 | P.PN ---
Progress Note - Text Progress Note Date: 12/27/23 71-year-old pleasant male came with complaints of chest pressure-like sensation radiating to the neck along with some shortness of breath. Patient is found to have significant ST-T wave changes in the anterolateral leads. Patient troponin is elevated and needs an upward trend highest being around 2.7. Patient was started on IV heparin patient will undergo cardiac catheterization today patient also had a recent upper respiratory viral illness about a month ago. Patient does have history of cerebrovascular disease and underwent a prior risk of revascularization procedure and bilateral femoral endarterectomy. Patient continues to smoke but trying to quit and cut down significantly. Patient denies any orthopnea paroxysmal nocturnal dyspnea patient does not have any pedal edema not in congestive heart failure exacerbation. 12/23/2023 Patient seen in follow-up today status post cardiac catheterization yesterday and noted to have triple-vessel coronary artery disease and cardiothoracic surgery was consulted for possible CABG eval. Patient currently undergoing further workup and experience some increased chest pain and was started on nitro drip per cardiology this morning. Patient currently on supplemental oxygen of 2 L and reports some shortness of breath with exertion patient reports he does not wear oxygen outpatient. Patient is currently afebrile with incentive spirometer at bedside and encouraged the patient to continue using at least 10 times every hour while awake.. Tentatively scheduled for surgery 12/25/2023 December 24, 2023: Recliner. No chest pain or shortness of breath. Eating fair.-Final plan for coronary bypass tomorrow December 26, 2023: Patient was not seen yesterday at patient going to the OR. Patient was extubated. Sitting up in a chair. Chest tubes in place. On insulin drip. On 2 L nasal cannula. Did take a few steps. Did also stand. Oliver catheter in place. This morning was on clear liquid diet. December 26: Up in a chair. Chest tubes are out. Oliver catheter taken out. Advance today to heart healthy diet at lunch. Breathing better. at the bedside. Was on insulin drip. Will change to Levemir and NovoLog starting from supper. Follow Accu-Cheks. Active Medications Acetaminophen (Acetaminophen Tab 325 Mg Tab) 650 mg PO Q4HR PRN PRN Reason: Fever and/ or Mild Pain Albuterol/Ipratropium (Ipratropium-Albuterol 3 Ml Neb) 3 ml INHALATION RT-Q2H PRN PRN Reason: Shortness Of Breath Or Wheezing Albuterol/Ipratropium (Ipratropium-Albuterol 3 Ml Neb) 3 ml INHALATION RT-QID [facility] Last Admin: 12/27/23 15:50 Dose: 3 ml Amiodarone HCl (Amiodarone 200 Mg Tab) 400 mg PO BID [facility] Last Admin: 12/27/23 08:52 Dose: 400 mg Amlodipine Besylate (Amlodipine 10 Mg Tab) 10 mg PO DAILY [facility] Last Admin: 12/27/23 08:51 Dose: 10 mg Aspirin (Aspirin 325 Mg Tab) 325 mg PO DAILY [facility] Last Admin: 12/27/23 08:52 Dose: 325 mg Atorvastatin Calcium (Atorvastatin 40 Mg Tab) 40 mg PO DAILY [facility] Last Admin: 12/27/23 08:52 Dose: 40 mg Benzocaine/Menthol (Benzocaine/Menthol Lozeng 1 Each Lozenge) 1 each MUCOUS MEM Q2H PRN PRN Reason: Sore Throat Bisacodyl (Bisacodyl 10 Mg Supp) 10 mg RECTAL DAILY PRN PRN Reason: Constipation Clopidogrel Bisulfate (Clopidogrel 75 Mg Tab) 75 mg PO DAILY [facility] Last Admin: 12/27/23 08:52 Dose: 75 mg Dextrose/Water (Dextrose 50% Syringe 50 Ml) 25 ml IVP PER PROTOCOL PRN; Protocol PRN Reason: Hypoglycemia Dextrose/Water (Dextrose 50% Syringe 50 Ml) 50 ml IVP PER PROTOCOL PRN; Protocol PRN Reason: Hypoglycemia Fenofibrate (Fenofibrate 160 Mg Tab) 160 mg PO DAILY [facility] Last Admin: 12/27/23 08:52 Dose: 160 mg Heparin Sodium (Porcine) (Heparin Sodium,Porcine 5,000 Unit/Ml 1 Ml Vial) 5,000 unit SQ Q8HR [facility] Last Admin: 12/27/23 16:52 Dose: 5,000 unit Hydralazine HCl (Hydralazine Hcl 20 Mg/Ml 1 Ml Vial) 10 mg IVP Q1H PRN PRN Reason: Blood Pressure - High Last Admin: 12/25/23 13:59 Dose: 10 mg Amiodarone HCl 150 mg/ (Dextrose/Water) 103 mls @ 618 mls/hr IV .Q10M PRN PRN Reason: A.FIB/FLUTTER Insulin Aspart (Insulin Aspart (Novolog) 100 Unit/Ml Vial) 10 unit SQ AC-TID [facility] Insulin Detemir (Insulin Detemir (Levemir) 100 Unit/Ml Syr) 30 unit SQ BID [facility] Magnesium Hydroxide (Magnesium Hydroxide 2,400 Mg/30 Ml Cup) 2,400 mg PO BID PRN PRN Reason: Constipation Metoclopramide HCl (Metoclopramide 5 Mg/Ml 2 Ml Vial) 10 mg IVP Q4H PRN PRN Reason: Nausea And Vomiting Metoprolol Tartrate (Metoprolol Tartrate 25 Mg Tab) 25 mg PO BID [facility] Last Admin: 12/27/23 08:52 Dose: 25 mg Miscellaneous Information (Potassium Replacement Protocol 1 Each Misc) 1 each MISCELLANE DAILY PRN; Protocol PRN Reason: Per Protocol Miscellaneous Information (Magnesium Replacement Protocol 1 Each Misc) 1 each MISCELLANE DAILY PRN; Protocol PRN Reason: Per Protocol Multivitamins (Multivitamins, Thera 1 Each Tab) 1 each PO DAILY [facility] Last Admin: 12/27/23 08:52 Dose: 1 each Ondansetron HCl (Ondansetron 4 Mg/2 Ml Vial) 4 mg IVP Q6HR PRN PRN Reason: Nausea And Vomiting Last Admin: 12/27/23 18:10 Dose: 4 mg Oxycodone HCl (Oxycodone Hcl 5 Mg Tab) 5 mg PO Q4HR PRN PRN Reason: Moderate Pain (Scale 4 to 6) Last Admin: 12/26/23 03:53 Dose: 5 mg Oxycodone HCl (Oxycodone Hcl 5 Mg Tab) 10 mg PO Q4HR PRN PRN Reason: Severe Pain (Scale 7 to 10) Last Admin: 12/27/23 08:57 Dose: 10 mg Pantoprazole Sodium (Pantoprazole 40 Mg Tablet) 40 mg PO AC-BRKFST [facility] Last Admin: 12/27/23 06:50 Dose: 40 mg Senna/Docusate Sodium (Sennosides-Docusate Sodium 1 Each Tab) 2 each PO HS [facility] Last Admin: 12/26/23 20:41 Dose: 2 each Sodium Chloride (Sodium Chloride 0.9% Flush 10 Ml Syringe) 10 ml IV BID [facility] Last Admin: 12/27/23 09:00 Dose: Not Given Venlafaxine HCl (Venlafaxine Hcl Er 150 Mg Cap) 300 mg PO DAILY [facility] Last Admin: 12/27/23 08:51 Dose: 300 mg INVESTIGATIONS, reviewed in the clinical context: December 25: White count 12.1 hemoglobin 9.7 platelets 146 sodium 135 potassium 4.3 creatinine 0.97 albumin 3.0 December 24, 2023: White count 6.1 hemoglobin 11.9 platelets 178 Cardiogram: EF 50 to [address]: Moderate to severe coronary atherosclerosis. Severe DJD of the spine Cardiac catheterization: Severe triple-vessel CAD. Calcified right and left coronary system Assessment and plan: -Acute non-ST elevation myocardial infarction: status post cardiac catheterization revealing triple vessel disease -Severe triple-vessel coronary artery disease with calcified right and left coronary systems: Coronary bypass done -Off-pump CABG x 5 with sequential PARKS to mid diagonal and distal LAD, sequential left radial artery to first and second obtuse marginal coronary arteries, saphenous vein to PDA, ligation of left atrial appendage with 35mm AtriCure clamp, endovascular vein harvest of the greater saphenous vein from the right lower extremity from ankle to groin, endovascular radial harvest from the left forearm. December 24: Dr. Bah -Severe peripheral vascular disease Aspirin. Lipitor -Acute postprocedure blood loss anemia expected from surgery ferrous sulfate -Hypoalbuminemia, reactive -Dilutional thrombocytopenia Follow -Type 2 diabetes mellitus, chronically on insulin On insulin drip. Transition to Levemir and Humalog scheduled with meals. -Hyperlipidemia Lipitor -Hypertension Amlodipine Lopressor -PTSD/depression effexor -Insomnia Trazodone -obesity with a bmi of 30.1 -Full code Improving. Transitional insulin drip to Levemir and Humalog.
[2023-12-27 19:51] LABS: Glucose,Whole Blood 186 mg/dL (70-110)
[2023-12-27] MEDS: INSULIN DETEMIR (LEVEMIR) 100 UNIT/ML SYR SQ SCH (20:19)
[2023-12-28 04:08] LABS: Basophils % (A) 0 %; Eosinophils # (A) 0.3 k/uL (0-0.7); Eosinophils % (A) 4 %; HGB 8.1 gm/dL (13.0-17.5); Lymphocytes # (A) 0.8 k/uL (1.0-4.8); Lymphocytes % (A) 10 %; MCH 29.6 pg (25.0-35.0); MCHC 32.6 g/dL (31.0-37.0); MCV 90.7 fL (80.0-100.0); Mean Platelet Volume 8.7; Monocytes # (A) 0.6 k/uL (0-1.0); Monocytes % (A) 7 %; Neutrophils % (A) 75 %; Platelet Count 141 k/uL (150-450); RBC 2.75 m/uL (4.30-5.90); RDW 14.1 % (11.5-15.5)
[2023-12-28 04:20] LABS: ALT 650 U/L (4-49); African American GFR (CKD) 44 (>60 ml/min/1.73 sqM); Albumin 3.1 g/dL (3.5-5.0); Alkaline Phosphatase 80 U/L (38-126); Anion Gap 5 mmol/L; Blood Urea Nitrogen 45 mg/dL (9-20); Calcium 8.3 mg/dL (8.4-10.2); Carbon Dioxide 22 mmol/L (22-30); Chloride 104 mmol/L (98-107); Glucose 182 mg/dL (74-99); Non-African American GFR(CKD) 38 (>60 ml/min/1.73 sqM); Potassium 5.6 mmol/L (3.5-5.1); Sodium 131 mmol/L (137-145); Total Bilirubin 0.8 mg/dL (0.2-1.3); Total Protein 4.9 g/dL (6.3-8.2)
[2023-12-28 04:42] LABS: AST 1345 U/L (17-59)
[2023-12-28 05:56] LABS: ALT 662 U/L (4-49); African American GFR (CKD) 47 (>60 ml/min/1.73 sqM); Albumin 3.2 g/dL (3.5-5.0); Alkaline Phosphatase 80 U/L (38-126); Anion Gap 5 mmol/L; Blood Urea Nitrogen 47 mg/dL (9-20); Calcium 8.2 mg/dL (8.4-10.2); Carbon Dioxide 21 mmol/L (22-30); Chloride 105 mmol/L (98-107); Glucose 182 mg/dL (74-99); Non-African American GFR(CKD) 41 (>60 ml/min/1.73 sqM); Potassium 5.1 mmol/L (3.5-5.1); Sodium 131 mmol/L (137-145); Total Bilirubin 0.8 mg/dL (0.2-1.3)
[2023-12-28 06:02] LABS: AST 1263 U/L (17-59)
[2023-12-28 06:47] LABS: Glucose,Whole Blood 205 mg/dL (70-110)
[2023-12-28] MEDS: INSULIN ASPART (NovoLOG) 100 UNIT/ML VIAL SQ SCH ×2 (06:55→17:09)
--- NOTE | 2023-12-28 07:18 | XR ---
EXAMINATION TYPE: XR chest 1V portable DATE OF EXAM: 12/28/2023 5:54 AM CLINICAL INDICATION:Male, 73 years old with history of post cardiac surgery; [facility] COMPARISON: Chest radiograph from one day prior. TECHNIQUE: XR chest 1V portable Frontal view of the chest. FINDINGS: Lungs/Pleura: There is no evidence of pleural effusion, focal consolidation, or pneumothorax. Pulmonary vascularity: Unremarkable. Heart/mediastinum: Cardiomediastinal silhouette is unremarkable. Atherosclerotic calcifications are seen in the aorta. Left atrial appendage occlusion device is present. Musculoskeletal: No acute osseous pathology. Midline sternotomy wires are noted. Other findings: None Lines/Tubes: Left thoracotomy tube has been removed, no evidence of pneumothorax.. IMPRESSION: Low lung volumes with a generalized hazy appearance which could represent atelectasis versus pulmonar y edema correlate with serum BNP.
--- NOTE | 2023-12-28 08:01 | P.PN ---
Subjective Progress Note Date: 12/28/23 Principal diagnosis: Multivessel coronary artery disease, acute non-ST elevated myocardial infarction this admission. Previous medical history of hypertension, hyperlipidemia, com plete right internal carotid artery obstruction per carotid Doppler in 2018, peripheral arterial disease with previous revascularization to bilateral lower extremities with bilateral femoral endarterectomies, on Xarelto outpatient for anticoagulation, colon cancer status post 5 weeks of radiation treatment in 2022, insulin-dependent diabetes mellitus, pancreatitis, prostate cancer with previous radiation in 2019, osteoarthritis, rheumatic fever as a child, obstructive sleep apnea noncompliant with CPAP use, peripheral neuropathy, and previous tobacco dependence POD #3 off-pump CABG x 5 with sequential PARKS to mid diagonal and distal LAD, sequential left radial artery to first and second obtuse marginal coronary arteries, saphenous vein to PDA, ligation of left atrial appendage with 35mm A triCure clamp, endovascular vein harvest of the greater saphenous vein from the right lower extremity from ankle to groin, endovascular radial harvest from the left forearm Postoperative acute blood loss anemia, expected given hemodilution and preoperative anemia Acute kidney injury, likely secondary to Toradol which has since been stopped Elevated transaminases, likely medication induced The patient was seen and examined sitting up in recliner in the intensive care unit in no acute distress eating breakfast. Does complain of expected postsurgical pain which is controlled on current medication regimen, denies shortness of breath. Remains in sinus rhythm, hemodynamically stable. [place] tly on room air with oxygen saturation in the mid 90s, achieving 2000 mL on his incentive spirometry. Labs, chest x-ray reviewed. Patient has been ambulatory in the hallway. No other new concerns. Objective - Vital Signs Vital signs: Vital Signs Temp 98.2 F 12/28/23 00:00 Pulse 73 12/28/23 07:00 Resp 21 12/28/23 07:00 BP 129/52 12/28/23 07:00 Pulse Ox 94 L 12/28/23 07:00 FiO2 40 12/25/23 18:00 Intake & Output 12/27/23 12/28/23 12/28/23 18:59 06:59 18:59 Intake Total 565.642 139.696 Output Total 320 450 0 Balance 245.642 -310.304 0 Weight 103.4 kg Intake: IV 244 130 Lactated Ringers 1,000 ml 220 130 @ 20 mls/hr IV .Q24H [facility] Rx#:[id number] Pressure Bag (0.9 Sodium 24 Chloride) Intake, IV Titration 81.642 9.696 Amount Insulin Regular 100 unit 81.642 9.696 In Sodium Chloride 0.9% 100 ml @ Per Protocol IV .Q0M [facility] Rx#:[id number] Oral 240 Output: Chest Tube Drainage 30 Chest Tube Left Anterior 20 Chest Chest Tube Mediastinal 10 Urine 290 450 0 Other: Voiding Method Indwelling Catheter Urinal # Voids 1 ABP, PAP, CO, CI - Last Documented Arterial Blood Pressure 134/37 Pulmonary Artery Pressure 31/8 Cardiac Output 5.5 Cardiac Index 2.6 - Exam CONSTITUTIONAL: Appears comfortable, cooperative, no acute distress RESPIRATORY: Lungs sounds diminished bilaterally. Respirations even, nonlabored. Currently on room air with oxygen saturation 93%. Able to achieve 2000 mL on incentive spirometry. Strong cough. CARDIOVASCULAR: S1, S2 present. Regular rate and rhythm, sinus rhythm on telemetry. Sternum stable. Palpable peripheral pulses bilaterally. No edema present. No calf pain or tenderness noted. Heart hugger in place with patient demonstrating appropriate use. Antiembolism stockings, SCDs present. GASTROINTESTINAL: Abdomen soft, nontender, nondistended. Active bowel sounds present 4 quadrants. Tolerating diet. Positive flatus GENITOURINARY: Continues to void INTEGUMENTARY: Skin is warm and dry with evidence of good perfusion. Anterior chest incision well approximated and covered with dry intact dressing. Left radial artery harvest site as well as right lower extremity EVH site well approximated without redness NEUROLOGIC: Cranial nerves II through XII intact MUSKULOSKELETAL: Able to move all extremities, strength equal bilaterally, gait normal PSYCHIATRIC: Alert and oriented to person place and time, appropriate affect, intact judgment and insight - Allied health notes Allied health notes reviewed: nursing - Labs CBC & Chem 7: 12/28/23 03:24 12/28/23 05:31 Labs: Abnormal Lab Results - Last 24 Hours (Table) 12/27/23 12/27/23 12/27/23 Range/Units 08:09 09:59 11:41 RBC (4.30-5.90) m/uL Hgb (13.0-17.5) gm/dL Hct (39.0-53.0) % Plt Count (150-450) k/uL Lymphocytes # (1.0-4.8) k/uL Sodium (137-145) mmol/L Potassium (3.5-5.1) mmol/L Carbon Dioxide (22-30) mmol/L BUN (9-20) mg/dL Creatinine (0.66-1.25) mg/dL Glucose (74-99) mg/dL POC Glucose (mg/dL) 155 H 194 H 164 H (70-110) mg/dL Calcium (8.4-10.2) mg/dL AST (17-59) U/L ALT (4-49) U/L Total Protein (6.3-8.2) g/dL Albumin (3.5-5.0) g/dL 12/27/23 12/27/23 12/27/23 Range/Units 13:17 14:44 16:11 RBC (4.30-5.90) m/uL Hgb (13.0-17.5) gm/dL Hct (39.0-53.0) % Plt Count (150-450) k/uL Lymphocytes # (1.0-4.8) k/uL Sodium (137-145) mmol/L Potassium (3.5-5.1) mmol/L Carbon Dioxide (22-30) mmol/L BUN (9-20) mg/dL Creatinine (0.66-1.25) mg/dL Glucose (74-99) mg/dL POC Glucose (mg/dL) 172 H 149 H 156 H (70-110) mg/dL Calcium (8.4-10.2) mg/dL AST (17-59) U/L ALT (4-49) U/L Total Protein (6.3-8.2) g/dL Albumin (3.5-5.0) g/dL 12/27/23 12/27/23 12/27/23 Range/Units 17:46 18:59 19:50 RBC (4.30-5.90) m/uL Hgb (13.0-17.5) gm/dL Hct (39.0-53.0) % Plt Count (150-450) k/uL Lymphocytes # (1.0-4.8) k/uL Sodium (137-145) mmol/L Potassium (3.5-5.1) mmol/L Carbon Dioxide (22-30) mmol/L BUN (9-20) mg/dL Creatinine (0.66-1.25) mg/dL Glucose (74-99) mg/dL POC Glucose (mg/dL) 185 H 208 H 186 H (70-110) mg/dL Calcium (8.4-10.2) mg/dL AST (17-59) U/L ALT (4-49) U/L Total Protein (6.3-8.2) g/dL Albumin (3.5-5.0) g/dL 12/28/23 12/28/23 12/28/23 Range/Units 03:24 03:24 05:31 RBC 2.75 L (4.30-5.90) m/uL Hgb 8.1 L (13.0-17.5) gm/dL Hct 25.0 L (39.0-53.0) % Plt Count 141 L (150-450) k/uL Lymphocytes # 0.8 L (1.0-4.8) k/uL Sodium 131 L 131 L (137-145) mmol/L Potassium 5.6 H (3.5-5.1) mmol/L Carbon Dioxide 21 L (22-30) mmol/L BUN 45 H 47 H (9-20) mg/dL Creatinine 1.77 H 1.65 H (0.66-1.25) mg/dL Glucose 182 H 182 H (74-99) mg/dL POC Glucose (mg/dL) (70-110) mg/dL Calcium 8.3 L 8.2 L (8.4-10.2) mg/dL AST 1345 H 1263 H (17-59) U/L ALT 650 H 662 H (4-49) U/L Total Protein 4.9 L 5.0 L (6.3-8.2) g/dL Albumin 3.1 L 3.2 L (3.5-5.0) g/dL 12/28/23 Range/Units 06:45 RBC (4.30-5.90) m/uL Hgb (13.0-17.5) gm/dL Hct (39.0-53.0) % Plt Count (150-450) k/uL Lymphocytes # (1.0-4.8) k/uL Sodium (137-145) mmol/L Potassium (3.5-5.1) mmol/L Carbon Dioxide (22-30) mmol/L BUN (9-20) mg/dL Creatinine (0.66-1.25) mg/dL Glucose (74-99) mg/dL POC Glucose (mg/dL) 205 H (70-110) mg/dL Calcium (8.4-10.2) mg/dL AST (17-59) U/L ALT (4-49) U/L Total Protein (6.3-8.2) g/dL Albumin (3.5-5.0) g/dL - Imaging and Cardiology Chest x-ray: report reviewed, image reviewed Assessment and Plan Assessment: Multivessel coronary artery disease, acute non-ST elevated myocardial infarction this admission, status post 5 vessel off-pump CABG Severe peripheral arterial disease with history of bilateral femoral endarterectomies and totally occluded right internal carotid artery, on Xarelto for anticoagulation as an outpatient, last dose was taken on December 21, 2023 History of hypertension Hyperlipidemia, cholesterol 120, LDL 40 Insulin-dependent diabetes mellitus, hemoglobin A1c 7.5% History of prostate cancer, status post radiation treatment History of colon cancer, status post 5 weeks of radiation treatments completed in May 2023 History of pancreatitis Obstructive sleep apnea, noncompliant with CPAP use Osteoarthritis History of rheumatic fever as a child Previous tobacco dependence, quit smoking in 1988 PTSD/depression Postoperative acute blood loss anemia, expected given hemodilution and pre operative anemia Plan: Continue to maximize medical management with aspirin, Plavix, fenofibrate, statin and beta-barrie. Will increase beta-barrie therapy as tolerated Continue amiodarone for A-fib prophylaxis, will taper, patient has had no atrial fibrillation up to this point Continue oral calcium channel barrie Encourage incentive spirometry use 10 times every hour while awake. Bronchodilators per pulmonology Increase activity, ambulate as tolerated. PT/OT/cardiac rehab consulted Will monitor daily labs and x-rays. Electrolyte replacement per protocol GI/DVT prophylaxis Pain control with current medication regimen. Toradol discontinued Insulin management per internal medicine Continue to monitor and record strict accurate intake and output Daily weights Will place transfer orders for 3 S. cardiac stepdown unit, may transfer when bed available More recommendations to follow
[2023-12-28] MEDS: AMIODARONE 200 MG TAB PO SCH (08:20)
[2023-12-28] MEDS: SODIUM ZIRCONIUM CYCLOSILICATE 10 GM PACKET PO ONE (08:20)
--- NOTE | 2023-12-28 08:36 | P.PN ---
Subjective Progress Note Date: 12/28/23 Principal diagnosis: CAD The patient is a pleasant 73-year-old gentleman with coronary artery disease and known severe triple-vessel CAD as well as lower extremities peripheral arterial disease and carotid atherosclerosis and hypertension and dyslipidemia as well as multiple comorbid conditions was admitted to the hospital with chest discomfort and ruled in for acute coronary syndrome. He underwent heart catheterization and was found to have severe triple-vessel CAD. He was referred for CABG and he underwent yesterday CABG x 5 with PARKS sequentially to LAD and diagonal as well as radial artery bypass to first and second obtuse marginal branch as well as SVG to PDA of RCA. December 26, 2023 This is postoperation day #2. The patient overall is stable. He got extubated yesterday. Hemodynamically he is stable as [id number] he is slightly hypertensive and currently he is on nitro drip as well as Cardizem drip as well as clevidipine drip which I am going to stop because he is currently on Cardizem drip and holding today to stop all the drips and start the patient on oral medications. Beside that he is on aspirin. He is on intermediate intensity statin. With that and with liver function test I am going to start the patient on higher dose of statin including 80 mg p.o. nightly of atorvastatin. He is on Plavix as well. The CVP appears to be between 8-12. Urine output is excellent. Chest x-ray was reviewed and seems to be within normal limits. The examination is remarkable for distant heart sounds with diminished breathing sounds bilaterally and no lower extremities edema noted December 27, 2023 The patient was seen and evaluated this morning. He is maintaining normal sinus mechanism. Hemodynamically he is stable. Currently he is not on any IV med ications. He is on dual antiplatelet therapy along with high intensity statin along with fenofibrate. Chest x-ray was reviewed and blood work reviewed as well. Urine output has been adequate. From the cardiovascular standpoint of view, I would continue the current medical regimen and follow-up with the patient. December 28, 2023 The patient was seen and evaluated this morning. Overall he seems to be stable from a cardiac standpoint of view and his main complaint is bilateral lower extremities discomfort with exertion likely secondary to occlusive peripheral arterial disease which she has history of with prior revascularization. No pain in the chest. He did have an episode of junctional rhythm and long first-degree AV block with him going to decrease the dose of metoprolol to 12.5 mg p.o. twice daily. The dose of amlodipine has increased earlier today for better blood pressure control. Otherwise examination is remarkable for regular rhythm with clear breathing sounds bilaterally and no edema was noted in the lower extremities with the chest x-ray was reviewed. Assessment Acute coronary syndrome Severe triple-vessel CAD Carotid atherosclerosis Lower extremities PAD Multiple comorbid conditions Plan Decrease the dose of metoprolol Continue dual antiplatelet therapy Continue monitoring urine output Monitor the hemoglobin and renal function Follow-up with the chest x-ray on daily basis Follow-up with the patient Objective - Vital Signs Vital signs: Vital Signs Temp 97.7 F 12/28/23 08:00 Pulse 77 12/28/23 08:00 Resp 20 12/28/23 08:00 BP 116/77 12/28/23 08:00 Pulse Ox 93 L 12/28/23 08:00 FiO2 40 12/25/23 18:00 Intake & Output 12/27/23 12/28/23 12/28/23 18:59 06:59 18:59 Intake Total 565.642 139.696 Output Total 320 450 0 Balance 245.642 -310.304 0 Weight 103.4 kg Intake: IV 244 130 Lactated Ringers 1,000 ml 220 130 @ 20 mls/hr IV .Q24H [facility] Rx#:[id number] Pressure Bag (0.9 Sodium 24 Chloride) Intake, IV Titration 81.642 9.696 Amount Insulin Regular 100 unit 81.642 9.696 In Sodium Chloride 0.9% 100 ml @ Per Protocol IV .Q0M [facility] Rx#:[id number] Oral 240 Output: Chest Tube Drainage 30 Chest Tube Left Anterior 20 Chest Chest Tube Mediastinal 10 Urine 290 450 0 Other: Voiding Method Indwelling Catheter Urinal # Voids 1 ABP, PAP, CO, CI - Last Documented Arterial Blood Pressure 134/37 Pulmonary Artery Pressure 31/8 Cardiac Output 5.5 Cardiac Index 2.6 - Labs CBC & Chem 7: 12/28/23 03:24 12/28/23 05:31 Labs: Abnormal Lab Results - Last 24 Hours (Table) 12/27/23 12/27/23 12/27/23 Range/Units 09:59 11:41 13:17 RBC (4.30-5.90) m/uL Hgb (13.0-17.5) gm/dL Hct (39.0-53.0) % Plt Count (150-450) k/uL Lymphocytes # (1.0-4.8) k/uL Sodium (137-145) mmol/L Potassium (3.5-5.1) mmol/L Carbon Dioxide (22-30) mmol/L BUN (9-20) mg/dL Creatinine (0.66-1.25) mg/dL Glucose (74-99) mg/dL POC Glucose (mg/dL) 194 H 164 H 172 H (70-110) mg/dL Calcium (8.4-10.2) mg/dL AST (17-59) U/L ALT (4-49) U/L Total Protein (6.3-8.2) g/dL Albumin (3.5-5.0) g/dL 12/27/23 12/27/23 12/27/23 Range/Units 14:44 16:11 17:46 RBC (4.30-5.90) m/uL Hgb (13.0-17.5) gm/dL Hct (39.0-53.0) % Plt Count (150-450) k/uL Lymphocytes # (1.0-4.8) k/uL Sodium (137-145) mmol/L Potassium (3.5-5.1) mmol/L Carbon Dioxide (22-30) mmol/L BUN (9-20) mg/dL Creatinine (0.66-1.25) mg/dL Glucose (74-99) mg/dL POC Glucose (mg/dL) 149 H 156 H 185 H (70-110) mg/dL Calcium (8.4-10.2) mg/dL AST (17-59) U/L ALT (4-49) U/L Total Protein (6.3-8.2) g/dL Albumin (3.5-5.0) g/dL 12/27/23 12/27/23 12/28/23 Range/Units 18:59 19:50 03:24 RBC 2.75 L (4.30-5.90) m/uL Hgb 8.1 L (13.0-17.5) gm/dL Hct 25.0 L (39.0-53.0) % Plt Count 141 L (150-450) k/uL Lymphocytes # 0.8 L (1.0-4.8) k/uL Sodium (137-145) mmol/L Potassium (3.5-5.1) mmol/L Carbon Dioxide (22-30) mmol/L BUN (9-20) mg/dL Creatinine (0.66-1.25) mg/dL Glucose (74-99) mg/dL POC Glucose (mg/dL) 208 H 186 H (70-110) mg/dL Calcium (8.4-10.2) mg/dL AST (17-59) U/L ALT (4-49) U/L Total Protein (6.3-8.2) g/dL Albumin (3.5-5.0) g/dL 12/28/23 12/28/23 12/28/23 Range/Units 03:24 05:31 06:45 RBC (4.30-5.90) m/uL Hgb (13.0-17.5) gm/dL Hct (39.0-53.0) % Plt Count (150-450) k/uL Lymphocytes # (1.0-4.8) k/uL Sodium 131 L 131 L (137-145) mmol/L Potassium 5.6 H (3.5-5.1) mmol/L Carbon Dioxide 21 L (22-30) mmol/L BUN 45 H 47 H (9-20) mg/dL Creatinine 1.77 H 1.65 H (0.66-1.25) mg/dL Glucose 182 H 182 H (74-99) mg/dL POC Glucose (mg/dL) 205 H (70-110) mg/dL Calcium 8.3 L 8.2 L (8.4-10.2) mg/dL AST 1345 H 1263 H (17-59) U/L ALT 650 H 662 H (4-49) U/L Total Protein 4.9 L 5.0 L (6.3-8.2) g/dL Albumin 3.1 L 3.2 L (3.5-5.0) g/dL
--- NOTE | 2023-12-28 11:53 | P.PN ---
Subjective Progress Note Date: 12/28/23 Patient is a 73-year-old white male with past medical history significant for hypertension, hyperlipidemia, diabetes mellitus, obesity, right internal carotid artery occlusion, peripheral arterial disease, colon cancer with previous radiation treatments, prostate cancer with previous radiation, pancreatitis, obstructive sleep apnea not pliant with CPAP, and former tobacco smoker quitting in 1988. His PCP is Dr. Veloz out of [place], [place]. Back on 12/20/2023 he was having new onset substernal chest pain radiating to the left jaw, that developed while sitting and reading a newspaper. There is associated diaphoresis and nausea/vomiting. Patient was initially worked up at [facility], and transferred for suspected non-ST elevation PR 12/21/23. EKG showed ST segment depressions in anterior lateral leads. Troponins were elevated on arrival. Patient did undergo heart catheterization on 12/22/2023 which revealed severe multi-vessel coronary artery disease. There is 80% stenosis of the proximal and also mid to distal portions of the LAD, 80 to 90% stenosis of the mid left circumflex,40 to 50% left main disease. There is a preoperative workup underway for tentative open heart procedure, which is scheduled for . Chest CT did not show any evidence of acute pulmonary process. No evidence of focal consolidation, pneumothorax, or pleural effusions. Patient did have a be dside FEV1 which was 1.82 L or 58% of predicted. Does have remote history of smoking, quitting in 1988 after being hypnotized. 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 No previous diagnosis of lung disease or COPD or asthma. Patient is currently resting comfortably on room air, in no acute distress. Nonlabored breathing. His incentive spirometer is at the bedside. He continues to have nitroglycerin infusion at 15 mics per minute and IV heparin infusion per protocol. Denies any current chest pain. Echocardiogram done yesterday estimated a preserved left ventricular ejection fraction of 50 to 55%. Grade 1 diastolic dysfunction noted. Most recent CBC from yesterday is unremarkable. Most recent APTT subtherapeutic. BMP from yesterday also unremarkable. Hemodynamics are stable. The patient is seen today December 25, 2023 in the intensive care unit shortly after returning from the OR. He had gone undergone an off-pump CABG x 5 with sequential PARKS to the mid diagonal and distal LAD, sequential left radial artery to the first and second obtuse marginal arteries, saphenous vein to the PDA. Ligation of the left atrial appendage. He is on the mechanical ventilator and assist-control mode with a rate of 16, tidal volume 500, FiO2 100% and a PEEP of 8. Blood gases revealed a PaO2 of 329, pCO2 of 45 and a pH of 7.33. He has chest tubes in place, pacer wires in place, Douglas-Makenzie catheter in the right internal jugular, right radial art line in place. Brice wrap to the left radial surgical site. Bilateral lower extremity Brice wraps. DUNCAN drain to the right lower extremity. He is on a Cardizem drip at 5 mg/h. Cleviprex at 1 mg/h. Amiodarone at 1 mg/min. Lactated Ringer's at 50 MLS per hour. Nitroglycerin drip at 5 mcg/min. Propofol at 40 mcg/kg/min. PA pressure 44/31. Central venous pressure 13. Cardiac output 6.8. Cardiac index 3.2. White count 6.4. Hemoglobin 8.1. Platelets 100,000. Sodium 139. Potassium 3.8. Bicarb 21. BUN 17. Creatinine 0.96. He is initiated on bronchodilators. Heparin for DVT prophylaxis. The patient is seen today December 26, 2023 in follow-up in the intensive care unit. He is currently awake and alert in no acute distress. Sitting up in a chair at the bedside. Maintaining O2 saturations in the 90s on 3 L/min per nasal cannula. This is postoperative day #1 following his coronary bypass grafting x 5. He is currently on lactated Ringer's at 50 MLS per hour. Requiring insulin drip at 2 units/h. On amiodarone drip at 0.5 milligrams per minute. He denies any significant discomfort at this time. He has a mild headache. He remains on bronchodilators. Heparin for DVT prophylaxis. Chest x-ray reviewed post CABG changes with interval extubation. There is residual mild pulmonary vascular congestion. He continues to work well with the incentive spirometer. Chest tubes remain in place. Pacer wires remain in place. Right IJ Douglas-Makenzie catheter in place. Cardiac output 3.5. Cardiac index 2.6. PA pressures 35/4. CVP of 4. White count 12.1. Hemoglobin 9.7. Platelets 146. Sodium 135. Potassium 4.3. Bicarb 21. BUN 17. Creatinine 0.97. The patient is seen today December 27, 2023 in follow-up in the intensive care unit. He is currently awake and alert in no acute distress. Sitting up in a chair. On room air. He has lactated Ringer's at 20 MLS per hour. Insulin drip at 4 units/h. He is working well with the incentive spirometer. Chest x-ray reveals low lung volumes with generalized hazy appearance most likely atelectasis. White count 8.4. Hemoglobin 7.9. Platelets 124. Sodium 133. Potassium 4.5. Bicarb 22. BUN 28. Creatinine 1.44. Glucose 141. He is continued on bronchodilators. Heparin for DVT prophylaxis. Right internal jugular cordis remains in place. Right radial art line in place. Mediastinal and left chest tubes in place. The patient is seen today December 28, 2023 in follow-up in the intensive care unit. He is currently resting in bed. Awake and alert in no acute distress. He is maintaining good O2 saturations in the 90s on room air. No IV fluids. This is postoperative day #3. He was up to the shower today. He has been up in the [facility] x 2. Chest x-ray is showing minimal atelectatic changes. White count 8.0. Hemoglobin 8.1. Platelets 141. Sodium 131. Potassium 5.1. Bicarb 21. BUN 47. Creatinine 1.65. Glucose 182. AST 1263. ALT 662. Chest tubes, art line, Cordis removed. Objective - Vital Signs Vital signs: Vital Signs Temp 97.7 F 12/28/23 08:00 Pulse 65 12/28/23 10:00 Resp 16 12/28/23 10:00 BP 127/55 12/28/23 10:00 Pulse Ox 94 L 12/28/23 10:00 FiO2 40 12/25/23 18:00 Intake & Output 12/27/23 12/28/23 12/28/23 18:59 06:59 18:59 Intake Total 565.642 139.696 Output Total 320 450 0 Balance 245.642 -310.304 0 Weight 103.4 kg Intake: IV 244 130 Lactated Ringers 1,000 ml 220 130 @ 20 mls/hr IV .Q24H BHAVNA Rx#:[id number] Pressure Bag (0.9 Sodium 24 Chloride) Intake, IV Titration 81.642 9.696 Amount Insulin Regular 100 unit 81.642 9.696 In Sodium Chloride 0.9% 100 ml @ Per Protocol IV .Q0M BHAVNA Rx#:[id number] Oral 240 Output: Chest Tube Drainage 30 Chest Tube Left Anterior 20 Chest Chest Tube Mediastinal 10 Urine 290 450 0 Other: Voiding Method Indwelling Catheter Urinal Toilet # Voids 1 1 ABP, PAP, CO, CI - Last Documented Arterial Blood Pressure 134/37 Pulmonary Artery Pressure 31/8 Cardiac Output 5.5 Cardiac Index 2.6 - Exam GENERAL EXAM: Awake, pleasant 73-year-old male patient, on room air, resting in bed, in no apparent distress. HEAD: Normocephalic. EYES: Normal reaction of pupils, equal size. NOSE: Clear with pink turbinates. THROAT: No erythema or exudates. NECK: No masses, no JVD. CHEST: Sternal dressing dry and intact. Heart hugger in place. LUNGS: Equal air entry with no crackles, wheeze, rhonchi or dullness. CVS: S1 and S2 normal with no audible murmur, regular rhythm. ABDOMEN: No hepatosplenomegaly, hypoactive bowel sounds, no guarding or rigidity. SPINE: No scoliosis or deformity SKIN: No rashes CENTRAL NERVOUS SYSTEM: No focal deficits, tone is normal in all 4 extremities. EXTREMITIES: Left radial site clean, dry well-approximated. Bilateral lower extremity Brice wraps. Peripheral pulses are intact. - Labs CBC & Chem 7: 12/28/23 03:24 12/28/23 05:31 Labs: Abnormal Lab Results - Last 24 Hours (Table) 12/27/23 12/27/23 12/27/23 Range/Units 13:17 14:44 16:11 RBC (4.30-5.90) m/uL Hgb (13.0-17.5) gm/dL Hct (39.0-53.0) % Plt Count (150-450) k/uL Lymphocytes # (1.0-4.8) k/uL Sodium (137-145) mmol/L Potassium (3.5-5.1) mmol/L Carbon Dioxide (22-30) mmol/L BUN (9-20) mg/dL Creatinine (0.66-1.25) mg/dL Glucose (74-99) mg/dL POC Glucose (mg/dL) 172 H 149 H 156 H (70-110) mg/dL Calcium (8.4-10.2) mg/dL AST (17-59) U/L ALT (4-49) U/L Total Protein (6.3-8.2) g/dL Albumin (3.5-5.0) g/dL 12/27/23 12/27/23 12/27/23 Range/Units 17:46 18:59 19:50 RBC (4.30-5.90) m/uL Hgb (13.0-17.5) gm/dL Hct (39.0-53.0) % Plt Count (150-450) k/uL Lymphocytes # (1.0-4.8) k/uL Sodium (137-145) mmol/L Potassium (3.5-5.1) mmol/L Carbon Dioxide (22-30) mmol/L BUN (9-20) mg/dL Creatinine (0.66-1.25) mg/dL Glucose (74-99) mg/dL POC Glucose (mg/dL) 185 H 208 H 186 H (70-110) mg/dL Calcium (8.4-10.2) mg/dL AST (17-59) U/L ALT (4-49) U/L Total Protein (6.3-8.2) g/dL Albumin (3.5-5.0) g/dL 12/28/23 12/28/23 12/28/23 Range/Units 03:24 03:24 05:31 RBC 2.75 L (4.30-5.90) m/uL Hgb 8.1 L (13.0-17.5) gm/dL Hct 25.0 L (39.0-53.0) % Plt Count 141 L (150-450) k/uL Lymphocytes # 0.8 L (1.0-4.8) k/uL Sodium 131 L 131 L (137-145) mmol/L Potassium 5.6 H (3.5-5.1) mmol/L Carbon Dioxide 21 L (22-30) mmol/L BUN 45 H 47 H (9-20) mg/dL Creatinine 1.77 H 1.65 H (0.66-1.25) mg/dL Glucose 182 H 182 H (74-99) mg/dL POC Glucose (mg/dL) (70-110) mg/dL Calcium 8.3 L 8.2 L (8.4-10.2) mg/dL AST 1345 H 1263 H (17-59) U/L ALT 650 H 662 H (4-49) U/L Total Protein 4.9 L 5.0 L (6.3-8.2) g/dL Albumin 3.1 L 3.2 L (3.5-5.0) g/dL 12/28/23 Range/Units 06:45 RBC (4.30-5.90) m/uL Hgb (13.0-17.5) gm/dL Hct (39.0-53.0) % Plt Count (150-450) k/uL Lymphocytes # (1.0-4.8) k/uL Sodium (137-145) mmol/L Potassium (3.5-5.1) mmol/L Carbon Dioxide (22-30) mmol/L BUN (9-20) mg/dL Creatinine (0.66-1.25) mg/dL Glucose (74-99) mg/dL POC Glucose (mg/dL) 205 H (70-110) mg/dL Calcium (8.4-10.2) mg/dL AST (17-59) U/L ALT (4-49) U/L Total Protein (6.3-8.2) g/dL Albumin (3.5-5.0) g/dL Assessment and Plan Assessment: Acute non-ST elevation myocardial infarction Multivessel coronary artery disease, status post off-pump coronary artery bypass grafting x 5 with sequential PARKS to mid diagonal and distal LAD, sequential left radial artery to the first and second obtuse marginal arteries, saphenous vein to the PDA and ligation of the left atrial appendage. Postoperative day #3 Acute kidney injury Transaminitis History of hypertension Hyperlipidemia Insulin-dependent diabetes mellitus Peripheral arterial disease, with history of bilateral femoral endarterectomies History of totally occluded right ICA stenosis, anticoagulated on Xarelto outpatient Obesity, with a BMI of 32.6 kg/m History of obstructive sleep apnea, noncompliant with CPAP Remote history of tobacco dependence, quitting in 1988 Plan: The patient was seen and evaluated Chest x-ray, labs and medications reviewed Currently stable and on room air Continue the current treatment plan Increase his activity as tolerated To transfer to the selective care unit once bed available I have personally seen and examined the patient, performed the documentation and the assessment and plan as written. Number of minutes spent on the visit: 10.
[2023-12-28 11:55] LABS: Glucose,Whole Blood 179 mg/dL (70-110)
--- NOTE | 2023-12-28 16:04 | P.PN ---
Progress Note - Text Progress Note Date: 12/28/23 71-year-old pleasant male came with complaints of chest pressure-like sensation radiating to the neck along with some shortness of breath. Patient is found to have significant ST-T wave changes in the anterolateral leads. Patient troponin is elevated and needs an upward trend highest being around 2.7. Patient was started on IV heparin patient will undergo cardiac catheterization today patient also had a recent upper respiratory viral illness about a month ago. Patient does have history of cerebrovascular disease and underwent a prior risk of revascularization procedure and bilateral femoral endarterectomy. Patient continues to smoke but trying to quit and cut down significantly. Patient denies any orthopnea paroxysmal nocturnal dyspnea patient does not have any pedal edema not in congestive heart failure exacerbation. 12/23/2023 Patient seen in follow-up today status post cardiac catheterization yesterday and noted to have triple-vessel coronary artery disease and cardiothoracic surgery was consulted for possible CABG eval. Patient currently undergoing further workup and experience some increased chest pain and was started on nitro drip per cardiology this morning. Patient currently on supplemental oxygen of 2 L and reports some shortness of breath with exertion patient reports he does not wear oxygen outpatient. Patient is currently afebrile with incentive spirometer at bedside and encouraged the patient to continue using at least 10 times every hour while awake.. Tentatively scheduled for surgery 12/25/2023 December 24, 2023: Recliner. No chest pain or shortness of breath. Eating fair.-Final plan for coronary bypass tomorrow December 26, 2023: Patient was not seen yesterday at patient going to the OR. Patient was extubated. Sitting up in a chair. Chest tubes in place. On insulin drip. On 2 L nasal cannula. Did take a few steps. Did also stand. Oliver catheter in place. This morning was on clear liquid diet. December 26: Up in a chair. Chest tubes are out. Oliver catheter taken out. Advance today to heart healthy diet at lunch. Breathing better. at the bedside. Was on insulin drip. Will change to Levemir and NovoLog starting from supper. Follow Accu-Cheks. December 27: ICU. Up in a chair. Does not like hospital food. Has passed flatus. Breat radha better. Has family visiting. Accu-Cheks noted. Will gradually increase both Levemir and NovoLog. Patient's AST is gone up to 1263 and ALT also up to 662. Cardiothoracic team earlier stopped her Lipitor. I did call A[employer] OWNER OPERATOR from cardiothoracic team and strongly recommended to stop the amiodarone and the Lofibra for now. Patient's creatinine is up to 1.65 if and Toradol was discontinued. Active Medications Acetaminophen (Acetaminophen Tab 325 Mg Tab) 650 mg PO Q4HR PRN PRN Reason: Fever and/ or Mild Pain Albuterol/Ipratropium (Ipratropium-Albuterol 3 Ml Neb) 3 ml INHALATION RT-Q2H PRN PRN Reason: Shortness Of Breath Or Wheezing Albuterol/Ipratropium (Ipratropium-Albuterol 3 Ml Neb) 3 ml INHALATION RT-QID [facility] Last Admin: 12/28/23 11:50 Dose: 3 ml Amiodarone HCl (Amiodarone 200 Mg Tab) 200 mg PO BID [facility] Last Admin: 12/28/23 08:20 Dose: 200 mg Amlodipine Besylate (Amlodipine 10 Mg Tab) 10 mg PO DAILY [facility] Last Admin: 12/28/23 08:20 Dose: 10 mg Artificial Tears (Artificial Tears-Hypromellose Drops 15 Ml Btl) 1 drops BOTH EYES TID PRN PRN Reason: Dry Eye(s) Aspirin (Aspirin 325 Mg Tab) 325 mg PO DAILY [facility] Last Admin: 12/28/23 08:20 Dose: 325 mg Benzocaine/Menthol (Benzocaine/Menthol Lozeng 1 Each Lozenge) 1 each MUCOUS MEM Q2H PRN PRN Reason: Sore Throat Bisacodyl (Bisacodyl 10 Mg Supp) 10 mg RECTAL DAILY PRN PRN Reason: Constipation Clopidogrel Bisulfate (Clopidogrel 75 Mg Tab) 75 mg PO DAILY [facility] Last Admin: 12/28/23 08:20 Dose: 75 mg Dextrose/Water (Dextrose 50% Syringe 50 Ml) 25 ml IVP PER PROTOCOL PRN; Pro tocol PRN Reason: Hypoglycemia Dextrose/Water (Dextrose 50% Syringe 50 Ml) 50 ml IVP PER PROTOCOL PRN; Protocol PRN Reason: Hypoglycemia Fenofibrate (Fenofibrate 160 Mg Tab) 160 mg PO DAILY [facility] Last Admin: 12/28/23 08:20 Dose: 160 mg Heparin Sodium (Porcine) (Heparin Sodium,Porcine 5,000 Unit/Ml 1 Ml Vial) 5,000 unit SQ Q8HR [facility] Last Admin: 12/28/23 08:19 Dose: 5,000 unit Hydralazine HCl (Hydralazine Hcl 20 Mg/Ml 1 Ml Vial) 10 mg IVP Q1H PRN PRN Reason: Blood Pressure - High Last Admin: 12/25/23 13:59 Dose: 10 mg Amiodarone HCl 150 mg/ (Dextrose/Water) 103 mls @ 618 mls/hr IV .Q10M PRN PRN Reason: A.FIB/FLUTTER Insulin Aspart (Insulin Aspart (Novolog) 100 Unit/Ml Vial) 12 unit SQ AC-TID [facility] Insulin Detemir (Insulin Detemir (Levemir) 100 Unit/Ml Syr) 32 unit SQ BID [facility] Magnesium Hydroxide (Magnesium Hydroxide 2,400 Mg/30 Ml Cup) 2,400 mg PO BID PRN PRN Reason: Constipation Metoclopramide HCl (Metoclopramide 5 Mg/Ml 2 Ml Vial) 10 mg IVP Q4H PRN PRN Reason: Nausea And Vomiting Metoprolol Tartrate (Metoprolol Tartrate 12.5 Mg Tab) 12.5 mg PO BID [facility] Miscellaneous Information (Potassium Replacement Protocol 1 Each Misc) 1 each MISCELLANE DAILY PRN; Protocol PRN Reason: Per Protocol Miscellaneous Information (Magnesium Replacement Protocol 1 Each Misc) 1 each MISCELLANE DAILY PRN; Protocol PRN Reason: Per Protocol Multivitamins (Multivitamins, Thera 1 Each Tab) 1 each PO DAILY [facility] Last Admin: 12/28/23 08:20 Dose: 1 each Ondansetron HCl (Ondansetron 4 Mg/2 Ml Vial) 4 mg IVP Q6HR PRN PRN Reason: Nausea And Vomiting Last Admin: 12/27/23 18:10 Dose: 4 mg Oxycodone HCl (Oxycodone Hcl 5 Mg Tab) 5 mg PO Q4HR PRN PRN Reason: Moderate Pain (Scale 4 to 6) Last Admin: 12/26/23 03:53 Dose: 5 mg Oxycodone HCl (Oxycodone Hcl 5 Mg Tab) 10 mg PO Q4HR PRN PRN Reason: Severe Pain (Scale 7 to 10) Last Admin: 12/27/23 08:57 Dose: 10 mg Pantoprazole Sodium (Pantoprazole 40 Mg Tablet) 40 mg PO AC-BRKFST [facility] Last Admin: 12/28/23 06:55 Dose: 40 mg Senna/Docusate Sodium (Sennosides-Docusate Sodium 1 Each Tab) 2 each PO HS [facility] Last Admin: 12/27/23 20:19 Dose: 2 each Sodium Chloride (Sodium Chloride 0.9% Flush 10 Ml Syringe) 10 ml IV BID [facility] Last Admin: 12/28/23 12:15 Dose: 10 ml Venlafaxine HCl (Venlafaxine Hcl Er 150 Mg Cap) 300 mg PO DAILY [facility] Last Admin: 12/28/23 08:20 Dose: 300 mg On examination: VITAL SIGNS: [98.3, 75, 16, 138 x 61, 96% room air] GENERAL APPEARANCE: Up in chair, comfortable HEENT: Normal external appearance of nose and ear. Oral cavity normal EYES: Pupils equal. Conjunctiva normal. NECK: JVD not raised. Mass not palpable. RESPIRATORY: Respiratory effort normal. Lungs decreased breath sounds CARDIOVASCULAR: First and second sounds normal. No edema. ABDOMEN: Soft. Liver and spleen not palpable. No tenderness. No mass palpable. PSYCHIATRY: Alert and oriented x3. Mood and affect normal. INVESTIGATIONS, reviewed in the clinical context: December 27: White count 8 hemoglobin 8.1 sodium 131 potassium 5.5 BUN 47 creatinine 1.65 AST 1263 ALT 662 December 25: White count 12.1 hemoglobin 9.7 platelets 146 sodium 135 potassium 4.3 creatinine 0.97 albumin 3.0 December 24, 2023: White count 6.1 hemoglobin 11.9 platelets 178 Cardiogram: EF 50 [address]: Moderate to severe coronary atherosclerosis. Severe DJD of the spine Cardiac catheterization: Severe triple-vessel CAD. Calcified right and left coronary system Assessment and plan: -Acute non-ST elevation myocardial infarction: status post cardiac catheterization revealing triple vessel disease -Severe triple-vessel coronary artery disease with calcified right and left coronary systems: Coronary bypass done -Off-pump CABG x 5 with sequential PARKS to mid diagonal and distal LAD, sequential left radial artery to first and second obtuse marginal coronary arteries, saphenous vein to PDA, ligation of left atrial appendage with 35mm AtriCure clamp, endovascular vein harvest of the greater saphenous vein from the right lower extremity from ankle to groin, endovascular radial harvest from the left forearm. December 24: Dr. Bah -Acute hepatitis.: Worsening Since received IV amiodarone switched over to oral amiodarone, was on Lipitor and is on Mevacor. Lipitor has been discontinued. Cardiothoracic team heme informed I would recommend to stop amiodarone and Lofibra today -Acute kidney injury likely ATN. Patient had received Toradol. Discontinued. Follow labs closely -Severe peripheral vascular disease Aspirin. Lipitor -Acute postprocedure blood loss anemia expected from surgery ferrous sulfate -Hypoalbuminemia, reactive -Dilutional thrombocytopenia Follow -Type 2 diabetes mellitus, chronically on insulin On insulin drip. Transition to Levemir and Humalog scheduled with meals. -Hyperlipidemia Lipitor -Hypertension Amlodipine Lopressor -PTSD/depression effexor -Insomnia Trazodone -obesity with a bmi of 30.1 -Full code Increase dose of Levemir and NovoLog. Recommended to stop the Tricor and amioda lance till levels improve
[2023-12-28 16:22] LABS: Glucose,Whole Blood 145 mg/dL (70-110)
[2023-12-28] MEDS: ARTIFICIAL TEARS-HYPROMELLOSE DROPS 15 ML BTL BOTH EYES PRN (17:22)
[2023-12-28] MEDS: bisacodyL 10 MG SUPP RECTAL PRN (17:33)
[2023-12-28 20:16] LABS: Glucose,Whole Blood 136 mg/dL (70-110)
[2023-12-28] MEDS: INSULIN DETEMIR (LEVEMIR) 100 UNIT/ML SYR SQ SCH (20:47)
[2023-12-28] MEDS: METOPROLOL TARTRATE 12.5 MG TAB PO SCH (20:47)
[2023-12-29 05:09] LABS: Basophils % (A) 0 %; Eosinophils # (A) 0.6 k/uL (0-0.7); Eosinophils % (A) 7 %; HCT 25.5 % (39.0-53.0); HGB 8.2 gm/dL (13.0-17.5); Lymphocytes # (A) 0.9 k/uL (1.0-4.8); Lymphocytes % (A) 10 %; MCH 28.3 pg (25.0-35.0); MCHC 32.2 g/dL (31.0-37.0); MCV 88.1 fL (80.0-100.0); Mean Platelet Volume 8.6; Monocytes # (A) 0.5 k/uL (0-1.0); Monocytes % (A) 6 %; Neutrophils # (A) 6.6 k/uL (1.3-7.7); Neutrophils % (A) 75 %; Platelet Count 184 k/uL (150-450); RBC 2.89 m/uL (4.30-5.90); RDW 14.4 % (11.5-15.5); WBC 8.8 k/uL (3.8-10.6)
[2023-12-29 05:42] LABS: ALT 556 U/L (4-49); AST 447 U/L (17-59); African American GFR (CKD) 57 (>60 ml/min/1.73 sqM); Albumin 3.3 g/dL (3.5-5.0); Alkaline Phosphatase 87 U/L (38-126); Anion Gap 6 mmol/L; Blood Urea Nitrogen 41 mg/dL (9-20); Calcium 8.3 mg/dL (8.4-10.2); Carbon Dioxide 24 mmol/L (22-30); Chloride 105 mmol/L (98-107); Glucose 85 mg/dL (74-99); Magnesium 2.3 mg/dL (1.6-2.3); Non-African American GFR(CKD) 49 (>60 ml/min/1.73 sqM); Potassium 4.2 mmol/L (3.5-5.1); Sodium 135 mmol/L (137-145); Total Bilirubin 0.7 mg/dL (0.2-1.3); Total Protein 5.4 g/dL (6.3-8.2)
[2023-12-29 06:24] LABS: Glucose,Whole Blood 107 mg/dL (70-110)
--- NOTE | 2023-12-29 07:41 | XR ---
EXAMINATION TYPE: XR chest 2V DATE OF EXAM: 12/29/2023 HISTORY:post cardiac surgery COMPARISON: 12/28/2023 TECHNIQUE: Single view of the chest is submitted. FINDINGS: Persistent hyperinflation with small effusions noted. Mild scattered linear atelectasis. There is no evidence for focal infiltrate. The heart is stable. Hilar and mediastinal structures are within normal limits. Degenerative changes are seen of the dorsal spine. IMPRESSION: 1. Persistent hyperinflation with small effusions noted. Mild scattered linear atelectasis.
--- NOTE | 2023-12-29 08:00 | P.PN ---
Subjective Progress Note Date: 12/29/23 Principal diagnosis: Multivessel coronary artery disease, acute non-ST elevated myocardial infarction this admission. Previous medical history of hypertension, hyperlipidemia, com plete right internal carotid artery obstruction per carotid Doppler in 2018, peripheral arterial disease with previous revascularization to bilateral lower extremities with bilateral femoral endarterectomies, on Xarelto outpatient for anticoagulation, colon cancer status post 5 weeks of radiation treatment in 2022, insulin-dependent diabetes mellitus, pancreatitis, prostate cancer with previous radiation in 2019, osteoarthritis, rheumatic fever as a child, obstructive sleep apnea noncompliant with CPAP use, peripheral neuropathy, and previous tobacco dependence POD #4 off-pump CABG x 5 with sequential PARKS to mid diagonal and distal LAD, sequential left radial artery to first and second obtuse marginal coronary arteries, saphenous vein to PDA, ligation of left atrial appendage with 35mm A triCure clamp, endovascular vein harvest of the greater saphenous vein from the right lower extremity from ankle to groin, endovascular radial harvest from the left forearm Postoperative acute blood loss anemia, expected given hemodilution and preoperative anemia Acute kidney injury, likely secondary to Toradol which has since been stopped Elevated transaminases, likely medication induced The patient was seen and examined sitting up in recliner in the intensive care unit in no acute distress eating breakfast. Denies pain and hasn't taken any pain meds in 24 hours, denies shortness of breath. Remains in sinus rhythm, hemodynamically stable. Currently on room air with oxygen saturation in the mid 90s, achieving 2000 mL on his incentive spirometry. Labs, chest x-ray reviewed, kidney function and liver function showing slow improvement. Patient has been ambulatory in the hallway, received first postoperative shower yesterday. Transfer orders were placed yesterday for 3 S. cardiac stepdown unit, waiting for bed availability. No other new concerns. Objective - Vital Signs Vital signs: Vital Signs Temp 97.6 F 12/29/23 04:00 Pulse 92 12/29/23 04:00 Resp 21 12/29/23 04:00 BP 138/67 12/29/23 04:00 Pulse Ox 92 L 12/29/23 04:00 FiO2 40 12/25/23 18:00 Intake & Output 12/28/23 12/29/23 12/29/23 18:59 06:59 18:59 Output Total 500 751 Balance -500 -751 Weight 101.2 kg Output: Urine 500 750 Stool 1 Other: Voiding Method Toilet Urinal Urinal # Voids 1 1 # Bowel Movements 1 ABP, PAP, CO, CI - Last Documented Arterial Blood Pressure 134/37 Pulmonary Artery Pressure 31/8 Cardiac Output 5.5 Cardiac Index 2.6 - Exam CONSTITUTIONAL: Appears comfortable, cooperative, no acute distress RESPIRATORY: Lungs sounds diminished bilaterally. Respirations even, nonlabored. Currently on room air with oxygen saturation 95%. Able to achieve 1000 mL on incentive spirometry. Strong cough. CARDIOVASCULAR: S1, S2 present. Regular rate and rhythm, sinus rhythm on telemetry. Sternum stable. Palpable peripheral pulses bilaterally. No edema present. No calf pain or tenderness noted. Heart hugger in place with patient demonstrating appropriate use. Antiembolism stockings, SCDs present. GASTROINTESTINAL: Abdomen soft, nontender, nondistended. Active bowel sounds present 4 quadrants. Tolerating diet. Positive bowel movement 12/28 GENITOURINARY: Continues to void, output 1250 mL in the last 24 hours INTEGUMENTARY: Skin is warm and dry with evidence of good perfusion. Anterior chest incision well approximated. Left radial artery harvest site as well as ri ght lower extremity EVH site well approximated without redness NEUROLOGIC: Cranial nerves II through XII intact MUSKULOSKELETAL: Able to move all extremities, strength equal bilaterally, gait normal PSYCHIATRIC: Alert and oriented to person place and time, appropriate affect, intact judgment and insight - Allied health notes Allied health notes reviewed: nursing - Labs CBC & Chem 7: 12/29/23 04:21 12/29/23 04:21 Labs: Abnormal Lab Results - Last 24 Hours (Table) 12/28/23 12/28/23 12/28/23 Range/Units 11:53 16:20 20:15 RBC (4.30-5.90) m/uL Hgb (13.0-17.5) gm/dL Hct (39.0-53.0) % Lymphocytes # (1.0-4.8) k/uL Sodium (137-145) mmol/L BUN (9-20) mg/dL Creatinine (0.66-1.25) mg/dL POC Glucose (mg/dL) 179 H 145 H 136 H (70-110) mg/dL Calcium (8.4-10.2) mg/dL AST (17-59) U/L ALT (4-49) U/L Total Protein (6.3-8.2) g/dL Albumin (3.5-5.0) g/dL 12/29/23 12/29/23 Range/Units 04:21 04:21 RBC 2.89 L (4.30-5.90) m/uL Hgb 8.2 L (13.0-17.5) gm/dL Hct 25.5 L (39.0-53.0) % Lymphocytes # 0.9 L (1.0-4.8) k/uL Sodium 135 L (137-145) mmol/L BUN 41 H (9-20) mg/dL Creatinine 1.42 H (0.66-1.25) mg/dL POC Glucose (mg/dL) (70-110) mg/dL Calcium 8.3 L (8.4-10.2) mg/dL AST 447 H (17-59) U/L ALT 556 H (4-49) U/L Total Protein 5.4 L (6.3-8.2) g/dL Albumin 3.3 L (3.5-5.0) g/dL - Imaging and Cardiology Chest x-ray: report reviewed, image reviewed Assessment and Plan Assessment: Multivessel coronary artery disease, acute non-ST elevated myocardial infarction this admission, status post 5 vessel off-pump CABG Severe peripheral arterial disease with history of bilateral femoral endarterectomies and totally occluded right internal carotid artery, on Xarelto for anticoagulation as an outpatient, last dose was taken on December 21, 2023 History of hypertension Hyperlipidemia, cholesterol 120, LDL 40 Insulin-dependent diabetes mellitus, hemoglobin A1c 7.5% History of prostate cancer, status post radiation treatment History of colon cancer, status post 5 weeks of radiation treatments completed in May 2023 History of pancreatitis Obstructive sleep apnea, noncompliant with CPAP use Osteoarthritis History of rheumatic fever as a child Previous tobacco dependence, quit smoking in 1988 PTSD/depression Postoperative acute blood loss anemia, expected given hemodilution and preoperative anemia Acute kidney injury, likely secondary to Toradol which has since been stopped, kidney function improving Elevated transaminases, likely medication induced, improving Plan: Continue to maximize medical management with aspirin, Plavix, fenofibrate, and beta-barrie. Will increase beta-barrie therapy as tolerated, decreased yesterday by Dr. Skaf because of episode of junctional rhythm. Statin disconti nued due to elevated transaminases, will reinitiate when liver enzymes normalize Continue amiodarone for A-fib prophylaxis, tapered yesterday due to elevated liver enzymes, patient has had no atrial fibrillation up to this point Continue oral calcium channel barrie Encourage incentive spirometry use 10 times every hour while awake. Bronchodilators per pulmonology Increase activity, ambulate as tolerated. PT/OT/cardiac rehab consulted Will monitor daily labs and x-rays. Electrolyte replacement per protocol GI/DVT prophylaxis Pain control with current medication regimen Insulin management per internal medicine Continue to monitor and record strict accurate intake and output Daily weights, shower daily Transfer orders placed yesterday for 3 S. cardiac stepdown unit, may transfer when bed available Discharge planning in progress. Anticipate discharge to home with home care in the next 24 to 48 hours More recommendations to follow
[2023-12-29 11:55] LABS: Glucose,Whole Blood 133 mg/dL (70-110)
--- NOTE | 2023-12-29 13:47 | P.PN ---
Subjective Progress Note Date: 12/29/23 CAD The patient is a pleasant 73-year-old gentleman with coronary artery disease and known severe triple-vessel CAD as well as lower extremities peripheral arterial disease and carotid atherosclerosis and hypertension and dyslipidemia as well as multiple comorbid conditions was admitted to the hospital with chest discomfort and ruled in for acute coronary syndrome. He underwent heart catheterization and was found to have severe triple-vessel CAD. He was referred for CABG and he underwent yesterday CABG x 5 with PARKS sequentially to LAD and diagonal as well as radial artery bypass to first and second obtuse marginal branch as well as SVG to PDA of RCA. December 26, 2023 This is postoperation day #2. The patient overall is stable. He got extubated yesterday. Hemodynamically he is stable as ivlmia-sl-occt he is slightly hypertensive and currently he is on nitro drip as well as Cardizem drip as well as clevidipine drip which I am going to stop because he is currently on Cardizem drip and holding today to stop all the drips and start the patient on oral medications. Beside that he is on aspirin. He is on intermediate intensity statin. With that and with liver function test I am going to start the patient on higher dose of statin including 80 mg p.o. nightly of atorvastatin. He is on Plavix as well. The CVP appears to be between 8-12. Urine output is excellent. Chest x-ray was reviewed and seems to be within normal limits. The examination is remarkable for distant heart sounds with diminished breathing sounds bilaterally and no lower extremities edema noted December 27, 2023 The patient was seen and evaluated this morning. He is maintaining normal sinus mechanism. Hemodynamically he is stable. Currently he is not on any IV medications. He is on dual antiplatelet therapy along with high intensity statin along with fenofibrate. Chest x-ray was reviewed and blood work reviewed as well. Urine output has been adequate. From the cardiovascular standpoint of view, I would continue the current medical regimen and follow-up with the patient. December 28, 2023 The patient was seen and evaluated this morning. Overall he seems to be stable from a cardiac standpoint of view and his main complaint is bilateral lower extremities discomfort with exertion likely secondary to occlusive peripheral arterial disease which she has history of with prior revascularization. No pain in the chest. He did have an episode of junctional rhythm and long first-degree AV block with him going to decrease the dose of metoprolol to 12.5 mg p.o. twice daily. The dose of amlodipine has increased earlier today for better blood pressure control. Otherwise examination is remarkable for regular rhythm with clear breathing sounds bilaterally and no edema was noted in the lower extremities with the chest x-ray was reviewed. December 29 2023 Patient is doing well from cardiovascular standpoint. He is hemodynamically stable. On telemetry we did not notice any episodes of atrial fibrillation. He did not have any further junctional escape rhythms. On exam On cardiac exam S1-S2 is audible, no murmurs appreciated Respiratory: Good inspiratory effort, no significant crackles or rhonchi a ppreciated Abdomen is nondistended, no swelling in bilateral lower extremity, no elevated JVD Alert oriented, focal neurological deficit Assessment Acute coronary syndrome Severe triple-vessel CAD Carotid atherosclerosis Lower extremities PAD Multiple comorbid conditions Plan Continue aspirin and Plavix. Continue amlodipine 10, metoprolol 12.5 mg daily, amiodarone 200 mg twice daily. Consider reducing amiodarone to 220 Patient is okay to be transferred to [address] as per CT surgery team. I agree with this. Patient is able to ambulate in the unit without any difficulty. Recommend outpatient cardiac rehab Anticipate discharge in next 24 to 48 hours Objective - Vital Signs Vital signs: Vital Signs Temp 97.8 F 12/29/23 12:00 Pulse 95 12/29/23 12:00 Resp 19 12/29/23 12:00 BP 127/63 12/29/23 12:00 Pulse Ox 95 12/29/23 12:00 FiO2 21 12/29/23 08:33 Intake & Output 12/28/23 12/29/23 12/29/23 18:59 06:59 18:59 Output Total 500 751 1 Balance -500 -751 -1 Weight 101.2 kg Output: Urine 500 750 Stool 1 1 Other: Voiding Method Toilet Urinal Urinal # Voids 1 1 # Bowel Movements 1 ABP, PAP, CO, CI - Last Documented Arterial Blood Pressure 134/37 Pulmonary Artery Pressure 31/8 Cardiac Output 5.5 Cardiac Index 2.6 - Labs CBC & Chem 7: 12/29/23 04:21 12/29/23 04:21 Labs: Abnormal Lab Results - Last 24 Hours (Table) 12/28/23 12/28/23 12/29/23 Range/Units 16:20 20:15 04:21 RBC 2.89 L (4.30-5.90) m/uL Hgb 8.2 L (13.0-17.5) gm/dL Hct 25.5 L (39.0-53.0) % Lymphocytes # 0.9 L (1.0-4.8) k/uL Sodium (137-145) mmol/L BUN (9-20) mg/dL Creatinine (0.66-1.25) mg/dL POC Glucose (mg/dL) 145 H 136 H (70-110) mg/dL Calcium (8.4-10.2) mg/dL AST (17-59) U/L ALT (4-49) U/L Total Protein (6.3-8.2) g/dL Albumin (3.5-5.0) g/dL 12/29/23 12/29/23 Range/Units 04:21 11:54 RBC (4.30-5.90) m/uL Hgb (13.0-17.5) gm/dL Hct (39.0-53.0) % Lymphocytes # (1.0-4.8) k/uL Sodium 135 L (137-145) mmol/L BUN 41 H (9-20) mg/dL Creatinine 1.42 H (0.66-1.25) mg/dL POC Glucose (mg/dL) 133 H (70-110) mg/dL Calcium 8.3 L (8.4-10.2) mg/dL AST 447 H (17-59) U/L ALT 556 H (4-49) U/L Total Protein 5.4 L (6.3-8.2) g/dL Albumin 3.3 L (3.5-5.0) g/dL
--- NOTE | 2023-12-29 15:09 | P.PN ---
Subjective Progress Note Date: 12/29/23 Patient is a 73-year-old white male with past medical history significant for hypertension, hyperlipidemia, diabetes mellitus, obesity, right internal carotid artery occlusion, peripheral arterial disease, colon cancer with previous radiation treatments, prostate cancer with previous radiation, pancreatitis, obstructive sleep apnea not pliant with CPAP, and former tobacco smoker quitting in 1988. His PCP is Dr. Veloz out of [place], [place]. Back on 12/20/2023 he was having new onset substernal chest pain radiating to the left jaw, that developed while sitting and reading a newspaper. There is associated diaphoresis and nausea/vomiting. Patient was initially worked up at [facility], and transferred for suspected non-ST elevation IA 12/21/23. EKG showed ST segment depressions in anterior lateral leads. Troponins were elevated on arrival. Patient did undergo heart catheterization on 12/22/2023 which revealed severe multi-vessel coronary artery disease. There is 80% stenosis of the proximal and also mid to distal portions of the LAD, 80 to 90% stenosis of the mid left circumflex,40 to 50% left main disease. There is a preoperative workup underway for tentative open heart procedure, which is scheduled for . Chest CT did not show any evidence of acute pulmonary process. No evidence of focal consolidation, pneumothorax, or pleural effusions. Patient did have a b edside FEV1 which was 1.82 L or 58% of predicted. Does have remote history of smoking, quitting in 1988 after being hypnotized. 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 No previous diagnosis of lung disease or COPD or asthma. Patient is currently resting comfortably on room air, in no acute distress. Nonlabored breathing. His incentive spirometer is at the bedside. He continues to have nitroglycerin infusion at 15 mics per minute and IV heparin infusion per protocol. Denies any current chest pain. Echocardiogram done yesterday estimated a preserved left ventricular ejection fraction of 50 to 55%. Grade 1 diastolic dysfunction noted. Most recent CBC from yesterday is unremarkable. Most recent APTT subtherapeutic. BMP from yesterday also unremarkable. Hemodynamics are stable. The patient is seen today December 25, 2023 in the intensive care unit shortly after returning from the OR. He had gone undergone an off-pump CABG x 5 with sequential PARKS to the mid diagonal and distal LAD, sequential left radial artery to the first and second obtuse marginal arteries, saphenous vein to the PDA. Ligation of the left atrial appendage. He is on the mechanical ventilator and assist-control mode with a rate of 16, tidal volume 500, FiO2 100% and a PEEP of 8. Blood gases revealed a PaO2 of 329, pCO2 of 45 and a pH of 7.33. He has chest tubes in place, pacer wires in place, Linkwood-Makenzie catheter in the right internal jugular, right radial art line in place. Brice wrap to the left radial surgical site. Bilateral lower extremity Brice wraps. DUNCAN drain to the right lower extremity. He is on a Cardizem drip at 5 mg/h. Cleviprex at 1 mg/h. Amiodarone at 1 mg/min. Lactated Ringer's at 50 MLS per hour. Nitroglycerin drip at 5 mcg/min. Propofol at 40 mcg/kg/min. PA pressure 44/31. Central venous pressure 13. Cardiac output 6.8. Cardiac index 3.2. White count 6.4. Hemoglobin 8.1. Platelets 100,000. Sodium 139. Potassium 3.8. Bicarb 21. BUN 17. Creatinine 0.96. He is initiated on bronchodilators. Heparin for DVT prophylaxis. The patient is seen today December 26, 2023 in follow-up in the intensive care unit. He is currently awake and alert in no acute distress. Sitting up in a chair at the bedside. Maintaining O2 saturations in the 90s on 3 L/min per nasal cannula. This is postoperative day #1 following his coronary bypass grafting x 5. He is currently on lactated Ringer's at 50 MLS per hour. Requiring insulin drip at 2 units/h. On amiodarone drip at 0.5 milligrams per minute. He denies any significant discomfort at this time. He has a mild headache. He remains on bronchodilators. Heparin for DVT prophylaxis. Chest x-ray reviewed post CABG changes with interval extubation. There is residual mild pulmonary vascular congestion. He continues to work well with the incentive spirometer. Chest tubes remain in place. Pacer wires remain in place. Right IJ Linkwood-Makenzie catheter in place. Cardiac output 3.5. Cardiac index 2.6. PA pressures 35/4. CVP of 4. White count 12.1. Hemoglobin 9.7. Platelets 146. Sodium 135. Potassium 4.3. Bicarb 21. BUN 17. Creatinine 0.97. The patient is seen today December 27, 2023 in follow-up in the intensive care unit. He is currently awake and alert in no acute distress. Sitting up in a chair. On room air. He has lactated Ringer's at 20 MLS per hour. Insulin drip at 4 units/h. He is working well with the incentive spirometer. Chest x-ray reveals low lung volumes with generalized hazy appearance most likely atelectasis. White count 8.4. Hemoglobin 7.9. Platelets 124. Sodium 133. Potassium 4.5. Bicarb 22. BUN 28. Creatinine 1.44. Glucose 141. He is continued on bronchodilators. Heparin for DVT prophylaxis. Right internal jugular cordis remains in place. Right radial art line in place. Mediastinal and left chest tubes in place. The patient is seen today December 28, 2023 in follow-up in the intensive care unit. He is currently resting in bed. Awake and alert in no acute distress. He is maintaining good O2 saturations in the 90s on room air. No IV fluids. This is postoperative day #3. He was up to the shower today. He has been up in the [facility] x 2. Chest x-ray is showing minimal atelectatic changes. White count 8.0. Hemoglobin 8.1. Platelets 141. Sodium 131. Potassium 5.1. Bicarb 21. BUN 47. Creatinine 1.65. Glucose 182. AST 1263. ALT 662. Chest tubes, art line, Cordis removed. On 12/29/2023, the patient is being seen for a follow-up. Patient is currently postop day #4. The patient sitting up on a chair. The patient is calm and comfortable and the surgical wound site is dry clean and intact and the patient is currently on room air oxygen with a pulse ox of 95%. Cardiac rhythm is sinus. No respiratory difficulties. Denies having any chest pain. No altered mentation. Using incentive spirometer. Pulling more than 2000. In terms of his blood work, the white cell count is 8.8 with a hemoglobin 8.1 and platelet count of 184. BUN is 41 with a creatinine 1.42 as the patient is recovering from his acute kidney injury. Rest of the electrolytes are all stable and within normal limits. LFTs were elevated and there is also improving. The patient remains on aspirin. The patient remains on Plavix. The patient remains on metoprolol 12.5 mg p.o. twice a day and the patient remains on amiodarone 200 mg p.o. twice a day. No other significant events over the past 24 hours. Objective - Vital Signs Vital signs: Vital Signs Temp 99.0 F 12/29/23 08:00 Pulse 97 12/29/23 08:51 Resp 20 12/29/23 08:00 BP 132/54 12/29/23 08:00 Pulse Ox 93 L 12/29/23 08:33 FiO2 21 12/29/23 08:33 Intake & Output 12/28/23 12/29/23 12/29/23 18:59 06:59 18:59 Output Total 500 751 Balance -500 -751 Weight 101.2 kg Output: Urine 500 750 Stool 1 Other: Voiding Method Toilet Urinal Urinal # Voids 1 1 # Bowel Movements 1 ABP, PAP, CO, CI - Last Documented Arterial Blood Pressure 134/37 Pulmonary Artery Pressure 31/8 Cardiac Output 5.5 Cardiac Index 2.6 - Exam GENERAL EXAM: Awake, pleasant 73-year-old male patient, on room air, resting in bed, in no apparent distress. HEAD: Normocephalic. EYES: Normal reaction of pupils, equal size. NOSE: Clear with pink turbinates. THROAT: No erythema or exudates. NECK: No masses, no JVD. CHEST: Sternal dressing dry and intact. Heart hugger in place. LUNGS: Equal air entry with no crackles, wheeze, rhonchi or dullness. CVS: S1 and S2 normal with no audible murmur, regular rhythm. ABDOMEN: No hepatosplenomegaly, hypoactive bowel sounds, no guarding or rigidity. SPINE: No scoliosis or deformity SKIN: No rashes CENTRAL NERVOUS SYSTEM: No focal deficits, tone is normal in all 4 extremities. EXTREMITIES: Left radial site clean, dry well-approximated. Bilateral lower extremity Brice wraps. Peripheral pulses are intact. - Labs CBC & Chem 7: 12/29/23 04:21 12/29/23 04:21 Labs: Abnormal Lab Results - Last 24 Hours (Table) 12/28/23 12/28/23 12/28/23 Range/Units 11:53 16:20 20:15 RBC (4.30-5.90) m/uL Hgb (13.0-17.5) gm/dL Hct (39.0-53.0) % Lymphocytes # (1.0-4.8) k/uL Sodium (137-145) mmol/L BUN (9-20) mg/dL Creatinine (0.66-1.25) mg/dL POC Glucose (mg/dL) 179 H 145 H 136 H (70-110) mg/dL Calcium (8.4-10.2) mg/dL AST (17-59) U/L ALT (4-49) U/L Total Protein (6.3-8.2) g/dL Albumin (3.5-5.0) g/dL 12/29/23 12/29/23 Range/Units 04:21 04:21 RBC 2.89 L (4.30-5.90) m/uL Hgb 8.2 L (13.0-17.5) gm/dL Hct 25.5 L (39.0-53.0) % Lymphocytes # 0.9 L (1.0-4.8) k/uL Sodium 135 L (137-145) mmol/L BUN 41 H (9-20) mg/dL Creatinine 1.42 H (0.66-1.25) mg/dL POC Glucose (mg/dL) (70-110) mg/dL Calcium 8.3 L (8.4-10.2) mg/dL AST 447 H (17-59) U/L ALT 556 H (4-49) U/L Total Protein 5.4 L (6.3-8.2) g/dL Albumin 3.3 L (3.5-5.0) g/dL Assessment and Plan Plan: Acute non-ST elevation myocardial infarction, post coronary bypass surgery. Multivessel coronary artery disease, status post off-pump coronary artery bypass grafting x 5 with sequential PARKS to mid diagonal and distal LAD, sequential left radial artery to the first and second obtuse marginal arteries, saphenous vein to the PDA and ligation of the left atrial appendage. Postoperative day #4 Acute kidney injury, improving Transaminitis, likely a component of mild shock liver, and LFTs are also improving History of hypertension Hyperlipidemia Insulin-dependent diabetes mellitus Peripheral arterial disease, with history of bilateral femoral endarterectomies History of totally occluded right ICA stenosis, anticoagulated on Xarelto outpa tient Obesity, with a BMI of 32.6 kg/m History of obstructive sleep apnea, noncompliant with CPAP Remote history of tobacco dependence, quitting in 1988 Plan: Patient is currently on room air oxygen. Encourage use of incentive spirometer Monitor renal function which is essentially improving Monitor LFTs, improving Continue aspirin and Plavix Continue metoprolol 12.5 mg twice a day Continue amiodarone Patient is ambulating He is a selective overflow. Will continue to follow.
[2023-12-29 15:22] LABS: ABG PCO2 38 mmHg (35-45); Allen Test Performed? Yes
[2023-12-29 15:23] LABS: ABG Base Excess -1.7 mmol/L; ABG Glucose Whole Blood 93 mg/dL (75-99); ABG HCO3 23 mmol/L (21-25); ABG Lactic Acid Whole Blood 1.8 mmol/L (0.5-1.6); ABG Oxygen Saturation 98.3 % (94-97); ABG PO2 92 mmHg (83-108); ABG Potassium Whole Blood 4.1 mmol/L (3.4-4.5); ABG Sodium Whole Blood 142 mmol/L (135-146); ABG TCO2 22 mmol/L (19-24)
[2023-12-29 15:24] LABS: ABG Hematocrit 24 % (34.0-46.0)
[2023-12-29 15:25] LABS: ABG Ionized Calcium 4.5 mg/dL (4.5-5.3)
[2023-12-29 16:32] LABS: Glucose,Whole Blood 186 mg/dL (70-110)
--- NOTE | 2023-12-29 17:17 | P.PN ---
Progress Note - Text Progress Note Date: 12/29/23 71-year-old pleasant male came with complaints of chest pressure-like sensation radiating to the neck along with some shortness of breath. Patient is found to have significant ST-T wave changes in the anterolateral leads. Patient troponin is elevated and needs an upward trend highest being around 2.7. Patient was started on IV heparin patient will undergo cardiac catheterization today patient also had a recent upper respiratory viral illness about a month ago. Patient does have history of cerebrovascular disease and underwent a prior risk of revascularization procedure and bilateral femoral endarterectomy. Patient continues to smoke but trying to quit and cut down significantly. Patient denies any orthopnea paroxysmal nocturnal dyspnea patient does not have any pedal edema not in congestive heart failure exacerbation. 12/23/2023 Patient seen in follow-up today status post cardiac catheterization yesterday and noted to have triple-vessel coronary artery disease and cardiothoracic surgery was consulted for possible CABG eval. Patient currently undergoing further workup and experience some increased chest pain and was started on nitro drip per cardiology this morning. Patient currently on supplemental oxygen of 2 L and reports some shortness of breath with exertion patient reports he does not wear oxygen outpatient. Patient is currently afebrile with incentive spirometer at bedside and encouraged the patient to continue using at least 10 times every hour while awake.. Tentatively scheduled for surgery 12/25/2023 December 24, 2023: Recliner. No chest pain or shortness of breath. Eating fair.-Final plan for coronary bypass tomorrow December 26, 2023: Patient was not seen yesterday at patient going to the OR. Patient was extubated. Sitting up in a chair. Chest tubes in place. On insulin drip. On 2 L nasal cannula. Did take a few steps. Did also stand. Oliver catheter in place. This morning was on clear liquid diet. December 26: Up in a chair. Chest tubes are out. Oliver catheter taken out. Advance today to heart healthy diet at lunch. Breathing better. at the bedside. Was on insulin drip. Will change to Levemir and NovoLog starting from supper. Follow Accu-Cheks. December 27: ICU. Up in a chair. Does not like hospital food. Has passed flatus. Breat radha better. Has family visiting. Accu-Cheks noted. Will gradually increase both Levemir and NovoLog. Patient's AST is gone up to 1263 and ALT also up to 662. Cardiothoracic team earlier stopped her Lipitor. I did call ABD CENTER DIRECTOR LEAD TEACHER from cardiothoracic team and strongly recommended to stop the amiodarone and the Lofibra for now. Patient's creatinine is up to 1.65 if and Toradol was discontinued. December 28: Doing well. Ambulated. at the bedside. LFTs coming down. Accu- Cheks noted. Stay on current dose breathing well. Active Medications Acetaminophen (Acetaminophen Tab 325 Mg Tab) 650 mg PO Q4HR PRN PRN Reason: Fever and/ or Mild Pain Albuterol/Ipratropium (Ipratropium-Albuterol 3 Ml Neb) 3 ml INHALATION RT-Q2H PRN PRN Reason: Shortness Of Breath Or Wheezing Albuterol/Ipratropium (Ipratropium-Albuterol 3 Ml Neb) 3 ml INHALATION RT-QID [facility] [place] Last Admin: 12/29/23 15:46 Dose: 3 ml Amiodarone HCl (Amiodarone 200 Mg Tab) 200 mg PO BID [facility] [place] Last Admin: 12/29/23 08:28 Dose: 200 mg Amlodipine Besylate (Amlodipine 10 Mg Tab) 10 mg PO DAILY [facility] [place] Last Admin: 12/29/23 08:28 Dose: 10 mg Artificial Tears (Artificial Tears-Hypromellose Drops 15 Ml Btl) 1 drops BOTH EYES TID PRN PRN Reason: Dry Eye(s) Last Admin: 12/28/23 17:22 Dose: 1 drops Aspirin (Aspirin 325 Mg Tab) 325 mg PO DAILY [facility] [place] Last Admin: 12/29/23 08:28 Dose: 325 mg Benzocaine/Menthol (Benzocaine/Menthol Lozeng 1 Each Lozenge) 1 each MUCOUS MEM Q2H PRN PRN Reason: Sore Throat Bisacodyl (Bisacodyl 10 Mg Supp) 10 mg RECTAL DAILY PRN PRN Reason: Constipation Last Admin: 12/28/23 17:33 Dose: 10 mg Clopidogrel Bisulfate (Clopidogrel 75 Mg Tab) 75 mg PO DAILY [facility] [place] Last Admin: 12/29/23 08:28 Dose: 75 mg Dextrose/Water (Dextrose 50% Syringe 50 Ml) 25 ml IVP PER PROTOCOL PRN; Protocol PRN Reason: Hypoglycemia Dextrose/Water (Dextrose 50% Syringe 50 Ml) 50 ml IVP PER PROTOCOL PRN; Protocol PRN Reason: Hypoglycemia Fenofibrate (Fenofibrate 160 Mg Tab) 160 mg PO DAILY [facility] [place] Last Admin: 12/29/23 08:28 Dose: 160 mg Heparin Sodium (Porcine) (Heparin Sodium,Porcine 5,000 Unit/Ml 1 Ml Vial) 5,000 unit SQ Q8HR [facility] [place] Last Admin: 12/29/23 16:41 Dose: 5,000 unit Hydralazine HCl (Hydralazine Hcl 20 Mg/Ml 1 Ml Vial) 10 mg IVP Q1H PRN PRN Reason: Blood Pressure - High Last Admin: 12/25/23 13:59 Dose: 10 mg Insulin Aspart (Insulin Aspart (Novolog) 100 Unit/Ml Vial) 12 unit SQ AC-TID [facility] [place] Last Admin: 12/29/23 16:41 Dose: 12 unit Insulin Detemir (Insulin Detemir (Levemir) 100 Unit/Ml Syr) 32 unit SQ BID [facility] [place] Last Admin: 12/29/23 08:27 Dose: 32 unit Magnesium Hydroxide (Magnesium Hydroxide 2,400 Mg/30 Ml Cup) 2,400 mg PO BID PRN PRN Reason: Constipation Metoclopramide HCl (Metoclopramide 5 Mg/Ml 2 Ml Vial) 10 mg IVP Q4H PRN PRN Reason: Nausea And Vomiting Metoprolol Tartrate (Metoprolol Tartrate 12.5 Mg Tab) 12.5 mg PO BID [facility] [place] Last Admin: 12/29/23 08:28 Dose: 12.5 mg Miscellaneous Information (Potassium Replacement Protocol 1 Each Misc) 1 each MISCELLANE DAILY PRN; Protocol PRN Reason: Per Protocol Miscellaneous Information (Magnesium Replacement Protocol 1 Each Misc) 1 each MISCELLANE DAILY PRN; Protocol PRN Reason: Per Protocol Multivitamins (Multivitamins, Thera 1 Each Tab) 1 each PO DAILY [facility] [place] Last Admin: 12/29/23 08:28 Dose: 1 each Ondansetron HCl (Ondansetron 4 Mg/2 Ml Vial) 4 mg IVP Q6HR PRN PRN Reason: Nausea And Vomiting Last Admin: 12/27/23 18:10 Dose: 4 mg Pantoprazole Sodium (Pantoprazole 40 Mg Tablet) 40 mg PO AC-BRKFST [facility] [place] Last Admin: 12/29/23 06:58 Dose: 40 mg Senna/Docusate Sodium (Sennosides-Docusate Sodium 1 Each Tab) 2 each PO HS [facility] [place] Last Admin: 12/28/23 20:47 Dose: 2 each Sodium Chloride (Sodium Chloride 0.9% Flush 10 Ml Syringe) 10 ml IV BID [facility] [place] Last Admin: 12/29/23 09:32 Dose: 10 ml Venlafaxine HCl (Venlafaxine Hcl Er 150 Mg Cap) 300 mg PO DAILY [facility] [place] Last Admin: 12/29/23 08:29 Dose: 300 mg On examination: VITAL SIGNS: 98, 90, 20, 137/72, 95% room air GENERAL APPEARANCE: Up in chair, comfortable HEENT: Normal external appearance of nose and ear. Oral cavity normal EYES: Pupils equal. Conjunctiva normal. NECK: JVD not raised. Mass not palpable. RESPIRATORY: Respiratory effort normal. Lungs decreased breath sounds CARDIOVASCULAR: First and second sounds normal. No edema. ABDOMEN: Soft. Liver and spleen not palpable. No tenderness. No mass palpable. PSYCHIATRY: Alert and oriented x3. Mood and affect normal. INVESTIGATIONS, reviewed in the clinical context: December 28: White count 8.8 hemoglobin 8.2 platelets 184 potassium 4.2 BUN 41 creatinine 1.42 AST 447 ALT 556 December 27: White count 8 hemoglobin 8.1 sodium 131 potassium 5.5 BUN 47 creatinine 1.65 AST 1263 ALT 662 December 25: White count 12.1 hemoglobin 9.7 platelets 146 sodium 135 potassium 4.3 creatinine 0.97 albumin 3.0 December 24, 2023: White count 6.1 hemoglobin 11.9 platelets 178 Cardiogram: EF 50 [address]: Moderate to severe coronary atherosclerosis. Severe DJD of the spine Cardiac catheterization: Severe triple-vessel CAD. Calcified right and left coronary system Assessment and plan: -Acute non-ST elevation myocardial infarction: status post cardiac catheterization revealing triple vessel disease -Severe triple-vessel coronary artery disease with calcified right and left coronary systems: Coronary bypass done -Off-pump CABG x 5 with sequential PARKS to mid diagonal and distal LAD, sequential left radial artery to first and second obtuse marginal coronary arteries, saphenous vein to PDA, ligation of left atrial appendage with 35mm AtriCure clamp, endovascular vein harvest of the greater saphenous vein from the right lower extremity from ankle to groin, endovascular radial harvest from the left forearm. December 24: Dr. Bah -Acute hepatitis. Likely drug-induced: Improving Since received IV amiodarone switched over to oral amiodarone, was on Lipitor and is on Mevacor. Lipitor has been discontinued. -Acute kidney injury likely ATN.: Slow improvement Patient had received Toradol. Discontinued. Follow labs closely -Severe peripheral vascular disease Aspirin. Lipitor -Acute postprocedure blood loss anemia expected from surgery ferrous sulfate -Hypoalbuminemia, reactive -Dilutional thrombocytopenia Follow -Type 2 diabetes mellitus, chronically on insulin Levemir and Humalog scheduled with meals. -Hyperlipidemia Lipitor-hold for now -Hypertension Amlodipine Lopressor -PTSD/depression effexor -Insomnia Trazodone -obesity with a bmi of 30.1 -Full code Continue current dose of Levemir and NovoLog. Follow LFTs.
[2023-12-29 20:10] LABS: Glucose,Whole Blood 180 mg/dL (70-110)
[2023-12-29] MEDS: ALBUMIN HUMAN 25% 50 ML in EMPTY BAG 1 BAG IVPB ONE ×2 (20:10→20:11)
[2023-12-29] MEDS: ALBUMIN HUMAN 5% 500 ML in EMPTY BAG 1 BAG IVPB ONE ×6 (20:11→20:12)
[2023-12-29] MEDS: CALCIUM CHLORIDE 100 MG/ML 10 ML SYRINGE IVP ONE (20:12)
[2023-12-29] MEDS: ceFAZolin 1,000 MG in SODIUM CHLORIDE 0.9% IRRIGATIO 1,000 ML IRRIGATION ONE (20:12)
[2023-12-29] MEDS: CHLORHEXIDINE GLUCONATE 15 ML CUP MUCOUS MEM ONE (21:12)
[2023-12-29] MEDS: CLEVIDIPINE BUTYRATE 25 MG in EMPTY BAG 1 BAG IV SCH (21:12)
[2023-12-29] MEDS: DILTIAZEM 125 MG in SODIUM CHLORIDE 0.9% 100 ML IV SCH (21:13)
[2023-12-29] MEDS: HEPARIN SODIUM,PORCINE (1 ML) 5,000 UNIT in SODIUM CHLORIDE 0.9% 500 ML 500 ML IV ONE (21:13)
[2023-12-29] MEDS: HEPARIN SODIUM 1,000 UN/ML (10ML VL) IV ONE (21:13)
[2023-12-29] MEDS: NITROGLYCERIN-D5W PMX 25 MG/250 ML BTL IV ONE (21:14)
[2023-12-29] MEDS: MAGNESIUM SULFATE 16.24 MEQ in EMPTY SYRINGE 1 SYR IV ONE (21:14)
[2023-12-29] MEDS: PHENYLEPHRINE 40 MG in SODIUM CHLORIDE 0.9% 250 ML IV ONE (21:14)
[2023-12-29] MEDS: PAPAVERINE 360 MG in SODIUM CHLORIDE 0.9% 90 ML IV ONE (21:14)
[2023-12-29] MEDS: NITROGLYCERIN-D5W PMX 50 MG in DEXTROSE/WATER 1 250ML.BAG IV SCH (21:14)
[2023-12-29] MEDS: MANNITOL 25% 12.5 GM/50 ML VIAL IV ONE ×2 (21:14)
[2023-12-29] MEDS: SODIUM BICARB 8.4% 50 ML SYR (1 MEQ/ML) IV ONE (21:15)
[2023-12-29] MEDS: TRANEXAMIC ACID 2,000 MG in SODIUM CHLORIDE 0.9% 80 ML IV ONE ×2 (21:15→21:16)
[2023-12-29] MEDS: PROTAMINE SULFATE 10 MG/ML 25 ML VIAL IV ONE (21:15)
[2023-12-29] MEDS: PROTAMINE SULFATE 250 MG in EMPTY BAG 1 BAG IV ONE (21:15)
[2023-12-30 03:40] VITALS: TEMP 97.6
[2023-12-30 06:13] LABS: Glucose,Whole Blood 145 mg/dL (70-110)
--- NOTE | 2023-12-30 07:26 | XR ---
EXAMINATION TYPE: XR chest 2V DATE OF EXAM: 12/30/2023 COMPARISON: 12/21/2023 HISTORY: Shortness of breath TECHNIQUE: Frontal and lateral views of the chest are obtained. FINDINGS: Scattered senescent parenchymal changes noted. Hyperinflation compatible with COPD. Stable scattered pleural-parenchymal densities and small effusions. No evidence for pneumothorax. Heart size is stable. Mediastinal structures are stable and grossly unremarkable. No evidence for hilar prominence. Degenerative changes dorsal spine. IMPRESSION: 1. Stable scattered pleural-parenchymal densities and small effusions. No evidence for pneumothorax.
[2023-12-30 08:13] LABS: HCT 26.9 % (39.0-53.0); HGB 9.1 gm/dL (13.0-17.5); MCH 29.8 pg (25.0-35.0); MCHC 33.8 g/dL (31.0-37.0); MCV 88.3 fL (80.0-100.0); Mean Platelet Volume 9.3; Platelet Count 265 k/uL (150-450); RBC 3.05 m/uL (4.30-5.90); RDW 14.2 % (11.5-15.5); WBC 10.8 k/uL (3.8-10.6)
[2023-12-30 08:16] LABS: ALT 558 U/L (4-49); African American GFR (CKD) 75 (>60 ml/min/1.73 sqM); Albumin 3.5 g/dL (3.5-5.0); Anion Gap 11 mmol/L; Blood Urea Nitrogen 34 mg/dL (9-20); Calcium 8.9 mg/dL (8.4-10.2); Carbon Dioxide 19 mmol/L (22-30); Chloride 112 mmol/L (98-107); Glucose 123 mg/dL (74-99); Non-African American GFR(CKD) 65 (>60 ml/min/1.73 sqM); Sodium 142 mmol/L (137-145)
[2023-12-30 08:23] LABS: AST 308 U/L (17-59); Alkaline Phosphatase 79 U/L (38-126); Potassium 4.7 mmol/L (3.5-5.1)
--- NOTE | 2023-12-30 08:29 | P.PN ---
Subjective Progress Note Date: 12/30/23 Principal diagnosis: Multivessel coronary artery disease, acute non-ST elevated myocardial infarction this admission. Previous medical history of hypertension, hyperlipidemia, com plete right internal carotid artery obstruction per carotid Doppler in 2018, peripheral arterial disease with previous revascularization to bilateral lower extremities with bilateral femoral endarterectomies, on Xarelto outpatient for anticoagulation, colon cancer status post 5 weeks of radiation treatment in 2022, insulin-dependent diabetes mellitus, pancreatitis, prostate cancer with previous radiation in 2019, osteoarthritis, rheumatic fever as a child, obstructive sleep apnea noncompliant with CPAP use, peripheral neuropathy, and previous tobacco dependence POD #5 off-pump CABG x 5 with sequential PARKS to mid diagonal and distal LAD, sequential left radial artery to first and second obtuse marginal coronary arteries, saphenous vein to PDA, ligation of left atrial appendage with 35mm A triCure clamp, endovascular vein harvest of the greater saphenous vein from the right lower extremity from ankle to groin, endovascular radial harvest from the left forearm Postoperative acute blood loss anemia, expected given hemodilution and preoperative anemia Acute kidney injury, likely secondary to Toradol which has since been stopped Elevated transaminases, likely medication induced The patient was seen and examined sitting up in recliner on the cardiac stepdown unit in no acute distress. Denies pain, denies shortness of breath. Remains in sinus rhythm, hemodynamically stable. Currently on room air with oxygen saturation in the mid 90s, achieving 2000 mL on his incentive spirometry. Labs, chest x-ray reviewed, kidney function and liver function showing slow improvement. Patient has been ambulatory in the hallway. Anticipates discharge to home with home care today. No other new concerns. Objective - Vital Signs Vital signs: Vital Signs Temp 97.6 F 12/30/23 03:17 Pulse 89 12/30/23 03:17 Resp 18 12/30/23 03:17 BP 152/71 12/30/23 03:17 Pulse Ox 94 L 12/30/23 03:17 FiO2 21 12/29/23 08:33 Intake & Output 12/29/23 12/30/23 12/30/23 18:59 06:59 18:59 Intake Total 10 Output Total 1 525 Balance -1 -515 Weight 100.2 kg Intake: IV 10 0.9 10 Output: Urine 525 Stool 1 Other: Voiding Method Toilet Toilet Urinal ABP, PAP, CO, CI - Last Documented Arterial Blood Pressure 134/37 Pulmonary Artery Pressure 31/8 Cardiac Output 5.5 Cardiac Index 2.6 - Exam CONSTITUTIONAL: Appears comfortable, cooperative, no acute distress RESPIRATORY: Lungs sounds diminished bilaterally. Respirations even, nonlabored. Currently on room air with oxygen saturation 94%. Able to achieve 1000 mL on incentive spirometry. Strong cough. CARDIOVASCULAR: S1, S2 present. Regular rate and rhythm, sinus rhythm on telemetry. Sternum stable. Palpable peripheral pulses bilaterally. No edema present. No calf pain or tenderness noted. Heart hugger in place with patient demonstrating appropriate use. Antiembolism stockings, SCDs present. GASTROINTESTINAL: Abdomen soft, nontender, nondistended. Active bowel sounds present 4 quadrants. Tolerating diet. Positive bowel movement /10 GENITOURINARY: Continues to void INTEGUMENTARY: Skin is warm and dry with evidence of good perfusion. Anterior chest incision well approximated. Left radial artery harvest site as well as right lower extremity EVH site well approximated without redness NEUROLOGIC: Cranial nerves II through XII intact MUSKULOSKELETAL: Able to move all extremities, strength equal bilaterally, gait normal PSYCHIATRIC: Alert and oriented to person place and time, appropriate affect, intact judgment and insight - Allied health notes Allied health notes reviewed: nursing - Labs CBC & Chem 7: 12/30/23 07:16 12/30/23 07:16 Labs: Abnormal Lab Results - Last 24 Hours (Table) 12/25/23 12/29/23 12/29/23 Range/Units 13:14 11:54 16:31 WBC (3.8-10.6) k/uL RBC (4.30-5.90) m/uL Hgb (13.0-17.5) gm/dL Hct (39.0-53.0) % ABG O2 Saturation 98.3 H (94-97) % ABG Hematocrit 24 L (34.0-46.0) % ABG Lactic Acid 1.8 H (0.5-1.6) mmol/L Hemoglobin 7.7 L (13.0-17.5) gm/dL Chloride (98-107) mmol/L Carbon Dioxide (22-30) mmol/L BUN (9-20) mg/dL Glucose (74-99) mg/dL POC Glucose (mg/dL) 133 H 186 H (70-110) mg/dL AST (17-59) U/L ALT (4-49) U/L Total Protein (6.3-8.2) g/dL 12/29/23 12/30/23 12/30/23 Range/Units 20:09 06:11 07:16 WBC (3.8-10.6) k/uL RBC (4.30-5.90) m/uL Hgb (13.0-17.5) gm/dL Hct (39.0-53.0) % ABG O2 Saturation (94-97) % ABG Hematocrit (34.0-46.0) % ABG Lactic Acid (0.5-1.6) mmol/L Hemoglobin (13.0-17.5) gm/dL Chloride 112 H (98-107) mmol/L Carbon Dioxide 19 L (22-30) mmol/L BUN 34 H (9-20) mg/dL Glucose 123 H (74-99) mg/dL POC Glucose (mg/dL) 180 H 145 H (70-110) mg/dL AST 308 H (17-59) U/L ALT 558 H (4-49) U/L Total Protein 6.0 L (6.3-8.2) g/dL 12/30/23 Range/Units 07:16 WBC 10.8 H (3.8-10.6) k/uL RBC 3.05 L (4.30-5.90) m/uL Hgb 9.1 L (13.0-17.5) gm/dL Hct 26.9 L (39.0-53.0) % ABG O2 Saturation (94-97) % ABG Hematocrit (34.0-46.0) % ABG Lactic Acid (0.5-1.6) mmol/L Hemoglobin (13.0-17.5) gm/dL Chloride (98-107) mmol/L Carbon Dioxide (22-30) mmol/L BUN (9-20) mg/dL Glucose (74-99) mg/dL POC Glucose (mg/dL) (70-110) mg/dL AST (17-59) U/L ALT (4-49) U/L Total Protein (6.3-8.2) g/dL - Imaging and Cardiology Chest x-ray: report reviewed, image reviewed Assessment and Plan Assessment: Multivessel coronary artery disease, acute non-ST elevated myocardial infarction this admission, status post 5 vessel off-pump CABG Severe peripheral arterial disease with history of bilateral femoral endarterectomies and totally occluded right internal carotid artery, on Xarelto for anticoagulation as an outpatient, last dose was taken on December 21, 2023 History of hypertension Hyperlipidemia, cholesterol 120, LDL 40 Insulin-dependent diabetes mellitus, hemoglobin A1c 7.5% History of prostate cancer, status post radiation treatment History of colon cancer, status post 5 weeks of radiation treatments completed in May 2023 History of pancreatitis Obstructive sleep apnea, noncompliant with CPAP use Osteoarthritis History of rheumatic fever as a child Previous tobacco dependence, quit smoking in 1988 PTSD/depression Postoperative acute blood loss anemia, expected given hemodilution and preoperative anemia Acute kidney injury, likely secondary to Toradol which has since been stopped, kidney function improving Elevated transaminases, likely medication induced, improving Plan: Continue to maximize medical management with aspirin, Plavix, fenofibrate, and beta-barrie. Statin discontinued due to elevated transaminases, will reinitiate when liver enzymes normalize Continue amiodarone for A-fib prophylaxis, patient has had no atrial fibrillation up to this point Continue oral calcium channel barrie Encourage incentive spirometry use 10 times every hour while awake. Bronchodilators per pulmonology Increase activity, ambulate as tolerated. PT/OT/cardiac rehab consulted Will monitor daily labs and x-rays. Electrolyte replacement per protocol GI/DVT prophylaxis Pain control with current medication regimen Insulin management per internal medicine Continue to monitor and record strict accurate intake and output Daily weights, shower daily Discharge planning in progress. Anticipate discharge to home with home care today More recommendations to follow
[2023-12-30] MEDS: ASPIRIN 81 MG PO SCH (09:18)
[2023-12-30] MEDS: RIVAROXABAN 2.5 MG TABLET PO SCH (09:33)
--- NOTE | 2023-12-30 10:39 | P.DS ---
Providers Date of admission: 12/21/23 22:48 Expected date of discharge: 12/30/23 Attending physician: Harrison Bah Consults: 12/21/23 22:48 Consult Physician Urgent Consulting Provider: Sylvester Wall Consult Reason/Comments: NSTEMI Do you want consulting provider notified?: Yes 12/22/23 12:38 Consult Physician Urgent Consulting Provider: Harrison Bah Consult Reason/Comments: CABG Do you want consulting provider notified?: Yes, Notify in am 12/22/23 12:41 Consult Physician Routine Consulting Provider: Harrison Bah Consult Reason/Comments: CABG evaluation Do you want consulting provider notified?: Already Contacted 12/22/23 13:32 Consult to Anesthesia Routine Consulting Provider: Anesthesia,Services Consult Reason/Comments: Cardiac Surgery Pre-Op 12/23/23 15:56 Consult Physician Routine Consulting Provider: Brock Cosme Consult Reason/Comments: Pulmonary management Do you want consulting provider notified?: Yes 12/24/23 08:00 Consult to Anesthesia Routine Consulting Provider: Anesthesia,Services Consult Reason/Comments: Cardiac Surgery Pre-Op 12/25/23 13:50 Consult Physician Routine Consulting Provider: César Huber Consult Reason/Comments: med mgmt Do you want consulting provider notified?: Already Contacted Primary care physician: [facility] Course: FINAL DIAGNOSIS: Multivessel coronary artery disease, acute non-ST elevated myocardial infarction this admission Severe peripheral arterial disease with history of bilateral femoral endarterectomies and totally occluded right internal carotid artery, on Xarelto for anticoagulation as an outpatient History of hypertension Hyperlipidemia, cholesterol 120, LDL 40 Insulin-dependent diabetes mellitus, hemoglobin A1c 7.5% History of prostate cancer, status post radiation treatment History of colon cancer, status post 5 weeks of radiation treatments completed in May 2023 History of pancreatitis Obstructive sleep apnea, noncompliant with CPAP use Osteoarthritis History of rheumatic fever as a child Previous tobacco dependence, quit smoking in 1988 PTSD/depression Postoperative acute blood loss anemia, expected given hemodilution and preoperative anemia Acute kidney injury, likely secondary to Toradol which has since been stopped, kidney function improving Elevated transaminases, likely medication induced, improving PRINCIPAL PROCEDURE: Off-pump CABG x 5 with sequential PARKS to mid diagonal and distal LAD, sequential left radial artery to first and second obtuse marginal coronary arteries, saphenous vein to PDA Ligation of left atrial appendage with 35mm AtriCure clamp Endovascular vein harvest of the greater saphenous vein from the right lower extremity from ankle to groin Endovascular radial harvest from the left forearm HISTORY OF PRESENT ILLNESS: This is a 73-year-old gentleman who follows outpatient with the [facility] in [place] for primary care. He presented to [facility] with complaints of acute onset of chest pain, associated with shortness of breath, nausea, vomiting, episodes of dizziness, and pain radiating down his bilateral upper extremities and to his jaw. There were no alleviating factors and it came on while he was watching TV and the chest pain felt like a burning sensation. He denied any fever, chills, diarrhea, constipation, hemoptysis, hematemesis, cough, visual disturbances, presyncope or syncope. Initial blood work at [facility] showed an elevated troponin and the patient was subsequently transferred to [facility] for further evaluation and treatment recommendations. A twelve-lead EKG was completed which showed sinus tachycardia with significant STT wave changes in the anterior lateral leads, he was ruled in for non-STEMI. Subsequently he was recommended to undergo heart catheterization which was completed by Dr. Najera and which demonstrated 40-50% stenosis to the left main coronary artery, 80-90% stenosis to the circumflex coronary artery, 80% stenosis to the proximal left anterior descending coronary artery and to the mid and distal portion of the left anterior descending coronary artery, as well as 70% stenosis to the right coronary artery. Due to the findings on the cardiac catheterization consultation was placed to Dr. Bah from cardiothoracic surgery for treatment recommendations. He was recommended to undergo urgent surgical myocardial rev ascularization. The usual perioperative course was discussed in detail with the patient and his family, all risks and benefits were explained, all questions were answered, and consent was obtained to proceed with surgery. The patient was kept inpatient due to the nature of his disease process. HOSPITAL COURSE: The patient was brought to the preoperative area 12/25/23, prepared in the usual fashion, and subsequently taken to the operating room where Dr. Bah performed 5 vessel off-pump CABG. Upon completion of surgery the patient was transferred to the cardiovascular intensive care unit where he was recovered and monitored hemodynamically. He was extubated, all lines, tubes, and drips were discontinued when appropriate, and he was transferred to [facility] cardiac stepdown unit for further monitoring and rehabilitation. His oxygen was titrated down, he continued to work with physical and occupational therapy, he was tolerating oral diet, his pain was controlled, and he was ready to be di scharged to home with [facility] on postoperative day #5. He received written and verbal instruction regarding his medications, activity restrictions, signs and symptoms requiring physician notification, and follow-up appointments. Patient Condition at Discharge: Stable Plan - Discharge Summary Discharge Rx Participant: Yes New Discharge Prescriptions: New Sennosides-Docusate Sodium [Senokot-S] 2 each PO HS PRN tab PRN Reason: Constipation Artificial Tears-Hypromellose [Artificial Tear Drops] 1 drops BOTH EYES TID PRN ml PRN Reason: Dry Eye(S) Aspirin 81 mg PO DAILY #30 tab Amiodarone [Cordarone] 400 mg PO DAILY #14 tab Metoprolol Tartrate [Lopressor] 12.5 mg PO BID #60 tab Pantoprazole [Protonix] 40 mg PO AC-BRKFST #30 tab Acetaminophen Tab [Tylenol] 650 mg PO Q4HR PRN tab PRN Reason: Fever and/ or Mild Pain Albuterol Sulfate [Albuterol Sulfate Hfa] 2 puff PO Q6H 30 Days #8.5 gm Continue Insulin Glargine,Hum.rec.anlog [Lantus Solostar Pen] 60 unit SQ BID Multivitamins, Thera [Multivitamin (formulary)] 1 tab PO DAILY Venlafaxine HCl [Effexor XR] 300 mg PO DAILY Fenofibrate Nanocrystallized [Tricor] 145 mg PO DAILY #30 tablet Mirtazapine 30 mg PO HS Insulin Aspart [Insulin Aspart Flexpen] 17 unit SQ AC-BID@1200,1800 Cholecalciferol [Vitamin D3 (25 Mcg = 1000 Iu)] 50 mcg PO DAILY Atorvastatin Calcium [Lipitor] 40 mg PO DAILY traZODone HCL 100 mg PO HS Rivaroxaban [Xarelto] 2.5 mg PO BID Prazosin [Minipress] 10 mg PO HS Insulin Aspart [Insulin Aspart Flexpen] 30 unit SQ AC-BRKFST amLODIPine [Norvasc] 10 mg PO DAILY Discontinued icosapent ethyL [Icosapent Ethyl] 2 gm PO BID-W/MEALS atenoloL 25 mg PO DAILY Discharge Medication List Insulin Glargine,Hum.rec.anlog [Lantus Solostar Pen] 60 unit SQ BID 09/20/17 [History] Multivitamins, Thera [Multivitamin (formulary)] 1 tab PO DAILY 09/20/17 [History] Venlafaxine HCl [Effexor XR] 300 mg PO DAILY 09/20/17 [History] Fenofibrate Nanocrystallized [Tricor] 145 mg PO DAILY #30 tablet 09/21/17 [Rx] Atorvastatin Calcium [Lipitor] 40 mg PO DAILY 12/22/23 [History] Cholecalciferol [Vitamin D3 (25 Mcg = 1000 Iu)] 50 mcg PO DAILY 12/22/23 [History] Insulin Aspart [Insulin Aspart Flexpen] 17 unit SQ AC-BID@1200,1800 12/22/23 [History] Insulin Aspart [Insulin Aspart Flexpen] 30 unit SQ AC-BRKFST 12/22/23 [History] Mirtazapine 30 mg PO HS 12/22/23 [History] Prazosin [Minipress] 10 mg PO HS 12/22/23 [History] Rivaroxaban [Xarelto] 2.5 mg PO BID 12/22/23 [History] amLODIPine [Norvasc] 10 mg PO DAILY 12/22/23 [History] traZODone HCL 100 mg PO HS 12/22/23 [History] Acetaminophen Tab [Tylenol] 650 mg PO Q4HR PRN tab 12/30/23 [Rx] Albuterol Sulfate [Albuterol Sulfate Hfa] 2 puff PO Q6H 30 Days #8.5 gm 12/30/23 [Rx] Amiodarone [Cordarone] 400 mg PO DAILY #14 tab 12/30/23 [Rx] Artificial Tears-Hypromellose [Artificial Tear Drops] 1 drops BOTH EYES TID PRN ml 12/30/23 [Rx] Aspirin 81 mg PO DAILY #30 tab 12/30/23 [Rx] Metoprolol Tartrate [Lopressor] 12.5 mg PO BID #60 tab 12/30/23 [Rx] Pantoprazole [Protonix] 40 mg PO AC-BRKFST #30 tab 12/30/23 [Rx] Sennosides-Docusate Sodium [Senokot-S] 2 each PO HS PRN tab 12/30/23 [Rx] Follow up Appointment(s)/Referral(s): [facility],Cardiac [NON-STAFF] - 4 Weeks (You will receive a phone call in approximately 4-6 weeks for evaluation for cardiac rehab) Donta Najera MD [STAFF PHYSICIAN] - 01/03/24 9:00 am Harrison Bah MD [STAFF PHYSICIAN] - 01/29/24 2:15 pm Lowell Baker NPC [Nurse Practitioner] - 01/03/24 8:30 am (Please come to [facility] thru the main entrance and ask for Jasson Baker or call [phone] before your appointment with Dr. Najera on 01/02) Brock Cosme DO [Doctor of Osteopathic Medicine] - 02/16/24 10:15 am [facility] [NON-STAFF] - 1-2 Days (You should be seen the day after discharge, then 2-3 times per week until you start cardiac rehab) [facility],Clinic [REFERRING] - 1 Week (Please call for appointment: address for [address] in [place]. Phone number listed is ) Ambulatory/Diagnostic Orders: Complete Blood Count w/diff [LAB.AMB] Time Frame: 3 Days, Location: None Selected Comprehensive Metabolic Panel [LAB.AMB] Time Frame: 3 Days, Location: None Selected Activity/Diet/Wound Care/Special Instructions: DISCHARGE INSTRUCTIONS: 1. No driving for 4 weeks, or until physician gives their ok. 2. The patient should sleep in their own bed, no medical bed needed. 3. Stairs are not an issue. If the bedroom is upstairs, it is advised that the patient go up at night and down in the morning for the first week. Go slowly, using handrail and take 1 step at a time. 4. LINDA hose are to be worn for 30 days post surgery or until physician discontinues. 5. Heart hugger is to be worn 100% of the time until physician discontinues.(except when showering) 6. No lifting, pushing, or pulling more than 10 pounds for 12 weeks. The physician will advise of any restriction changes. 7. The patient is expected to continue the prescribed walking program. 8. Continue pain control per as needed orders. 9. Continue with incentive spirometry and splinting/heart hugger until otherwise directed by the physician. 10. Must shower daily using liquid antibacterial soap 11. Routine sternal incision care. No powders, lotions, ointments on incisions. No dressings are necessary on incisions unless they are draining. Dermabond tape is to remain on sternal incision until surgeon follow-up. 12. Please call surgeon/SUSTAINABILITY SPECIALIST for temp greater than 101 F or purulent drainage from incisions. 13. You should weigh yourself daily, record and bring log with you to follow up appointments. 14. All prescriptions given by surgeon for 30 days. Refills need to be filled through research investigator/primary care physician. 15. A Red armband has been placed on the patient. It should be worn for 30 days post discharge from surgery and will be removed by the cardiac surgeons. If an ER visit is necessary, please make sure the number on the Red armband is called before going to ER. 16. You have been referred to and are expected to begin Cardiac Rehab in approximately 4-6 weeks. 17. Quitting smoking is the most important step you can take to improve your health. For additional information and assistance to quit smoking, please call the [place] tobacco quit line (4-772-BJML-NOW/ ) or online: [email or web address] [email or web address] HOME HEALTH SERVICES TO PROVIDE: RN SKILLED HOME CARE SERVICES FOR POST-OP SURGICAL PATIENTS WITH THE FOLLOWING: Coronary Artery Bypass Surgery (CABG), Mitral Valve Replacement/Repair ( MVR), Aortic Valve Replacement/Repair (AVR) RN TO CONTINUE EDUCATION FROM ``ROAD TO A HEALTH HEART PATIENT EDUCATION MANUAL (GIVEN TO PATIENT IN THE HOSPITAL) MEDICATION RECONCILIATION WITH EDUCATION NEEDED ON FIRST HOME VISIT EMPHASIZE IMPORTANCE OF WEARING BREAST SUPPORT/HEART HUGGER ENCOURAGE USE OF INCENTIVE SPIROMETER 10 X EVERY HOUR WHILE AWAKE ENCOURAGE UTILIZATION OF LOWER EXTREMITY COMPRESSION STOCKINGS/LINDA HOSE and ELEVATE LEGS ABOVE LEVEL OF HEART WHILE AT REST. ENCOURAGE AMBULATION 3-5x/day INCREASING TOLERATES, WHILE AVOIDING EXTREMES IN TEMPERATURE FREQUENCY: RN TO OPEN THE PATIENT WITHIN 24 HOURS OF DISCHARGE FROM THE HOSPITAL WITH [place] [facility] [place] TO VISIT 2-3 X A WEEK FOR 4 WEEKS ESTABLISHED BY PATIENT NEEDS. LABORATORY: CBC, CMP TO BE DRAWN ON THE THIRD DAY HOME, (RAN STAT) FAX RESULTS TO [phone]. TELEHEALTH PARAMETERS: WEIGHT: NOTIFY MD OF WEIGHT GAIN OF 2 LBS IN 24 HOURS OR 5 LBS IN ONE WEEK HR: NOTIFY MD OF HR <55 BPM OR HR>100 BPM BP: NOTIFY MD IF BP <90/55 OR BP>140/100 O2 SAT: NOTIFY MD IF PO2<93% ON ROOM AIR SEND TELEHEALTH REPORT TO [employer] CEMENT SHEET SUPERVISOR AND CARDIOVASCULAR SURGEON THE FIRST WEEK OF CARE AND THEN BI-WEEKLY. PLEASE ADDITIONALLY COMMUNICATE ANY ABNORMALS AND NEW FINDINGS TO THE SURGEONS OFFICE. Discharge Disposition: HOME WITH HOME HEALTH SERVICES
[2023-12-30 11:13] LABS: Glucose,Whole Blood 78 mg/dL (70-110)
[2023-12-30 11:53] VITALS: BP 131/72; PULSE 86; RESP 17
--- NOTE | 2023-12-30 12:27 | P.PN ---
Subjective HISTORY OF PRESENT ILLNESS: Patient examined this morning. Patient is sitting up in the chair. He denies chest pain or pressure. He denies shortness of breath. Vital signs are stable. Patient is hoping to be discharged today. PHYSICAL EXAM: VITAL SIGNS: Reviewed. GENERAL: Well-developed in no acute distress. NECK: Supple. No JVD or thyromegaly LUNGS: Respirations even and unlabored. Lungs essentially clear to auscultation bilaterally. HEART: Regular rate and rhythm. S1 and S2 heard. EXTREMITIES: Normal range of motion. No clubbing or cyanosis. Peripheral pulses intact. No lower extremity edema ASSESSMENT: Coronary artery disease, status post 5 vessel CABG Peripheral arterial disease Hypertension Hyperlipidemia Diabetes Obstructive sleep apnea Former nicotine dependence Acute kidney injury, improving Transaminitis, improving PLAN: Continue postoperative management per CT surgery Statin discontinued secondary to transaminitis Continue additional cardiac medications Increase activity as tolerated Encourage use of incentive spirometer Patient is stable for discharge home today from a cardiac standpoint He is to follow-up postdischarge in the office Nurse practitioner note has been reviewed by physician. Signing provider agrees with the documented findings, assessment, and plan of care documented by [employer]CH[employer]IC as a scribe. Objective - Vital Signs Vital signs: Vital Signs Temp 97.6 F 12/30/23 09:15 Pulse 86 12/30/23 11:25 Resp 17 12/30/23 11:25 BP 131/72 12/30/23 11:25 Pulse Ox 97 12/30/23 11:25 FiO2 21 12/29/23 08:33 Intake & Output 12/29/23 12/30/23 12/30/23 18:59 06:59 18:59 Intake Total 10 180 Output Total 1 525 Balance -1 -515 180 Weight 100.2 kg Intake: IV 10 0.9 10 Oral 180 Output: Urine 525 Stool 1 Other: Voiding Method Toilet Toilet Toilet Urinal Urinal ABP, PAP, CO, CI - Last Documented Arterial Blood Pressure 134/37 Pulmonary Artery Pressure 31/8 Cardiac Output 5.5 Cardiac Index 2.6 - Labs CBC & Chem 7: 12/30/23 07:16 12/30/23 07:16 Labs: Abnormal Lab Results - Last 24 Hours (Table) 12/25/23 12/29/23 12/29/23 Range/Units 13:14 16:31 20:09 WBC (3.8-10.6) k/uL RBC (4.30-5.90) m/uL Hgb (13.0-17.5) gm/dL Hct (39.0-53.0) % ABG O2 Saturation 98.3 H (94-97) % ABG Hematocrit 24 L (34.0-46.0) % ABG Lactic Acid 1.8 H (0.5-1.6) mmol/L Hemoglobin 7.7 L (13.0-17.5) gm/dL Chloride (98-107) mmol/L Carbon Dioxide (22-30) mmol/L BUN (9-20) mg/dL Glucose (74-99) mg/dL POC Glucose (mg/dL) 186 H 180 H (70-110) mg/dL AST (17-59) U/L ALT (4-49) U/L Total Protein (6.3-8.2) g/dL 12/30/23 12/30/23 12/30/23 Range/Units 06:11 07:16 07:16 WBC 10.8 H (3.8-10.6) k/uL RBC 3.05 L (4.30-5.90) m/uL Hgb 9.1 L (13.0-17.5) gm/dL Hct 26.9 L (39.0-53.0) % ABG O2 Saturation (94-97) % ABG Hematocrit (34.0-46.0) % ABG Lactic Acid (0.5-1.6) mmol/L Hemoglobin (13.0-17.5) gm/dL Chloride 112 H (98-107) mmol/L Carbon Dioxide 19 L (22-30) mmol/L BUN 34 H (9-20) mg/dL Glucose 123 H (74-99) mg/dL POC Glucose (mg/dL) 145 H (70-110) mg/dL AST 308 H (17-59) U/L ALT 558 H (4-49) U/L Total Protein 6.0 L (6.3-8.2) g/dL
--- NOTE | 2023-12-30 12:49 | P.PN ---
Subjective Progress Note Date: 12/30/23 Patient is a 73-year-old white male with past medical history significant for hypertension, hyperlipidemia, diabetes mellitus, obesity, right internal carotid artery occlusion, peripheral arterial disease, colon cancer with previous radiation treatments, prostate cancer with previous radiation, pancreatitis, obstructive sleep apnea not pliant with CPAP, and former tobacco smoker quitting in 1988. His PCP is Dr. Veloz out of [place], [place]. Back on 12/20/2023 he was having new onset substernal chest pain radiating to the left jaw, that developed while sitting and reading a newspaper. There is associated diaphoresis and nausea/vomiting. Patient was initially worked up at [facility], and transferred for suspected non-ST elevation CT 12/21/23. EKG showed ST segment depressions in anterior lateral leads. Troponins were elevated on arrival. Patient did undergo heart catheterization on 12/22/2023 which revealed severe multi-vessel coronary artery disease. There is 80% stenosis of the proximal and also mid to distal portions of the LAD, 80 to 90% stenosis of the mid left circumflex,40 to 50% left main disease. There is a preoperative workup underway for tentative open heart procedure, which is scheduled for . Chest CT did not show any evidence of acute pulmonary process. No evidence of focal consolidation, pneumothorax, or pleural effusions. Patient did have a b edside FEV1 which was 1.82 L or 58% of predicted. Does have remote history of smoking, quitting in 1988 after being hypnotized. 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 No previous diagnosis of lung disease or COPD or asthma. Patient is currently resting comfortably on room air, in no acute distress. Nonlabored breathing. His incentive spirometer is at the bedside. He continues to have nitroglycerin infusion at 15 mics per minute and IV heparin infusion per protocol. Denies any current chest pain. Echocardiogram done yesterday estimated a preserved left ventricular ejection fraction of 50 to 55%. Grade 1 diastolic dysfunction noted. Most recent CBC from yesterday is unremarkable. Most recent APTT subtherapeutic. BMP from yesterday also unremarkable. Hemodynamics are stable. The patient is seen today December 25, 2023 in the intensive care unit shortly after returning from the OR. He had gone undergone an off-pump CABG x 5 with sequential PARKS to the mid diagonal and distal LAD, sequential left radial artery to the first and second obtuse marginal arteries, saphenous vein to the PDA. Ligation of the left atrial appendage. He is on the mechanical ventilator and assist-control mode with a rate of 16, tidal volume 500, FiO2 100% and a PEEP of 8. Blood gases revealed a PaO2 of 329, pCO2 of 45 and a pH of 7.33. He has chest tubes in place, pacer wires in place, Bickmore-Makenzie catheter in the right internal jugular, right radial art line in place. Brice wrap to the left radial surgical site. Bilateral lower extremity Brice wraps. DUNCAN drain to the right lower extremity. He is on a Cardizem drip at 5 mg/h. Cleviprex at 1 mg/h. Amiodarone at 1 mg/min. Lactated Ringer's at 50 MLS per hour. Nitroglycerin drip at 5 mcg/min. Propofol at 40 mcg/kg/min. PA pressure 44/31. Central venous pressure 13. Cardiac output 6.8. Cardiac index 3.2. White count 6.4. Hemoglobin 8.1. Platelets 100,000. Sodium 139. Potassium 3.8. Bicarb 21. BUN 17. Creatinine 0.96. He is initiated on bronchodilators. Heparin for DVT prophylaxis. The patient is seen today December 26, 2023 in follow-up in the intensive care unit. He is currently awake and alert in no acute distress. Sitting up in a chair at the bedside. Maintaining O2 saturations in the 90s on 3 L/min per nasal cannula. This is postoperative day #1 following his coronary bypass grafting x 5. He is currently on lactated Ringer's at 50 MLS per hour. Requiring insulin drip at 2 units/h. On amiodarone drip at 0.5 milligrams per minute. He denies any significant discomfort at this time. He has a mild headache. He remains on bronchodilators. Heparin for DVT prophylaxis. Chest x-ray reviewed post CABG changes with interval extubation. There is residual mild pulmonary vascular congestion. He continues to work well with the incentive spirometer. Chest tubes remain in place. Pacer wires remain in place. Right IJ Bickmore-Makenzie catheter in place. Cardiac output 3.5. Cardiac index 2.6. PA pressures 35/4. CVP of 4. White count 12.1. Hemoglobin 9.7. Platelets 146. Sodium 135. Potassium 4.3. Bicarb 21. BUN 17. Creatinine 0.97. The patient is seen today December 27, 2023 in follow-up in the intensive care unit. He is currently awake and alert in no acute distress. Sitting up in a chair. On room air. He has lactated Ringer's at 20 MLS per hour. Insulin drip at 4 units/h. He is working well with the incentive spirometer. Chest x-ray reveals low lung volumes with generalized hazy appearance most likely atelectasis. White count 8.4. Hemoglobin 7.9. Platelets 124. Sodium 133. Potassium 4.5. Bicarb 22. BUN 28. Creatinine 1.44. Glucose 141. He is continued on bronchodilators. Heparin for DVT prophylaxis. Right internal jugular cordis remains in place. Right radial art line in place. Mediastinal and left chest tubes in place. The patient is seen today December 28, 2023 in follow-up in the intensive care unit. He is currently resting in bed. Awake and alert in no acute distress. He is maintaining good O2 saturations in the 90s on room air. No IV fluids. This is postoperative day #3. He was up to the shower today. He has been up in the [facility] x 2. Chest x-ray is showing minimal atelectatic changes. White count 8.0. Hemoglobin 8.1. Platelets 141. Sodium 131. Potassium 5.1. Bicarb 21. BUN 47. Creatinine 1.65. Glucose 182. AST 1263. ALT 662. Chest tubes, art line, Cordis removed. On 12/29/2023, the patient is being seen for a follow-up. Patient is currently postop day #4. The patient sitting up on a chair. The patient is calm and comfortable and the surgical wound site is dry clean and intact and the patient is currently on room air oxygen with a pulse ox of 95%. Cardiac rhythm is sinus. No respiratory difficulties. Denies having any chest pain. No altered mentation. Using incentive spirometer. Pulling more than 2000. In terms of his blood work, the white cell count is 8.8 with a hemoglobin 8.1 and platelet count of 184. BUN is 41 with a creatinine 1.42 as the patient is recovering from his acute kidney injury. Rest of the electrolytes are all stable and within normal limits. LFTs were elevated and there is also improving. The patient remains on aspirin. The patient remains on Plavix. The patient remains on metoprolol 12.5 mg p.o. twice a day and the patient remains on amiodarone 200 mg p.o. twice a day. No other significant events over the past 24 hours. On today's evaluation of 12/30/2023, I am seeing the patient for a follow-up. The patient is doing well. No specific complaints. On room air oxygen. Using incentive spirometer. Is ambulating. No cough. No sputum production. No chest tightness. No wheezing. He is hemodynamically stable. Repeat chest x- ray from today shows a left-sided pneumothorax. There is small limited bilateral pleural effusion. He continues to have improvement in renal function and creatinine is down to 1.4 with a BUN of 34. Sodium is at 142 with a potassium level of 4.7. WBC count of 10.8 with a hemoglobin 9.1 and a platelet count of 265. Remains on aspirin and Plavix. Remains on Lantus 60 units twice daily along with NovoLog 8 units with meals plus a sliding scale coverage. Anticoagulation was restarted with Xarelto 2.5 mg p.o. twice a day. He is on metoprolol 12.5 mg twice daily and is also on Lipitor 40 mg p.o. daily. He remains on amiodarone 4 mg p.o. daily and metoprolol 12.5 mg p.o. twice a day. He is ambulating. No respiratory difficulties for now. Objective - Vital Signs Vital signs: Vital Signs Temp 97.6 F 12/30/23 09:15 Pulse 99 12/30/23 09:15 Resp 18 12/30/23 09:15 BP 164/71 12/30/23 09:15 Pulse Ox 95 12/30/23 09:15 FiO2 21 12/29/23 08:33 Intake & Output 12/29/23 12/30/23 12/30/23 18:59 06:59 18:59 Intake Total 10 180 Output Total 1 525 Balance -1 -515 180 Weight 100.2 kg Intake: IV 10 0.9 10 Oral 180 Output: Urine 525 Stool 1 Other: Voiding Method Toilet Toilet Toilet Urinal Urinal ABP, PAP, CO, CI - Last Documented Arterial Blood Pressure 134/37 Pulmonary Artery Pressure 31/8 Cardiac Output 5.5 Cardiac Index 2.6 - Exam GENERAL EXAM: Awake, pleasant 73-year-old male patient, on room air, resting in bed, in no apparent distress. HEAD: Normocephalic. EYES: Normal reaction of pupils, equal size. NOSE: Clear with pink turbinates. THROAT: No erythema or exudates. NECK: No masses, no JVD. CHEST: Sternal dressing dry and intact. Heart hugger in place. LUNGS: Equal air entry with no crackles, wheeze, rhonchi or dullness. CVS: S1 and S2 normal with no audible murmur, regular rhythm. ABDOMEN: No hepatosplenomegaly, hypoactive bowel sounds, no guarding or rigidity. SPINE: No scoliosis or deformity SKIN: No rashes CENTRAL NERVOUS SYSTEM: No focal deficits, tone is normal in all 4 extremities. EXTREMITIES: Left radial site clean, dry well-approximated. Bilateral lower extremity Brice wraps. Peripheral pulses are intact. - Labs CBC & Chem 7: 12/30/23 07:16 12/30/23 07:16 Labs: Abnormal Lab Results - Last 24 Hours (Table) 12/25/23 12/29/23 12/29/23 Range/Units 13:14 11:54 16:31 WBC (3.8-10.6) k/uL RBC (4.30-5.90) m/uL Hgb (13.0-17.5) gm/dL Hct (39.0-53.0) % ABG O2 Saturation 98.3 H (94-97) % ABG Hematocrit 24 L (34.0-46.0) % ABG Lactic Acid 1.8 H (0.5-1.6) mmol/L Hemoglobin 7.7 L (13.0-17.5) gm/dL Chloride (98-107) mmol/L Carbon Dioxide (22-30) mmol/L BUN (9-20) mg/dL Glucose (74-99) mg/dL POC Glucose (mg/dL) 133 H 186 H (70-110) mg/dL AST (17-59) U/L ALT (4-49) U/L Total Protein (6.3-8.2) g/dL 06/10/24 06/11/24 06/11/24 Range/Units 20:09 06:11 07:16 WBC (3.8-10.6) k/uL RBC (4.30-5.90) m/uL Hgb (13.0-17.5) gm/dL Hct (39.0-53.0) % ABG O2 Saturation (94-97) % ABG Hematocrit (34.0-46.0) % ABG Lactic Acid (0.5-1.6) mmol/L Hemoglobin (13.0-17.5) gm/dL Chloride 112 H (98-107) mmol/L Carbon Dioxide 19 L (22-30) mmol/L BUN 34 H (9-20) mg/dL Glucose 123 H (74-99) mg/dL POC Glucose (mg/dL) 180 H 145 H (70-110) mg/dL AST 308 H (17-59) U/L ALT 558 H (4-49) U/L Total Protein 6.0 L (6.3-8.2) g/dL 12/30/23 Range/Units 07:16 WBC 10.8 H (3.8-10.6) k/uL RBC 3.05 L (4.30-5.90) m/uL Hgb 9.1 L (13.0-17.5) gm/dL Hct 26.9 L (39.0-53.0) % ABG O2 Saturation (94-97) % ABG Hematocrit (34.0-46.0) % ABG Lactic Acid (0.5-1.6) mmol/L Hemoglobin (13.0-17.5) gm/dL Chloride (98-107) mmol/L Carbon Dioxide (22-30) mmol/L BUN (9-20) mg/dL Glucose (74-99) mg/dL POC Glucose (mg/dL) (70-110) mg/dL AST (17-59) U/L ALT (4-49) U/L Total Protein (6.3-8.2) g/dL Assessment and Plan Plan: Acute non-ST elevation myocardial infarction, post coronary bypass surgery. Currently free of any chest pain the patient is post coronary bypass surgery postop day #5 Multivessel coronary artery disease, status post off-pump coronary artery bypass grafting x 5 with sequential PARKS to mid diagonal and distal LAD, sequential left radial artery to the first and second obtuse marginal arteries, saphenous vein to the PDA and ligation of the left atrial appendage. Postoperative day #5 Acute kidney injury, improving, creatinine is down to 1.1 Postthoracotomy small bilateral pleural effusions, asymptomatic and the patient is breathing comfortably. Transaminitis, likely a component of mild shock liver, and LFTs are also improving History of hypertension Hyperlipidemia Insulin-dependent diabetes mellitus Peripheral arterial disease, with history of bilateral femoral endarterectomies History of totally occluded right ICA stenosis, anticoagulated on Xarelto ou tpatient Obesity, with a BMI of 32.6 kg/m History of obstructive sleep apnea, noncompliant with CPAP Remote history of tobacco dependence, quitting in 1988 Plan: Patient is currently on room air oxygen. Encourage use of incentive spirometer Monitor renal function which is essentially improving Monitor LFTs, improving Continue aspirin and Plavix Continue metoprolol 12.5 mg twice a day Continue amiodarone Anticoagulation with Xarelto Patient is ambulating Will continue to follow. Possible discharge today.
--- NOTE | 2023-12-30 18:26 | P.PN ---
Progress Note - Text Progress Note Date: 12/30/23 71-year-old pleasant male came with complaints of chest pressure-like sensation radiating to the neck along with some shortness of breath. Patient is found to have significant ST-T wave changes in the anterolateral leads. Patient troponin is elevated and needs an upward trend highest being around 2.7. Patient was started on IV heparin patient will undergo cardiac catheterization today patient also had a recent upper respiratory viral illness about a month ago. Patient does have history of cerebrovascular disease and underwent a prior risk of revascularization procedure and bilateral femoral endarterectomy. Patient continues to smoke but trying to quit and cut down significantly. Patient denies any orthopnea paroxysmal nocturnal dyspnea patient does not have any pedal edema not in congestive heart failure exacerbation. 12/23/2023 Patient seen in follow-up today status post cardiac catheterization yesterday and noted to have triple-vessel coronary artery disease and cardiothoracic surgery was consulted for possible CABG eval. Patient currently undergoing further workup and experience some increased chest pain and was started on nitro drip per cardiology this morning. Patient currently on supplemental oxygen of 2 L and reports some shortness of breath with exertion patient reports he does not wear oxygen outpatient. Patient is currently afebrile with incentive spirometer at bedside and encouraged the patient to continue using at least 10 times every hour while awake.. Tentatively scheduled for surgery 12/25/2023 December 24, 2023: Recliner. No chest pain or shortness of breath. Eating fair.-Final plan for coronary bypass tomorrow December 26, 2023: Patient was not seen yesterday at patient going to the OR. Patient was extubated. Sitting up in a chair. Chest tubes in place. On insulin drip. On 2 L nasal cannula. Did take a few steps. Did also stand. Oliver catheter in place. This morning was on clear liquid diet. December 26: Up in a chair. Chest tubes are out. Oliver catheter taken out. Advance today to heart healthy diet at lunch. Breathing better. at the bedside. Was on insulin drip. Will change to Levemir and NovoLog starting from supper. Follow Accu-Cheks. December 27: ICU. Up in a chair. Does not like hospital food. Has passed flatus. Breat radha better. Has family visiting. Accu-Cheks noted. Will gradually increase both Levemir and NovoLog. Patient's AST is gone up to 1263 and ALT also up to 662. Cardiothoracic team earlier stopped her Lipitor. I did call ABD TOBACCO ROLLER from cardiothoracic team and strongly recommended to stop the amiodarone and the Lofibra for now. Patient's creatinine is up to 1.65 if and Toradol was discontinued. December 28: Doing well. Ambulated. at the bedside. LFTs coming down. Accu- Cheks noted. Stay on current dose breathing well. December 29: Doing well. Being discharged by cardiothoracic team. Discussed with the patient, a BNP and the nurse. Patient's Lantus to be cut back to 28 units subcu twice daily and aspart 8 units AC 3 times daily with meals. Patient to keep a log and follow-up with his PCP. Questions answered. LFTs are coming down. Cardiology and cardiothoracic team has been prescribed the antilipid medications. On examination: VITAL SIGNS: 97.6, 99, 18, 131/72, 97% room air GENERAL APPEARANCE: Up in chair, comfortable HEENT: Normal external appearance of nose and ear. Oral cavity normal EYES: Pupils equal. Conjunctiva normal. NECK: JVD not raised. Mass not palpable. RESPIRATORY: Respiratory effort normal. Lungs decreased breath sounds CARDIOVASCULAR: First and second sounds normal. No edema. ABDOMEN: Soft. Liver and spleen not palpable. No tenderness. No mass palpable. PSYCHIATRY: Alert and oriented x3. Mood and affect normal. INVESTIGATIONS, reviewed in the clinical context: December 29: White count 10.8 hemoglobin 9.1 platelets 265 potassium 4.7 creatinine 1.13 AST 308 ALT 558 December 28: White count 8.8 hemoglobin 8.2 platelets 184 potassium 4.2 BUN 41 creatinine 1.42 AST 447 ALT 556 December 27: White count 8 hemoglobin 8.1 sodium 131 potassium 5.5 BUN 47 creatinine 1.65 AST 1263 ALT 662 December 25: White count 12.1 hemoglobin 9.7 platelets 146 sodium 135 potassium 4.3 creatinine 0.97 albumin 3.0 December 24, 2023: White count 6.1 hemoglobin 11.9 platelets 178 Cardiogram: EF 50 to [address]: Moderate to severe coronary atherosclerosis. Severe DJD of the spine Cardiac catheterization: Severe triple-vessel CAD. Calcified right and left coronary system Assessment and plan: -Acute non-ST elevation myocardial infarction: status post cardiac catheterization revealing triple vessel disease -Severe triple-vessel coronary artery disease with calcified right and left coronary systems: Coronary bypass done -Off-pump CABG x 5 with sequential PARKS to mid diagonal and distal LAD, sequential left radial artery to first and second obtuse marginal coronary arter ies, saphenous vein to PDA, ligation of left atrial appendage with 35mm AtriCure clamp, endovascular vein harvest of the greater saphenous vein from the right lower extremity from ankle to groin, endovascular radial harvest from the left forearm. December 24: Dr. Bah -Acute hepatitis. Likely drug-induced: Improving Amiodarone Tricor Lipitor as per cardiothoracic and cardiothoracic team. Should have labs repeated at his next follow-up visit -Acute kidney injury likely ATN.: Improvement Patient had received Toradol. Discontinued. -Severe peripheral vascular disease Aspirin. Lipitor -Acute postprocedure blood loss anemia expected from surgery ferrous sulfate -Hypoalbuminemia, reactive -Dilutional thrombocytopenia Follow -Type 2 diabetes mellitus, chronically on insulin Levemir and Humalog scheduled with meals. -Hyperlipidemia Lipitor-hold for now -Hypertension Amlodipine Lopressor -PTSD/depression effexor -Insomnia Trazodone -obesity with a bmi of 30.1 -Full code Discussed with patient. Questions answered.
[2023-12-30] MEDS ORDERED: PRAZOSIN 1 MG CAP PO SCH (21:00)
== END 2023-12-30 12:19 | disposition home health service (06) | DRG 233 ==
LOC: EC 21:19 → 3SCARD 22:48 → 2SICU 12-25 05:56 → 3SCARD 12-29 18:01
PROVIDERS: ADMIT Thoracic Surgery (Cardiothoracic Vascular Surgery); ATTEND Thoracic Surgery (Cardiothoracic Vascular Surgery)
PROC: B2111ZZ Fluoroscopy of Multiple Coronary Arteries using Low Osmolar Contrast (ICD-10-PCS; 2023-12-22)
PROC: 4A033BC Measurement of Arterial Pressure, Coronary, Percutaneous Approach (ICD-10-PCS; 2023-12-22)
PROC: 4A023N7 Measurement of Cardiac Sampling and Pressure, Left Heart, Percutaneous Approach (ICD-10-PCS; 2023-12-22 13:30)
PROC: 02L70CK Occlusion of Left Atrial Appendage with Extraluminal Device, Open Approach (ICD-10-PCS; 2023-12-25)
PROC: B246ZZ4 Ultrasonography of Right and Left Heart, Transesophageal (ICD-10-PCS; 2023-12-25)
PROC: 5A1221Z Performance of Cardiac Output, Continuous (ICD-10-PCS; 2023-12-25)
PROC: 02HV33Z Insertion of Infusion Device into Superior Vena Cava, Percutaneous Approach (ICD-10-PCS; 2023-12-25)
PROC: 4A133B1 Monitoring of Arterial Pressure, Peripheral, Percutaneous Approach (ICD-10-PCS; 2023-12-25)
PROC: 4A133J1 Monitoring of Arterial Pulse, Peripheral, Percutaneous Approach (ICD-10-PCS; 2023-12-25)
PROC: 03HY32Z Insertion of Monitoring Device into Upper Artery, Percutaneous Approach (ICD-10-PCS; 2023-12-25)
PROC: 02100Z9 Bypass Coronary Artery, One Artery from Left Internal Mammary, Open Approach (ICD-10-PCS; principal; 2023-12-25 08:00)
PROC: 06BP4ZZ Excision of Right Saphenous Vein, Percutaneous Endoscopic Approach (ICD-10-PCS; 2023-12-25 08:00)
PROC: 05BA4ZZ Excision of Left Brachial Vein, Percutaneous Endoscopic Approach (ICD-10-PCS; 2023-12-25 08:00)
DX: I21.4 Non-ST elevation (NSTEMI) myocardial infarction (principal); K72.00 Acute and subacute hepatic failure without coma; N17.0 Acute kidney failure with tubular necrosis; D62 Acute posthemorrhagic anemia; B17.9 Acute viral hepatitis, unspecified; J98.11 Atelectasis; J44.0 Chronic obstructive pulmonary disease with (acute) lower respiratory infection; I48.92 Unspecified atrial flutter; F43.10 Post-traumatic stress disorder, unspecified; G47.33 Obstructive sleep apnea (adult) (pediatric); I10 Essential (primary) hypertension; I65.29 Occlusion and stenosis of unspecified carotid artery; I25.10 Atherosclerotic heart disease of native coronary artery without angina pectoris; F41.9 Anxiety disorder, unspecified; G47.00 Insomnia, unspecified; I65.21 Occlusion and stenosis of right carotid artery; D69.59 Other secondary thrombocytopenia; I44.0 Atrioventricular block, first degree; X58.XXXA Exposure to other specified factors, initial encounter; R74.01 Elevation of levels of liver transaminase levels; T46.6X5A Adverse effect of antihyperlipidemic and antiarteriosclerotic drugs, initial encounter; E11.51 Type 2 diabetes mellitus with diabetic peripheral angiopathy without gangrene; E66.9 Obesity, unspecified; Z68.30 Body mass index [BMI] 30.0-30.9, adult; E78.5 Hyperlipidemia, unspecified; E88.09 Other disorders of plasma-protein metabolism, not elsewhere classified; F32.A Depression, unspecified; H91.90 Unspecified hearing loss, unspecified ear; I25.2 Old myocardial infarction; I48.91 Unspecified atrial fibrillation; Z68.32 Body mass index [BMI] 32.0-32.9, adult; Z79.01 Long term (current) use of anticoagulants; Z79.02 Long term (current) use of antithrombotics/antiplatelets; Z79.4 Long term (current) use of insulin; Z79.82 Long term (current) use of aspirin; Z79.899 Other long term (current) drug therapy; Z85.038 Personal history of other malignant neoplasm of large intestine; Z92.3 Personal history of irradiation; Z86.19 Personal history of other infectious and parasitic diseases; Z91.199 Patient's noncompliance with other medical treatment and regimen due to unspecified reason; N64.4 Mastodynia; M47.9 Spondylosis, unspecified; Z87.891 Personal history of nicotine dependence; Z88.8 Allergy status to other drugs, medicaments and biological substances; Z85.46 Personal history of malignant neoplasm of prostate
CPT/HCPCS: 36415; 36600; 71045; 71046; 71250; 76937; 80048; 80053; 80061; 80074; 81001; 82272; 82330; 82805; 83036; 83735; 84439; 84443; 84484; 85025; 85027; 85610; 85730; 86850; 86900; 86901; 86920; 87070; 93005; 93306; 93458; 93799; 93880; 93923; 93970; 94002; 94150; 94640; 96365; 96366; 96375; 99291

== ENCOUNTER 2025-01-27 11:26 | Emergency (ER) | payer OTHER ==
--- NOTE | 2025-01-27 12:28 | ED ---
General Adult HPI - General Chief complaint: Chest Pain Stated complaint: Chest pain Time Seen by Provider: 01/27/25 11:32 Source: patient Mode of arrival: ambulatory Limitations: no limitations - History of Present Illness Initial comments: Dictation was produced using [employer] dictation software. please excuse any grammatical, word or spelling errors. Chief Complaint: 75-year-old male with total body pain History of Present Illness: 75-year-old male with extensive comorbidities presents to the ER for total body pain. Patient states he has been having total body pain for the last week and a half. Presents with and son. Patient states that whenever he walks around he gets pain throughout his whole body. States that his legs especially his right leg seems to hurt more. States that he feels stuffy has had some diarrhea which has been slowly improving. States his diarrhea was watery. Patient reports having had Some constitutional symptoms in the last few nights. Denies any cough. No urinary symptoms. The ROS documented in this emergency department record has been reviewed and confirmed by me. Those systems with pertinent positive or negative responses have been documented in the HPI. All other systems are other negative and/or noncontributory. - Related Data Home Medications Medication Instructions Recorded Confirmed Insulin Glargine,Hum.rec.anlog 60 unit SQ BID 09/20/17 12/22/23 [Lantus Solostar Pen] Multivitamins, Thera [Multivitamin 1 tab PO DAILY 09/20/17 12/22/23 (formulary)] Venlafaxine HCl [Effexor XR] 300 mg PO DAILY 09/20/17 12/22/23 Atorvastatin Calcium [Lipitor] 40 mg PO DAILY 12/22/23 12/22/23 Cholecalciferol [Vitamin D3 (25 50 mcg PO DAILY 12/22/23 12/22/23 Mcg = 1000 Iu)] Mirtazapine 30 mg PO HS 12/22/23 12/22/23 Prazosin [Minipress] 10 mg PO HS 12/22/23 12/22/23 Rivaroxaban [Xarelto] 2.5 mg PO BID 12/22/23 12/22/23 amLODIPine [Norvasc] 10 mg PO DAILY 12/22/23 12/22/23 traZODone HCL 100 mg PO HS 12/22/23 12/22/23 Previous Rx's Medication Instructions Recorded Fenofibrate Nanocrystallized 145 mg PO DAILY #30 tablet 09/21/17 [Tricor] Acetaminophen Tab [Tylenol] 650 mg PO Q4HR PRN tab 12/30/23 Albuterol Sulfate [Albuterol 2 puff PO Q6H 30 Days #8.5 gm 12/30/23 Sulfate Hfa] Amiodarone [Cordarone] 400 mg PO DAILY #14 tab 12/30/23 Artificial Tears-Hypromellose 1 drops BOTH EYES TID PRN ml 12/30/23 [Artificial Tear Drops] Aspirin 81 mg PO DAILY #30 tab 12/30/23 Insulin Aspart [Insulin Aspart 8 unit SQ AC-BID@1200,1800 #0 12/30/23 Flexpen] Insulin Aspart [Insulin Aspart 8 unit SQ AC-BRKFST #0 12/30/23 Flexpen] Metoprolol Tartrate [Lopressor] 12.5 mg PO BID #60 tab 12/30/23 Pantoprazole [Protonix] 40 mg PO AC-BRKFST #30 tab 12/30/23 Sennosides-Docusate Sodium 2 each PO HS PRN tab 12/30/23 [Senokot-S] Metoprolol Tartrate 25 mg PO BID #60 tab 01/01/24 Ondansetron Odt [Zofran Odt] 4 mg PO Q8HR PRN #12 tab 01/27/25 Allergies Allergy/AdvReac Type Severity Reaction Status Date / Time pioglitazone Allergy Unknown Verified 01/27/25 11:30 atorvastatin [From Lipitor] AdvReac muscle pain Verified 01/27/25 11:30 lisinopril AdvReac Cough Verified 01/27/25 11:30 metformin AdvReac Nausea & Verified 01/27/25 11:30 Vomiting & Diarrhea Review of Systems ROS Statement: Those systems with pertinent positive or pertinent negative responses have been documented in the HPI. ROS Other: All systems not noted in ROS Statement are negative. Past Medical History Past Medical History: Cancer, Diabetes Mellitus, Hearing Disorder / Deafness, Hyperlipidemia, Hypertension, Osteoarthritis (OA), Sleep Apnea/CPAP/BIPAP, Vascular Disorder Additional Past Medical History / Comment(s): History of pancreatitis History of Any Multi-Drug Resistant Organisms: None Reported Past Surgical History: Cholecystectomy Additional Past Surgical History / Comment(s): History of bilateral femoral endarterectomies, history of cataract surgery to his bilateral eyes Past Anesthesia/Blood Transfusion Reactions: No Reported Reaction Past Psychological History: PTSD Smoking Status: Former smoker Past Alcohol Use History: None Reported Past Drug Use History: Marijuana - Past Family History Mother Family Medical History: Dementia, Diabetes Mellitus Father Family Medical History: COPD Sister(s) Family Medical History: Cancer General Exam - General Exam Comments Initial Comments: PHYSICAL EXAM: General Impression: Alert and oriented x3, not in acute distress HEENT: Normocephalic atraumatic, extra-ocular movements intact, pupils equal and reactive to light bilaterally, mucous membranes moist. Cardiovascular: Heart regular rate and rhythm Chest: Able to complete full sentences, no retractions, no tachypnea Abdomen: abdomen soft, non-tender, non-distended, no organomegaly Musculoskeletal: Pulses present and equal in all extremities, no peripheral edema Motor: no focal deficits noted Neurological: CN II-XII grossly intact, no focal motor or sensory deficits noted Skin: Intact with no visualized rashes Psych: Normal affect and mood Limitations: no limitations Course Vital Signs 01/27/25 01/27/25 01/27/25 11:27 11:58 13:21 Temperature 97.9 F Pulse Rate 82 86 89 Respiratory 20 18 16 Rate Blood Pressure 170/78 166/85 180/84 O2 Sat by Pulse 98 99 98 Oximetry EKG Findings - EKG Comments: EKG Findings:: My EKG interpretation: Ventricular rate 83, sinus rhythm,. 1 200, QRS 99, QTc 4 1. No KS prolongation, no QTC prolongation, no ST or T-wave changes noted. Overall, this EKG is unremarkable Medical Decision Making - Medical Decision Making Was pt. sent in by a medical professional or institution (, PA, [employer]ER [employer]ER, urgent care, hospital, or [facility]...) When possible be specific @ -No Did you speak to anyone other than the patient for history (EMS, parent, family, police, friend...)? What history was obtained from this source @ -No Did you review nursing and triage notes (agree or disagree)? Why? @ -I reviewed and agree with nursing and triage notes Were old charts reviewed (outside hosp., previous admission, EMS record, old EKG, old radiological studies, urgent care reports/EKG's, [facility] records)? Report findings @ -No old charts were reviewed Differential Diagnosis (chest pain, altered mental status, abdominal pain women, abdominal pain men, vaginal bleeding, musculoskeletal, weakness, fever, dyspnea, syncope, headache, dizziness, GI bleed, back pain, seizure, CVA, palpatations, mental health)? @ -Myalgias, gastroenteritis, rhinitis EKG interpreted by me (3pts min.). @ -See above X-rays interpreted by me (1pt min.). @ -Chest x-ray is nonacute CT interpreted by me (1pt min.). @ -None done U/S interpreted by me (1pt. min.). @ -None done What testing was considered but not performed or refused? (CT, X-rays, U/S, labs)? Why? @ -None What meds were considered but not given or refused? Why? @ -None Was smoking cessation discussed for >3mins.? @ -No Were there social determinants of health that impacted care today? How? (Homelessness, low income, unemployed, alcoholism, drug addiction, transportation, low edu. Level, literacy, decrease access to med. care, halfway, rehab)? @ -No Was there de-escalation of care discussed even if they declined (Discuss DNR or withdrawal of care, Hospice)? DNR status @ -No What co-morbidities impacted this encounter? (DM, HTN, Smoking, COPD, CAD, Cancer, CVA, ARF, Chemo, Hep., AIDS, mental health diagnosis, sleep apnea, morbid obesity)? @ -Cancer, diabetes, hypertension, dyslipidemia Was patient admitted / discharged? Hospital course, mention meds given and rou te, prescriptions, significant lab abnormalities, going to OR and other pertinent info. @ -75-year-old male presents to the emergency department for diffuse myalgias, intermittent enteritis type symptoms with nausea and diarrhea. Vital signs stable. Patient well-appearing. He does not have any focal pain. EKG is unremarkable. Laboratory evaluation is within acceptable limits. Urinalysis negative. Viral testing is negative. Patient reevaluated at the bedside found to be stable condition. He is told to follow-up closely with his primary care doctor. Return precautions discussed. This point patient likely experiencing myalgias diarrhea secondary to viral enteritis. Did you discuss the management of the patient with other professionals (professionals i.e. , PA, SE[employer]ER CLE[employer]ER, lab, RT, psych nurse, group social worker, software developer mid level, teacher, preventive medicine officer, employment case manager)? Give summary @ -No Was critical care preformed (if so, how long)? @ -No Undiagnosed new problem with uncertain prognosis? @ -No Drug Therapy requiring intensive monitoring for toxicity (Heparin, Nitro, Insulin, Cardizem)? @ -No Were any procedures done? @ -No Diagnosis/symptom? Acute, or Chronic, or Acute on Chronic? Uncomplicated (without systemic symptoms) or Complicated (systemic symptoms)? @ -Viral enteritis Side effects of treatment? @ -No Exacerbation, Progression, or Severe Exacerbation? @ -No Poses a threat to life or bodily function? How? (Chest pain, [place], [place], pneumonia, PE, COPD, DKA, ARF, appy, cholecystitis, CVA, Diverticulitis, Homicidal, Suicidal, threat to staff... and all critical care pts) @ -No - Lab Data Result diagrams: 01/27/25 12:18 01/27/25 12:18 Lab Results 01/27/25 01/27/25 01/27/25 Range/Units 12:18 12:18 12:40 WBC 8.70 (4.50-10.00) 10*3/uL RBC 4.63 (4.40-5.60) 10*6/uL Hgb 14.0 (13.0-17.0) g/dL Hct 41.0 (39.6-50.0) % MCV 88.6 (80.0-97.0) fL MCH 30.2 (27.0-32.0) pg MCHC 34.1 (32.0-37.0) g/dL Plt Count 251 (140-440) 10*3/uL MPV 10.2 (9.5-12.2) fL Immature Gran % (Auto) 0.2 % Neutrophils % 65.6 % Lymphocytes % 20.6 % Monocytes % 9.2 % Eosinophils % 3.9 % Basophils % 0.5 % Immature Gran # 0.02 (0.00-0.04) 10*3/uL Neutrophils # 5.71 (1.80-7.70) 10*3/uL Lymphocytes # 1.79 (0.90-5.00) 10*3/uL Monocytes # 0.80 (0.20-1.00) 10*3/uL Eosinophils # 0.34 (0.04-0.35) 10*3/uL Basophils # 0.04 (0.00-0.10) 10*3/uL Sodium 141 (137-145) mmol/L Potassium 4.6 (3.5-5.1) mmol/L Chloride 110 H (98-107) mmol/L Carbon Dioxide 21 L (22-30) mmol/L Anion Gap 10 mmol/L BUN 19 (9-20) mg/dL Creatinine 1.15 (0.66-1.25) mg/dL Est GFR (CKD-EPI)AfAm 73 (>60 ml/min/1.73 sqM) Est GFR (CKD-EPI)NonAf 63 (>60 ml/min/1.73 sqM) Glucose 174 H (74-99) mg/dL Plasma Lactic Acid Jd 1.6 (0.7-2.0) mmol/L Calcium 9.6 (8.4-10.2) mg/dL Magnesium 1.8 (1.6-2.3) mg/dL Total Bilirubin 0.6 (0.2-1.3) mg/dL AST 39 (17-59) U/L ALT 41 (4-49) U/L Alkaline Phosphatase 98 (38-126) U/L Total Protein 6.4 (6.3-8.2) g/dL Albumin 4.1 (3.5-5.0) g/dL Urine Color Urine Appearance (Clear) Urine pH (5.0-8.0) Ur Specific [place] (1.001-1.035) Urine Protein (Negative) Urine Glucose (UA) (Negative) Urine Ketones (Negative) Urine Blood (Negative) Urine Nitrite (Negative) Urine Bilirubin (Negative) Urine Urobilinogen (<2.0) mg/dL Ur Leukocyte Esterase (Negative) Influenza Type A (PCR) (Not Detectd) Influenza Type B (PCR) (Not Detectd) RSV (PCR) (Not Detectd) SARS-CoV-2 (PCR) (Not Detectd) 01/27/25 01/27/25 Range/Units 12:41 13:23 WBC (4.50-10.00) 10*3/uL RBC (4.40-5.60) 10*6/uL Hgb (13.0-17.0) g/dL Hct (39.6-50.0) % MCV (80.0-97.0) fL MCH (27.0-32.0) pg MCHC (32.0-37.0) g/dL Plt Count (140-440) 10*3/uL MPV (9.5-12.2) fL Immature Gran % (Auto) % Neutrophils % % Lymphocytes % % Monocytes % % Eosinophils % % Basophils % % Immature Gran # (0.00-0.04) 10*3/uL Neutrophils # (1.80-7.70) 10*3/uL Lymphocytes # (0.90-5.00) 10*3/uL Monocytes # (0.20-1.00) 10*3/uL Eosinophils # (0.04-0.35) 10*3/uL Basophils # (0.00-0.10) 10*3/uL Sodium (137-145) mmol/L Potassium (3.5-5.1) mmol/L Chloride (98-107) mmol/L Carbon Dioxide (22-30) mmol/L Anion Gap mmol/L BUN (9-20) mg/dL Creatinine (0.66-1.25) mg/dL Est GFR (CKD-EPI)AfAm (>60 ml/min/1.73 sqM) Est GFR (CKD-EPI)NonAf (>60 ml/min/1.73 sqM) Glucose (74-99) mg/dL Plasma Lactic Acid Jd (0.7-2.0) mmol/L Calcium (8.4-10.2) mg/dL Magnesium (1.6-2.3) mg/dL Total Bilirubin (0.2-1.3) mg/dL AST (17-59) U/L ALT (4-49) U/L Alkaline Phosphatase (38-126) U/L Total Protein (6.3-8.2) g/dL Albumin (3.5-5.0) g/dL Urine Color Yellow Urine Appearance Clear (Clear) Urine pH 5.0 (5.0-8.0) Ur Specific [place] 1.021 (1.001-1.035) Urine Protein Negative (Negative) Urine Glucose (UA) Trace H (Negative) Urine Ketones Negative (Negative) Urine Blood Negative (Negative) Urine Nitrite Negative (Negative) Urine Bilirubin Negative (Negative) Urine Urobilinogen <2.0 (<2.0) mg/dL Ur Leukocyte Esterase Negative (Negative) Influenza Type A (PCR) Not Detected (Not Detectd) Influenza Type B (PCR) Not Detected (Not Detectd) RSV (PCR) Not Detected (Not Detectd) SARS-CoV-2 (PCR) Not Detected (Not Detectd) Disposition Clinical Impression: Enteritis Disposition: HOME SELF-CARE Condition: Fair Instructions (If sedation given, give patient instructions): Gastroenteritis (ED) Prescriptions: Ondansetron Odt [Zofran Odt] 4 mg PO Q8HR PRN #12 tab PRN Reason: Nausea Is patient prescribed a controlled substance at d/c from ED?: No If prescribed controlled substance>3 days was MAPS reviewed?: Prescribed <3 Days Referrals: None,Stated [Primary Care Provider] - 1-2 days Time of Disposition: 14:01
--- NOTE | 2025-01-27 13:21 | XR ---
EXAMINATION TYPE: XR chest 2V DATE OF EXAM: 01/27/2025 1:00 PM COMPARISON: Chest radiographs from 12/30/2023. CLINICAL INDICATION: Male, 75 years old with history of constitutional symptoms; [facility] TECHNIQUE: XR chest 2V Frontal and lateral views of the chest. FINDINGS: Lungs/Pleura: There is no evidence of pleural effusion, focal consolidation, or pneumothorax. Pulmonary vascularity: Unremarkable. Heart/mediastinum: Cardiomediastinal silhouette is unremarkable. Left atrial appendage occlusion cayla ce is present. Musculoskeletal: No acute osseous pathology. Midline sternotomy wires are noted. Other findings: None IMPRESSION: No acute cardiopulmonary disease/process. [facility], , 01/27/2025 1:19 PM
[2025-01-27 13:22] LABS: RSV Not Detected (Not Detectd)
[2025-01-27 13:23] VITALS: RESP 16
[2025-01-27 13:23] LABS: Basophils # (A) 0.04 10*3/uL (0.00-0.10); Basophils % (A) 0.5 %; Eosinophils # (A) 0.34 10*3/uL (0.04-0.35); Eosinophils % (A) 3.9 %; HCT 41.0 % (39.6-50.0); HGB 14.0 g/dL (13.0-17.0); Lymphocytes # (A) 1.79 10*3/uL (0.90-5.00); Lymphocytes % (A) 20.6 %; MCH 30.2 pg (27.0-32.0); MCHC 34.1 g/dL (32.0-37.0); MCV 88.6 fL (80.0-97.0); Monocytes # (A) 0.80 10*3/uL (0.20-1.00); Monocytes % (A) 9.2 %; Neutrophils # (A) 5.71 10*3/uL (1.80-7.70); Neutrophils % (A) 65.6 %; Platelet Count 251 10*3/uL (140-440); RBC 4.63 10*6/uL (4.40-5.60); RDW 12.8 % (11.5-14.5); WBC 8.70 10*3/uL (4.50-10.00)
[2025-01-27 13:29] LABS: ALT 41 U/L (4-49); AST 39 U/L (17-59); African American GFR (CKD) 73 (>60 ml/min/1.73 sqM); Albumin 4.1 g/dL (3.5-5.0); Alkaline Phosphatase 98 U/L (38-126); Anion Gap 10 mmol/L; Blood Urea Nitrogen 19 mg/dL (9-20); Calcium 9.6 mg/dL (8.4-10.2); Carbon Dioxide 21 mmol/L (22-30); Chloride 110 mmol/L (98-107); Glucose 174 mg/dL (74-99); Magnesium 1.8 mg/dL (1.6-2.3); Non-African American GFR(CKD) 63 (>60 ml/min/1.73 sqM); Potassium 4.6 mmol/L (3.5-5.1); Sodium 141 mmol/L (137-145); Total Protein 6.4 g/dL (6.3-8.2)
[2025-01-27 13:36] LABS: Bilirubin,Urine Negative (Negative); Blood,Urine Negative (Negative); Color,Urine Yellow; Glucose,Urine (UA) Trace (Negative); Ketones,Urine Negative (Negative); Leukocyte Esterase,Urine Negative (Negative); Nitrite,Urine Negative (Negative); PH, Urine 5.0 (5.0-8.0); Protein,Urine Negative (Negative); Specific Gravity,Urine 1.021 (1.001-1.035); Urobilinogen,Urine <2.0 mg/dL (<2.0)
[2025-01-27 14:09] VITALS: BP 169/76; PULSE 92; TEMP 98.1
[2025-01-27] MEDS: ONDANSETRON 4 MG ODT STARTER PACK 2 TAB BTL PO STA (14:09)
[2025-01-27] MEDS: DIPHENOX-ATROP STARTER PACK 8 TAB BTL PO STA (14:09)
== END 2025-01-27 14:17 | disposition home or self-care (01) ==
LOC: EC 11:26
DX: K52.9 Noninfective gastroenteritis and colitis, unspecified (principal); I10 Essential (primary) hypertension; E11.9 Type 2 diabetes mellitus without complications; E78.5 Hyperlipidemia, unspecified; Z85.9 Personal history of malignant neoplasm, unspecified; Z87.891 Personal history of nicotine dependence; Z88.5 Allergy status to narcotic agent; Z88.8 Allergy status to other drugs, medicaments and biological substances
CPT/HCPCS: 36415; 93005; 80053; 83605; 83735; 85025; 81003; 87040; 87636; 71046; 99285; S0119